=== PATIENT | male | born 1960 | race American Indian/Alaskan Native ===

== ENCOUNTER 2017-04-15 04:25 | Emergency (ER) | payer MEDICARE | END 2017-04-15 04:30 | disposition left against medical advice (07) | LOC: ED 04:25 | DX: R06.02 Shortness of breath (principal); Z53.21 Procedure and treatment not carried out due to patient leaving prior to being seen by health care provider ==

== ENCOUNTER 2018-09-03 22:38 | Inpatient (IN) | payer MEDICARE ==
[2018-09-03] MEDS ORDERED: PROVENTIL IH ONE (22:46)
[2018-09-03] MEDS ORDERED: ATROVENT IH ONE (22:46)
[2018-09-03] MEDS ORDERED: MORPHINE IM ONE (22:57)
[2018-09-03] MEDS ORDERED: MORPHINE IV ONE (22:57)
[2018-09-03] MEDS ORDERED: ZOFRAN IV ONE (22:57)
--- NOTE | 2018-09-03 22:57 | Emergency Department Report ---
ED Shortness of Breath HPI - General Chief Complaint: Dyspnea/Respdistress Stated Complaint: GAVI Time Seen by Provider: 09/03/18 22:45 Source: patient Mode of arrival: Stretcher Limitations: No Limitations - History of Present Illness Initial Comments: Mr. Miller is a 58 yo male with hx of COPD oxygen dependent on 2 L who presents with shortness of breath for one day. He turned up his oxygen to 3-4 LPM this evening. He feels as a squeezing sensation around his neck. Oxygen saturation was normal according to EMS. He received magnesium Solu-Medrol and 7.5 mg of albuterol prior to arrival. He was last admitted 1-2 months ago and in the hospital. 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 He has been intubated before on previous occasion. He denies discrete pain. He has productive cough which is mild according to his report. MD Complaint: shortness of breath -: Gradual, days(s) (1) Severity: moderate Consistency: constant Improves With: bronchodilators, upright position Known History Of: COPD Associated Symptoms: denies other symptoms - Related Data Home Medications Medication Instructions Recorded Confirmed Last Taken Albuterol Sulfate [Ventolin HFA] 2 puff IH Q4H PRN 03/03/17 03/28/17 Unknown Aspirin [Adult Low Dose Aspirin EC] 81 mg PO DAILY 03/03/17 03/28/17 03/03/17 Baclofen [Lioresal] 10 mg PO TID 03/03/17 03/28/17 03/03/17 Gabapentin [Neurontin] 300 mg PO Q8HR 03/03/17 03/28/17 03/03/17 Hydralazine HCl [Apresoline TAB] 50 mg PO Q8HR 03/03/17 03/28/17 03/03/17 Lisinopril/Hydrochlorothiazide 2 tab PO QDAY 03/03/17 03/28/17 03/03/17 [Zestoretic 20-12.5 mg] Montelukast [Singulair] 10 mg PO QPM 03/03/17 03/28/17 03/02/17 Terbinafine (Nf) [LamiSIL] 250 mg PO QDAY 03/03/17 03/28/17 03/03/17 amLODIPine [Norvasc] 5 mg PO DAILY 03/03/17 03/28/17 03/03/17 hydroCHLOROthiazide [HCTZ] 25 mg PO QDAY 03/03/17 03/28/17 03/03/17 Previous Rx's Medication Instructions Recorded Last Taken Type Tiotropium [Spiriva] 18 mcg IH QDAY #30 box 09/22/16 Unknown Rx Acetaminophen [Acetaminophen TAB] 325 mg PO Q4H PRN #30 tab 03/06/17 Unknown Rx Azithromycin [Zithromax TAB] 250 mg PO QDAY #2 day 03/06/17 Unknown Rx Ipratropium/Albuterol Sulfate 1 ampul IH TIDRT PRN #30 day 03/06/17 Unknown Rx [DUONEB *Not for PRN Use*] Pantoprazole [Protonix TAB] 40 mg PO QDAY #30 tablet 03/06/17 Unknown Rx methylPREDNISolone [Medrol Dose 1 dose PO DAILY #1 pack 03/06/17 Unknown Rx Jaylan] Prednisone [predniSONE 10 mg 10 mg PO .TAPER #1 tab.ds.pk 03/31/17 Unknown Rx (6-Day Pack, 21 Tabs)] levoFLOXacin [Levaquin TAB] 750 mg PO DAILY #5 tablet 03/31/17 Unknown Rx Albuterol Sulfate [Proair 90 mcg IH Q4HR PRN #2 aer.pow.ba 04/02/18 Unknown Rx Respiclick] EPINEPHrine [Epipen 2-Jaylan] 0.3 mg IM DAILY PRN #2 ml 04/02/18 Unknown Rx Ipratropium [place] [Atrovent Hfa] 12.9 gm IH Q4HR #2 hfa.aer.ad 04/02/18 Unknown Rx diphenhydrAMINE [Benadryl] 50 mg PO Q8HR PRN #20 capsule 04/02/18 Unknown Rx predniSONE [Deltasone] 40 mg PO QDAY #8 tab 04/02/18 Unknown Rx Allergies Allergy/AdvReac Type Severity Reaction Status Date / Time No Known Allergies Allergy Unverified 03/11/13 21:45 ED Review of Systems ROS: Stated complaint: GAVI Other details as noted in HPI Comment: Unobtainable due to pts medical conditions Constitutional: malaise. denies: fever Respiratory: cough, shortness of breath, wheezing ED Past Medical Hx - Past Medical History Previous Medical History?: Yes Hx Hypertension: Yes Hx Heart Attack/AMI: No Hx Congestive Heart Failure: No Hx Diabetes: No Hx Deep Vein Thrombosis: No Hx Pulmonary Embolism: No Hx Sickle Cell Disease: No Hx Arthritis: No Hx Seizures: Yes Hx Kidney Stones: Yes Hx Asthma: Yes Hx COPD: Yes Hx Tuberculosis: No Hx HIV: No - Surgical History Past Surgical History?: Yes Hx Coronary Stent: No Hx Open Heart Surgery: No Hx Pacemaker: No Hx Internal Defibrillator: No Hx Cholecystectomy: No Hx Appendectomy: No Hx Breast Surgery: No Additional Surgical History: rt eye surgery,head surgery - Social History Smoking Status: Former Smoker - Medications Home Medications: Home Medications Medication Instructions Recorded Confirmed Last Taken Type Tiotropium [Spiriva] 18 mcg IH QDAY #30 box 09/22/16 03/28/17 Unknown Rx Albuterol Sulfate [Ventolin HFA] 2 puff IH Q4H PRN 03/03/17 03/28/17 Unknown History Aspirin [Adult Low Dose Aspirin EC] 81 mg PO DAILY 03/03/17 03/28/17 03/03/17 History Baclofen [Lioresal] 10 mg PO TID 03/03/17 03/28/17 03/03/17 History Gabapentin [Neurontin] 300 mg PO Q8HR 03/03/17 03/28/17 03/03/17 History Hydralazine HCl [Apresoline TAB] 50 mg PO Q8HR 03/03/17 03/28/17 03/03/17 History Lisinopril/Hydrochlorothiazide 2 tab PO QDAY 03/03/17 03/28/17 03/03/17 History [Zestoretic 20-12.5 mg] Montelukast [Singulair] 10 mg PO QPM 03/03/17 03/28/17 03/02/17 History Terbinafine (Nf) [LamiSIL] 250 mg PO QDAY 03/03/17 03/28/17 03/03/17 History amLODIPine [Norvasc] 5 mg PO DAILY 03/03/17 03/28/17 03/03/17 History hydroCHLOROthiazide [HCTZ] 25 mg PO QDAY 03/03/17 03/28/17 03/03/17 History Acetaminophen [Acetaminophen TAB] 325 mg PO Q4H PRN #30 tab 03/06/17 03/28/17 Unknown Rx Azithromycin [Zithromax TAB] 250 mg PO QDAY #2 day 03/06/17 03/28/17 Unknown Rx Ipratropium/Albuterol Sulfate 1 ampul IH TIDRT PRN #30 day 03/06/17 03/28/17 Unknown Rx [DUONEB *Not for PRN Use*] Pantoprazole [Protonix TAB] 40 mg PO QDAY #30 tablet 03/06/17 03/28/17 Unknown Rx methylPREDNISolone [Medrol Dose 1 dose PO DAILY #1 pack 03/06/17 03/28/17 Unknown Rx Jaylan] Prednisone [predniSONE 10 mg 10 mg PO .TAPER #1 tab.ds.pk 03/31/17 Unknown Rx (6-Day Pack, 21 Tabs)] levoFLOXacin [Levaquin TAB] 750 mg PO DAILY #5 tablet 03/31/17 Unknown Rx Albuterol Sulfate [Proair 90 mcg IH Q4HR PRN #2 aer.pow.ba 04/02/18 Unknown Rx Respiclick] EPINEPHrine [Epipen 2-Jaylan] 0.3 mg IM DAILY PRN #2 ml 04/02/18 Unknown Rx Ipratropium [place] [Atrovent Hfa] 12.9 gm IH Q4HR #2 hfa.aer.ad 04/02/18 Unknown Rx diphenhydrAMINE [Benadryl] 50 mg PO Q8HR PRN #20 capsule 04/02/18 Unknown Rx predniSONE [Deltasone] 40 mg PO QDAY #8 tab 04/02/18 Unknown Rx ED Physical Exam - General Limitations: No Limitations General appearance: alert, in no apparent distress, other (speaking full sentences with mild effort) - Head Head exam: Present: atraumatic, normocephalic - Eye Eye exam: Present: other (right eye enucleation, lids closed) - ENT ENT exam: Present: mucous membranes moist - Neck Neck exam: Present: normal inspection, full ROM - Respiratory Respiratory exam: Present: decreased breath sounds, prolonged expiratory. Absent: rales, rhonchi, accessory muscle use - Cardiovascular Cardiovascular Exam: Present: regular rate, normal rhythm, normal heart sounds. Absent: systolic murmur, diastolic murmur, rubs, gallop - GI/Abdominal GI/Abdominal exam: Present: soft, normal bowel sounds. Absent: distended, tenderness, guarding, rebound - Rectal Rectal exam: Present: deferred - Extremities Exam Extremities exam: Present: normal inspection - Back Exam Back exam: Present: normal inspection - Neurological Exam Neurological exam: Present: alert, oriented X3 - Psychiatric Psychiatric exam: Present: normal affect, normal mood - Skin Skin exam: Present: warm, dry, intact, normal color. Absent: rash ED Course Vital Signs 09/03/18 09/03/18 09/03/18 22:42 22:46 22:51 Temperature 97.6 F Pulse Rate 90 94 H 94 H Pulse Rate [ Anterior Bilateral] Respiratory 25 H 27 H 24 Rate Respiratory Rate [Anterior Bilateral] Blood Pressure Blood Pressure 131/62 [Left] O2 Sat by Pulse 93 92 94 Oximetry 09/03/18 09/03/18 09/03/18 23:00 23:12 23:16 Temperature Pulse Rate 83 81 Pulse Rate [ 83 Anterior Bilateral] Respiratory 18 17 Rate Respiratory 14 Rate [Anterior Bilateral] Blood Pressure 131/62 144/63 Blood Pressure [Left] O2 Sat by Pulse 92 93 Oximetry 09/03/18 23:30 Temperature Pulse Rate 74 Pulse Rate [ Anterior Bilateral] Respiratory 14 Rate Respiratory Rate [Anterior Bilateral] Blood Pressure 132/58 Blood Pressure [Left] O2 Sat by Pulse 93 Oximetry ED Medical Decision Making - Lab Data Result diagrams: 09/03/18 22:58 09/03/18 22:58 Laboratory Results - last 24 hr 09/03/18 09/03/18 09/03/18 22:58 22:58 23:14 WBC 7.4 RBC 4.36 Hgb 13.6 Hct 39.2 MCV 90 MCH 31 MCHC 35 H RDW 14.7 Plt Count 298 Lymph % (Auto) 33.3 [place] % (Auto) 12.3 H Eos % (Auto) 0.3 Baso % (Auto) 0.4 Lymph # 2.5 [place] # 0.9 H Eos # 0.0 Baso # 0.0 Seg Neutrophils % 53.7 Seg Neutrophils # 4.0 POC ABG pH 7.346 L POC ABG pCO2 52.5 H POC ABG HCO3 28.7 POC ABG Total CO2 30 POC ABG O2 Sat 81 POC ABG Base Excess 3 FiO2 28 Sodium 140 Potassium 4.0 Chloride 101.3 Carbon Dioxide 28 Anion Gap 15 BUN 12 Creatinine 0.8 Estimated GFR > 60 BUN/Creatinine Ratio 15 Glucose 129 H Calcium 9.1 - EKG Data 09/03/18 23:52 EKG obtained at 2045 Normal sinus rhythm rate 80 beats a minute left axis deviation normal intervals no signs of ischemia, no significant ST elevation +Q waves in anterior leads - Radiology Data Radiology results: report reviewed AP portable chest radiograph single view according to radiology report no acute process - Medical Decision Making Mr. Miller presents with acute COPD exacerbation. Arterial blood gas reveals acute on chronic respiratory failure Hypercapnea. Mr. Miller did improve her treatment in the emergency department which included nebulizer therapy and oral antibiotic. However he will require admission for further treatment. I spoke with [facility] physician Dr. Conte who approved admission here at our hospital. Admitted in stable condition. Critical Care Time: Yes Critical care time in (mins) excluding proc time.: 40 Critical care attestation.: If time is entered above; I have spent that time in minutes in the direct care of this critically ill patient, excluding procedure time. 40 minutes of critical care time excluding procedures were used in the care of the patient. Patient required multiple assessments and interventions. I came to the bedside immediately upon arrival. I was concerned for impending respira tory faillure. I spoke with EMS. I reviewed the electronic medical record. I spoke with consultants involved in the care of the patient. ED Disposition Clinical Impression: COPD exacerbation, Acute and chronic respiratory failure Disposition: OP ADMIT IP TO THIS HOSP Is pt being admited?: Yes Does the pt Need Aspirin: No Condition: Stable Instructions: Chronic Bronchitis (ED) Referrals: PRIMARY CARE, [Primary Care Provider] - 3-5 Days
[2018-09-03] MEDS ORDERED: NORMODYNE IV ONE (23:00)
--- NOTE | 2018-09-03 23:07 | XRay Report ---
PROCEDURE: XR CHEST 1V AP TECHNIQUE: Chest radiograph single view. HISTORY: Dyspnea COMPARISONS: None . FINDINGS: Heart: Normal. Mediastinum/Vessels: Normal. Lungs/Pleural space: Normal. Bony thorax: No acute osseous abnormality. Life support devices: None. IMPRESSION: No acute cardiopulmonary abnormality. This document is electronically signed by Lis Baron DO., September 03 2018 11:05:22 PM ET
[2018-09-03 23:17] LABS: Basophils % (Auto) 0.4 % (0.0-1.8); Eosinophils % (Auto) 0.3 % (0.0-4.3); Hematocrit 39.2 % (35.5-45.6); Hemoglobin 13.6 gm/dl (11.8-15.2); Lymphocytes # (Auto) 2.5 K/mm3 (1.2-5.4); Lymphocytes % (Auto) 33.3 % (13.4-35.0); Mean Corpuscular HGB Conc 35 % (32-34); Mean Corpuscular Volume 90 fl (84-94); Monocytes # (Auto) 0.9 K/mm3 (0.0-0.8); Monocytes % (Auto) 12.3 % (0.0-7.3); Platelet Count 298 K/mm3 (140-440); Red Blood Count 4.36 M/mm3 (3.65-5.03); Red Cell Distribution Width 14.7 % (13.2-15.2)
[2018-09-03 23:47] LABS: BUN/Creatinine Ratio 15; Blood Urea Nitrogen 12 mg/dL (9-20); Calcium 9.1 mg/dL (8.4-10.2); Hemolysis Index 8
[2018-09-03] MEDS ORDERED: LEVAQUIN PO ONE (23:55)
[2018-09-04] MEDS ORDERED: NORCO 5/325 PO PRN (00:53)
[2018-09-04] MEDS ORDERED: ZOFRAN IV PRN (00:53)
[2018-09-04] MEDS ORDERED: TYLENOL PO PRN (00:53)
[2018-09-04] MEDS ORDERED: MILK OF MAGNESIA PO PRN (00:53)
[2018-09-04] MEDS ORDERED: APRESOLINE IV PRN (01:04)
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
[2018-09-04] MEDS: MORPHINE IV PRN ×2 (03:42→19:03)
[2018-09-04] MEDS ORDERED: DUONEB *Not for PRN Use IH SCH (04:00)
[2018-09-04] MEDS: SOLU-Medrol IV SCH ×3 (06:15→23:42)
[2018-09-04] MEDS: SODIUM CHLORIDE FLUSH SYRINGE 10 ML IV PRN (06:17)
[2018-09-04] MEDS: DUONEB *Not for PRN Use IH SCH ×3 (07:38→20:40)
[2018-09-04] MEDS ORDERED: ZITHROMAX 500 MG in NACL 0.9% 250ML 250 ML IV SCH (10:00)
--- NOTE | 2018-09-04 12:21 | Progress Note ---
Assessment and Plan Assessment and plan: Patient is a 58-year-old -[place] man with a history of chronic hypoxic respiratory failure due to COPD/Asthma syndrom on 2 L home O2, ASHELY on cpap 14 at home and Severe persistent Asthma on Cinqair (Reslizumab) at [facility] who presented to [facility] ED with severe SOB x 1 day. This SOB was different from prior COPD/asthma attack in the fact that he felt his throat closing up/choking sensation with SOB. He just had his infusion of Cinquir on Wednesday09/02/2018 which he was told maybe a side effect. He had to increase his home oxygen to 3 or 4 L in order to breathe better. Acute COPD/Asthma exacerbation -On IV steroids, antibiotic and neb breathing treatments -on Azithromycin Acute on chronic respiratory failure with hypoxia -Continue oxygen supplementation as needed with duonebs -possible caused by CINQAIR side effect -currently on 3liters, try to wean to baseline of 2 liters Hyperglycemia -We'll check hemoglobin A1c level==>5.6 Hypertension -uncontrolled -Antihypertensives resumed Obesity with BMI of 39.7 -Lifestyle modification recommended DVT prophylaxis with Lovenox ASHELY -cpap/respiratory consult Disposition: For discharge when medically stable prolonged inpatient services 32 minutes I spoke with Dr. Levine from [facility] who gave me the name of Cinqair (pt did not know the name but he reported getting the injection on Wednesday), Dr. Levine will make a note that this attack maybe related to the Cinqair, especially if he turns around quickly History Interval history: Patient was seen and examined. Follow-up on current diagnosis of COPD. Overnight uneventful. Patient denies any chest pain, shortness breath, nausea/vomiting or severe headaches. Imaging, nursing note, chart, labs and old chart reviewed. Discussed with patient. Hospitalist Physical - Physical exam Narrative exam: Gen: WDWN, NAD, Awake, Alert, Orientated, bmi 39.8 HEENT: NCAT, EOMI, PERRL, OP Clear Neck: supple, no adenopathy, no thyromegaly, no JVD CVS/Heart: RRR, normal S1S2, pulses present bilaterally Chest/Lungs: mildly diminished bs bilaterally, Symmetrical chest expansion, good air entry bilaterally GI/Abdomen: soft, NTND, good bowel sounds, no guarding or rebound /Bladder: no suprapubic tenderness, no CVA or paraspinal tenderness Extermity/Skin: no c/c/e, no obvious rash MSK: FROM x 4 Neuro: CN 2-12 grossly intact, no new focal deficits Psych: calm - Constitutional Vitals: Temp Pulse Resp BP Pulse Ox 98.0 F 88 18 124/70 93 09/04/18 04:57 09/04/18 08:10 09/04/18 08:10 09/04/18 04:57 09/04/18 10:22 General appearance: Present: no acute distress, obese Results - Labs CBC & Chem 7: 09/03/18 22:58 09/03/18 22:58 Labs: Laboratory Last Values WBC 7.4 K/mm3 (4.5-11.0) 09/03/18 22:58 RBC 4.36 M/mm3 (3.65-5.03) 09/03/18 22:58 Hgb 13.6 gm/dl (11.8-15.2) 09/03/18 22:58 Hct 39.2 % (35.5-45.6) 09/03/18 22:58 MCV 90 fl (84-94) 09/03/18 22:58 MCH 31 pg (28-32) 09/03/18 22:58 MCHC 35 % (32-34) H 09/03/18 22:58 RDW 14.7 % (13.2-15.2) 09/03/18 22:58 Plt Count 298 K/mm3 (140-440) 09/03/18 22:58 Lymph % (Auto) 33.3 % (13.4-35.0) 09/03/18 22:58 [place] % (Auto) 12.3 % (0.0-7.3) H 09/03/18 22:58 Eos % (Auto) 0.3 % (0.0-4.3) 09/03/18 22:58 Baso % (Auto) 0.4 % (0.0-1.8) 09/03/18 22:58 Lymph # 2.5 K/mm3 (1.2-5.4) 09/03/18 22:58 [place] # 0.9 K/mm3 (0.0-0.8) H 09/03/18 22:58 Eos # 0.0 K/mm3 (0.0-0.4) 09/03/18 22:58 Baso # 0.0 K/mm3 (0.0-0.1) 09/03/18 22:58 Seg Neutrophils % 53.7 % (40.0-70.0) 09/03/18 22:58 Seg Neutrophils # 4.0 K/mm3 (1.8-7.7) 09/03/18 22:58 POC ABG pH 7.346 (7.35-7.45) L 09/03/18 23:14 POC ABG pCO2 52.5 (35-45) H 09/03/18 23:14 POC ABG HCO3 28.7 (22-26 mml/L) 09/03/18 23:14 POC ABG Total CO2 30 (23-27mmol/L) 09/03/18 23:14 POC ABG O2 Sat 81 09/03/18 23:14 POC ABG Base Excess 3 ((-2) - (+3)mmol/L) 09/03/18 23:14 FiO2 28 % 09/03/18 23:14 Sodium 140 mmol/L (137-145) 09/03/18 22:58 Potassium 4.0 mmol/L (3.6-5.0) 09/03/18 22:58 Chloride 101.3 mmol/L (98-107) 09/03/18 22:58 Carbon Dioxide 28 mmol/L (22-30) 09/03/18 22:58 Anion Gap 15 mmol/L 09/03/18 22:58 BUN 12 mg/dL (9-20) 09/03/18 22:58 Creatinine 0.8 mg/dL (0.8-1.5) 09/03/18 22:58 Estimated GFR > 60 ml/min 09/03/18 22:58 BUN/Creatinine Ratio 15 % 09/03/18 22:58 Glucose 129 mg/dL (75-100) H 09/03/18 22:58 Hemoglobin A1c 5.6 % (4-6) 09/04/18 06:52 Calcium 9.1 mg/dL (8.4-10.2) 09/03/18 22:58 Active Medications - Current Medications Current Medications: Generic Name Dose Route Start Last Admin Trade Name Martinq PRN Reason Stop Dose Admin Acetaminophen 650 mg 09/04/18 00:53 Tylenol PO Q4H PRN Pain MILD(1-3)/Fever >100.5/ACOSTA Acetaminophen/Hydrocodone Bitart 1 each 09/04/18 00:53 [place] 5/325 PO Q4H PRN Pain, Moderate (4-6) Albuterol/Ipratropium 1 ampul 09/04/18 08:00 09/04/18 07:38 Duoneb *Not For Prn Use* IH 1 ampul Q6HRT ROLAN Administration Amlodipine Besylate 10 mg 09/04/18 10:00 Norvasc PO QDAY ROLAN Azithromycin 500 mg 09/05/18 10:00 Zithromax PO 09/08/18 10:01 QDAY ROLAN Hydralazine HCl 10 mg 09/04/18 01:04 Apresoline IV Q4HR PRN Blood Pressure Hydrochlorothiazide 25 mg 09/04/18 10:00 Hctz PO QDAY [facility] Azithromycin 500 mg/ Sodium 250 mls @ 250 mls/hr 09/04/18 10:00 Chloride IV 09/04/18 16:00 Q24HR ROLAN Magnesium Hydroxide 30 ml 09/04/18 00:53 Milk Of Magnesia PO Q4H PRN Constipation Methylprednisolone Sodium Succinate 80 mg 09/04/18 06:00 09/04/18 06:15 Solu-Medrol IV 80 mg Q8HR ROLAN Administration Morphine Sulfate 2 mg 09/04/18 00:53 09/04/18 03:42 Morphine IV 2 mg Q4H PRN Administration Pain, Moderate (4-6) Ondansetron HCl 4 mg 09/04/18 00:53 Zofran IV Q8H PRN Nausea And Vomiting Sodium Chloride 10 ml 09/04/18 10:00 Sodium Chloride Flush Syringe 10 Ml IV BID ROLAN Sodium Chloride 10 ml 09/04/18 00:53 09/04/18 06:17 Sodium Chloride Flush Syringe 10 Ml IV 10 ml PRN PRN Administration LINE FLUSH
[2018-09-04] MEDS: NORVASC PO SCH (12:45)
[2018-09-04] MEDS: HCTZ PO SCH (12:45)
[2018-09-04] MEDS: SODIUM CHLORIDE FLUSH SYRINGE 10 ML IV SCH ×2 (12:48→23:43)
[2018-09-05] MEDS: DUONEB *Not for PRN Use IH SCH ×4 (00:38→14:20)
[2018-09-05] MEDS: MORPHINE IV PRN ×3 (00:46→14:46)
[2018-09-05] MEDS: SODIUM CHLORIDE FLUSH SYRINGE 10 ML IV PRN ×2 (00:48→06:49)
[2018-09-05] MEDS: SOLU-Medrol IV SCH ×2 (06:46→14:43)
[2018-09-05 08:27] LABS: Hematocrit 39.6 % (35.5-45.6); Hemoglobin 13.1 gm/dl (11.8-15.2); Mean Corpuscular HGB Conc 33 % (32-34); Mean Corpuscular Volume 89 fl (84-94); Platelet Count 258 K/mm3 (140-440); Red Blood Count 4.43 M/mm3 (3.65-5.03); Red Cell Distribution Width 14.3 % (13.2-15.2)
[2018-09-05 08:52] LABS: BUN/Creatinine Ratio 21; Blood Urea Nitrogen 17 mg/dL (9-20); Calcium 9.5 mg/dL (8.4-10.2); Hemolysis Index 3
[2018-09-05] MEDS ORDERED: ZITHROMAX PO SCH (10:00)
[2018-09-05] MEDS: NORVASC PO SCH (11:54)
[2018-09-05] MEDS: HCTZ PO SCH (11:54)
[2018-09-05] MEDS: SODIUM CHLORIDE FLUSH SYRINGE 10 ML IV SCH (11:54)
--- NOTE | 2018-09-05 14:21 | Discharge Summary ---
Providers - Providers Date of Admission: 09/04/18 00:53 Date of discharge: 09/05/18 Attending physician: CORETTA HUGGINS Primary care physician: CERAMIC DESIGNER Hospitalization Condition: Stable Hospital course: Patient is a 58-year-old -Stateless man with a history of chronic hypoxic respiratory failure due to COPD/Asthma syndrom on 2 L home O2, ASHELY on cpap 14 at home and Severe persistent Asthma on Cinqair (Reslizumab) at [facility] who presented to [facility] ED with severe SOB x 1 day. This SOB was different from prior COPD/asthma attack in the fact that he felt his throat closing up/choking sensation with SOB. He just had his infusion of Cinquir on Wednesday09/02/2018 which he was told maybe a side effect. He had to increase his home oxygen to 3 or 4 L in order to breathe better. Acute COPD/Asthma exacerbation most likely due to the Cinqair infusion side effect Acute on chronic respiratory failure with hypoxia Hyperglycemia A1c level==>5.6; therefore, steroid induced hyperglycemia Hypertension Obesity with BMI of 39.7 ASHELY -cpap/respiratory consult DVT prophylaxis with Lovenox Disposition: For discharge when medically stable 09/04/18: I spoke with Dr. Levine from [facility] who gave me the name of Cinqair (pt did not know the name but he reported getting the injection on Wednesday), Dr. Levine will make a note that this attack maybe related to the Cinqair, especially if he turns around quickly Disposition: DC-01 TO HOME OR SELFCARE Time spent for discharge: 36 minutes Core Measure Documentation - Palliative Care Palliative Care/ Comfort Measures: Not Applicable - Core Measures Any of the following diagnoses?: none - VTE Discharge Requirements Deep Vein Thrombosis/Pulmonary Embolism Present on Admission: No Has pt received <5 days of overlap therapy or INR<2.0: No Anticoagulant overlap therapy prescribed at discharge: No Contraindication No Overlap Therapy order at DC: Not Indicated Exam - Physical Exam Narrative exam: Gen: WDWN, NAD, Awake, Alert, Orientated, bmi 39.8 HEENT: NCAT, EOMI, PERRL, OP Clear Neck: supple, no adenopathy, no thyromegaly, no JVD CVS/Heart: RRR, normal S1S2, pulses present bilaterally Chest/Lungs: mildly diminished bs bilaterally resolvd, Symmetrical chest expansion, good air entry bilaterally GI/Abdomen: soft, NTND, good bowel sounds, no guarding or rebound /Bladder: no suprapubic tenderness, no CVA or paraspinal tenderness Extermity/Skin: no c/c/e, no obvious rash MSK: FROM x 4 Neuro: CN 2-12 grossly intact, no new focal deficits Psych: calm - Constitutional Vitals: Temp Pulse Resp BP Pulse Ox 98.1 F 94 H 22 161/70 95 09/05/18 10:59 09/05/18 11:54 09/05/18 10:59 09/05/18 11:54 09/05/18 10:59 Plan Activity: other (no strenous activity unless cleared by pcp) Diet: low salt Follow up with: PRIMARY CARE, [Primary Care Provider] - 3-5 Days Prescriptions: methylPREDNISolone [Medrol Dose Jaylan] 1 dose PO DAILY #1 pack Azithromycin [Zithromax TAB] 250 mg PO QDAY #2 day
[2018-09-05 17:27] VITALS: BP 143/78
== END 2018-09-05 16:40 | disposition home or self-care (01) | DRG 189 ==
LOC: ED 22:38 → 3A 09-04 00:53
PROVIDERS: ADMIT Internal Medicine; ATTEND Internal Medicine
PROC: 4A033R1 Measurement of Arterial Saturation, Peripheral, Percutaneous Approach (ICD-10-PCS; 2018-09-03)
PROC: 5A09357 Assistance with Respiratory Ventilation, Less than 24 Consecutive Hours, Continuous Positive Airway Pressure (ICD-10-PCS; principal; 2018-09-05)
DX: J96.21 Acute and chronic respiratory failure with hypoxia (principal); J44.1 Chronic obstructive pulmonary disease with (acute) exacerbation; J45.51 Severe persistent asthma with (acute) exacerbation; I10 Essential (primary) hypertension; H54.61 Unqualified visual loss, right eye, normal vision left eye; G47.33 Obstructive sleep apnea (adult) (pediatric); T50.995A Adverse effect of other drugs, medicaments and biological substances, initial encounter; E66.9 Obesity, unspecified; R73.9 Hyperglycemia, unspecified; Z68.39 Body mass index [BMI] 39.0-39.9, adult; Z99.81 Dependence on supplemental oxygen; Z79.51 Long term (current) use of inhaled steroids; Z79.899 Other long term (current) drug therapy; Z79.82 Long term (current) use of aspirin; Z87.442 Personal history of urinary calculi; Z87.891 Personal history of nicotine dependence; Y92.098 Other place in other non-institutional residence as the place of occurrence of the external cause
CPT/HCPCS: 36415; 71045; 80048; 82803; 83036; 85025; 85027; 93005; 93010; 94640; 94660; 94760; G0378; J0456; J2270; J2405; J2930; J7050

== ENCOUNTER 2019-04-27 04:34 | Emergency (ER) | payer MEDICARE ==
[2019-04-27] MEDS ORDERED: IPRATROPIUM 0.02% NEBU 2.5 ML IH ONE ×2 (04:43→04:48)
[2019-04-27] MEDS ORDERED: ALBUTEROL 2.5 MG/3 ML NEBU IH ONE ×2 (04:43→04:46)
--- NOTE | 2019-04-27 05:33 | XRay Report ---
CHEST 1 VIEW INDICATION: sob. COMPARISON: 09/03/2018. FINDINGS: Support devices: None. Heart: Within normal limits. Lungs/Pleura: No acute air space or interstitial disease. Additional findings: None. IMPRESSION: No acute abnormality. Signer Name: Pollo Villanueva MD Signed: 04/27/2019 5:28 AM Workstation Name: [id number]
[2019-04-27 05:37] LABS: Basophils # (Auto) 0.1 K/mm3 (0.0-0.1); Basophils % (Auto) 1.1 % (0.0-1.8); Eosinophils % (Auto) 0.7 % (0.0-4.3); Hematocrit 40.9 % (35.5-45.6); Hemoglobin 13.5 gm/dl (11.8-15.2); Lymphocytes # (Auto) 1.8 K/mm3 (1.2-5.4); Lymphocytes % (Auto) 33.6 % (13.4-35.0); Mean Corpuscular HGB Conc 33 % (32-34); Mean Corpuscular Volume 91 fl (84-94); Monocytes # (Auto) 0.8 K/mm3 (0.0-0.8); Platelet Count 220 K/mm3 (140-440); Red Blood Count 4.48 M/mm3 (3.65-5.03); Red Cell Distribution Width 13.4 % (13.2-15.2)
[2019-04-27 05:54] LABS: Creatine Kinase MB 2.1 ng/mL (0.0-4.0)
[2019-04-27 05:55] LABS: BUN/Creatinine Ratio 16; Blood Urea Nitrogen 14 mg/dL (9-20); Calcium 9.1 mg/dL (8.4-10.2); Hemolysis Index 6
[2019-04-27] MEDS ORDERED: cloNIDine 0.2 MG TAB PO ONE (05:59)
[2019-04-27] MEDS ORDERED: cloNIDine 0.2 MG TAB ONE (05:59)
--- NOTE | 2019-04-27 07:09 | Emergency Department Report ---
ED Shortness of Breath HPI - General Chief Complaint: Dyspnea/Respdistress Stated Complaint: GAVI Time Seen by Provider: 04/27/19 07:00 Source: EMS Mode of arrival: Stretcher Limitations: No Limitations - History of Present Illness Initial Comments: Mr. Miller is a 58-year-old gentleman with history of hypertension, asthma, COPD on 2 L home oxygen, obstructive sleep apnea on CPAP who presents via EMS with shortness of breath. Symptoms began earlier this morning around midnight. He received IV Solu-Medrol and IV magnesium per EMS and round. Denies fever. Denies new cough. Denies chest pain. MD Complaint: shortness of breath -: Gradual, hour(s) (7) Severity: moderate, severe Consistency: constant Improves With: oxygen, bronchodilators Worsens With: exertion Known History Of: COPD, asthma Context: other (severe persistent asthma and COPD requiring oxygen) Associated Symptoms: denies other symptoms - Related Data Home Medications Medication Instructions Recorded Confirmed Last Taken Albuterol Sulfate [Ventolin HFA] 2 puff IH Q4H PRN 03/03/17 03/28/17 Unknown Aspirin [Adult Low Dose Aspirin EC] 81 mg PO DAILY 03/03/17 03/28/17 03/03/17 Baclofen [Lioresal] 10 mg PO TID 03/03/17 03/28/17 03/03/17 Gabapentin 300 mg PO Q8HR 03/03/17 03/28/17 03/03/17 Hydralazine HCl [Apresoline TAB] 50 mg PO Q8HR 03/03/17 03/28/17 03/03/17 Lisinopril/Hydrochlorothiazide 2 tab PO QDAY 03/03/17 03/28/17 03/03/17 [Zestoretic 20-12.5 mg] Montelukast [Singulair] 10 mg PO QPM 03/03/17 03/28/17 03/02/17 amLODIPine 5 mg PO DAILY 03/03/17 03/28/17 03/03/17 Previous Rx's Medication Instructions Recorded Last Taken Type Tiotropium [Spiriva] 18 mcg IH QDAY #30 box 09/22/16 Unknown Rx Acetaminophen [Acetaminophen TAB] 325 mg PO Q4H PRN #30 tab 03/06/17 Unknown Rx Ipratropium/Albuterol Sulfate 1 ampul IH TIDRT PRN #30 day 03/06/17 Unknown Rx [DUONEB *Not for PRN Use*] Pantoprazole [Protonix TAB] 40 mg PO QDAY #30 tablet 03/06/17 Unknown Rx EPINEPHrine [Epipen 2-Jaylan] 0.3 mg IM DAILY PRN #2 ml 04/02/18 Unknown Rx diphenhydrAMINE [Benadryl CAP] 50 mg PO Q8HR PRN #20 capsule 04/02/18 Unknown Rx Azithromycin [Zithromax TAB] 250 mg PO QDAY #2 day 09/05/18 Unknown Rx methylPREDNISolone [Medrol Dose 1 dose PO DAILY #1 pack 09/05/18 Unknown Rx Jaylan] Allergies Allergy/AdvReac Type Severity Reaction Status Date / Time No Known Allergies Allergy Unverified 03/11/13 21:45 ED Review of Systems ROS: Stated complaint: GAVI Other details as noted in HPI Comment: All other systems reviewed and negative Constitutional: denies: fever, malaise Respiratory: shortness of breath, SOB with exertion, SOB at rest, wheezing Cardiovascular: denies: chest pain Gastrointestinal: denies: abdominal pain, nausea, vomiting ED Past Medical Hx - Past Medical History Previous Medical History?: Yes Hx Hypertension: Yes Hx Heart Attack/AMI: Yes (2 mo ago) Hx Congestive Heart Failure: No Hx Diabetes: No Hx Deep Vein Thrombosis: No Hx Pulmonary Embolism: No Hx Sickle Cell Disease: Yes (trait) Hx Arthritis: Yes Hx Seizures: Yes Hx Kidney Stones: Yes Hx Asthma: Yes Hx COPD: Yes Hx Tuberculosis: No Hx HIV: No - Surgical History Past Surgical History?: Yes Hx Coronary Stent: No Hx Open Heart Surgery: No Hx Pacemaker: No Hx Internal Defibrillator: No Hx Cholecystectomy: No Hx Appendectomy: No Hx Breast Surgery: No Additional Surgical History: rt eye surgery,head surgery - Family History Family history: hypertension - Social History Smoking Status: Never Smoker - Medications Home Medications: Home Medications Medication Instructions Recorded Confirmed Last Taken Type Tiotropium [Spiriva] 18 mcg IH QDAY #30 box 09/22/16 03/28/17 Unknown Rx Albuterol Sulfate [Ventolin HFA] 2 puff IH Q4H PRN 03/03/17 03/28/17 Unknown History Aspirin [Adult Low Dose Aspirin EC] 81 mg PO DAILY 03/03/17 03/28/1717 History Baclofen [Lioresal] 10 mg PO TID 03/03/17 03/28/17 03/03/17 History Gabapentin 300 mg PO Q8HR 03/03/17 03/28/17 03/03/17 History Hydralazine HCl [Apresoline TAB] 50 mg PO Q8HR 03/03/17 03/28/17 03/03/17 History Lisinopril/Hydrochlorothiazide 2 tab PO QDAY 03/03/17 03/28/17 03/03/17 History [Zestoretic 20-12.5 mg] Montelukast [Singulair] 10 mg PO QPM 03/03/17 03/28/17 03/02/17 History amLODIPine 5 mg PO DAILY 03/03/17 03/28/17 03/03/17 History Acetaminophen [Acetaminophen TAB] 325 mg PO Q4H PRN #30 tab 03/06/17 03/28/17 Unknown Rx Ipratropium/Albuterol Sulfate 1 ampul IH TIDRT PRN #30 day 03/06/17 03/28/17 Unknown Rx [DUONEB *Not for PRN Use*] Pantoprazole [Protonix TAB] 40 mg PO QDAY #30 tablet 03/06/17 03/28/17 Unknown Rx EPINEPHrine [Epipen 2-Jaylan] 0.3 mg IM DAILY PRN #2 ml 04/02/18 Unknown Rx diphenhydrAMINE [Benadryl CAP] 50 mg PO Q8HR PRN #20 capsule 04/02/18 Unknown Rx Azithromycin [Zithromax TAB] 250 mg PO QDAY #2 day 09/05/18 Unknown Rx methylPREDNISolone [Medrol Dose 1 dose PO DAILY #1 pack 09/05/18 Unknown Rx Jaylan] ED Physical Exam - General Limitations: No Limitations General appearance: alert, other (moderate work of breathing speaking in broken sentences ) - Head Head exam: Present: atraumatic, normocephalic - Eye Eye exam: Present: other (right globe deformed from previous trauma, eyelids closed) - ENT ENT exam: Present: mucous membranes moist - Neck Neck exam: Present: normal inspection - Respiratory Respiratory exam: Present: respiratory distress, wheezes, accessory muscle use, decreased breath sounds, prolonged expiratory, other (abdominal retractions). Absent: rales, rhonchi, stridor - Cardiovascular Cardiovascular Exam: Present: regular rate, normal rhythm, normal heart sounds. Absent: systolic murmur, diastolic murmur, rubs, gallop - GI/Abdominal GI/Abdominal exam: Present: soft, normal bowel sounds. Absent: distended, tenderness, guarding, rebound - Rectal Rectal exam: Present: deferred - Extremities Exam Extremities exam: Present: normal inspection - Neurological Exam Neurological exam: Present: alert, oriented X3 - Psychiatric Psychiatric exam: Present: normal affect, normal mood - Skin Skin exam: Present: warm, dry, intact, normal color. Absent: rash ED Course Vital Signs 04/27/19 04/27/19 04/27/19 04:39 04:47 04:48 Temperature 98.1 F Pulse Rate 85 71 Pulse Rate [ Bilateral] Respiratory 16 19 Rate Respiratory Rate [Bilateral ] Blood Pressure 170/147 Blood Pressure [Right] O2 Sat by Pulse 96 96 Oximetry 04/27/19 04/27/19 04/27/19 04:51 04:53 05:09 Temperature Pulse Rate 81 Pulse Rate [ 70 Bilateral] Respiratory 22 Rate Respiratory 17 Rate [Bilateral ] Blood Pressure Blood Pressure 164/85 [Right] O2 Sat by Pulse 99 98 Oximetry 04/27/19 04/27/19 04/27/19 05:54 05:58 06:00 Temperature Pulse Rate 76 89 89 Pulse Rate [ Bilateral] Respiratory 22 Rate Respiratory Rate [Bilateral ] Blood Pressure 182/89 Blood Pressure 175/79 183/89 [Right] O2 Sat by Pulse 99 Oximetry 04/27/19 06:40 Temperature Pulse Rate 73 Pulse Rate [ Bilateral] Respiratory 18 Rate Respiratory Rate [Bilateral ] Blood Pressure Blood Pressure 172/88 [Right] O2 Sat by Pulse 96 Oximetry ED Medical Decision Making - Lab Data Result diagrams: 04/27/19 05:23 04/27/19 05:23 Laboratory Results - last 24 hr 04/27/19 04/27/19 05:23 05:23 WBC 5.5 RBC 4.48 Hgb 13.5 Hct 40.9 MCV 91 MCH 30 MCHC 33 RDW 13.4 Plt Count 220 Lymph % (Auto) 33.6 [place] % (Auto) 14.0 H Eos % (Auto) 0.7 Baso % (Auto) 1.1 Lymph # 1.8 [place] # 0.8 Eos # 0.0 Baso # 0.1 Seg Neutrophils % 50.6 Seg Neutrophils # 2.8 Sodium 143 Potassium 4.1 Chloride 105.4 Carbon Dioxide 29 Anion Gap 13 BUN 14 Creatinine 0.9 Estimated GFR > 60 BUN/Creatinine Ratio 16 Glucose 112 H Calcium 9.1 Total Creatine Kinase 63 CK-MB (CK-2) 2.1 CK-MB (CK-2) Rel Index 3.3 Troponin T < 0.010 NT-Pro-B Natriuret Pep 52.80 - EKG Data 04/27/19 07:07 EKG obtained 0442 Normal sinus rhythm rate 70 beats a minute normal axis normal intervals no ST elevation poor R-wave progression in the anterior leads - Medical Decision Making Mr. Miller presents with acute on chronic respiratory failure with history of severe persistent asthma COPD. Due to severe symptoms he will require hospitalization. No need at this time for ventilatory support. I spoke with [place] physician Dr. Guardado She arranged transfer to [facility]. Critical care attestation.: If time is entered above; I have spent that time in minutes in the direct care of this critically ill patient, excluding procedure time. ED Disposition Clinical Impression: COPD exacerbation, Acute respiratory failure, ASHELY (obstructive sleep apnea), Acute and chronic respiratory failure Disposition: DC/TX-70 ANOTHER TYPE HLTHCARE Is pt being admited?: No Does the pt Need Aspirin: No Condition: Stable Referrals: PRIMARY CARE, [Primary Care Provider] - 3-5 Days
[2019-04-27 10:21] VITALS: BP 126/81
== END 2019-04-27 10:20 | disposition other institution (70) ==
LOC: ED 04:34
DX: J96.20 Acute and chronic respiratory failure, unspecified whether with hypoxia or hypercapnia (principal); J44.1 Chronic obstructive pulmonary disease with (acute) exacerbation; I10 Essential (primary) hypertension; M19.90 Unspecified osteoarthritis, unspecified site; D57.3 Sickle-cell trait; Z98.890 Other specified postprocedural states; Z79.899 Other long term (current) drug therapy
CPT/HCPCS: 36415; 71045; 80048; 82550; 82553; 83880; 84484; 85025; 93005; 93010; 94644; 94760

== ENCOUNTER 2019-08-04 21:16 | Inpatient (IN) | payer MEDICARE ==
[2019-08-04] MEDS ORDERED: IPRATROPIUM/ALBUTEROL SULFATE 3 ML AMPUL.NEB IH ONE (22:33)
--- NOTE | 2019-08-04 22:34 | Emergency Department Report ---
ED Shortness of Breath HPI - General Chief Complaint: Dyspnea/Respdistress Stated Complaint: DIFFICULTY BREATHING Time Seen by Provider: 08/04/19 22:21 Source: patient, EMS Mode of arrival: Ambulatory Limitations: No Limitations - History of Present Illness Initial Comments: Patient is a 58-year-old male who presents emergency room with complaints of di fficulty breathing and shortness of breath. Patient states his symptoms started today. Patient states symptoms are worsening. Patient states he was given magnesium, Solu-Medrol in route and albuterol. Patient states he took multiple nebulizer inhalers today. They state he also took prednisone 5 mg this morning. Patient states he is always on 2 L of oxygen at home. Patient states that he has been intubated twice and trach twice. Patient states his shortness of breath is better with rest and worse with exertion. Patient states shortness of breath also worse with cough. Patient has had a cough for 2 days. Patient has had white sputum production. Patient also complains of chest pain. Patient states chest pain is worse with coughing and movement. Patient states chest pain is also worse with palpation. Patient states his chest pain is better with rest. MD Complaint: shortness of breath, cough, chest pain, pain with inspiration, "asthma attack" -: Sudden Severity: severe Pain Scale: 10 Quality: throbbing Consistency: constant Improves With: rest, bronchodilators, upright position Worsens With: movement, coughing, inspiration Known History Of: COPD, asthma Context: recent URI Associated Symptoms: chest pain, pain with inspiration, cough, sputum production Treatments Prior to Arrival: oxygen, bronchodilator, other - Related Data Home Oxygen Therapy: Yes Home Oxygen Amount: 2 Liters Home Medications Medication Instructions Recorded Confirmed Last Taken Albuterol Sulfate [Ventolin HFA] 2 puff IH Q4H PRN 03/03/17 06/27/19 06/11/19 Aspirin [Adult Low Dose Aspirin EC] 81 mg PO DAILY 03/03/17 06/27/19 06/11/19 Gabapentin 300 mg PO Q8HR 03/03/17 06/27/19 06/11/19 Lisinopril/Hydrochlorothiazide 2 tab PO QDAY 03/03/17 06/27/19 06/11/19 [Zestoretic 20-12.5 mg] Montelukast [Singulair] 10 mg PO QPM 03/03/17 06/27/19 06/11/19 amLODIPine 5 mg PO DAILY 03/03/17 06/27/19 06/11/19 oxyCODONE [roxiCODONE] 10 mg PO Q8HR PRN 06/12/19 06/27/19 06/11/19 Previous Rx's Medication Instructions Recorded Last Taken Type Tiotropium [Spiriva] 18 mcg IH QDAY #30 box 09/22/16 06/11/19 Rx ALBUTEROL NEB's [Proventil 0.083% 2.5 mg IH Q4HRT PRN #30 nebu 06/13/19 Unknown Rx NEBS] predniSONE [Deltasone] 50 mg PO QDAY #5 tab 06/13/19 Unknown Rx Acetaminophen [Non-Aspirin Extra 500 mg PO Q6HR PRN #30 tablet 06/27/19 Unknown Rx Strength] Albuterol Sulfate [Proair 90 mcg IH Q4HR PRN #2 aer.pow.ba 06/27/19 Unknown Rx Respiclick] Ibuprofen [Motrin] 600 mg PO Q8H PRN #30 tablet 06/27/19 Unknown Rx levETIRAcetam [Keppra TAB] 500 mg PO BID #60 tablet 06/27/19 Unknown Rx Allergies Allergy/AdvReac Type Severity Reaction Status Date / Time morphine Allergy Unknown Verified 06/27/19 09:13 ED Review of Systems ROS: Stated complaint: DIFFICULTY BREATHING Other details as noted in HPI Constitutional: denies: chills, fever Eyes: denies: eye pain, eye discharge, vision change ENT: denies: ear pain, throat pain Respiratory: cough, shortness of breath, SOB with exertion, SOB at rest, wheezing Cardiovascular: chest pain. denies: palpitations Endocrine: no symptoms reported Gastrointestinal: denies: abdominal pain, nausea, diarrhea Genitourinary: denies: urgency, dysuria Musculoskeletal: denies: back pain, joint swelling, arthralgia Skin: denies: rash, lesions Neurological: denies: headache, weakness, paresthesias Psychiatric: denies: anxiety, depression Hematological/Lymphatic: denies: easy bleeding, easy bruising ED Past Medical Hx - Past Medical History Previous Medical History?: Yes Hx Hypertension: Yes Hx Heart Attack/AMI: Yes Hx Congestive Heart Failure: No Hx Diabetes: No Hx Deep Vein Thrombosis: No Hx Pulmonary Embolism: No Hx Sickle Cell Disease: Yes Hx Arthritis: Yes Hx Seizures: Yes Hx Kidney Stones: Yes Hx Asthma: Yes Hx COPD: Yes Hx Tuberculosis: No Hx HIV: No - Surgical History Past Surgical History?: Yes Hx Coronary Stent: No Hx Open Heart Surgery: No Hx Pacemaker: No Hx Internal Defibrillator: No Hx Cholecystectomy: No Hx Appendectomy: No Hx Breast Surgery: No Additional Surgical History: rt eye surgery,head surgery - Family History Family history: no significant - Social History Smoking Status: Former Smoker Substance Use Type: None - Medications Home Medications: Home Medications Medication Instructions Recorded Confirmed Last Taken Type Tiotropium [Spiriva] 18 mcg IH QDAY #30 box 09/22/16 06/27/19 06/11/19 Rx Albuterol Sulfate [Ventolin HFA] 2 puff IH Q4H PRN 03/03/17 06/27/19 06/11/19 History Aspirin [Adult Low Dose Aspirin EC] 81 mg PO DAILY 03/03/17 06/27/19 06/11/19 History Gabapentin 300 mg PO Q8HR 03/03/17 06/27/19 06/11/19 History Lisinopril/Hydrochlorothiazide 2 tab PO QDAY 03/03/17 06/27/19 06/11/19 History [Zestoretic 20-12.5 mg] Montelukast [Singulair] 10 mg PO QPM 03/03/17 06/27/19 06/11/19 History amLODIPine 5 mg PO DAILY 03/03/17 06/27/19 06/11/19 History oxyCODONE [roxiCODONE] 10 mg PO Q8HR PRN 06/12/19 06/27/19 06/11/19 History ALBUTEROL NEB's [Proventil 0.083% 2.5 mg IH Q4HRT PRN #30 nebu 06/13/19 06/27/19 Unknown Rx NEBS] predniSONE [Deltasone] 50 mg PO QDAY #5 tab 06/13/19 06/27/19 Unknown Rx Acetaminophen [Non-Aspirin Extra 500 mg PO Q6HR PRN #30 tablet 06/27/19 Unknown Rx Strength] Albuterol Sulfate [Proair 90 mcg IH Q4HR PRN #2 aer.pow.ba 01/21/20 Unknown Rx Respiclick] Ibuprofen [Motrin] 600 mg PO Q8H PRN #30 tablet 06/27/19 Unknown Rx levETIRAcetam [Keppra TAB] 500 mg PO BID #60 tablet 06/27/19 Unknown Rx ED Physical Exam - General Limitations: No Limitations General appearance: alert, in distress - Head Head exam: Present: atraumatic, normocephalic - Eye Eye exam: Present: normal appearance - ENT ENT exam: Present: mucous membranes moist - Neck Neck exam: Present: normal inspection - Respiratory Respiratory exam: Present: respiratory distress, wheezes, chest wall tenderness, accessory muscle use, decreased breath sounds - Cardiovascular Cardiovascular Exam: Present: regular rate, normal rhythm. Absent: systolic murmur, diastolic murmur, rubs, gallop - GI/Abdominal GI/Abdominal exam: Present: soft, normal bowel sounds - Rectal Rectal exam: Present: deferred - Extremities Exam Extremities exam: Present: normal inspection - Back Exam Back exam: Present: normal inspection - Neurological Exam Neurological exam: Present: alert, oriented X3 - Psychiatric Psychiatric exam: Present: normal affect, normal mood - Skin Skin exam: Present: warm, dry, intact, normal color. Absent: rash ED Course Vital Signs 08/04/19 08/04/19 22:40 22:48 Pulse Rate 78 Pulse Rate [ 65 Anterior Bilateral Throughout] Respiratory 20 Rate Respiratory 20 Rate [Anterior Bilateral Throughout] Blood Pressure 148/92 O2 Sat by Pulse 98 Oximetry - Reevaluation(s) Reevaluation #1: Initial evaluation done. Patient has already received multiple medications. Patient will be placed on BiPAP and given a DuoNeb. Patient is still having increased work of breathing and wheezing. 08/04/19 22:34 Reevaluation #2: Patient's work of breathing has improved with BiPAP. 08/04/19 23:05 Reevaluation #3: I discussed all results with patient. I discussed plan of care with patient. Patient agrees with plan of care and admission. Patient to be admitted to the hospitalist service. 08/05/19 00:01 - Consultations Consultation #1: Hospitalist consulted for admission. Hospitalist to admit patient. Bridge orders placed. 08/05/19 00:05 Consultation #2: I discussed case with Dr. Blanchard from [facility]. Dr. Blanchard recommends the patient be admitted here 08/05/19 00:34 ED Medical Decision Making - Lab Data Result diagrams: 08/04/19 22:52 08/04/19 22:52 - EKG Data -: EKG Interpreted by Me EKG shows normal: sinus rhythm, intervals, QRS complexes, ST-T waves Rate: normal - EKG Data Interpretation: other (axis deviation) - Radiology Data Radiology results: report reviewed, image reviewed interpreted by me: No acute findings on chest x-ray. - Medical Decision Making Patient is a 58-year-old male who presents emergency room with complaints of shortness of breath, difficulty breathing. Patient found to have respiratory distress. Patient has a known history of COPD. Patient clinical findings are consistent with a COPD exacerbation with acute on chronic respiratory failure and hypoxia. Patient placed on BiPAP and his symptoms improved. Patient had extreme work to breathe and wheezing on initial examination. Prior to initial examination patient was brought in by EMS and patient was given by EMS Solu- Medrol, magnesium run, albuterol. Patient's labs unremarkable. Patient chest x-ray negative. Patient EKG is negative. - Differential Diagnosis copd exac, sob, [place], hypoxia. resp failure Critical Care Time: Yes Critical care time in (mins) excluding proc time.: 45 Critical care attestation.: If time is entered above; I have spent that time in minutes in the direct care of this critically ill patient, excluding procedure time. Critical Care Time: 45 minutes ED Disposition Clinical Impression: COPD exacerbation, SOB (shortness of breath), Respiratory distress, Difficulty breathing, Chest wall pain, Hypoxia Acute respiratory failure Qualifiers: Respiratory failure complication: hypoxia Qualified Code(s): J96.01 - Acute respiratory failure with hypoxia Chest pain Qualifiers: Chest pain type: unspecified Qualified Code(s): R07.9 - Chest pain, unspecified Acute and chronic respiratory failure Qualifiers: Respiratory failure complication: hypoxia Qualified Code(s): J96.21 - Acute and chronic respiratory failure with hypoxia Disposition: DC-09 OP ADMIT IP TO THIS HOSP Is pt being admited?: Yes Does the pt Need Aspirin: No Condition: Critical Time of Disposition: 23:59
--- NOTE | 2019-08-04 23:09 | XRay Report ---
CHEST 1 VIEW INDICATION / CLINICAL INFORMATION: Dyspnea. COMPARISON: 06/27/2019 FINDINGS: SUPPORT DEVICES: None. HEART / MEDIASTINUM: No significant abnormality. LUNGS / PLEURA: No significant pulmonary or pleural abnormality. No pneumothorax. ADDITIONAL FINDINGS: No significant additional findings. IMPRESSION: 1. No significant change Signer Name: Raza Ramos MD Signed: 08/04/2019 11:04 PM Workstation Name: [id number]
[2019-08-04 23:30] LABS: Basophils # (Auto) 0.1 K/mm3 (0.0-0.1); Eosinophils % (Auto) 0.2 % (0.0-4.3); Hemoglobin 14.7 gm/dl (11.8-15.2); Lymphocytes # (Auto) 0.7 K/mm3 (1.2-5.4); Lymphocytes % (Auto) 10.9 % (13.4-35.0); Mean Corpuscular HGB Conc 33 % (32-34); Mean Corpuscular Volume 90 fl (84-94); Monocytes # (Auto) 0.1 K/mm3 (0.0-0.8); Monocytes % (Auto) 2.3 % (0.0-7.3); Platelet Count 233 K/mm3 (140-440); Red Blood Count 4.87 M/mm3 (3.65-5.03)
[2019-08-04 23:45] LABS: Creatine Kinase MB 2.5 ng/mL (0.0-4.0)
[2019-08-04 23:47] LABS: Alanine Aminotransferase 22 units/L (7-56); Albumin 4.2 g/dL (3.9-5); BUN/Creatinine Ratio 16; Blood Urea Nitrogen 13 mg/dL (9-20); Calcium 9.3 mg/dL (8.4-10.2); Hemolysis Index 7
--- NOTE | 2019-08-05 00:44 | History and Physical Report ---
History of Present Illness History of present illness: Is a 58-year-old man with a history of hypertension, COPD on 2 L oxygen at home came to the emergency room with shortness of breath, cough productive of white phlegm. Patient has been using his nebulizer treatments without any improvement in symptoms. He is maintained on prednisone 5 mg daily, today he took 15 mg of prednisone, stated symptoms did not improve. in the emergency room he was in respiratory distress, given steroids, breathing treatment and placed on BiPAP. Patient will be admitted for COPD exacerbation, respiratory failure Review Of Systems: Constitutional: no weight loss, fever, chills Ears, eyes, nose, mouth and throat: no nasal congestion, no nasal discharge, no sinus pressure, blurry vision, diplopia Neck: No neck pain or rigidity. Cardiovascular: No palpitations, chest pain Respiratory: + shortness of breath, cough Gastrointestinal: No hematochezia Genitourinary : no dysuria, frequency Musculoskeletal: no muscle ache , joint pain Integumentary: no rash, no pruritis Neurological: no parathesias, focal weakness Endocrine: no cold or heat intolerance, no polyuria or polydipsia Hematologic/Lymphatic: no easy bruising, no easy bleeding, no gland swelling Allergic/Immunologic: no urticaria, no angioedema. PAST MEDICAL HISTORY: Attention, COPD on home oxygen PAST SURGICAL HISTORY: None SOCIAL HISTORY: Tobacco abuse, denies alcohol or drug use FAMILY HISTORY: Hypertension Medications and Allergies Allergies Allergy/AdvReac Type Severity Reaction Status Date / Time morphine Allergy Unknown Verified 06/27/19 09:13 Home Medications Medication Instructions Recorded Confirmed Last Taken Type Tiotropium [Spiriva] 18 mcg IH QDAY #30 box 09/22/16 08/05/19 06/11/19 Rx Albuterol Sulfate [Ventolin HFA] 2 puff IH Q4H PRN 03/03/17 08/05/19 06/11/19 History Aspirin [Adult Low Dose Aspirin EC] 81 mg PO DAILY 03/03/17 08/05/19 06/11/19 History Gabapentin 300 mg PO Q8HR 03/03/17 08/05/19 06/11/19 History Lisinopril/Hydrochlorothiazide 2 tab PO QDAY 03/03/17 08/05/19 06/11/19 History [Zestoretic 20-12.5 mg] Montelukast [Singulair] 10 mg PO QPM 03/03/17 08/05/19 06/11/19 History amLODIPine 5 mg PO DAILY 03/03/17 08/05/19 06/11/19 History oxyCODONE [roxiCODONE] 10 mg PO Q8HR PRN 06/12/19 08/05/19 06/11/19 History ALBUTEROL NEB's [Proventil 0.083% 2.5 mg IH Q4HRT PRN #30 nebu 06/13/19 08/05/19 Unknown Rx NEBS] predniSONE [Deltasone] 50 mg PO QDAY #5 tab 06/13/19 08/05/19 Unknown Rx Acetaminophen [Non-Aspirin Extra 500 mg PO Q6HR PRN #30 tablet 06/27/19 08/05/19 Unknown Rx Strength] Albuterol Sulfate [Proair 90 mcg IH Q4HR PRN #2 aer.pow.ba 06/27/19 08/05/19 Unknown Rx Respiclick] Ibuprofen [Motrin] 600 mg PO Q8H PRN #30 tablet 06/27/19 08/05/19 Unknown Rx levETIRAcetam [Keppra TAB] 500 mg PO BID #60 tablet 06/27/19 08/05/19 Unknown Rx Exam - Physical Exam Narrative exam: Gen. appearance: Patient lying in bed, no apparent distress HEENT: Normocephalic, atraumatic, pupils equally round and reactive to light, extraocular movement intact, and no sclericterus,. No JVD or thyromegaly or nodule,neck supple, no carotid bruit ,mucous membranes moist, no exudate or erythema Heart: S1, S2, regular rate and rhythm Lungs: Wheezing bilaterally, breathing comfortable Abdomen: Positive bowel sounds, nontender, nondistended, no organomegaly Extremity: no edema, cyanosis, clubbing Skin: No rash, nodules, warm, dry Neuro: speech is fluent, cranial nerves II to XII intact, motor and sensory intact - Constitutional Vitals: Temp Pulse Resp BP Pulse Ox 65 20 148/92 98 08/04/19 22:48 08/04/19 22:48 08/04/19 22:40 08/04/19 22:40 Results - Labs CBC & Chem 7: 08/04/19 22:52 08/04/19 22:52 Labs: Abnormal lab results 08/04/19 08/04/19 Range/Units 22:52 22:52 Lymph % (Auto) 10.9 L (13.4-35.0) % Lymph # 0.7 L (1.2-5.4) K/mm3 Seg Neutrophils % 85.6 H (40.0-70.0) % Glucose 118 H (75-100) mg/dL - Imaging and Cardiology EKG: image reviewed Chest x-ray: report reviewed Assessment and Plan Assessment COPD exacerbation acute on chronic with respiratory failure Continue BiPAP, start high-dose steroids, nebulizer treatments Hypertension Continue outpatient medications DVT prophylaxis
[2019-08-05 04:28] LABS: ABG Base Excess 0.1 mmol/L (-2.0-3.0); ABG HCO3 27.7 mmol/L (20.0-26.0); ABG Methemoglobin 0.4 % (0.0-1.5); ABG Oxygen Saturation 96.9 % (95.0-99.0); ABG PCO2 55.7 mm Hg; ABG PH 7.314 pH Units (7.350-7.450); ABG PO2 91.9 mm Hg (80.0-90.0)
[2019-08-05] MEDS ORDERED: ACETAMINOPHEN 325 MG TAB PO PRN (06:46)
[2019-08-05] MEDS ORDERED: ONDANSETRON 4 MG/2 ML INJ IV PRN (06:46)
[2019-08-05] MEDS ORDERED: methylPREDNISolone Sod Succinate 125 MG/2 ML INJ IV SCH (06:47)
[2019-08-05 07:40] LABS: Basophils % (Auto) 0.2 % (0.0-1.8); Hematocrit 43.7 % (35.5-45.6); Hemoglobin 14.6 gm/dl (11.8-15.2); Lymphocytes # (Auto) 0.7 K/mm3 (1.2-5.4); Lymphocytes % (Auto) 10.2 % (13.4-35.0); Mean Corpuscular HGB Conc 33 % (32-34); Mean Corpuscular Volume 91 fl (84-94); Monocytes # (Auto) 0.1 K/mm3 (0.0-0.8); Monocytes % (Auto) 1.8 % (0.0-7.3); Platelet Count 237 K/mm3 (140-440); Red Blood Count 4.83 M/mm3 (3.65-5.03)
[2019-08-05 08:33] LABS: BUN/Creatinine Ratio 17; Blood Urea Nitrogen 15 mg/dL (9-20); Calcium 9.4 mg/dL (8.4-10.2); Hemolysis Index 4
[2019-08-05] MEDS: ENOXAPARIN 40 MG/0.4 ML INJ SUB-Q SCH (09:21)
[2019-08-05] MEDS: IPRATROPIUM/ALBUTEROL SULFATE 3 ML AMPUL.NEB IH SCH ×4 (09:57→20:54)
[2019-08-05] MEDS ORDERED: levETIRAcetam 500 MG TAB PO SCH (11:00)
[2019-08-05] MEDS: ASPIRIN EC 81 MG TAB PO SCH (15:30)
[2019-08-05] MEDS: amLODIPine 5 MG TAB PO SCH (15:30)
--- NOTE | 2019-08-05 16:24 | Event Note ---
Date: 08/05/19 Patient was admitted early this morning with acute on chronic respiratory failure requiring BiPAP Acute exacerbation of COPD , and hypertension, patient seen and examined this morning at bedside Medical records reviewed, agree with the current management, possible discharge in 1 to 2 days if stable Plan of care reviewed with the patient and his nurse Continue current management
[2019-08-05] MEDS: methylPREDNISolone Sod Succinate 125 MG/2 ML INJ IV SCH (18:19)
[2019-08-05] MEDS: MONTELUKAST 10 MG TAB PO SCH (21:25)
[2019-08-06] MEDS: methylPREDNISolone Sod Succinate 125 MG/2 ML INJ IV SCH ×3 (01:04→17:46)
[2019-08-06] MEDS: IPRATROPIUM/ALBUTEROL SULFATE 3 ML AMPUL.NEB IH SCH ×2 (04:43→13:38)
[2019-08-06] MEDS ORDERED: ALBUTEROL 2.5 MG/3 ML NEBU IH ONE ×2 (08:00→13:28)
[2019-08-06] MEDS ORDERED: TIOTROPIUM 18 MCG CAP INHALATION IH SCH (09:00)
[2019-08-06] MEDS: amLODIPine 5 MG TAB PO SCH (09:05)
[2019-08-06] MEDS: ASPIRIN EC 81 MG TAB PO SCH (09:05)
[2019-08-06] MEDS: ENOXAPARIN 40 MG/0.4 ML INJ SUB-Q SCH (09:05)
--- NOTE | 2019-08-06 11:37 | Progress Note ---
Assessment and Plan Assessment and plan: --Acute exacerbation of COPD; Oxygen titrate O2 sats to more than 90% Nebulizers, IV steroids, inhalation steroids Supportive care --Acute on chronic hypoxic respiratory failure; Requiring BiPAP, secondary to acute exacerbation of COPD Oxygen nebulizers steroids antibiotics supportive care Evaluation for home oxygen at discharge --Hypertension; moderate control Continue current antihypertensives and PRN medications --Obesity; BMI 38.6 Advised weight reduction when medically stable May need outpatient sleep study to rule out obstructive sleep apnea And the need for CPAP BiPAP at night --DVT prophylaxis; Lovenox We will closely monitor the patient and adjust management as needed Possible discharge in 1 to 2 days if stable History Interval history: I have seen and examined the patient this morning at bedside Patient's chart and other medical records reviewed Patient continues to have mild shortness of breath and wheeze Slightly improved since yesterday Also has some cough productive Alert awake oriented x3 Mild distress Vital signs reviewed Hospitalist Physical - Constitutional Vitals: Temp Pulse Resp BP Pulse Ox 98.3 F 77 18 160/83 96 08/06/19 04:40 08/06/19 08:00 08/06/19 08:00 08/06/19 04:40 08/06/19 08:14 General appearance: Present: mild distress, well-nourished, obese - EENT Eyes: Present: PERRL, EOM intact - Neck Neck: Present: supple, normal ROM - Respiratory Respiratory effort: normal Respiratory: bilateral: diminished, rhonchi, wheezing, negative: rales - Cardiovascular Rhythm: regular Heart Sounds: Present: S1 & S2 - Extremities Extremities: no ischemia, No edema - Abdominal General gastrointestinal: soft, non-tender, non-distended, normal bowel sounds - Integumentary Integumentary: Present: clear, warm - Psychiatric Psychiatric: appropriate mood/affect, cooperative - Neurologic Neurologic: moves all extremities CHAIM score - Chaim Score Age > 65: (0) No Aspirin use within the Past 7 Days: (0) No 3 or more CAD Risk Factors: (0) No 2 or more Angina events in past 24 hrs: (1) Yes Known CAD with more than 50% Stenosis: (0) No Elevated Cardiac Markers: (0) No ST Deviation Greater than 0.5mm: (0) No CHAIM Score: 1 Results - Labs CBC & Chem 7: 08/05/19 07:10 08/05/19 07:10 Labs: Laboratory Last Values WBC 7.1 K/mm3 (4.5-11.0) 08/05/19 07:10 RBC 4.83 M/mm3 (3.65-5.03) 08/05/19 07:10 Hgb 14.6 gm/dl (11.8-15.2) 08/05/19 07:10 Hct 43.7 % (35.5-45.6) 08/05/19 07:10 MCV 91 fl (84-94) 08/05/19 07:10 MCH 30 pg (28-32) 08/05/19 07:10 MCHC 33 % (32-34) 08/05/19 07:10 RDW 14.0 % (13.2-15.2) 08/05/19 07:10 Plt Count 237 K/mm3 (140-440) 08/05/19 07:10 Lymph % (Auto) 10.2 % (13.4-35.0) L 08/05/19 07:10 [place] % (Auto) 1.8 % (0.0-7.3) 08/05/19 07:10 Eos % (Auto) 0.0 % (0.0-4.3) 08/05/19 07:10 Baso % (Auto) 0.2 % (0.0-1.8) 08/05/19 07:10 Lymph # 0.7 K/mm3 (1.2-5.4) L 08/05/19 07:10 [place] # 0.1 K/mm3 (0.0-0.8) 08/05/19 07:10 Eos # 0.0 K/mm3 (0.0-0.4) 08/05/19 07:10 Baso # 0.0 K/mm3 (0.0-0.1) 08/05/19 07:10 Seg Neutrophils % 87.8 % (40.0-70.0) H 08/05/19 07:10 Seg Neutrophils # 6.2 K/mm3 (1.8-7.7) 08/05/19 07:10 ABG pH 7.314 pH Units (7.350-7.450) L 08/05/19 02:24 ABG pCO2 55.7 mm Hg 08/05/19 02:24 ABG pO2 91.9 mm Hg (80.0-90.0) H 08/05/19 02:24 ABG HCO3 27.7 mmol/L (20.0-26.0) H 08/05/19 02:24 ABG O2 Saturation 96.9 % (95.0-99.0) 08/05/19 02:24 ABG O2 Content 22.4 (0.0-44) 08/05/19 02:24 ABG Base Excess 0.1 mmol/L (-2.0-3.0) 08/05/19 02:24 ABG Hemoglobin 16.8 gm/dl (14.0-18.0) 08/05/19 02:24 ABG Carboxyhemoglobin 1.7 % (0.0-5.0) 08/05/19 02:24 ABG Methemoglobin 0.4 % (0.0-1.5) 08/05/19 02:24 Oxyhemoglobin 94.8 % (95.0-99.0) L 08/05/19 02:24 FiO2 30 % 08/05/19 02:24 Sodium 143 mmol/L (137-145) 08/05/19 07:10 Potassium 4.8 mmol/L (3.6-5.0) 08/05/19 07:10 Chloride 101.7 mmol/L (98-107) 08/05/19 07:10 Carbon Dioxide 26 mmol/L (22-30) 08/05/19 07:10 Anion Gap 20 mmol/L 08/05/19 07:10 BUN 15 mg/dL (9-20) 08/05/19 07:10 Creatinine 0.9 mg/dL (0.8-1.5) 08/05/19 07:10 Estimated GFR > 60 ml/min 08/05/19 07:10 BUN/Creatinine Ratio 17 % 08/05/19 07:10 Glucose 168 mg/dL (75-100) H 08/05/19 07:10 Calcium 9.4 mg/dL (8.4-10.2) 08/05/19 07:10 Total Bilirubin 0.50 mg/dL (0.1-1.2) 08/04/19 22:52 AST 23 units/L (5-40) 08/04/19 22:52 ALT 22 units/L (7-56) 08/04/19 22:52 Alkaline Phosphatase 84 units/L (35-129) 08/04/19 22:52 Total Creatine Kinase 66 units/L (55-170) 08/04/19 22:52 CK-MB (CK-2) 2.5 ng/mL (0.0-4.0) 08/04/19 22:52 CK-MB (CK-2) Rel Index 3.7 (0-4) 08/04/19 22:52 Troponin T < 0.010 ng/mL (0.00-0.029) 08/04/19 22:52 Total Protein 6.9 g/dL (6.3-8.2) 08/04/19 22:52 Albumin 4.2 g/dL (3.9-5) 08/04/19 22:52 Albumin/Globulin Ratio 1.6 % 08/04/19 22:52 Active Medications - Current Medications Current Medications: Generic Name Dose Route Start Last Admin Trade Name Freq PRN Reason Stop Dose Admin Acetaminophen 650 mg 08/05/19 06:46 Tylenol PO Q4H PRN Pain MILD(1-3)/Fever >100.5/ACOSTA Albuterol/Ipratropium 1 ampul 08/05/19 20:00 08/06/19 04:43 Duoneb *Not For Prn Use* IH 1 ampul Q6HRT ROLAN Administration Amlodipine Besylate 5 mg 08/05/19 11:00 08/06/19 09:05 Amlodipine PO 5 mg DAILY ROLAN Administration Aspirin 81 mg 08/05/19 11:00 08/06/19 09:05 Halfprin Ec PO 81 mg DAILY ROLAN Administration Enoxaparin Sodium 40 mg 08/05/19 10:00 08/06/19 09:05 Enoxaparin SUB-Q 40 mg QDAY ROLAN Administration Methylprednisolone Sodium Succinate 80 mg 08/05/19 18:00 08/06/19 09:09 Solu-Medrol IV 80 mg Q8H ROLAN Administration Montelukast Sodium 10 mg 08/05/19 22:00 08/05/19 21:25 Singulair PO 10 mg QHS ROLAN Administration Ondansetron HCl 4 mg 08/05/19 06:46 Zofran IV Q8H PRN Nausea And Vomiting Sodium Chloride 10 ml 08/05/19 10:00 08/06/19 09:06 Sodium Chloride Flush Syringe 10 Ml IV 10 ml BID ROLAN Administration Sodium Chloride 10 ml 08/05/19 06:46 Sodium Chloride Flush Syringe 10 Ml IV PRN PRN LINE FLUSH
[2019-08-06] MEDS: ALBUTEROL 2.5 MG/3 ML NEBU IH SCH ×2 (17:18→21:47)
[2019-08-06] MEDS: MONTELUKAST 10 MG TAB PO SCH (21:35)
[2019-08-07] MEDS: methylPREDNISolone Sod Succinate 125 MG/2 ML INJ IV SCH ×4 (01:23→17:40)
[2019-08-07] MEDS: ALBUTEROL 2.5 MG/3 ML NEBU IH SCH ×4 (07:04→21:16)
[2019-08-07] MEDS: amLODIPine 5 MG TAB PO SCH (09:17)
[2019-08-07] MEDS: ASPIRIN EC 81 MG TAB PO SCH (09:17)
[2019-08-07] MEDS: ENOXAPARIN 40 MG/0.4 ML INJ SUB-Q SCH (09:18)
[2019-08-07] MEDS ORDERED: ALUM-MAG HYDROXIDE-SIMETHICONE 200-200-20MG/5ML ORAL LIQD 30 ML PO NR (11:00)
[2019-08-07] MEDS: guaiFENesin ER 600 MG TAB PO SCH ×2 (12:08→21:04)
[2019-08-07] MEDS: PANTOPRAZOLE 40 MG TAB PO SCH (12:08)
--- NOTE | 2019-08-07 17:29 | Progress Note ---
Assessment and Plan Assessment and plan: Patient continues to require BiPAP, with diffuse wheezing --Acute on chronic hypoxic respiratory failure; Patient continues to require BiPAP, with extensive wheezing secondary to acute exacerbation of COPD Oxygen nebulizers steroids antibiotics supportive care Evaluation for home oxygen at discharge --Acute exacerbation of COPD; acute bronchitis Oxygen titrate O2 sats to more than 90% Nebulizers, IV steroids, inhalation steroids BiPAP as needed --Hypertension; moderate control Continue current antihypertensives and PRN medications --Obesity; BMI 38.6 Advised weight reduction when medically stable May need outpatient sleep study to rule out obstructive sleep apnea And the need for CPAP BiPAP at night --DVT prophylaxis; Lovenox We will closely monitor the patient and adjust management as needed Possible discharge in 1 to 2 days if stable History Interval history: Patient continues to have shortness of breath though slightly improved since yesterday intermittent worsening wheezing, Morbidly obese, this morning. Patient is on BiPAP mild distress Vital signs noted Hospitalist Physical - Constitutional Vitals: Temp Pulse Resp BP Pulse Ox 98.9 F 66 20 149/81 100 08/07/19 13:32 08/07/19 14:13 08/07/19 14:13 08/07/19 13:32 08/07/19 13:32 General appearance: Present: mild distress, well-nourished, obese, other (On BiPAP) - EENT Eyes: Present: PERRL, EOM intact - Neck Neck: Present: supple, normal ROM - Respiratory Respiratory effort: labored Respiratory: bilateral: diminished, rhonchi, wheezing, negative: rales - Cardiovascular Rhythm: regular Heart Sounds: Present: S1 & S2 - Extremities Extremities: no ischemia, No edema - Abdominal General gastrointestinal: soft, non-tender, non-distended, normal bowel sounds - Integumentary Integumentary: Present: clear, warm - Psychiatric Psychiatric: appropriate mood/affect, cooperative - Neurologic Neurologic: moves all extremities CHAIM score - Chaim Score Age > 65: (0) No Aspirin use within the Past 7 Days: (0) No 3 or more CAD Risk Factors: (0) No 2 or more Angina events in past 24 hrs: (1) Yes Known CAD with more than 50% Stenosis: (0) No Elevated Cardiac Markers: (0) No ST Deviation Greater than 0.5mm: (0) No CHAIM Score: 1 Results - Labs CBC & Chem 7: 08/05/19 07:10 08/05/19 07:10 Labs: Laboratory Last Values WBC 7.1 K/mm3 (4.5-11.0) 08/05/19 07:10 RBC 4.83 M/mm3 (3.65-5.03) 08/05/19 07:10 Hgb 14.6 gm/dl (11.8-15.2) 08/05/19 07:10 Hct 43.7 % (35.5-45.6) 08/05/19 07:10 MCV 91 fl (84-94) 08/05/19 07:10 MCH 30 pg (28-32) 08/05/19 07:10 MCHC 33 % (32-34) 08/05/19 07:10 RDW 14.0 % (13.2-15.2) 08/05/19 07:10 Plt Count 237 K/mm3 (140-440) 08/05/19 07:10 Lymph % (Auto) 10.2 % (13.4-35.0) L 08/05/19 07:10 [place] % (Auto) 1.8 % (0.0-7.3) 08/05/19 07:10 Eos % (Auto) 0.0 % (0.0-4.3) 08/05/19 07:10 Baso % (Auto) 0.2 % (0.0-1.8) 08/05/19 07:10 Lymph # 0.7 K/mm3 (1.2-5.4) L 08/05/19 07:10 [place] # 0.1 K/mm3 (0.0-0.8) 08/05/19 07:10 Eos # 0.0 K/mm3 (0.0-0.4) 08/05/19 07:10 Baso # 0.0 K/mm3 (0.0-0.1) 08/05/19 07:10 Seg Neutrophils % 87.8 % (40.0-70.0) H 08/05/19 07:10 Seg Neutrophils # 6.2 K/mm3 (1.8-7.7) 08/05/19 07:10 ABG pH 7.314 pH Units (7.350-7.450) L 08/05/19 02:24 ABG pCO2 55.7 mm Hg 08/05/19 02:24 ABG pO2 91.9 mm Hg (80.0-90.0) H 08/05/19 02:24 ABG HCO3 27.7 mmol/L (20.0-26.0) H 08/05/19 02:24 ABG O2 Saturation 96.9 % (95.0-99.0) 08/05/19 02:24 ABG O2 Content 22.4 (0.0-44) 08/05/19 02:24 ABG Base Excess 0.1 mmol/L (-2.0-3.0) 08/05/19 02:24 ABG Hemoglobin 16.8 gm/dl (14.0-18.0) 08/05/19 02:24 ABG Carboxyhemoglobin 1.7 % (0.0-5.0) 08/05/19 02:24 ABG Methemoglobin 0.4 % (0.0-1.5) 08/05/19 02:24 Oxyhemoglobin 94.8 % (95.0-99.0) L 08/05/19 02:24 FiO2 30 % 08/05/19 02:24 Sodium 143 mmol/L (137-145) 08/05/19 07:10 Potassium 4.8 mmol/L (3.6-5.0) 08/05/19 07:10 Chloride 101.7 mmol/L (98-107) 08/05/19 07:10 Carbon Dioxide 26 mmol/L (22-30) 08/05/19 07:10 Anion Gap 20 mmol/L 08/05/19 07:10 BUN 15 mg/dL (9-20) 08/05/19 07:10 Creatinine 0.9 mg/dL (0.8-1.5) 08/05/19 07:10 Estimated GFR > 60 ml/min 08/05/19 07:10 BUN/Creatinine Ratio 17 % 08/05/19 07:10 Glucose 168 mg/dL (75-100) H 08/05/19 07:10 Calcium 9.4 mg/dL (8.4-10.2) 08/05/19 07:10 Total Bilirubin 0.50 mg/dL (0.1-1.2) 08/04/19 22:52 AST 23 units/L (5-40) 08/04/19 22:52 ALT 22 units/L (7-56) 08/04/19 22:52 Alkaline Phosphatase 84 units/L (35-129) 08/04/19 22:52 Total Creatine Kinase 66 units/L (55-170) 08/04/19 22:52 CK-MB (CK-2) 2.5 ng/mL (0.0-4.0) 08/04/19 22:52 CK-MB (CK-2) Rel Index 3.7 (0-4) 08/04/19 22:52 Troponin T < 0.010 ng/mL (0.00-0.029) 08/04/19 22:52 Total Protein 6.9 g/dL (6.3-8.2) 08/04/19 22:52 Albumin 4.2 g/dL (3.9-5) 08/04/19 22:52 Albumin/Globulin Ratio 1.6 % 08/04/19 22:52 Active Medications - Current Medications Current Medications: Generic Name Dose Route Start Last Admin Trade Name Freq PRN Reason Stop Dose Admin Acetaminophen 650 mg 08/05/19 06:46 08/07/19 09:17 Tylenol PO 650 mg Q4H PRN Administration Pain MILD(1-3)/Fever >100.5/ACOSTA Albuterol 2.5 mg 08/06/19 14:00 08/07/19 14:11 Proventil IH 2.5 mg Q6HRT ROLAN Administration Amlodipine Besylate 5 mg 08/05/19 11:00 08/07/19 09:17 Amlodipine PO 5 mg DAILY ROLAN Administration Aspirin 81 mg 08/05/19 11:00 08/07/19 09:17 Halfprin Ec PO 81 mg DAILY ROLAN Administration Enoxaparin Sodium 40 mg 08/05/19 10:00 08/07/19 09:18 Enoxaparin SUB-Q 40 mg QDAY ROLAN Administration Guaifenesin 600 mg 08/07/19 11:00 08/07/19 12:08 Mucinex Er PO 600 mg BID ROLAN Administration Methylprednisolone Sodium Succinate 80 mg 08/05/19 18:00 08/07/19 10:00 Solu-Medrol IV 80 mg Q8H ROLAN Administration Montelukast Sodium 10 mg 08/05/19 22:00 08/06/19 21:35 Singulair PO 10 mg QHS ROLAN Administration Ondansetron HCl 4 mg 08/05/19 06:46 Zofran IV Q8H PRN Nausea And Vomiting Pantoprazole Sodium 40 mg 08/07/19 11:00 08/07/19 12:08 Protonix PO 40 mg QDAY ROLAN Administration Sodium Chloride 10 ml 08/05/19 10:00 08/07/19 09:18 Sodium Chloride Flush Syringe 10 Ml IV 10 ml BID ROLAN Administration Sodium Chloride 10 ml 08/05/19 06:46 Sodium Chloride Flush Syringe 10 Ml IV PRN PRN LINE FLUSH
[2019-08-07] MEDS: MONTELUKAST 10 MG TAB PO SCH (21:04)
[2019-08-08] MEDS: methylPREDNISolone Sod Succinate 125 MG/2 ML INJ IV SCH ×2 (01:04→10:10)
[2019-08-08] MEDS: ALBUTEROL 2.5 MG/3 ML NEBU IH SCH ×3 (01:12→16:21)
[2019-08-08] MEDS ORDERED: diphenhydrAMINE 25 MG CAP PO PRN (01:54)
[2019-08-08 06:29] VITALS: BP 144/79
[2019-08-08] MEDS: PANTOPRAZOLE 40 MG TAB PO SCH (10:02)
[2019-08-08] MEDS: guaiFENesin ER 600 MG TAB PO SCH (10:02)
[2019-08-08] MEDS: amLODIPine 5 MG TAB PO SCH (10:02)
[2019-08-08] MEDS: ASPIRIN EC 81 MG TAB PO SCH (10:02)
[2019-08-08] MEDS: ENOXAPARIN 40 MG/0.4 ML INJ SUB-Q SCH (10:02)
--- NOTE | 2019-08-08 13:45 | Discharge Summary ---
Providers - Providers Date of Admission: 08/05/19 00:43 Date of discharge: 08/08/19 Attending physician: BOB PEREZ Primary care physician: CLERK OF SUPERIOR COURT Hospitalization Condition: Fair Disposition: DC-01 TO HOME OR SELFCARE Time spent for discharge: 32 min Core Measure Documentation - Palliative Care Palliative Care/ Comfort Measures: Not Applicable - Core Measures Any of the following diagnoses?: none Exam - Constitutional Vitals: Temp Pulse Resp BP Pulse Ox 97.2 F L 69 18 144/79 96 08/08/19 05:22 08/08/19 10:02 08/08/19 09:00 08/08/19 10:02 08/08/19 09:11 General appearance: Present: no acute distress, well-nourished, obese (Morbidly obese) - EENT Eyes: Present: PERRL, EOM intact - Neck Neck: Present: supple, normal ROM - Respiratory Respiratory effort: normal Respiratory: bilateral: diminished, negative: rales, rhonchi, wheezing - Cardiovascular Rhythm: regular Heart Sounds: Present: S1 & S2 - Extremities Extremities: no ischemia, No edema - Abdominal General gastrointestinal: Present: soft, non-tender, non-distended, normal bowel sounds - Integumentary Integumentary: Present: clear, warm - Musculoskeletal Musculoskeletal: strength equal bilaterally - Psychiatric Psychiatric: appropriate mood/affect, cooperative - Neurologic Neurologic: CNII-XII intact, moves all extremities Plan Activity: advance as tolerated Diet: low salt Additional Instructions: Advised to see private architectural job captain in 1 to 2 weeks. If You have severe shortness of breath or chest pain contact MD or go to emergency room Follow up with: PRIMARY CARE,MD [Primary Care Provider] - 3-5 Days Prescriptions: guaiFENesin ER [Mucinex ER] 600 mg PO BID #30 tablet Prednisone [predniSONE 10 mg (6-Day Pack, 21 Tabs)] 10 mg PO .TAPER #1 tab.ds.pk Azithromycin [Zithromax Z-JEFFERSON] 0 mg PO DAILY #1 packet
== END 2019-08-08 18:19 | disposition home or self-care (01) | DRG 189 ==
LOC: ED 21:16 → 3A 08-05 00:43
PROVIDERS: ADMIT Internal Medicine; ATTEND Internal Medicine
PROC: 5A09357 Assistance with Respiratory Ventilation, Less than 24 Consecutive Hours, Continuous Positive Airway Pressure (ICD-10-PCS; 2019-08-04)
PROC: 4A033R1 Measurement of Arterial Saturation, Peripheral, Percutaneous Approach (ICD-10-PCS; principal; 2019-08-05)
PROC: 5A09357 Assistance with Respiratory Ventilation, Less than 24 Consecutive Hours, Continuous Positive Airway Pressure (ICD-10-PCS; 2019-08-07)
PROC: 5A09357 Assistance with Respiratory Ventilation, Less than 24 Consecutive Hours, Continuous Positive Airway Pressure (ICD-10-PCS; 2019-08-08)
DX: J96.21 Acute and chronic respiratory failure with hypoxia (principal); J44.1 Chronic obstructive pulmonary disease with (acute) exacerbation; J44.0 Chronic obstructive pulmonary disease with (acute) lower respiratory infection; Z68.41 Body mass index [BMI] 40.0-44.9, adult; J20.9 Acute bronchitis, unspecified; I10 Essential (primary) hypertension; E66.9 Obesity, unspecified; M19.90 Unspecified osteoarthritis, unspecified site; F17.200 Nicotine dependence, unspecified, uncomplicated; Z71.3 Dietary counseling and surveillance; Z88.5 Allergy status to narcotic agent; Z82.49 Family history of ischemic heart disease and other diseases of the circulatory system; Z79.82 Long term (current) use of aspirin; Z79.899 Other long term (current) drug therapy; I25.2 Old myocardial infarction; Z87.442 Personal history of urinary calculi
CPT/HCPCS: 36415; 36600; 71045; 80048; 80053; 82550; 82553; 82803; 84484; 85025; 93005; 93010; 94640; 94644; 94660; 94760; G0378; J1650; J2930

== ENCOUNTER 2019-09-29 11:20 | Observation (INO) | payer MEDICARE ==
[2019-09-29] MEDS ORDERED: methylPREDNISolone Sod Succinate 125 MG/2 ML INJ IV ONE (12:12)
[2019-09-29] MEDS ORDERED: ALBUTEROL 2.5 MG/3 ML NEBU IH ONE (12:12)
[2019-09-29] MEDS ORDERED: IPRATROPIUM 0.02% NEBU 2.5 ML IH ONE (12:12)
--- NOTE | 2019-09-29 12:40 | XRay Report ---
CHEST 1 VIEW INDICATION: dyspnea. COMPARISON: 08/04/2019 FINDINGS: Support devices: None. Heart: Within normal limits. Lungs/Pleura: No acute air space or interstitial disease. Mild underlying COPD remains. Additional findings: None. IMPRESSION: Stable chest. Signer Name: Pollo Villanueva MD Signed: 09/29/2019 12:36 PM Workstation Name: [id number]
[2019-09-29 13:11] LABS: Basophils # (Auto) 0.1 K/mm3 (0.0-0.1); Basophils % (Auto) 1.2 % (0.0-1.8); Hematocrit 45.9 % (35.5-45.6); Hemoglobin 15.1 gm/dl (11.8-15.2); Lymphocytes # (Auto) 0.9 K/mm3 (1.2-5.4); Lymphocytes % (Auto) 12.9 % (13.4-35.0); Mean Corpuscular HGB Conc 33 % (32-34); Mean Corpuscular Volume 93 fl (84-94); Monocytes # (Auto) 0.3 K/mm3 (0.0-0.8); Monocytes % (Auto) 3.8 % (0.0-7.3); Platelet Count 183 K/mm3 (140-440); Red Blood Count 4.95 M/mm3 (3.65-5.03); Red Cell Distribution Width 14.4 % (13.2-15.2)
[2019-09-29 13:20] LABS: INR 0.96 (0.87-1.13)
[2019-09-29 13:22] LABS: Partial Thromboplastin Time 25.8 Sec. (24.2-36.6)
[2019-09-29] MEDS ORDERED: KETOROLAC 30 MG/1 ML INJ IV ONE (13:25)
[2019-09-29] MEDS ORDERED: NITROGLYCERIN 2% OINT 1 GM TP ONE (13:25)
[2019-09-29 13:29] LABS: BUN/Creatinine Ratio 15; Blood Urea Nitrogen 12 mg/dL (9-20); Calcium 9.6 mg/dL (8.4-10.2); Creatine Kinase MB 2.8 ng/mL (0.0-4.0); Hemolysis Index 5
--- NOTE | 2019-09-29 14:53 | Emergency Department Report ---
ED Shortness of Breath HPI - General Chief Complaint: Dyspnea/Respdistress Stated Complaint: COPD Time Seen by Provider: 09/29/19 12:12 Source: patient, EMS Mode of arrival: Stretcher Limitations: No Limitations - History of Present Illness Initial Comments: Patient is a 59-year-old F [place] male with a past medical history of COPD and hypertension who is presenting with shortness of breath. Patient states that he has been intubated twice for respiratory distress. Patient states that this morning he was very short of breath. He took his nebulizer treatments twice with no improvement. Prior to arrival the patient's O2 sats was in the high 80s . Patient states he has some chest discomfort he describes as a tight sensation with radiation to the neck. He denies any diaphoresis. Patient denies fever cough nausea vomiting or diarrhea. - Related Data Home Medications Medication Instructions Recorded Confirmed Last Taken Albuterol Sulfate [Ventolin HFA] 2 puff IH Q4H PRN 03/03/17 08/05/19 06/11/19 Aspirin [Adult Low Dose Aspirin EC] 81 mg PO DAILY 03/03/17 08/05/19 06/11/19 Gabapentin 300 mg PO Q8HR 03/03/17 08/05/19 06/11/19 Lisinopril/Hydrochlorothiazide 2 tab PO QDAY 03/03/17 08/05/19 06/11/19 [Zestoretic 20-12.5 mg] Montelukast [Singulair] 10 mg PO QPM 03/03/17 08/05/19 06/11/19 amLODIPine 5 mg PO DAILY 03/03/17 08/05/19 06/11/19 oxyCODONE [roxiCODONE] 10 mg PO Q8HR PRN 06/12/19 08/05/19 06/11/19 Previous Rx's Medication Instructions Recorded Last Taken Type Tiotropium [Spiriva] 18 mcg IH QDAY #30 box 09/22/16 06/11/19 Rx ALBUTEROL NEB's [Proventil 0.083% 2.5 mg IH Q4HRT PRN #30 nebu 06/13/19 Unknown Rx NEBS] Acetaminophen [Non-Aspirin Extra 500 mg PO Q6HR PRN #30 tablet 06/27/19 Unknown Rx Strength] Albuterol Sulfate [Proair 90 mcg IH Q4HR PRN #2 aer.pow.ba 06/27/19 Unknown Rx Respiclick] Ibuprofen [Motrin 600 MG tab] 600 mg PO Q8H PRN #30 tablet 06/27/19 Unknown Rx Azithromycin [Zithromax Z-JEFFERSON] 0 mg PO DAILY #1 packet 08/08/19 Unknown Rx guaiFENesin ER [Mucinex ER] 600 mg PO BID #30 tablet 08/08/19 Unknown Rx predniSONE [Deltasone] 6 tab PO QDAY 3 Days #40 tab 08/08/19 Unknown Rx Allergies Allergy/AdvReac Type Severity Reaction Status Date / Time morphine Allergy Unknown Verified 06/27/19 09:13 ED Review of Systems ROS: Stated complaint: COPD Other details as noted in HPI Comment: All other systems reviewed and negative ED Past Medical Hx - Past Medical History Hx Hypertension: Yes Hx Heart Attack/AMI: Yes Hx Congestive Heart Failure: No Hx Diabetes: No Hx Deep Vein Thrombosis: No Hx Pulmonary Embolism: No Hx GERD: Yes Hx Sickle Cell Disease: Yes Hx Arthritis: Yes Hx Headaches / Migraines: Yes Hx Seizures: Yes Hx Kidney Stones: Yes Hx Asthma: Yes Hx COPD: Yes Hx Tuberculosis: No Hx Dementia: No Hx HIV: No - Surgical History Hx Coronary Stent: No Hx Open Heart Surgery: No Hx Pacemaker: No Hx Internal Defibrillator: No Hx Cholecystectomy: No Hx Appendectomy: No Hx Breast Surgery: No Additional Surgical History: rt eye surgery,head surgery - Social History Smoking Status: Former Smoker Substance Use Type: Alcohol - Medications Home Medications: Home Medications Medication Instructions Recorded Confirmed Last Taken Type Tiotropium [Spiriva] 18 mcg IH QDAY #30 box 09/22/16 08/05/19 06/11/19 Rx Albuterol Sulfate [Ventolin HFA] 2 puff IH Q4H PRN 03/03/17 08/05/19 06/11/19 History Aspirin [Adult Low Dose Aspirin EC] 81 mg PO DAILY 03/03/17 08/05/19 06/11/19 History Gabapentin 300 mg PO Q8HR 03/03/17 08/05/19 06/11/19 History Lisinopril/Hydrochlorothiazide 2 tab PO QDAY 03/03/17 08/05/19 06/11/19 History [Zestoretic 20-12.5 mg] Montelukast [Singulair] 10 mg PO QPM 03/03/17 08/05/19 06/11/19 History amLODIPine 5 mg PO DAILY 03/03/17 08/05/19 06/11/19 History oxyCODONE [roxiCODONE] 10 mg PO Q8HR PRN 06/12/19 08/05/19 06/11/19 History ALBUTEROL NEB's [Proventil 0.083% 2.5 mg IH Q4HRT PRN #30 nebu 06/13/19 08/05/19 Unknown Rx NEBS] Acetaminophen [Non-Aspirin Extra 500 mg PO Q6HR PRN #30 tablet 06/27/19 08/05/19 Unknown Rx Strength] Albuterol Sulfate [Proair 90 mcg IH Q4HR PRN #2 aer.pow.ba 06/27/19 08/05/19 Unknown Rx Respiclick] Ibuprofen [Motrin 600 MG tab] 600 mg PO Q8H PRN #30 tablet 06/27/19 08/05/19 Unknown Rx Azithromycin [Zithromax Z-JEFFERSON] 0 mg PO DAILY #1 packet 08/08/19 Unknown Rx guaiFENesin ER [Mucinex ER] 600 mg PO BID #30 tablet 08/08/19 Unknown Rx predniSONE [Deltasone] 6 tab PO QDAY 3 Days #40 tab 08/08/19 Unknown Rx ED Physical Exam - General Limitations: No Limitations General appearance: alert, in no apparent distress - Head Head exam: Present: atraumatic, normocephalic - Eye Eye exam: Present: normal appearance, PERRL, EOMI - ENT ENT exam: Present: normal orophraynx, mucous membranes moist - Neck Neck exam: Present: normal inspection - Respiratory Respiratory exam: Present: respiratory distress, wheezes. Absent: normal lung sounds bilaterally, rales, rhonchi - Cardiovascular Cardiovascular Exam: Present: regular rate, normal rhythm, normal heart sounds. Absent: systolic murmur, diastolic murmur, rubs, gallop - GI/Abdominal GI/Abdominal exam: Present: soft, normal bowel sounds. Absent: distended, guarding, rebound - Rectal Rectal exam: Present: deferred - Extremities Exam Extremities exam: Present: normal inspection - Back Exam Back exam: Present: normal inspection - Neurological Exam Neurological exam: Present: alert, oriented X3 - Psychiatric Psychiatric exam: Present: normal affect, normal mood - Skin Skin exam: Present: warm, dry, intact, normal color. Absent: rash ED Course Vital Signs 09/29/19 09/29/19 09/29/19 11:29 11:37 11:45 Temperature 98.7 F Pulse Rate 80 83 83 Pulse Rate [ Bilateral] Respiratory 15 22 21 Rate Respiratory Rate [Bilateral ] Blood Pressure 150/95 150/95 Blood Pressure [Left] O2 Sat by Pulse 97 96 94 Oximetry 09/29/19 09/29/19 09/29/19 12:01 12:15 12:30 Temperature 98.7 F Pulse Rate 95 H 80 70 Pulse Rate [ 88 Bilateral] Respiratory 14 13 Rate Respiratory 16 Rate [Bilateral ] Blood Pressure 184/108 184/108 Blood Pressure 137/74 [Left] O2 Sat by Pulse 90 93 Oximetry 09/29/19 09/29/19 09/29/19 13:18 14:21 14:44 Temperature Pulse Rate 85 87 Pulse Rate [ Bilateral] Respiratory 19 16 Rate Respiratory Rate [Bilateral ] Blood Pressure 158/84 Blood Pressure 149/92 [Left] O2 Sat by Pulse 99 95 Oximetry ED Medical Decision Making - Lab Data Result diagrams: 09/29/19 12:57 09/29/19 12:57 Lab Results 09/29/19 09/29/19 09/29/19 Range/Units 12:50 12:57 12:57 WBC 7.1 (4.5-11.0) K/mm3 RBC 4.95 (3.65-5.03) M/mm3 Hgb 15.1 (11.8-15.2) gm/dl Hct 45.9 H (35.5-45.6) % MCV 93 (84-94) fl MCH 31 (28-32) pg MCHC 33 (32-34) % RDW 14.4 (13.2-15.2) % Plt Count 183 (140-440) K/mm3 Lymph % (Auto) 12.9 L (13.4-35.0) % [place] % (Auto) 3.8 (0.0-7.3) % Eos % (Auto) 0.0 (0.0-4.3) % Baso % (Auto) 1.2 (0.0-1.8) % Lymph # 0.9 L (1.2-5.4) K/mm3 [place] # 0.3 (0.0-0.8) K/mm3 Eos # 0.0 (0.0-0.4) K/mm3 Baso # 0.1 (0.0-0.1) K/mm3 Seg Neutrophils % 82.1 H (40.0-70.0) % Seg Neutrophils # 5.8 (1.8-7.7) K/mm3 PT 12.9 (12.2-14.9) Sec. INR 0.96 (0.87-1.13) APTT 25.8 (24.2-36.6) Sec. Sodium 142 (137-145) mmol/L Potassium 5.0 (3.6-5.0) mmol/L Chloride 104.7 (98-107) mmol/L Carbon Dioxide 24 (22-30) mmol/L Anion Gap 18 mmol/L BUN 12 (9-20) mg/dL Creatinine 0.8 (0.8-1.5) mg/dL Estimated GFR > 60 ml/min BUN/Creatinine Ratio 15 % Glucose 147 H (75-100) mg/dL Calcium 9.6 (8.4-10.2) mg/dL Magnesium 1.90 (1.7-2.3) mg/dL Total Creatine Kinase (55-170) units/L CK-MB (CK-2) (0.0-4.0) ng/mL CK-MB (CK-2) Rel Index (0-4) Troponin T (0.00-0.029) ng/mL 09/29/19 Range/Units 12:57 WBC (4.5-11.0) K/mm3 RBC (3.65-5.03) M/mm3 Hgb (11.8-15.2) gm/dl Hct (35.5-45.6) % MCV (84-94) fl MCH (28-32) pg MCHC (32-34) % RDW (13.2-15.2) % Plt Count (140-440) K/mm3 Lymph % (Auto) (13.4-35.0) % [place] % (Auto) (0.0-7.3) % Eos % (Auto) (0.0-4.3) % Baso % (Auto) (0.0-1.8) % Lymph # (1.2-5.4) K/mm3 [place] # (0.0-0.8) K/mm3 Eos # (0.0-0.4) K/mm3 Baso # (0.0-0.1) K/mm3 Seg Neutrophils % (40.0-70.0) % Seg Neutrophils # (1.8-7.7) K/mm3 PT (12.2-14.9) Sec. INR (0.87-1.13) APTT (24.2-36.6) Sec. Sodium (137-145) mmol/L Potassium (3.6-5.0) mmol/L Chloride (98-107) mmol/L Carbon Dioxide (22-30) mmol/L Anion Gap mmol/L BUN (9-20) mg/dL Creatinine (0.8-1.5) mg/dL Estimated GFR ml/min BUN/Creatinine Ratio % Glucose (75-100) mg/dL Calcium (8.4-10.2) mg/dL Magnesium (1.7-2.3) mg/dL Total Creatine Kinase 40 L (55-170) units/L CK-MB (CK-2) 2.8 (0.0-4.0) ng/mL CK-MB (CK-2) Rel Index 7.0 H (0-4) Troponin T < 0.010 (0.00-0.029) ng/mL - EKG Data -: EKG Interpreted by Al EKG shows normal: sinus rhythm, axis, intervals, QRS complexes, ST-T waves Rate: normal - EKG Data Interpretation: normal EKG - Radiology Data [facility] [address] [place] [address] XRay Report Signed Patient: DANIS BERRY SR MR#: [id number] : 1960 Acct:[id number] Age/Sex: 59 / M ADM Date: 09/29/19 Loc: ED Attending Dr: Ordering Physician: CORA CORTES MD Date of Service: 09/29/19 Procedure(s): XR chest 1V ap Accession Number(s): [id number] cc: CORA CORTES MD Fluoro Time In Minutes: CHEST 1 VIEW INDICATION: dyspnea. COMPARISON: 08/04/2019 FINDINGS: Support devices: None. Heart: Within normal limits. Lungs/Pleura: No acute air space or interstitial disease. Mild underlying COPD remains. Additional findings: None. IMPRESSION: Stable chest. Signer Name: Pollo Villanueva MD Signed: 09/29/2019 12:36 PM Workstation Name: [id number] - Medical Decision Making Patient is 59-year-old F [place] male with a past medical history of COPD who is presenting with chest tightness and shortness of breath. Patient had decreased breath sounds with wheezing. Patient received Solu-Medrol magnesium and on hour-long neb treatment. Patient still having symptoms and will be admitted to the hospitalist service. Critical Care Time: Yes (30) Critical care attestation.: If time is entered above; I have spent that time in minutes in the direct care of this critically ill patient, excluding procedure time. ED Disposition Clinical Impression: Hypoxia, COPD exacerbation, Respiratory distress Disposition: OP ADMIT IP TO THIS HOSP Is pt being admited?: Yes Does the pt Need Aspirin: No Condition: Stable Instructions: Chronic Bronchitis (ED) Time of Disposition: 14:58
[2019-09-29] MEDS ORDERED: MORPHINE 4 MG/1 ML INJ IV ONE (15:33)
[2019-09-29] MEDS ORDERED: MORPHINE 4 MG/1 ML INJ ONE (15:45)
[2019-09-29 16:08] LABS: ABG Base Excess 0.8 mmol/L (-2.0-3.0); ABG HCO3 27.9 mmol/L (20.0-26.0); ABG Methemoglobin 0.6 % (0.0-1.5); ABG Oxygen Saturation 95.2 % (95.0-99.0); ABG PCO2 54.6 mm Hg; ABG PH 7.326 pH Units (7.350-7.450); ABG PO2 78.8 mm Hg (80.0-90.0)
[2019-09-29] MEDS ORDERED: NON-FORMULARY EACH (Albuterol Sulfate [Proair Respiclick] 90 MCG) IH PRN (22:53)
--- NOTE | 2019-09-29 22:53 | History and Physical Report ---
History of Present Illness Date of examination: 09/29/19 Date of admission: 09/29/19 14:59 Chief complaint: Cough and wheezing for 1 day. History of present illness: 59-year-old -[place] male with history of hypertension, peripheral neuropathy and COPD/asthma comes in for increasing shortness of breath and respiratory distress since morning. Not responding to nebulizer treatments. No fever or chills. No exposure to coronavirus patients. No exacerbating or relieving factors. Past Medical History Hypertension: Yes GERD: Yes Asthma: Yes COPD: Yes Surgical History Additional Surgical History: rt eye surgery,head surgery - Social History Smoking Status: Former Smoker Substance Use Type: Alcohol - Medications Home Medications: Home Medications Medication Instructions Recorded Confirmed Last Taken Type Tiotropium [Spiriva] 18 mcg IH QDAY #30 box 09/22/16 08/05/19 06/11/19 Rx Albuterol Sulfate [Ventolin HFA] 2 puff IH Q4H PRN 03/03/17 08/05/19 06/11/19 History Aspirin [Adult Low Dose Aspirin EC] 81 mg PO DAILY 03/03/17 08/05/19 06/11/19 History Gabapentin 300 mg PO Q8HR 03/03/17 08/05/19 06/11/19 History Lisinopril/Hydrochlorothiazide 2 tab PO QDAY 03/03/17 08/05/19 06/11/19 History [Zestoretic 20-12.5 mg] Montelukast [Singulair] 10 mg PO QPM 03/03/17 08/05/19 06/11/19 History amLODIPine 5 mg PO DAILY 03/03/17 08/05/19 06/11/19 History oxyCODONE [roxiCODONE] 10 mg PO Q8HR PRN 06/12/19 08/05/19 06/11/19 History ALBUTEROL NEB's [Proventil 0.083% 2.5 mg IH Q4HRT PRN #30 nebu 06/13/19 08/05/19 Unknown Rx NEBS] Acetaminophen [Non-Aspirin Extra 500 mg PO Q6HR PRN #30 tablet 06/27/19 08/05/19 Unknown Rx Strength] Albuterol Sulfate [Proair 90 mcg IH Q4HR PRN #2 aer.pow.ba 06/27/19 08/05/19 Unknown Rx Respiclick] Ibuprofen [Motrin 600 MG tab] 600 mg PO Q8H PRN #30 tablet 06/27/19 08/05/19 Unknown Rx Azithromycin [Zithromax Z-JEFFERSON] 0 mg PO DAILY #1 packet 08/08/19 Unknown Rx guaiFENesin ER [Mucinex ER] 600 mg PO BID #30 tablet 08/08/19 Unknown Rx predniSONE [Deltasone] 6 tab PO QDAY 3 Days #40 tab 08/08/19 Unknown Rx Review of Systems ROS: Constitutional no weight loss or weight gain no fever or chills HEENT no sore throat no post nasal drip no diplopia Neck no neck stiffness no lymph gland enlargement Chest and lungs severe wheezing and cough productive of mucoid sputum CVS no chest pain no diaphoresis no palpitations GI no nausea no vomiting no diarrhea Genitourinary system no dysuria no flank pain Musculoskeletal system no muscle pains 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 no 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 no seizures Skin no rash no itching Psychiatric no depression no homicidal or suicidal tendencies Hematologic no lymphedema or bruising Endocrine no polydipsia no polyuria no cold intolerance no heat intolerance Medications and Allergies Allergies Allergy/AdvReac Type Severity Reaction Status Date / Time No Known Allergies Allergy Unverified 09/29/19 15:42 Home Medications Medication Instructions Recorded Confirmed Last Taken Type Tiotropium [Spiriva] 18 mcg IH QDAY #30 box 09/22/16 09/29/19 09/28/19 Rx Albuterol Sulfate [Ventolin HFA] 2 puff IH Q4H PRN 03/03/17 09/29/19 09/29/19 History Aspirin [Adult Low Dose Aspirin EC] 81 mg PO DAILY 03/03/17 09/29/19 09/28/19 History Gabapentin 300 mg PO Q8HR 03/03/17 09/29/19 09/22/19 History Montelukast [Singulair] 10 mg PO QPM 03/03/17 09/29/19 09/28/19 History amLODIPine 5 mg PO DAILY 03/03/17 09/29/19 09/28/19 History ALBUTEROL NEB's [Proventil 0.083% 2.5 mg IH Q4HRT PRN #30 nebu 01/07/20 04/24/20 04/24/20 Rx NEBS] Albuterol Sulfate [Proair 90 mcg IH Q4HR PRN #2 aer.pow.ba 06/27/19 09/29/19 09/29/19 Rx Respiclick] Azithromycin [Zithromax Z-JEFFERSON] 0 mg PO DAILY #1 packet 08/08/19 09/29/19 09/27/19 Rx guaiFENesin ER [Mucinex ER] 600 mg PO BID #30 tablet 08/08/19 09/29/19 09/27/19 Rx predniSONE [Deltasone] 6 tab PO QDAY 3 Days #40 tab 08/08/19 09/29/19 09/29/19 Rx Oxycodone HCl 10 mg PO Q6HR 09/30/19 09/30/19 Unknown History Exam - Constitutional Vitals: Temp Pulse Resp BP Pulse Ox 97.5 F L 88 22 142/83 97 09/29/19 21:30 09/29/19 21:30 09/29/19 21:30 09/29/19 21:30 09/29/19 21:30 General appearance: Present: mild distress, well-nourished - EENT Eyes: Present: PERRL ENT: hearing intact, clear oral mucosa - Neck Neck: Present: supple, normal ROM - Respiratory Respiratory effort: normal Respiratory: bilateral: CTA, rhonchi, wheezing - Cardiovascular Heart rate: 78 Rhythm: regular (78) Heart Sounds: Present: S1 & S2. Absent: rub, click - Extremities Extremities: no ischemia, pulses intact, pulses symmetrical, No edema Peripheral Pulses: within normal limits - Abdominal General gastrointestinal: Present: soft, non-tender, non-distended, normal bowel sounds Male genitourinary: Present: normal - Rectal Rectal Exam: deferred - Integumentary Integumentary: Present: clear, warm, dry - Musculoskeletal Musculoskeletal: gait normal, strength equal bilaterally - Psychiatric Psychiatric: appropriate mood/affect, intact judgment & insight - Neurologic Neurologic: CNII-XII intact, moves all extremities - Allied Health Allied health notes reviewed: nursing, case management CHAIM score - Chaim Score Age > 65: (0) No Aspirin use within the Past 7 Days: (0) No 3 or more CAD Risk Factors: (0) No 2 or more Angina events in past 24 hrs: (1) Yes Known CAD with more than 50% Stenosis: (0) No Elevated Cardiac Markers: (0) No ST Deviation Greater than 0.5mm: (0) No CHAIM Score: 1 Results - Labs CBC & Chem 7: 09/29/19 12:57 09/29/19 12:57 Labs: Laboratory Last Values WBC 7.1 K/mm3 (4.5-11.0) 09/29/19 12:57 RBC 4.95 M/mm3 (3.65-5.03) 09/29/19 12:57 Hgb 15.1 gm/dl (11.8-15.2) 09/29/19 12:57 Hct 45.9 % (35.5-45.6) H 09/29/19 12:57 MCV 93 fl (84-94) 09/29/19 12:57 MCH 31 pg (28-32) 09/29/19 12:57 MCHC 33 % (32-34) 09/29/19 12:57 RDW 14.4 % (13.2-15.2) 09/29/19 12:57 Plt Count 183 K/mm3 (140-440) 09/29/19 12:57 Lymph % (Auto) 12.9 % (13.4-35.0) L 09/29/19 12:57 Edmonson % (Auto) 3.8 % (0.0-7.3) 09/29/19 12:57 Eos % (Auto) 0.0 % (0.0-4.3) 09/29/19 12:57 Baso % (Auto) 1.2 % (0.0-1.8) 09/29/19 12:57 Lymph # 0.9 K/mm3 (1.2-5.4) L 09/29/19 12:57 Edmonson # 0.3 K/mm3 (0.0-0.8) 09/29/19 12:57 Eos # 0.0 K/mm3 (0.0-0.4) 09/29/19 12:57 Baso # 0.1 K/mm3 (0.0-0.1) 09/29/19 12:57 Seg Neutrophils % 82.1 % (40.0-70.0) H 09/29/19 12:57 Seg Neutrophils # 5.8 K/mm3 (1.8-7.7) 09/29/19 12:57 PT 12.9 Sec. (12.2-14.9) 09/29/19 12:50 INR 0.96 (0.87-1.13) 09/29/19 12:50 APTT 25.8 Sec. (24.2-36.6) 09/29/19 12:50 ABG pH 7.326 pH Units (7.350-7.450) L 09/29/19 15:55 ABG pCO2 54.6 mm Hg 09/29/19 15:55 ABG pO2 78.8 mm Hg (80.0-90.0) L 09/29/19 15:55 ABG HCO3 27.9 mmol/L (20.0-26.0) H 09/29/19 15:55 ABG O2 Saturation 95.2 % (95.0-99.0) 09/29/19 15:55 ABG O2 Content 19.4 (0.0-44) 09/29/19 15:55 ABG Base Excess 0.8 mmol/L (-2.0-3.0) 09/29/19 15:55 ABG Hemoglobin 14.8 gm/dl (14.0-18.0) 09/29/19 15:55 ABG Carboxyhemoglobin 1.5 % (0.0-5.0) 09/29/19 15:55 ABG Methemoglobin 0.6 % (0.0-1.5) 09/29/19 15:55 Oxyhemoglobin 93.2 % (95.0-99.0) L 09/29/19 15:55 FiO2 32 % 09/29/19 15:55 Sodium 142 mmol/L (137-145) 09/29/19 12:57 Potassium 5.0 mmol/L (3.6-5.0) 09/29/19 12:57 Chloride 104.7 mmol/L (98-107) 09/29/19 12:57 Carbon Dioxide 24 mmol/L (22-30) 09/29/19 12:57 Anion Gap 18 mmol/L 09/29/19 12:57 BUN 12 mg/dL (9-20) 09/29/19 12:57 Creatinine 0.8 mg/dL (0.8-1.5) 09/29/19 12:57 Estimated GFR > 60 ml/min 09/29/19 12:57 BUN/Creatinine Ratio 15 % 09/29/19 12:57 Glucose 147 mg/dL (75-100) H 09/29/19 12:57 Calcium 9.6 mg/dL (8.4-10.2) 09/29/19 12:57 Magnesium 1.90 mg/dL (1.7-2.3) 09/29/19 12:57 Total Creatine Kinase 40 units/L (55-170) L 09/29/19 12:57 CK-MB (CK-2) 2.8 ng/mL (0.0-4.0) 09/29/19 12:57 CK-MB (CK-2) Rel Index 7.0 (0-4) H 09/29/19 12:57 Troponin T < 0.010 ng/mL (0.00-0.029) 09/29/19 12:57 - Imaging and Cardiology EKG: report reviewed (Normal sinus rhythm heart rate of 78/min) Imaging and Cardiology: Chest x-ray Lungs/Pleura: No acute air space or interstitial disease. Mild underlying COPD remains. Additional findings: None. IMPRESSION: Stable chest. Rhodes/IV: IV Catheter Type [Left Hand] Peripheral IV IV Catheter Type [Left Peripheral IV Antecubital] Assessment and Plan Advance Directives: Yes (Full code) VTE prophylaxis?: Chemical Plan of care discussed with patient/family: Yes - Patient Problems (1) Acute respiratory failure Current Visit: Yes Status: Acute Plan to address problem: Patient was hypoxic and prominent accessory muscle usage. Continue bronchodilators IV nebulizers and IV antibiotics BiPAP if necessary intubation if necessary (2) COPD exacerbation Current Visit: Yes Status: Acute Plan to address problem: Patient initiated on IV Solu-Medrol IV antibiotics and duo nebs (3) Hypertension Current Visit: Yes Status: Chronic Qualifiers: Hypertension type: essential hypertension Qualified Code(s): I10 - Essential (primary) hypertension Plan to address problem: Continue antihypertensives (4) Peripheral neuropathy Current Visit: Yes Status: Chronic Qualifiers: Peripheral neuropathy type: polyneuropathy, unspecified Qualified Code(s): G62.9 - Polyneuropathy, unspecified Plan to address problem: Continue gabapentin (5) DVT prophylaxis Current Visit: No Status: Acute Plan to address problem: On heparin and GI prophylaxis
[2019-09-29] MEDS ORDERED: IPRATROPIUM/ALBUTEROL SULFATE 3 ML AMPUL.NEB IH PRN (23:05)
[2019-09-29] MEDS: ALBUTEROL 2.5 MG/3 ML NEBU IH PRN (23:42)
[2019-09-29] MEDS: HEPARIN 5,000 UNIT/1 ML VIAL SUB-Q SCH (23:57)
[2019-09-29] MEDS: methylPREDNISolone Sod Succinate 125 MG/2 ML INJ IV SCH (23:57)
[2019-09-29] MEDS: GABAPENTIN 300 MG CAP PO SCH (23:57)
[2019-09-30] MEDS: methylPREDNISolone Sod Succinate 125 MG/2 ML INJ IV SCH ×3 (06:20→21:20)
[2019-09-30] MEDS: GABAPENTIN 300 MG CAP PO SCH ×3 (06:21→21:20)
[2019-09-30] MEDS ORDERED: IPRATROPIUM/ALBUTEROL SULFATE 3 ML AMPUL.NEB IH SCH (08:00)
[2019-09-30] MEDS ORDERED: AZITHROMYCIN 500 MG in SODIUM CHLORIDE 0.9% 250ML 250 ML IV SCH (10:00)
[2019-09-30] MEDS ORDERED: TIOTROPIUM 18 MCG CAP INHALATION IH SCH (10:00)
[2019-09-30] MEDS: amLODIPine 5 MG TAB PO SCH (10:27)
[2019-09-30] MEDS: HEPARIN 5,000 UNIT/1 ML VIAL SUB-Q SCH ×2 (10:27→21:21)
[2019-09-30] MEDS: ASPIRIN EC 81 MG TAB PO SCH (10:28)
[2019-09-30] MEDS: cefTRIAXone/NS 2 GM/100 ML 2 GM/100 ML BAG IV SCH (10:33)
[2019-09-30] MEDS: MONTELUKAST 10 MG TAB PO SCH (17:03)
[2019-09-30] MEDS: IPRATROPIUM/ALBUTEROL SULFATE 3 ML AMPUL.NEB IH SCH ×2 (17:19→22:00)
--- NOTE | 2019-09-30 20:28 | Progress Note ---
Assessment and Plan - Patient Problems (1) Acute respiratory failure Current Visit: Yes Status: Acute Plan to address problem: Patient was hypoxic and prominent accessory muscle usage. Continue bronchodilators IV nebulizers and IV antibiotics BiPAP if necessary intubation if necessary (2) COPD exacerbation Current Visit: Yes Status: Acute Plan to address problem: Patient initiated on IV Solu-Medrol IV antibiotics and duo nebs (3) Hypertension Current Visit: Yes Status: Chronic Qualifiers: Hypertension type: essential hypertension Qualified Code(s): I10 - Essential (primary) hypertension Plan to address problem: Continue antihypertensives (4) Peripheral neuropathy Current Visit: Yes Status: Chronic Qualifiers: Peripheral neuropathy type: polyneuropathy, unspecified Qualified Code(s): G62.9 - Polyneuropathy, unspecified Plan to address problem: Continue gabapentin (5) DVT prophylaxis Current Visit: No Status: Acute Plan to address problem: On heparin and GI prophylaxis Subjective Date of service: 09/30/19 Principal diagnosis: COPD exacerbation and acute respiratory failure Interval history: Symptomatically better Symptomatically better Objective - Constitutional Vitals: Vital Signs - 12hr 09/30/19 09/30/19 09/30/19 09:49 09:51 10:00 Temperature Pulse Rate 86 Pulse Rate [ 86 Bilateral] Respiratory Rate Respiratory 22 Rate [Bilateral ] Blood Pressure O2 Sat by Pulse 95 Oximetry 09/30/19 09/30/19 12:41 15:00 Temperature 97.4 F L Pulse Rate 88 Pulse Rate [ 87 Bilateral] Respiratory 20 Rate Respiratory 18 Rate [Bilateral ] Blood Pressure 152/78 O2 Sat by Pulse 92 Oximetry General appearance: Present: no acute distress, well-nourished - EENT Eyes: PERRL, EOM intact ENT: hearing intact, clear oral mucosa Ears: bilateral: normal - Neck Neck: supple, normal ROM - Respiratory Respiratory effort: normal Respiratory: bilateral: CTA, rhonchi, wheezing - Breasts Breasts: normal - Cardiovascular Heart rate: 78 Rhythm: regular Heart Sounds: Present: S1 & S2. Absent: gallop, rub Extremities: no ischemia, pulses intact, No edema, normal color, Full ROM - Gastrointestinal General gastrointestinal: Present: soft, non-tender, non-distended, normal bowel sounds - Genitourinary Male genitourinary: normal - Integumentary Integumentary: clear, warm, dry - Musculoskeletal Musculoskeletal: 1, strength equal bilaterally - Neurologic Neurologic: moves all extremities - Psychiatric Psychiatric: memory intact, appropriate mood/affect, intact judgment & insight - Labs CBC & Chem 7: 09/29/19 12:57 09/29/19 12:57
[2019-10-01] MEDS: methylPREDNISolone Sod Succinate 125 MG/2 ML INJ IV SCH ×2 (06:18→13:09)
[2019-10-01] MEDS: GABAPENTIN 300 MG CAP PO SCH ×2 (06:19→14:45)
[2019-10-01] MEDS: ALBUTEROL 2.5 MG/3 ML NEBU IH PRN (06:35)
[2019-10-01] MEDS: IPRATROPIUM/ALBUTEROL SULFATE 3 ML AMPUL.NEB IH SCH (07:37)
[2019-10-01] MEDS: ASPIRIN EC 81 MG TAB PO SCH (09:39)
[2019-10-01] MEDS: amLODIPine 5 MG TAB PO SCH (09:39)
[2019-10-01] MEDS: cefTRIAXone/NS 2 GM/100 ML 2 GM/100 ML BAG IV SCH (09:39)
[2019-10-01] MEDS: HEPARIN 5,000 UNIT/1 ML VIAL SUB-Q SCH (09:40)
[2019-10-01] MEDS ORDERED: AZITHROMYCIN 250 MG TAB PO SCH (10:00)
[2019-10-01 13:32] VITALS: BP 168/88
[2019-10-01] MEDS ORDERED: ALBUTEROL 2.5 MG/3 ML NEBU IH SCH (14:00)
--- NOTE | 2019-10-01 16:59 | Discharge Summary ---
Providers - Providers Date of Admission: 09/29/19 14:59 Date of discharge: 10/01/19 Attending physician: DEYVI MIRANDA Hospitalization Condition: Stable Hospital course: 59-year-old -Beninese male with history of hypertension, peripheral neuropathy and COPD/asthma comes in for increasing shortness of breath and respiratory distress since morning. Not responding to nebulizer treatments. No fever or chills. No exposure to coronavirus patients. No exacerbating or relieving factors. Hospital course--- patient improved with IV antibiotics IV Solu-Medrol and duo nebs [id number] and q. 6 as needed. No fever. Patient was comfortable at the time of discharge. Patient has nebulizer machine and nebulizer medicine at home. Patient being prescribed antibiotics and tapering dose of prednisone. Follow-up with pulmonary and by [facility]. Past Medical History Hypertension: Yes GERD: Yes Asthma: Yes COPD: Yes Surgical History Additional Surgical History: rt eye surgery,head surgery - Social History Smoking Status: Former Smoker Substance Use Type: Alcohol (1) Acute respiratory failure Current Visit: Yes Status: Acute Plan to address problem: Patient was hypoxic and prominent accessory muscle usage. Continue bronchodilators IV nebulizers and IV antibiotics BiPAP if necessary intubation if necessary (2) COPD exacerbation Current Visit: Yes Status: Acute Plan to address problem: Patient initiated on IV Solu-Medrol IV antibiotics and duo nebs (3) Hypertension Current Visit: Yes Status: Chronic Qualifiers: Hypertension type: essential hypertension Qualified Code(s): I10 - Essential (primary) hypertension Plan to address problem: Continue antihypertensives (4) Peripheral neuropathy Current Visit: Yes Status: Chronic Qualifiers: Peripheral neuropathy type: polyneuropathy, unspecified Qualified Code(s): G62.9 - Polyneuropathy, unspecified Plan to address problem: Continue gabapentin Disposition: DC-01 TO HOME OR SELFCARE - Discharge Diagnoses (1) Acute respiratory failure Status: Acute (2) COPD exacerbation Status: Acute (3) Hypertension Status: Chronic Qualifiers: Hypertension type: essential hypertension Qualified Code(s): I10 - Essential (primary) hypertension (4) Peripheral neuropathy Status: Chronic Qualifiers: Peripheral neuropathy type: polyneuropathy, unspecified Qualified Code(s): G62.9 - Polyneuropathy, unspecified (5) DVT prophylaxis Status: Acute Core Measure Documentation - Palliative Care Palliative Care/ Comfort Measures: Not Applicable - Core Measures Any of the following diagnoses?: none Exam - Constitutional Vitals: Temp Pulse Resp BP Pulse Ox 98.0 F 98 H 20 168/88 91 10/01/19 12:33 10/01/19 16:05 10/01/19 16:05 10/01/19 12:33 10/01/19 12:33 General appearance: Present: no acute distress, well-nourished - EENT Eyes: Present: PERRL ENT: hearing intact, clear oral mucosa - Neck Neck: Present: supple, normal ROM - Respiratory Respiratory effort: normal Respiratory: right: rales, bilateral: CTA, rhonchi - Cardiovascular Heart rate: 78 Rhythm: regular Heart Sounds: Present: S1 & S2. Absent: rub, click - Extremities Extremities: pulses symmetrical, No edema Peripheral Pulses: within normal limits - Abdominal General gastrointestinal: Present: soft, non-tender, non-distended, normal bowel sounds Male genitourinary: Present: normal - Integumentary Integumentary: Present: clear, warm, dry - Musculoskeletal Musculoskeletal: gait normal, strength equal bilaterally - Psychiatric Psychiatric: appropriate mood/affect, intact judgment & insight - Neurologic Neurologic: CNII-XII intact, moves all extremities - Allied Health Allied health notes reviewed: nursing, case management Plan Activity: no restrictions Diet: low fat, low cholesterol, low salt Follow up with: DEVIKA WELSH MD [Referring] - 3-5 Days BHASKAR PETTIT MD [Staff Physician] - 7 Days
[2019-10-01] MEDS: MONTELUKAST 10 MG TAB PO SCH (17:37)
== END 2019-10-01 19:19 | disposition home or self-care (01) ==
LOC: ED 11:20 → 2B-ACE 14:59
PROVIDERS: ADMIT Internal Medicine; ATTEND Internal Medicine
DX: J96.01 Acute respiratory failure with hypoxia (principal); J44.1 Chronic obstructive pulmonary disease with (acute) exacerbation; I10 Essential (primary) hypertension; G62.9 Polyneuropathy, unspecified; K21.9 Gastro-esophageal reflux disease without esophagitis; I25.2 Old myocardial infarction; G43.909 Migraine, unspecified, not intractable, without status migrainosus; Z87.891 Personal history of nicotine dependence; Z79.82 Long term (current) use of aspirin; Z79.899 Other long term (current) drug therapy; Z88.5 Allergy status to narcotic agent
CPT/HCPCS: 36415; 36600; 71045; 80048; 82550; 82553; 82803; 83735; 84484; 85025; 85610; 85730; 87116; 93005; 94640; 94644; 94760; 96365; 96366; 96368; 96372; 96375; 96376; 99291; G0378; J0456; J0696; J1644; J1885; J2270; J2930; J7050

== ENCOUNTER 2019-10-24 13:34 | Emergency (ER) | payer MEDICARE ==
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
[2019-10-24] MEDS ORDERED: FAMOTIDINE 20 MG TAB PO ONE (15:22)
[2019-10-24] MEDS ORDERED: ACETAMINOPHEN 325 MG/10.15 ML ORAL LIQD UNIT DOSE PO ONE (15:22)
[2019-10-24] MEDS ORDERED: SUCRALFATE 1 GM/10 ML ORAL LIQD PO ONE (15:22)
[2019-10-24] MEDS ORDERED: LIDOCAINE VISCOUS 2% 15 ML ORAL LIQD PO ONE (15:22)
[2019-10-24 15:24] LABS: Hematocrit 43.5 % (35.5-45.6); Hemoglobin 14.1 gm/dl (11.8-15.2); Mean Corpuscular HGB Conc 32 % (32-34); Mean Corpuscular Volume 93 fl (84-94); Platelet Count 178 K/mm3 (140-440); Red Blood Count 4.67 M/mm3 (3.65-5.03); Red Cell Distribution Width 14.2 % (13.2-15.2)
[2019-10-24 15:33] LABS: INR 0.96 (0.87-1.13)
[2019-10-24 15:41] LABS: BUN/Creatinine Ratio 21; Blood Urea Nitrogen 17 mg/dL (9-20); Calcium 9.4 mg/dL (8.4-10.2); Hemolysis Index 16
[2019-10-24 18:47] VITALS: BP 152/123
--- NOTE | 2019-10-24 18:52 | XRay Report ---
CHEST 1 VIEW INDICATION: dyspbnea. COMPARISON: 10/13/2019 FINDINGS: Support devices: None. Heart: Within normal limits. Lungs/Pleura: No acute air space or interstitial disease. Additional findings: None. IMPRESSION: No acute findings. Signer Name: Brent Teixeira Jr, MD Signed: 10/24/2019 3:44 PM Workstation Name: [id number]
== END 2019-10-24 18:35 | disposition home or self-care (01) ==
LOC: ED 13:34
DX: T28.0XXA Burn of mouth and pharynx, initial encounter (principal); J44.9 Chronic obstructive pulmonary disease, unspecified; R07.89 Other chest pain; I10 Essential (primary) hypertension; I25.2 Old myocardial infarction; K21.9 Gastro-esophageal reflux disease without esophagitis; M19.91 Primary osteoarthritis, unspecified site; G43.909 Migraine, unspecified, not intractable, without status migrainosus; Z87.442 Personal history of urinary calculi; Z98.890 Other specified postprocedural states; Z79.899 Other long term (current) drug therapy; X08.8XXA Exposure to other specified smoke, fire and flames, initial encounter; Y93.89 Activity, other specified; Y92.89 Other specified places as the place of occurrence of the external cause; Y99.8 Other external cause status
CPT/HCPCS: 36415; 71045; 80048; 82550; 83735; 84484; 85027; 85379; 85610; 93005

== ENCOUNTER 2019-12-10 07:14 | Inpatient (IN) | payer MEDICARE ==
[2019-12-10] MEDS ORDERED: ALBUTEROL 2.5 MG/3 ML NEBU IH ONE ×2 (08:00→12:40)
[2019-12-10] MEDS ORDERED: IPRATROPIUM 0.02% NEBU 2.5 ML IH ONE (08:01)
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
--- NOTE | 2019-12-10 08:27 | XRay Report ---
CHEST 1 VIEW, 12/10/2019 7:18 AM CLINICAL INFORMATION/INDICATION: Shortness of breath COMPARISON: Chest radiograph, 10/24/2019 FINDINGS: SUPPORT DEVICES: None. HEART: The cardiac silhouette is normal in size. LUNGS/PLEURA: The lungs are clear of focal airspace disease or significant pleural effusion. ADDITIONAL FINDINGS: No additional acute findings. IMPRESSION: 1. No evidence of acute cardiopulmonary process. Signer Name: Samara Meredith MD Signed: 12/10/2019 8:23 AM Workstation Name: [email or web address]
[2019-12-10 08:34] LABS: Basophils # (Auto) 0.1 K/mm3 (0.0-0.1); Basophils % (Auto) 0.9 % (0.0-1.8); Eosinophils # (Auto) 0.2 K/mm3 (0.0-0.4); Eosinophils % (Auto) 2.4 % (0.0-4.3); Hematocrit 44.2 % (35.5-45.6); Hemoglobin 14.7 gm/dl (11.8-15.2); Lymphocytes # (Auto) 0.9 K/mm3 (1.2-5.4); Lymphocytes % (Auto) 11.6 % (13.4-35.0); Mean Corpuscular HGB Conc 33 % (32-34); Mean Corpuscular Volume 93 fl (84-94); Monocytes # (Auto) 0.8 K/mm3 (0.0-0.8); Monocytes % (Auto) 10.5 % (0.0-7.3); Platelet Count 187 K/mm3 (140-440); Red Blood Count 4.73 M/mm3 (3.65-5.03)
[2019-12-10 08:59] LABS: Albumin 3.8 g/dL (3.9-5); BUN/Creatinine Ratio 21; Blood Urea Nitrogen 19 mg/dL (9-20); Calcium 9.3 mg/dL (8.4-10.2); Hemolysis Index 146
[2019-12-10 09:00] LABS: Alanine Aminotransferase 25 units/L (7-56)
[2019-12-10 09:15] LABS: INR 1.08 (0.87-1.13); Partial Thromboplastin Time 21.4 Sec. (24.2-36.6)
[2019-12-10 09:29] LABS: ABG HCO3 31.9 mmol/L (20.0-26.0); ABG Methemoglobin 0.5 % (0.0-1.5); ABG Oxygen Saturation 92.1 % (95.0-99.0); ABG PCO2 66.2 mm Hg; ABG PH 7.301 pH Units (7.350-7.450); ABG PO2 66.9 mm Hg (80.0-90.0)
[2019-12-10] MEDS ORDERED: hydrALAZINE 20 MG/1 ML INJ IV ONE (10:45)
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
[2019-12-10] MEDS ORDERED: hydrALAZINE 20 MG/1 ML INJ ONE (11:35)
[2019-12-10] MEDS ORDERED: PANTOPRAZOLE 40 MG INJ IV SCH (12:00)
[2019-12-10] MEDS: oxyCODONE /ACETAMINOPHEN 5-325MG TAB PO PRN ×2 (12:25→21:58)
[2019-12-10] MEDS ORDERED: oxyCODONE /ACETAMINOPHEN 5-325MG TAB ONE (12:25)
[2019-12-10] MEDS: BUDESONIDE 0.5 MG/2 ML NEBU IH SCH ×2 (13:27→19:23)
[2019-12-10] MEDS: TIOTROPIUM 18 MCG CAP INHALATION IH SCH (13:28)
[2019-12-10] MEDS: methylPREDNISolone Sod Succinate 125 MG/2 ML INJ IV SCH ×2 (15:36→21:53)
[2019-12-10] MEDS: ASPIRIN EC 81 MG TAB PO SCH (15:40)
[2019-12-10] MEDS: GABAPENTIN 300 MG CAP PO SCH ×2 (15:40→21:52)
[2019-12-10] MEDS: ALBUTEROL 2.5 MG/3 ML NEBU IH PRN (18:34)
[2019-12-10] MEDS: ALBUTEROL 2.5 MG/3 ML NEBU IH SCH (19:23)
[2019-12-10] MEDS: guaiFENesin ER 600 MG TAB PO SCH (21:52)
[2019-12-10] MEDS: ENOXAPARIN 40 MG/0.4 ML INJ SUB-Q SCH (21:53)
[2019-12-11] MEDS: ALBUTEROL 2.5 MG/3 ML NEBU IH SCH ×4 (02:33→21:23)
[2019-12-11] MEDS ORDERED: ALPRAZolam 0.25 MG TAB PO ONE (03:02)
[2019-12-11] MEDS ORDERED: hydrALAZINE 20 MG/1 ML INJ IV ONE ×2 (03:03→07:00)
[2019-12-11] MEDS: GABAPENTIN 300 MG CAP PO SCH ×2 (06:17→07:49)
[2019-12-11] MEDS: methylPREDNISolone Sod Succinate 125 MG/2 ML INJ IV SCH ×3 (06:17→21:58)
[2019-12-11] MEDS: BUDESONIDE 0.5 MG/2 ML NEBU IH SCH ×2 (07:10→21:23)
[2019-12-11] MEDS: MONTELUKAST 10 MG TAB PO SCH ×2 (08:33→18:49)
[2019-12-11] MEDS: guaiFENesin ER 600 MG TAB PO SCH ×3 (08:47→21:57)
[2019-12-11] MEDS: ASPIRIN EC 81 MG TAB PO SCH ×2 (08:47→10:44)
[2019-12-11] MEDS: PANTOPRAZOLE 40 MG TAB PO SCH ×2 (08:47→10:45)
[2019-12-11] MEDS: amLODIPine 5 MG TAB PO SCH ×2 (08:47→10:44)
[2019-12-11] MEDS: oxyCODONE /ACETAMINOPHEN 5-325MG TAB PO PRN ×2 (08:47→15:05)
[2019-12-11] MEDS: levoFLOXacin 750 MG TAB PO SCH (13:19)
[2019-12-11] MEDS: TIOTROPIUM 18 MCG CAP INHALATION IH SCH (16:40)
[2019-12-11] MEDS: ALBUTEROL 2.5 MG/3 ML NEBU IH PRN ×2 (17:28→23:48)
--- NOTE | 2019-12-11 20:11 | Progress Note ---
Assessment and Plan Assessment and plan: --Brief episode of hallucinations; after taking gabapentin However resolved, will stop gabapentin and closely monitor Consider psych evaluation if no improvement --Acute exacerbation of COPD; Oxygen titrate O2 sats to more than 90% Nebulizers, IV steroids, IV antibiotics Inhalation steroids, supportive care Pulmonary consult if no improvement --Acute hypoxic respiratory failure present on admission ABG PO2 66.9, mild improvement after oxygen Continue current management Home oxygen evaluation at discharge --Morbid obesity; advised diet modification Exercise as tolerated and weight reduction,Lifestyle changes --Hypertension; moderate control Continue current antihypertensives and PRN medications --Neuropathy peripheral; gabapentin patient reports hallucinations after taking this medicine Gabapentin , DC'd --DVT prophylaxis; Lovenox --Full CODE STATUS We will closely monitor the patient and adjust management as needed I called [place] physician Dr. Be at [phone] and discussed patient's condition Treatment and discharge planning, answered all her questions Will discharge in 1 to 2 days if stable History Interval history: I have seen the patient and examined at the bedside this morning Patient's chart medications, tests reports reviewed Patient was admitted with acute exacerbation of COPD On nasal cannula oxygen, saturating well Patient is morbidly obese, reports that he had some hallucinations after taking gabapentin And patient was very upset and did not want to take gabapentin any longer Patient denies any chest pain shortness of breath significantly improved Vital signs noted Hospitalist Physical - Constitutional Vitals: Temp Pulse Resp BP Pulse Ox 98.9 F 79 20 112/86 96 12/11/19 12:13 12/11/19 17:28 12/11/19 17:28 12/11/19 12:13 12/11/19 12:13 General appearance: Present: mild distress, well-nourished, obese (Morbidly obese) - EENT Eyes: Present: PERRL, EOM intact - Neck Neck: Present: supple, normal ROM - Respiratory Respiratory effort: normal Respiratory: bilateral: diminished, negative: rales, rhonchi, wheezing - Cardiovascular Rhythm: regular Heart Sounds: Present: S1 & S2 - Extremities Extremities: no ischemia, No edema - Abdominal General gastrointestinal: soft, non-tender, non-distended, normal bowel sounds - Integumentary Integumentary: Present: clear, warm - Psychiatric Psychiatric: appropriate mood/affect, cooperative - Neurologic Neurologic: CNII-XII intact, moves all extremities HEART Score - HEART Score Troponin: Troponin T < 0.010 ng/mL (0.00-0.029) 12/10/19 08:18 Results - Labs CBC & Chem 7: 12/10/19 08:18 12/10/19 08:18 Labs: Laboratory Last Values WBC 7.6 K/mm3 (4.5-11.0) 12/10/19 08:18 RBC 4.73 M/mm3 (3.65-5.03) 12/10/19 08:18 Hgb 14.7 gm/dl (11.8-15.2) 12/10/19 08:18 Hct 44.2 % (35.5-45.6) 12/10/19 08:18 MCV 93 fl (84-94) 12/10/19 08:18 MCH 31 pg (28-32) 12/10/19 08:18 MCHC 33 % (32-34) 12/10/19 08:18 RDW 14.0 % (13.2-15.2) 12/10/19 08:18 Plt Count 187 K/mm3 (140-440) 12/10/19 08:18 Lymph % (Auto) 11.6 % (13.4-35.0) L 12/10/19 08:18 [place] % (Auto) 10.5 % (0.0-7.3) H 12/10/19 08:18 Eos % (Auto) 2.4 % (0.0-4.3) 12/10/19 08:18 Baso % (Auto) 0.9 % (0.0-1.8) 12/10/19 08:18 Lymph # 0.9 K/mm3 (1.2-5.4) L 12/10/19 08:18 [place] # 0.8 K/mm3 (0.0-0.8) 12/10/19 08:18 Eos # 0.2 K/mm3 (0.0-0.4) 12/10/19 08:18 Baso # 0.1 K/mm3 (0.0-0.1) 12/10/19 08:18 Seg Neutrophils % 74.6 % (40.0-70.0) H 12/10/19 08:18 Seg Neutrophils # 5.6 K/mm3 (1.8-7.7) 12/10/19 08:18 PT 13.8 Sec. (12.2-14.9) 12/10/19 08:18 INR 1.08 (0.87-1.13) 12/10/19 08:18 APTT 21.4 Sec. (24.2-36.6) L 12/10/19 08:18 D-Dimer 229.29 ng/mlDDU (0-234) 12/10/19 08:18 ABG pH 7.301 pH Units (7.350-7.450) L 12/10/19 08:41 ABG pCO2 66.2 mm Hg 12/10/19 08:41 ABG pO2 66.9 mm Hg (80.0-90.0) L 12/10/19 08:41 ABG HCO3 31.9 mmol/L (20.0-26.0) H 12/10/19 08:41 ABG O2 Saturation 92.1 % (95.0-99.0) L 12/10/19 08:41 ABG O2 Content 21.2 (0.0-44) 12/10/19 08:41 ABG Base Excess 3.0 mmol/L (-2.0-3.0) 12/10/19 08:41 ABG Hemoglobin 16.8 gm/dl (14.0-18.0) 12/10/19 08:41 ABG Carboxyhemoglobin 2.0 % (0.0-5.0) 12/10/19 08:41 ABG Methemoglobin 0.5 % (0.0-1.5) 12/10/19 08:41 Oxyhemoglobin 89.7 % (95.0-99.0) L 12/10/19 08:41 FiO2 28 % 12/10/19 08:41 Sodium 143 mmol/L (137-145) 12/10/19 08:18 Potassium 5.1 mmol/L (3.6-5.0) H 12/10/19 08:18 Chloride 101.1 mmol/L (98-107) 12/10/19 08:18 Carbon Dioxide 28 mmol/L (22-30) 12/10/19 08:18 Anion Gap 19 mmol/L 12/10/19 08:18 BUN 19 mg/dL (9-20) 12/10/19 08:18 Creatinine 0.9 mg/dL (0.8-1.5) 12/10/19 08:18 Estimated GFR > 60 ml/min 12/10/19 08:18 BUN/Creatinine Ratio 21 % 12/10/19 08:18 Glucose 149 mg/dL (75-100) H 12/10/19 08:18 Calcium 9.3 mg/dL (8.4-10.2) 12/10/19 08:18 Total Bilirubin 0.60 mg/dL (0.1-1.2) 12/10/19 08:18 AST 27 units/L (5-40) 12/10/19 08:18 ALT 25 units/L (7-56) 12/10/19 08:18 Alkaline Phosphatase 64 units/L (35-129) 12/10/19 08:18 Troponin T < 0.010 ng/mL (0.00-0.029) 12/10/19 08:18 NT-Pro-B Natriuret Pep 43.30 pg/mL (0-900) 12/10/19 08:18 Total Protein 6.0 g/dL (6.3-8.2) L 12/10/19 08:18 Albumin 3.8 g/dL (3.9-5) L 12/10/19 08:18 Albumin/Globulin Ratio 1.7 % 12/10/19 08:18 Nasal Screen MRSA (PCR) Negative (Negative) 12/10/19 14:13 Rhodes/IV: Voiding Method Urinal IV Catheter Type [Right INT / Saline Lock Antecubital] IV Catheter Type [Left Hand] INT / Saline Lock IV Catheter Type [Right INT / Saline Lock Forearm] Active Medications - Current Medications Current Medications: Generic Name Dose Route Start Last Admin Trade Name Freq PRN Reason Stop Dose Admin Albuterol 2.5 mg 12/10/19 11:14 12/11/19 17:28 Proventil IH 2.5 mg Q4H PRN Administration Shortness Of Breath Albuterol 2.5 mg 12/10/19 20:00 12/11/19 13:23 Proventil IH 2.5 mg TIDRT ROLAN Administration Amlodipine Besylate 5 mg 12/11/19 10:00 12/11/19 10:44 Amlodipine PO Not Given DAILY ROLAN Aspirin 81 mg 12/10/19 12:00 12/11/19 10:44 Halfprin Ec PO Not Given DAILY [facility] Budesonide 0.5 mg 12/10/19 12:00 12/11/19 07:10 Pulmicort IH 0.5 mg Q12HRT ROLAN Administration Enoxaparin Sodium 40 mg 12/10/19 22:00 12/10/19 21:53 Enoxaparin SUB-Q 40 mg QDAY@2200 [facility] Administration Guaifenesin 600 mg 12/10/19 22:00 12/11/19 10:45 Mucinex Er PO Not Given BID [facility] Levofloxacin 750 mg 12/11/19 12:00 12/11/19 13:19 Levaquin PO 12/14/19 12:01 750 mg Q24H ROLAN Administration Methylprednisolone Sodium Succinate 80 mg 12/10/19 12:00 12/11/19 13:19 Solu-Medrol IV 80 mg Q8H ROLAN Administration Montelukast Sodium 10 mg 12/10/19 18:00 12/11/19 18:49 Singulair PO 10 mg QPM [facility] Administration Oxycodone/Acetaminophen 1 tab 12/10/19 11:58 12/11/19 15:05 Percocet 5/325 PO 1 tab Q6H PRN Administration Pain, Moderate (4-6) Pantoprazole Sodium 40 mg 12/11/19 10:00 12/11/19 10:45 Protonix PO Not Given DAILY [facility] Tiotropium [place] 1 puff 12/10/19 12:00 12/11/19 16:40 Spiriva IH Not Given QDAY [facility]
[2019-12-11] MEDS: ENOXAPARIN 40 MG/0.4 ML INJ SUB-Q SCH (21:57)
[2019-12-12] MEDS: methylPREDNISolone Sod Succinate 125 MG/2 ML INJ IV SCH ×2 (03:13→09:11)
[2019-12-12] MEDS: ALBUTEROL 2.5 MG/3 ML NEBU IH SCH ×2 (04:14→12:12)
[2019-12-12] MEDS: PANTOPRAZOLE 40 MG TAB PO SCH (09:08)
[2019-12-12] MEDS: guaiFENesin ER 600 MG TAB PO SCH (09:08)
[2019-12-12] MEDS: ASPIRIN EC 81 MG TAB PO SCH (09:08)
[2019-12-12] MEDS: amLODIPine 5 MG TAB PO SCH (09:08)
[2019-12-12] MEDS: oxyCODONE /ACETAMINOPHEN 5-325MG TAB PO PRN (11:30)
[2019-12-12 11:34] VITALS: BP 137/92
--- NOTE | 2019-12-12 12:05 | Discharge Summary ---
Providers - Providers Date of Admission: 12/10/19 10:24 Date of discharge: 12/12/19 Attending physician: BOB PEREZ Primary care physician: SET PAINTER Hospitalization Condition: Fair Disposition: DC-01 TO HOME OR SELFCARE Time spent for discharge: 32 min Core Measure Documentation - Palliative Care Palliative Care/ Comfort Measures: Not Applicable - Core Measures Any of the following diagnoses?: none Exam - Constitutional Vitals: Temp Pulse Resp BP Pulse Ox 97 F L 100 H 24 137/92 95 12/12/19 11:33 12/12/19 11:33 12/12/19 11:33 12/12/19 11:33 12/12/19 11:33 General appearance: Present: no acute distress, well-nourished - EENT Eyes: Present: PERRL, EOM intact - Neck Neck: Present: supple, normal ROM - Respiratory Respiratory effort: normal Respiratory: bilateral: diminished, negative: rales, rhonchi, wheezing - Cardiovascular Rhythm: regular Heart Sounds: Present: S1 & S2 - Extremities Extremities: no ischemia, No edema - Abdominal General gastrointestinal: Present: soft, non-tender, non-distended, normal bowel sounds - Integumentary Integumentary: Present: clear, warm - Musculoskeletal Musculoskeletal: strength equal bilaterally, generalized weakness - Psychiatric Psychiatric: appropriate mood/affect, cooperative - Neurologic Neurologic: moves all extremities Plan Activity: no restrictions Diet: other (Cardiac diet) Additional Instructions: Advised to follow [place]aker, PMChano and contract administrator per schedule. Advised diet modification exercise as tolerated and weight reduction when medically stable. If you have worsening symptoms contact MD or go to emergency room as needed Prescriptions: levoFLOXacin [Levaquin] 750 mg PO QDAY #4 tablet Prednisone [predniSONE 10 mg (6-Day Pack, 21 Tabs)] 10 mg PO .TAPER #1 tab.ds.pk
[2019-12-12] MEDS: BUDESONIDE 0.5 MG/2 ML NEBU IH SCH (12:12)
[2019-12-12] MEDS: TIOTROPIUM 18 MCG CAP INHALATION IH SCH (12:18)
[2019-12-12] MEDS: levoFLOXacin 750 MG TAB PO SCH (13:21)
== END 2019-12-12 15:30 | disposition home or self-care (01) | DRG 189 ==
LOC: ED 07:14 → 3A 10:24 → 4A 11:41
PROVIDERS: ADMIT Internal Medicine; ATTEND Internal Medicine
PROC: 4A033R1 Measurement of Arterial Saturation, Peripheral, Percutaneous Approach (ICD-10-PCS; principal; 2019-12-10)
PROC: 5A09357 Assistance with Respiratory Ventilation, Less than 24 Consecutive Hours, Continuous Positive Airway Pressure (ICD-10-PCS; 2019-12-11)
PROC: 5A09357 Assistance with Respiratory Ventilation, Less than 24 Consecutive Hours, Continuous Positive Airway Pressure (ICD-10-PCS; 2019-12-12)
DX: J96.01 Acute respiratory failure with hypoxia (principal); E87.2 Acidosis; J44.1 Chronic obstructive pulmonary disease with (acute) exacerbation; R44.3 Hallucinations, unspecified; Z99.81 Dependence on supplemental oxygen; I10 Essential (primary) hypertension; K21.9 Gastro-esophageal reflux disease without esophagitis; M19.90 Unspecified osteoarthritis, unspecified site; G43.909 Migraine, unspecified, not intractable, without status migrainosus; G47.33 Obstructive sleep apnea (adult) (pediatric); E66.01 Morbid (severe) obesity due to excess calories; F40.240 Claustrophobia; G62.9 Polyneuropathy, unspecified; I25.10 Atherosclerotic heart disease of native coronary artery without angina pectoris; I25.2 Old myocardial infarction; Z87.442 Personal history of urinary calculi; Z68.37 Body mass index [BMI] 37.0-37.9, adult; Z82.49 Family history of ischemic heart disease and other diseases of the circulatory system; Z71.3 Dietary counseling and surveillance
CPT/HCPCS: 36415; 71045; 80053; 82803; 83880; 84484; 85025; 85379; 85610; 85730; 87641; 93005; 94640; 94644; 94660; 94760; G0378; C9113; J0360; J1650; J1956; J2930

== ENCOUNTER 2020-01-31 05:48 | Inpatient (IN) | payer MEDICARE ==
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
[2020-01-31] MEDS ORDERED: ALBUTEROL 2.5 MG/3 ML NEBU IH ONE (06:26)
[2020-01-31] MEDS ORDERED: FUROSEMIDE 20 MG/2 ML INJ IV ONE (06:26)
[2020-01-31] MEDS ORDERED: IPRATROPIUM 0.02% NEBU 2.5 ML IH ONE (06:26)
--- NOTE | 2020-01-31 07:09 | XRay Report ---
CHEST 1 VIEW, 01/31/2020 6:39 AM CLINICAL INFORMATION/INDICATION: Shortness of breath COMPARISON: Chest radiograph, 12/10/2019 FINDINGS: SUPPORT DEVICES: None. HEART: The cardiac silhouette is normal in size. LUNGS/PLEURA: There is blunting of both costophrenic angles. No focal airspace disease is visualized. ADDITIONAL FINDINGS: No additional acute findings. IMPRESSION: 1. Blunting of both costophrenic angles suggesting small bilateral pleural effusions. Signer Name: Samara Meredith MD Signed: 01/31/2020 7:05 AM Workstation Name: [id number]
[2020-01-31 07:20] LABS: Hematocrit 43.3 % (35.5-45.6); Hemoglobin 14.8 gm/dl (11.8-15.2)
[2020-01-31 07:31] LABS: INR 1.04 (0.87-1.13)
[2020-01-31 07:46] LABS: BUN/Creatinine Ratio 23; Blood Urea Nitrogen 21 mg/dL (9-20); Calcium 9.5 mg/dL (8.4-10.2); Hemolysis Index 7
[2020-01-31 08:16] LABS: Basophils % (Auto) 0.4 % (0.0-1.8); Eosinophils # (Auto) 0.2 K/mm3 (0.0-0.4); Eosinophils % (Auto) 2.6 % (0.0-4.3); Hematocrit 44.6 % (35.5-45.6); Hemoglobin 14.7 gm/dl (11.8-15.2); Lymphocytes # (Auto) 1.1 K/mm3 (1.2-5.4); Lymphocytes % (Auto) 15.6 % (13.4-35.0); Mean Corpuscular HGB Conc 33 % (32-34); Mean Corpuscular Volume 93 fl (84-94); Monocytes # (Auto) 0.5 K/mm3 (0.0-0.8); Monocytes % (Auto) 7.4 % (0.0-7.3); Platelet Count 169 K/mm3 (140-440); Red Blood Count 4.78 M/mm3 (3.65-5.03); Red Cell Distribution Width 14.8 % (13.2-15.2)
[2020-01-31 08:29] LABS: C-Reactive Protein 0.8 mg/dL (0.00-1.30)
[2020-01-31 08:47] LABS: ABG Base Excess 3.5 mmol/L (-2.0-3.0); ABG HCO3 31.8 mmol/L (20.0-26.0); ABG Methemoglobin 0.6 % (0.0-1.5); ABG Oxygen Saturation 97.3 % (95.0-99.0); ABG PCO2 64.3 mm Hg; ABG PH 7.312 pH Units (7.350-7.450); ABG PO2 105.7 mm Hg (80.0-90.0)
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
[2020-01-31] MEDS ORDERED: hydrALAZINE 20 MG/1 ML INJ IV PRN (10:00)
[2020-01-31] MEDS ORDERED: FUROSEMIDE 20 MG/2 ML INJ IV SCH (10:00)
[2020-01-31] MEDS ORDERED: FUROSEMIDE 40 MG/4 ML INJ ONE (10:32)
[2020-01-31] MEDS ORDERED: amLODIPine 5 MG TAB ONE (10:32)
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
[2020-01-31] MEDS: guaiFENesin ER 600 MG TAB PO SCH ×2 (17:22→21:24)
[2020-01-31] MEDS: GABAPENTIN 300 MG CAP PO SCH ×2 (17:22→21:25)
[2020-01-31] MEDS: methylPREDNISolone Sod Succinate 125 MG/2 ML INJ IV SCH ×2 (17:22→21:25)
[2020-01-31] MEDS: amLODIPine 5 MG TAB PO SCH (17:22)
[2020-01-31] MEDS: TIOTROPIUM 18 MCG CAP INHALATION IH SCH (17:22)
[2020-01-31] MEDS: PANTOPRAZOLE 40 MG TAB PO SCH (17:22)
[2020-01-31] MEDS: FUROSEMIDE 20 MG/2 ML INJ IV SCH (17:23)
[2020-01-31] MEDS: ASPIRIN EC 81 MG TAB PO SCH (17:23)
[2020-01-31] MEDS: MONTELUKAST 10 MG TAB PO SCH (18:14)
[2020-01-31] MEDS: ENOXAPARIN 40 MG/0.4 ML INJ SUB-Q SCH (21:25)
[2020-01-31] MEDS: BUDESONIDE 0.5 MG/2 ML NEBU IH SCH (21:43)
[2020-02-01] MEDS: methylPREDNISolone Sod Succinate 125 MG/2 ML INJ IV SCH ×3 (06:53→22:40)
[2020-02-01] MEDS: GABAPENTIN 300 MG CAP PO SCH ×3 (06:54→22:40)
--- NOTE | 2020-02-01 08:53 | Progress Note ---
Assessment and Plan Assessment and plan: --Positive COVID-19. Continue contact and droplet isolation Isolation precautions, PPE protocols Check inflammatory markers Patient is already on IV Solu-Medrol ID consult, supportive care --Acute hypoxic respiratory failure; Requiring BiPAP, secondary COPD exacerbation Oxygen titrate O2 sats to more than 90%, currently on BiPAP Intubate if no improvement Nebulizers, IV steroids, IV antibiotics, inhalation steroids Pulmonary consult --Acute exacerbation of COPD; with acute bronchitis Nebulizers, IV steroids, antibiotics, oxygen/BiPAP as needed Patient already has home oxygen --History of obstructive sleep apnea; CPAP BiPAP at night, counseled the patient to comply with CPAP --High suspicion for COVID/P UI Isolation, castillo PCR test requested ID consult if needed, inflammatory markers if COVID test is positive --Morbid obesity; BMI 42.1; Patient needs weight reduction May benefit from bariatric surgical outpatient consultation For weight reduction program when medically stable --History of peripheral neuropathy; patient takes gabapentin at home Resume gabapentin and supportive care --DVT prophylaxis; Lovenox --Full CODE STATUS; Closely monitor patient and adjust management as needed 01/31; patient's COVID test is positive, continue precautions, ID consulted, follow inflammatory markers History Interval history: I have seen and examined the patient Patient's chart and medications reviewed Patient feels slightly better Mild shortness of breath Generalized weakness Vital signs noted Hospitalist Physical - Constitutional Vitals: Temp Pulse Resp BP Pulse Ox 98.6 F 77 11 L 149/100 99 02/01/20 07:57 02/01/20 08:00 02/01/20 08:00 02/01/20 05:00 02/01/20 08:00 General appearance: Present: mild distress, well-nourished, obese (Morbidly obese) - EENT Eyes: Present: PERRL, EOM intact - Neck Neck: Present: supple, normal ROM - Respiratory Respiratory effort: normal Respiratory: bilateral: diminished, rhonchi, negative: rales, wheezing - Cardiovascular Rhythm: regular Heart Sounds: Present: S1 & S2 - Extremities Extremities: no ischemia, No edema - Abdominal General gastrointestinal: soft, non-tender, non-distended, normal bowel sounds - Integumentary Integumentary: Present: clear, warm - Psychiatric Psychiatric: appropriate mood/affect, cooperative - Neurologic Neurologic: moves all extremities Results - Labs CBC & Chem 7: 01/31/20 06:58 01/31/20 07:45 Labs: Laboratory Last Values WBC 7.0 K/mm3 (4.5-11.0) 01/31/20 06:58 RBC 4.78 M/mm3 (3.65-5.03) 01/31/20 06:58 Hgb 14.7 gm/dl (11.8-15.2) 01/31/20 06:58 Hgb 14.8 gm/dl (11.8-15.2) 01/31/20 06:58 Hct 43.3 % (35.5-45.6) 01/31/20 06:58 Hct 44.6 % (35.5-45.6) 01/31/20 06:58 MCV 93 fl (84-94) 01/31/20 06:58 MCH 31 pg (28-32) 01/31/20 06:58 MCHC 33 % (32-34) 01/31/20 06:58 RDW 14.8 % (13.2-15.2) 01/31/20 06:58 Plt Count 162 K/mm3 (140-440) 01/31/20 06:58 Plt Count 169 K/mm3 (140-440) 01/31/20 06:58 Lymph % (Auto) 15.6 % (13.4-35.0) 01/31/20 06:58 [place] % (Auto) 7.4 % (0.0-7.3) H 01/31/20 06:58 Eos % (Auto) 2.6 % (0.0-4.3) 01/31/20 06:58 Baso % (Auto) 0.4 % (0.0-1.8) 01/31/20 06:58 Lymph # 1.1 K/mm3 (1.2-5.4) L 01/31/20 06:58 [place] # 0.5 K/mm3 (0.0-0.8) 01/31/20 06:58 Eos # 0.2 K/mm3 (0.0-0.4) 01/31/20 06:58 Baso # 0.0 K/mm3 (0.0-0.1) 01/31/20 06:58 Seg Neutrophils % 74.0 % (40.0-70.0) H 01/31/20 06:58 Seg Neutrophils # 5.2 K/mm3 (1.8-7.7) 01/31/20 06:58 PT 13.8 Sec. (12.2-14.9) 01/31/20 06:58 INR 1.04 (0.87-1.13) 01/31/20 06:58 ABG pH 7.312 pH Units (7.350-7.450) L 01/31/20 08:40 ABG pCO2 64.3 mm Hg 01/31/20 08:40 ABG pO2 105.7 mm Hg (80.0-90.0) H 01/31/20 08:40 ABG HCO3 31.8 mmol/L (20.0-26.0) H 01/31/20 08:40 ABG O2 Saturation 97.3 % (95.0-99.0) 01/31/20 08:40 ABG O2 Content 19.8 (0.0-44) 01/31/20 08:40 ABG Base Excess 3.5 mmol/L (-2.0-3.0) H 01/31/20 08:40 ABG Hemoglobin 14.7 gm/dl (14.0-18.0) 01/31/20 08:40 ABG Carboxyhemoglobin 1.5 % (0.0-5.0) 01/31/20 08:40 ABG Methemoglobin 0.6 % (0.0-1.5) 01/31/20 08:40 Oxyhemoglobin 95.2 % (95.0-99.0) 01/31/20 08:40 FiO2 40 % 01/31/20 08:40 Sodium 144 mmol/L (137-145) 01/31/20 06:58 Potassium 4.5 mmol/L (3.6-5.0) 01/31/20 06:58 Chloride 101.3 mmol/L (98-107) 01/31/20 06:58 Carbon Dioxide 31 mmol/L (22-30) H 01/31/20 06:58 Anion Gap 16 mmol/L 01/31/20 06:58 BUN 21 mg/dL (9-20) H 01/31/20 06:58 Creatinine 0.9 mg/dL (0.8-1.3) 01/31/20 06:58 Estimated GFR > 60 ml/min 01/31/20 06:58 BUN/Creatinine Ratio 23 % 01/31/20 06:58 Glucose 141 mg/dL (75-100) H 01/31/20 07:45 Lactic Acid 1.20 mmol/L (0.7-2.0) 01/31/20 07:45 Calcium 9.5 mg/dL (8.4-10.2) 01/31/20 06:58 Magnesium 2.60 mg/dL (1.7-2.3) H 01/31/20 06:58 Ferritin 99.2 ng/mL (30.0-300.0) 01/31/20 07:45 Lactate Dehydrogenase 342 units/L (91-180) H 01/31/20 07:45 Total Creatine Kinase 50 units/L (55-170) L 01/31/20 06:58 C-Reactive Protein 0.80 mg/dL (0.00-1.30) 01/31/20 07:45 NT-Pro-B Natriuret Pep 22.30 pg/mL (0-900) 01/31/20 06:58 Procalcitonin < 0.05 ng/mL (<0.15) 01/31/20 07:45 Coronavirus (PCR) Positive (Negative) A 01/31/20 Unknown Microbiology: Microbiology 01/31/20 08:00 Peripheral/Venous Blood Culture - Preliminary NO GROWTH AFTER 24 HOURS 01/31/20 08:00 Peripheral/Venous Blood Culture - Preliminary NO GROWTH AFTER 24 HOURS Rhodes/IV: Voiding Method Urinal IV Catheter Type [Left INT / Saline Lock Antecubital] Active Medications - Current Medications Current Medications: Generic Name Dose Route Start Last Admin Trade Name Freq PRN Reason Stop Dose Admin Albuterol 2.5 mg 01/31/20 09:03 Proventil IH Q4HRT PRN Shortness Of Breath Amlodipine Besylate 5 mg 01/31/20 10:00 01/31/20 17:22 Amlodipine PO Not Given DAILY ROLAN Aspirin 81 mg 01/31/20 10:00 01/31/20 17:23 Halfprin Ec PO Not Given DAILY ROLAN Budesonide 0.5 mg 01/31/20 20:00 01/31/20 21:43 Pulmicort IH 0.5 mg Q12HRT ROLAN Administration Enoxaparin Sodium 40 mg 01/31/20 22:00 01/31/20 21:25 Enoxaparin SUB-Q 40 mg QDAY@2200 RLOAN Administration Furosemide 40 mg 01/31/20 10:00 01/31/20 17:23 Lasix IV Not Given QDAY ROLAN Gabapentin 300 mg 01/31/20 14:00 02/01/20 06:54 Gabapentin PO 300 mg Q8HR ROLAN Administration Guaifenesin 600 mg 01/31/20 10:00 01/31/20 21:24 Mucinex Er PO 600 mg BID [facility] Administration Hydralazine HCl 10 mg 01/31/20 10:00 Apresoline IV Q4HR PRN Hypertension Levofloxacin/Dextrose 750 mg in 150 mls @ 100 mls/hr 02/01/20 10:00 Levaquin 750mg/150ml IV Q24HR [facility] Protocol Methylprednisolone Sodium Succinate 80 mg 01/31/20 14:00 02/01/20 06:53 Solu-Medrol IV 80 mg Q8HR ROLAN Administration Montelukast Sodium 10 mg 01/31/20 18:00 01/31/20 18:14 Singulair PO 10 mg QPM ROLAN Administration Pantoprazole Sodium 40 mg 01/31/20 10:00 01/31/20 17:22 Protonix PO Not Given QDAY [facility] Tiotropium Tad 1 puff 01/31/20 10:00 01/31/20 17:22 Spiriva IH Not Given QDAY [facility]
[2020-02-01] MEDS: guaiFENesin ER 600 MG TAB PO SCH ×2 (09:50→22:40)
[2020-02-01] MEDS: ASPIRIN EC 81 MG TAB PO SCH (09:50)
[2020-02-01] MEDS: FUROSEMIDE 20 MG/2 ML INJ IV SCH (09:51)
[2020-02-01] MEDS: amLODIPine 5 MG TAB PO SCH (09:51)
[2020-02-01] MEDS: PANTOPRAZOLE 40 MG TAB PO SCH (09:52)
[2020-02-01 10:03] LABS: C-Reactive Protein 0.6 mg/dL (0.00-1.30)
[2020-02-01] MEDS: TIOTROPIUM 18 MCG CAP INHALATION IH SCH (10:19)
[2020-02-01] MEDS: BUDESONIDE 0.5 MG/2 ML NEBU IH SCH ×2 (10:19→21:32)
--- NOTE | 2020-02-01 11:42 | Progress Note ---
Assessment and Plan 59 y/o male with acute on chronic respiratory failure, ASHELY and COPD now covid positive 1. Will change steroids to 40q8 2. Consider ID consult to see if patient is a candidate for Remdesivir 3. Continue bipap QHS as patient does not have his machine here 4. monitor volume status 5. Continue pulmicort and will add brovana 6. Will continue to follow Stable for floor. Suggest contacting [facility] and transferring to one of their facilities if they want him. Subjective Date of service: 02/01/20 Interval history: No acute events. stable on 4 liters. Objective Vital Signs - 12hr 01/31/20 02/01/20 02/01/20 23:54 00:00 01:00 Temperature 97.6 F Pulse Rate 81 83 74 Pulse Rate [ Anterior Bilateral Throughout] Pulse Rate [ From Monitor] Respiratory 20 19 16 Rate Respiratory Rate [Anterior Bilateral Throughout] Blood Pressure 138/117 153/71 O2 Sat by Pulse 100 99 95 Oximetry 02/01/20 02/01/20 02/01/20 02:00 03:00 04:00 Temperature Pulse Rate 65 67 81 Pulse Rate [ Anterior Bilateral Throughout] Pulse Rate [ From Monitor] Respiratory 13 16 20 Rate Respiratory Rate [Anterior Bilateral Throughout] Blood Pressure 153/71 152/86 167/83 O2 Sat by Pulse 96 97 96 Oximetry 02/01/20 02/01/20 02/01/20 05:00 07:57 08:00 Temperature 98.6 F Pulse Rate 73 77 Pulse Rate [ 82 Anterior Bilateral Throughout] Pulse Rate [ 77 From Monitor] Respiratory 9 L 11 L Rate Respiratory 20 Rate [Anterior Bilateral Throughout] Blood Pressure 149/100 O2 Sat by Pulse 100 99 Oximetry 02/01/20 02/01/20 02/01/20 09:19 09:51 10:21 Temperature Pulse Rate 85 Pulse Rate [ Anterior Bilateral Throughout] Pulse Rate [ From Monitor] Respiratory 23 Rate Respiratory Rate [Anterior Bilateral Throughout] Blood Pressure 147/82 O2 Sat by Pulse 97 Oximetry CBC and BMP: 01/31/20 06:58 01/31/20 07:45 ABG, PT/INR, D-dimer: ABG WBC 7.0 K/mm3 (4.5-11.0) 01/31/20 06:58 RBC 4.78 M/mm3 (3.65-5.03) 01/31/20 06:58 Hgb 14.7 gm/dl (11.8-15.2) 01/31/20 06:58 Hgb 14.8 gm/dl (11.8-15.2) 01/31/20 06:58 Hct 43.3 % (35.5-45.6) 01/31/20 06:58 Hct 44.6 % (35.5-45.6) 01/31/20 06:58 MCV 93 fl (84-94) 01/31/20 06:58 MCH 31 pg (28-32) 01/31/20 06:58 MCHC 33 % (32-34) 01/31/20 06:58 RDW 14.8 % (13.2-15.2) 01/31/20 06:58 Plt Count 162 K/mm3 (140-440) 01/31/20 06:58 Plt Count 169 K/mm3 (140-440) 01/31/20 06:58 Lymph % (Auto) 15.6 % (13.4-35.0) 01/31/20 06:58 [place] % (Auto) 7.4 % (0.0-7.3) H 01/31/20 06:58 Eos % (Auto) 2.6 % (0.0-4.3) 01/31/20 06:58 Baso % (Auto) 0.4 % (0.0-1.8) 01/31/20 06:58 Lymph # 1.1 K/mm3 (1.2-5.4) L 01/31/20 06:58 [place] # 0.5 K/mm3 (0.0-0.8) 01/31/20 06:58 Eos # 0.2 K/mm3 (0.0-0.4) 01/31/20 06:58 Baso # 0.0 K/mm3 (0.0-0.1) 01/31/20 06:58 Seg Neutrophils % 74.0 % (40.0-70.0) H 01/31/20 06:58 Seg Neutrophils # 5.2 K/mm3 (1.8-7.7) 01/31/20 06:58 PT 13.8 Sec. (12.2-14.9) 01/31/20 06:58 INR 1.04 (0.87-1.13) 01/31/20 06:58 D-Dimer < 135.00 ng/mlDDU (0-234) 02/01/20 09:08 ABG pH 7.312 pH Units (7.350-7.450) L 01/31/20 08:40 ABG pCO2 64.3 mm Hg 01/31/20 08:40 ABG pO2 105.7 mm Hg (80.0-90.0) H 01/31/20 08:40 ABG HCO3 31.8 mmol/L (20.0-26.0) H 01/31/20 08:40 ABG O2 Saturation 97.3 % (95.0-99.0) 01/31/20 08:40 ABG O2 Content 19.8 (0.0-44) 01/31/20 08:40 ABG Base Excess 3.5 mmol/L (-2.0-3.0) H 01/31/20 08:40 ABG Hemoglobin 14.7 gm/dl (14.0-18.0) 01/31/20 08:40 ABG Carboxyhemoglobin 1.5 % (0.0-5.0) 01/31/20 08:40 ABG Methemoglobin 0.6 % (0.0-1.5) 01/31/20 08:40 Oxyhemoglobin 95.2 % (95.0-99.0) 01/31/20 08:40 FiO2 40 % 01/31/20 08:40 Sodium 144 mmol/L (137-145) 01/31/20 06:58 Potassium 4.5 mmol/L (3.6-5.0) 01/31/20 06:58 Chloride 101.3 mmol/L (98-107) 01/31/20 06:58 Carbon Dioxide 31 mmol/L (22-30) H 01/31/20 06:58 Anion Gap 16 mmol/L 01/31/20 06:58 BUN 21 mg/dL (9-20) H 01/31/20 06:58 Creatinine 0.9 mg/dL (0.8-1.3) 01/31/20 06:58 Estimated GFR > 60 ml/min 01/31/20 06:58 BUN/Creatinine Ratio 23 % 01/31/20 06:58 Glucose 141 mg/dL (75-100) H 01/31/20 07:45 Lactic Acid 1.20 mmol/L (0.7-2.0) 01/31/20 07:45 Calcium 9.5 mg/dL (8.4-10.2) 01/31/20 06:58 Magnesium 2.60 mg/dL (1.7-2.3) H 01/31/20 06:58 Ferritin 96.6 ng/mL (30.0-300.0) 02/01/20 09:08 Lactate Dehydrogenase 292 units/L (91-180) H 02/01/20 09:08 Total Creatine Kinase 37 units/L (55-170) L 02/01/20 09:08 Troponin T < 0.010 ng/mL (0.00-0.029) 02/01/20 09:08 C-Reactive Protein 0.60 mg/dL (0.00-1.30) 02/01/20 09:08 NT-Pro-B Natriuret Pep 22.30 pg/mL (0-900) 01/31/20 06:58 Procalcitonin < 0.05 ng/mL (<0.15) 01/31/20 07:45 Coronavirus (PCR) Positive (Negative) A 01/31/20 Unknown PT/INR, D-dimer PT 13.8 Sec. (12.2-14.9) 01/31/20 06:58 INR 1.04 (0.87-1.13) 01/31/20 06:58 D-Dimer < 135.00 ng/mlDDU (0-234) 02/01/20 09:08 Abnormal lab findings: Abnormal Labs 01/31/20 01/31/20 01/31/20 06:58 06:58 07:45 [place] % (Auto) 7.4 H Lymph # 1.1 L Seg Neutrophils % 74.0 H ABG pH ABG pO2 ABG HCO3 ABG Base Excess Carbon Dioxide 31 H BUN 21 H Glucose 148 H 141 H Magnesium 2.60 H Lactate Dehydrogenase 342 H Total Creatine Kinase 50 L Coronavirus (PCR) 01/31/20 01/31/20 02/01/20 08:40 Unknown 09:08 [place] % (Auto) Lymph # Seg Neutrophils % ABG pH 7.312 L ABG pO2 105.7 H ABG HCO3 31.8 H ABG Base Excess 3.5 H Carbon Dioxide BUN Glucose Magnesium Lactate Dehydrogenase 292 H Total Creatine Kinase Coronavirus (PCR) Positive A 02/01/20 09:08 [place] % (Auto) Lymph # Seg Neutrophils % ABG pH ABG pO2 ABG HCO3 ABG Base Excess Carbon Dioxide BUN Glucose Magnesium Lactate Dehydrogenase Total Creatine Kinase 37 L Coronavirus (PCR)
[2020-02-01] MEDS ORDERED: REMDESIVIR 100 MG VIAL IV ONE (11:55)
[2020-02-01] MEDS ORDERED: REMDESIVIR 200 MG in SODIUM CHLORIDE 0.9% 250ML 250 ML IV ONE (11:55)
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
[2020-02-01] MEDS ORDERED: oxyCODONE /ACETAMINOPHEN 5-325MG TAB PO PRN (12:00)
[2020-02-01] MEDS ORDERED: SODIUM CHLORIDE 0.9% 50 ML IVPB IV SCH (12:00)
[2020-02-01] MEDS: ALBUTEROL 2.5 MG/3 ML NEBU IH PRN (16:22)
[2020-02-01] MEDS: MONTELUKAST 10 MG TAB PO SCH (17:00)
[2020-02-01] MEDS: ARFORMOTEROL 15 MCG/2 ML NEBU IH SCH ×2 (21:32→21:36)
[2020-02-01] MEDS: ENOXAPARIN 40 MG/0.4 ML INJ SUB-Q SCH (22:40)
[2020-02-01] MEDS: SODIUM CHLORIDE 0.9% 50 ML IVPB IV SCH (22:41)
[2020-02-02] MEDS: GABAPENTIN 300 MG CAP PO SCH ×3 (05:58→21:08)
[2020-02-02] MEDS: methylPREDNISolone Sod Succinate 125 MG/2 ML INJ IV SCH ×3 (05:58→21:08)
[2020-02-02] MEDS: BUDESONIDE 0.5 MG/2 ML NEBU IH SCH ×2 (07:54→21:08)
[2020-02-02] MEDS: ARFORMOTEROL 15 MCG/2 ML NEBU IH SCH ×2 (07:54→21:08)
--- NOTE | 2020-02-02 08:51 | Progress Note ---
Assessment and Plan 59 y/o male with acute on chronic respiratory failure, ASHELY and COPD now covid positive 1. Will change steroids to 40q8, continue this for now. 2. Appreciate ID help, started Remdesivir 3. Continue bipap QHS as patient does not have his machine here 4. monitor volume status 5. Continue pulmicort and will add brovana 6. Will continue to follow 7. Order for prone during day placed. Hold on prone sleeping as patient is on bipap therapy at night Stable for floor. Suggest contacting [place] and transferring to one of their facilities if they want him. Subjective Date of service: 02/02/20 Interval history: No acute events. Wore bipap last night. Stable on 4 liters with good sats. Objective Vital Signs - 12hr 02/01/20 02/01/20 02/01/20 21:37 21:38 22:28 Temperature 98.5 F Pulse Rate 78 Pulse Rate [ 93 H Anterior Bilateral Throughout] Respiratory 20 Rate Respiratory 20 Rate [Anterior Bilateral Throughout] Blood Pressure 144/71 O2 Sat by Pulse 96 97 Oximetry 02/02/20 02/02/20 02/02/20 00:00 00:39 04:00 Temperature Pulse Rate 78 90 90 Pulse Rate [ Anterior Bilateral Throughout] Respiratory 24 Rate Respiratory Rate [Anterior Bilateral Throughout] Blood Pressure O2 Sat by Pulse 97 Oximetry 02/02/20 02/02/20 02/02/20 05:40 08:00 08:42 Temperature 97.6 F Pulse Rate 72 Pulse Rate [ 72 Anterior Bilateral Throughout] Respiratory 20 Rate Respiratory 20 Rate [Anterior Bilateral Throughout] Blood Pressure 140/73 O2 Sat by Pulse 94 95 Oximetry CBC and BMP: 01/31/20 06:58 01/31/20 07:45 ABG, PT/INR, D-dimer: ABG ABG pH 7.312 pH Units (7.350-7.450) L 01/31/20 08:40 ABG pCO2 64.3 mm Hg 01/31/20 08:40 ABG pO2 105.7 mm Hg (80.0-90.0) H 01/31/20 08:40 ABG O2 Saturation 97.3 % (95.0-99.0) 01/31/20 08:40 PT/INR, D-dimer PT 13.8 Sec. (12.2-14.9) 01/31/20 06:58 INR 1.04 (0.87-1.13) 01/31/20 06:58 D-Dimer < 135.00 ng/mlDDU (0-234) 02/01/20 09:08 Abnormal lab findings: Abnormal Labs 01/31/20 01/31/20 01/31/20 06:58 06:58 07:45 [place] % (Auto) 7.4 H Lymph # 1.1 L Seg Neutrophils % 74.0 H ABG pH ABG pO2 ABG HCO3 ABG Base Excess Carbon Dioxide 31 H BUN 21 H Glucose 148 H 141 H POC Glucose Magnesium 2.60 H Lactate Dehydrogenase 342 H Total Creatine Kinase 50 L Coronavirus (PCR) 01/31/20 01/31/20 02/01/20 08:40 Unknown 09:08 [place] % (Auto) Lymph # Seg Neutrophils % ABG pH 7.312 L ABG pO2 105.7 H ABG HCO3 31.8 H ABG Base Excess 3.5 H Carbon Dioxide BUN Glucose POC Glucose Magnesium Lactate Dehydrogenase 292 H Total Creatine Kinase Coronavirus (PCR) Positive A 02/01/20 02/01/20 09:08 11:58 [place] % (Auto) Lymph # Seg Neutrophils % ABG pH ABG pO2 ABG HCO3 ABG Base Excess Carbon Dioxide BUN Glucose POC Glucose 178 H Magnesium Lactate Dehydrogenase Total Creatine Kinase 37 L Coronavirus (PCR)
[2020-02-02] MEDS: guaiFENesin ER 600 MG TAB PO SCH ×2 (09:59→21:08)
[2020-02-02] MEDS: amLODIPine 5 MG TAB PO SCH (09:59)
[2020-02-02] MEDS: ASPIRIN EC 81 MG TAB PO SCH (10:00)
[2020-02-02] MEDS: PANTOPRAZOLE 40 MG TAB PO SCH (10:00)
[2020-02-02] MEDS: FUROSEMIDE 20 MG/2 ML INJ IV SCH (10:00)
--- NOTE | 2020-02-02 15:52 | Progress Note ---
Assessment and Plan Assessment and plan: --Positive COVID-19. Continue contact and droplet isolation Isolation precautions, PPE protocols Trend inflammatory markers Patient is already on IV Solu-Medrol Remdesivir day 2 of 5 Prophylactic anticoagulation per d-dimer ID following --Acute hypoxic respiratory failure; Requiring BiPAP, secondary COPD exacerbation Oxygen titrate O2 sats to more than 90%, currently on BiPAP Intubate if no improvement Nebulizers, IV steroids, IV antibiotics, inhalation steroids Pulmonary consult --Acute exacerbation of COPD; with acute bronchitis Nebulizers, IV steroids, antibiotics, oxygen/BiPAP as needed Patient already has home oxygen --History of obstructive sleep apnea; CPAP BiPAP at night, counseled the patient to comply with CPAP --High suspicion for COVID/P UI Isolation, castillo PCR test requested ID consult if needed, inflammatory markers if COVID test is positive --Morbid obesity; BMI 42.1; Patient needs weight reduction May benefit from bariatric surgical outpatient consultation For weight reduction program when medically stable --History of peripheral neuropathy; patient takes gabapentin at home Resume gabapentin and supportive care --DVT prophylaxis; Lovenox --Full CODE STATUS; Closely monitor patient and adjust management as needed Plan of care reviewed with the patient's nurse I called [place] physician and discussed patient's condition treatment plan History Interval history: Patient with acute hypoxic respiratory failure on BiPAP newly diagnosed COVID-19 On isolation precautions, PPE protocols Patient evaluated from a distance due to PPE deficiency Discussed with patient's nurse Agree with the nurses evaluation Vital signs reviewed Hospitalist Physical - Constitutional Vitals: Temp Pulse Resp BP Pulse Ox 68.2 F L 72 20 143/90 97 02/02/20 12:03 02/02/20 12:03 02/02/20 12:03 02/02/20 12:03 02/02/20 12:03 General appearance: Present: well-nourished, obese (Morbidly obese), other (Agree with the nurses evaluation[PPE conservation) - EENT ENT: other (PPE conservation) - Neck Neck: Present: other (PPE conservation) - Respiratory Respiratory effort: other (PPE conservation) - Cardiovascular Rhythm: other (PPE conservation) - Extremities Extremities: abnormal (PPE conservation) Extremity abnormal: other ( limited due to PPE conservation) - Abdominal General gastrointestinal: other (Limited due to PPE conservation) - Psychiatric Psychiatric: other (Limited due to PPE conservation) - Neurologic Neurologic: other (Limited due to PPE conservation) HEART Score - HEART Score Troponin: Troponin T < 0.010 ng/mL (0.00-0.029) 02/01/20 09:08 Results - Labs CBC & Chem 7: 01/31/20 06:58 01/31/20 07:45 Labs: Laboratory Last Values WBC 7.0 K/mm3 (4.5-11.0) 01/31/20 06:58 RBC 4.78 M/mm3 (3.65-5.03) 01/31/20 06:58 Hgb 14.7 gm/dl (11.8-15.2) 01/31/20 06:58 Hgb 14.8 gm/dl (11.8-15.2) 01/31/20 06:58 Hct 43.3 % (35.5-45.6) 01/31/20 06:58 Hct 44.6 % (35.5-45.6) 01/31/20 06:58 MCV 93 fl (84-94) 01/31/20 06:58 MCH 31 pg (28-32) 01/31/20 06:58 MCHC 33 % (32-34) 01/31/20 06:58 RDW 14.8 % (13.2-15.2) 01/31/20 06:58 Plt Count 162 K/mm3 (140-440) 01/31/20 06:58 Plt Count 169 K/mm3 (140-440) 01/31/20 06:58 Lymph % (Auto) 15.6 % (13.4-35.0) 01/31/20 06:58 [place] % (Auto) 7.4 % (0.0-7.3) H 01/31/20 06:58 Eos % (Auto) 2.6 % (0.0-4.3) 01/31/20 06:58 Baso % (Auto) 0.4 % (0.0-1.8) 01/31/20 06:58 Lymph # 1.1 K/mm3 (1.2-5.4) L 01/31/20 06:58 [place] # 0.5 K/mm3 (0.0-0.8) 01/31/20 06:58 Eos # 0.2 K/mm3 (0.0-0.4) 01/31/20 06:58 Baso # 0.0 K/mm3 (0.0-0.1) 01/31/20 06:58 Seg Neutrophils % 74.0 % (40.0-70.0) H 01/31/20 06:58 Seg Neutrophils # 5.2 K/mm3 (1.8-7.7) 01/31/20 06:58 PT 13.8 Sec. (12.2-14.9) 01/31/20 06:58 INR 1.04 (0.87-1.13) 01/31/20 06:58 D-Dimer < 135.00 ng/mlDDU (0-234) 02/01/20 09:08 ABG pH 7.312 pH Units (7.350-7.450) L 01/31/20 08:40 ABG pCO2 64.3 mm Hg 01/31/20 08:40 ABG pO2 105.7 mm Hg (80.0-90.0) H 01/31/20 08:40 ABG HCO3 31.8 mmol/L (20.0-26.0) H 01/31/20 08:40 ABG O2 Saturation 97.3 % (95.0-99.0) 01/31/20 08:40 ABG O2 Content 19.8 (0.0-44) 01/31/20 08:40 ABG Base Excess 3.5 mmol/L (-2.0-3.0) H 01/31/20 08:40 ABG Hemoglobin 14.7 gm/dl (14.0-18.0) 01/31/20 08:40 ABG Carboxyhemoglobin 1.5 % (0.0-5.0) 01/31/20 08:40 ABG Methemoglobin 0.6 % (0.0-1.5) 01/31/20 08:40 Oxyhemoglobin 95.2 % (95.0-99.0) 01/31/20 08:40 FiO2 40 % 01/31/20 08:40 Sodium 144 mmol/L (137-145) 01/31/20 06:58 Potassium 4.5 mmol/L (3.6-5.0) 01/31/20 06:58 Chloride 101.3 mmol/L (98-107) 01/31/20 06:58 Carbon Dioxide 31 mmol/L (22-30) H 01/31/20 06:58 Anion Gap 16 mmol/L 01/31/20 06:58 BUN 21 mg/dL (9-20) H 01/31/20 06:58 Creatinine 0.9 mg/dL (0.8-1.3) 01/31/20 06:58 Estimated GFR > 60 ml/min 01/31/20 06:58 BUN/Creatinine Ratio 23 % 01/31/20 06:58 Glucose 141 mg/dL (75-100) H 01/31/20 07:45 POC Glucose 171 (70-105) H 02/02/20 12:17 Lactic Acid 1.20 mmol/L (0.7-2.0) 01/31/20 07:45 Calcium 9.5 mg/dL (8.4-10.2) 01/31/20 06:58 Magnesium 2.60 mg/dL (1.7-2.3) H 01/31/20 06:58 Ferritin 96.6 ng/mL (30.0-300.0) 02/01/20 09:08 Lactate Dehydrogenase 292 units/L (91-180) H 02/01/20 09:08 Total Creatine Kinase 37 units/L (55-170) L 02/01/20 09:08 Troponin T < 0.010 ng/mL (0.00-0.029) 02/01/20 09:08 C-Reactive Protein 0.60 mg/dL (0.00-1.30) 02/01/20 09:08 NT-Pro-B Natriuret Pep 22.30 pg/mL (0-900) 01/31/20 06:58 Procalcitonin < 0.05 ng/mL (<0.15) 01/31/20 07:45 Coronavirus (PCR) Positive (Negative) A 01/31/20 Unknown Microbiology: Microbiology 01/31/20 08:00 Peripheral/Venous Blood Culture - Preliminary NO GROWTH AFTER 48 HOURS 01/31/20 08:00 Peripheral/Venous Blood Culture - Preliminary NO GROWTH AFTER 48 HOURS [place]/IV: Voiding Method Toilet IV Catheter Type [Left INT / Saline Lock Antecubital] Active Medications - Current Medications Current Medications: Generic Name Dose Route Start Last Admin Trade Name Freq PRN Reason Stop Dose Admin Albuterol 2.5 mg 08/26/20 09:03 02/01/20 16:22 Proventil IH 2.5 mg Q4HRT PRN Administration Shortness Of Breath Amlodipine Besylate 5 mg 01/31/20 10:00 02/02/20 09:59 Amlodipine PO 5 mg DAILY ROLAN Administration Arformoterol Tartrate 15 mcg 02/01/20 11:45 02/02/20 07:54 Brovana Nebu IH 15 mcg Q12HRT ROLAN Administration Aspirin 81 mg 01/31/20 10:00 02/02/20 10:00 Halfprin Ec PO 81 mg DAILY ROLAN Administration Budesonide 0.5 mg 01/31/20 20:00 02/02/20 07:54 Pulmicort IH 0.5 mg Q12HRT ROLAN Administration Enoxaparin Sodium 40 mg 01/31/20 22:00 02/01/20 22:40 Enoxaparin SUB-Q 40 mg QDAY@2200 ROLAN Administration Furosemide 40 mg 01/31/20 10:00 02/02/20 10:00 Lasix IV 40 mg QDAY ROLAN Administration Gabapentin 300 mg 01/31/20 14:00 02/02/20 14:23 Gabapentin PO 300 mg Q8HR ROLAN Administration Guaifenesin 600 mg 01/31/20 10:00 02/02/20 09:59 Mucinex Er PO 600 mg BID ROLAN Administration Hydralazine HCl 10 mg 01/31/20 10:00 Apresoline IV Q4HR PRN Hypertension REMDESIVIR 100 mg/ Sodium 250 mls @ 500 mls/hr 02/02/20 21:00 Chloride IV 02/05/20 21:29 Q24HR@2100 ROLAN Methylprednisolone Sodium Succinate 40 mg 02/01/20 11:43 02/02/20 14:22 Solu-Medrol IV 40 mg Q8HR ROLAN Administration Montelukast Sodium 10 mg 01/31/20 18:00 02/01/20 17:00 Singulair PO 10 mg QPM ROLAN Administration Pantoprazole Sodium 40 mg 01/31/20 10:00 02/02/20 10:00 Protonix PO 40 mg QDAY ROLAN Administration Sodium Chloride 50 ml 02/01/20 21:30 02/01/20 22:41 Nacl 0.9% IV 02/05/20 21:31 50 ml Q24H ROLAN Administration Tiotropium [place] 1 puff 01/31/20 10:00 02/01/20 10:19 Spiriva IH Not Given QDAY ROLAN
--- NOTE | 2020-02-02 15:54 | Event Note ---
Date: 02/02/20 I tried to return the call of [place] physician at [phone] to discuss about patient's condition and treatment plan Unable to reach any physician, phone was continuously ringing, we will try again in half an hour to 1 hour to contact them Informed the nurse
--- NOTE | 2020-02-02 16:54 | Progress Note ---
Assessment and Plan Cultures: Coronavirus PCR: Positive blood culture: no growth A/P: 59-year-old male with COPD, congestive heart failure, hypertension, obstructive sleep apnea, morbid obesity came into the emergency room with worsening shortness of breath. He was in respiratory distress requiring BiPAP in the em ergency room: #COVID-19: Chest x-ray without obvious pneumonia. Patient with normal inflammatory markers. However does have risk factors for severe/critical disease. #Acute on chronic hypoxic respiratory failure: Initially on BiPAP, now on nasal cannula. #Acute COPD exacerbation: On steroids #ASHELY, morbid obesity Recs: Already on steroids for COPD exacerbation, defer to pulmonary continue IV Remdesivir, day 2 of 5 prophylactic anticoagulation based on d-dimer trend ferritin, LDH, d-dimer, CRP every 2-3 days for risk stratification and to assess disease progression Soto Gray MD, FACP [facility] ([facility] C: [phone] O: [phone] F: [phone] Subjective Date of service: 02/02/20 Interval history: No fever. On oxygen, weaned to 3 lit/min by [place]. Objective - Exam Narrative Exam: Physical Exam (reviewed in chart due to PPE conservation and minimize risk of transmission) Constitutional: limited due to PPE conservation strategy Head, Ears, Nose: limited due to PPE conservation strategy Eyes: limited due to PPE conservation strategy Neck: limited due to PPE conservation strategy Oral: limited due to PPE conservation strategy Cardiovascular: limited due to PPE conservation strategy Respiratory: limited due to PPE conservation strategy GI: limited due to PPE conservation strategy Musculoskeletal: limited due to PPE conservation strategy Skin: limited due to PPE conservation strategy Hem/Lymphatic: limited due to PPE conservation strategy Psych: limited due to PPE conservation strategy Neurological: limited due to PPE conservation strategy - Constitutional Vitals: Vital Signs Temp Pulse Resp BP Pulse Ox 68.2 F L 72 20 143/90 97 02/02/20 12:03 02/02/20 12:03 02/02/20 12:03 02/02/20 12:03 02/02/20 12:03 Temperature -Last 24 Hours Temperature 68.2 F Temperature 97.6 F Temperature 98.5 F - Labs CBC & Chem 7: 01/31/20 06:58 01/31/20 07:45 Labs: Abnormal lab results 02/01/20 02/02/20 Range/Units 11:58 12:17 POC Glucose 178 H 171 H (70-105)
[2020-02-02] MEDS: MONTELUKAST 10 MG TAB PO SCH (17:12)
--- NOTE | 2020-02-02 18:26 | Event Note ---
Date: 02/02/20 I called [place] physician Dr.Muppidi Campos [phone] and discussed patient's condition, test reports Treatment plan, answered all her questions, as patient is still requiring BiPAP intermittently, felt unstable To transfer to their facility, will reevaluate tomorrow. The above information discussed with the patient's nurse
[2020-02-02] MEDS: REMDESIVIR 100 MG in SODIUM CHLORIDE 0.9% 250ML 250 ML IV SCH (21:07)
[2020-02-02] MEDS: SODIUM CHLORIDE 0.9% 50 ML IVPB IV SCH (21:08)
[2020-02-02] MEDS: ENOXAPARIN 40 MG/0.4 ML INJ SUB-Q SCH (21:09)
[2020-02-03] MEDS: methylPREDNISolone Sod Succinate 125 MG/2 ML INJ IV SCH (06:24)
[2020-02-03] MEDS: GABAPENTIN 300 MG CAP PO SCH ×3 (06:24→22:14)
[2020-02-03] MEDS: ARFORMOTEROL 15 MCG/2 ML NEBU IH SCH ×2 (09:35→21:20)
[2020-02-03] MEDS: BUDESONIDE 0.5 MG/2 ML NEBU IH SCH ×2 (09:35→21:20)
[2020-02-03] MEDS: guaiFENesin ER 600 MG TAB PO SCH ×2 (09:56→22:14)
[2020-02-03] MEDS: ASPIRIN EC 81 MG TAB PO SCH (09:56)
[2020-02-03] MEDS: amLODIPine 5 MG TAB PO SCH (09:56)
[2020-02-03] MEDS: PANTOPRAZOLE 40 MG TAB PO SCH (09:56)
[2020-02-03] MEDS: FUROSEMIDE 20 MG/2 ML INJ IV SCH (09:57)
--- NOTE | 2020-02-03 10:13 | Progress Note ---
Assessment and Plan 59 y/o male with acute on chronic respiratory failure, ASHELY and COPD now covid positive 1. Suggest changing to either solumedrol 20q8 or Prednisone 60 daily and start tapering as patient appears close to baseline now. 2. On Remdesivir 3. Continue bipap QHS as patient does not have his machine here. he is not on therapy intermittenly, only his night time regimen as he does not have his home machine here. 4. monitor volume status, patient positive the last 48 hours but does not appear to have compromised pulmonary state. 5. Continue pulmicort and will add brovana 6. Will continue to follow 7. Order for prone during day placed. Hold on prone sleeping as patient is on bipap therapy at night Subjective Date of service: 02/03/20 Interval history: No acute events. Per [facility], patient is "too unstable" for transfer based on [place] standards. Objective Vital Signs - 12hr 02/03/20 02/03/20 02/03/20 00:30 05:48 05:50 Temperature 98.2 F 98.2 F Pulse Rate 76 76 Respiratory 28 H 20 20 Rate Blood Pressure 176/101 136/89 O2 Sat by Pulse 92 93 Oximetry CBC and BMP: 01/31/20 06:58 01/31/20 07:45 ABG, PT/INR, D-dimer: ABG ABG pH 7.312 pH Units (7.350-7.450) L 01/31/20 08:40 ABG pCO2 64.3 mm Hg 01/31/20 08:40 ABG pO2 105.7 mm Hg (80.0-90.0) H 01/31/20 08:40 ABG O2 Saturation 97.3 % (95.0-99.0) 01/31/20 08:40 PT/INR, D-dimer PT 13.8 Sec. (12.2-14.9) 01/31/20 06:58 INR 1.04 (0.87-1.13) 01/31/20 06:58 D-Dimer < 135.00 ng/mlDDU (0-234) 02/01/20 09:08 Abnormal lab findings: Abnormal Labs 01/31/20 01/31/20 01/31/20 06:58 06:58 07:45 [place] % (Auto) 7.4 H Lymph # 1.1 L Seg Neutrophils % 74.0 H ABG pH ABG pO2 ABG HCO3 ABG Base Excess Carbon Dioxide 31 H BUN 21 H Glucose 148 H 141 H POC Glucose Magnesium 2.60 H Lactate Dehydrogenase 342 H Total Creatine Kinase 50 L Coronavirus (PCR) 01/31/20 01/31/20 02/01/20 08:40 Unknown 09:08 [place] % (Auto) Lymph # Seg Neutrophils % ABG pH 7.312 L ABG pO2 105.7 H ABG HCO3 31.8 H ABG Base Excess 3.5 H Carbon Dioxide BUN Glucose POC Glucose Magnesium Lactate Dehydrogenase 292 H Total Creatine Kinase Coronavirus (PCR) Positive A 02/01/20 02/01/20 02/02/20 09:08 11:58 12:17 [place] % (Auto) Lymph # Seg Neutrophils % ABG pH ABG pO2 ABG HCO3 ABG Base Excess Carbon Dioxide BUN Glucose POC Glucose 178 H 171 H Magnesium Lactate Dehydrogenase Total Creatine Kinase 37 L Coronavirus (PCR)
--- NOTE | 2020-02-03 13:39 | Progress Note ---
Assessment and Plan Assessment and plan: --Positive COVID-19. Continue contact and droplet isolation Isolation precautions, PPE protocols Trend inflammatory markers Patient is already on IV Solu-Medrol Remdesivir day 2 of 5 Prophylactic anticoagulation per d-dimer ID following --Acute hypoxic respiratory failure; Requiring BiPAP, secondary COPD exacerbation Oxygen titrate O2 sats to more than 90%, currently on BiPAP Intubate if no improvement Nebulizers, IV steroids, IV antibiotics, inhalation steroids Pulmonary consult --Acute exacerbation of COPD; with acute bronchitis Nebulizers, IV steroids, antibiotics, oxygen/BiPAP as needed Patient already has home oxygen --History of obstructive sleep apnea; CPAP BiPAP at night, counseled the patient to comply with CPAP --High suspicion for COVID/P UI Isolation, castillo PCR test requested ID consult if needed, inflammatory markers if COVID test is positive --Morbid obesity; BMI 42.1; Patient needs weight reduction May benefit from bariatric surgical outpatient consultation For weight reduction program when medically stable --History of peripheral neuropathy; patient takes gabapentin at home Resume gabapentin and supportive care --DVT prophylaxis; Lovenox --Full CODE STATUS; Closely monitor patient and adjust management as needed Plan of care reviewed with the patient's nurse I called [place] physician and discussed patient's condition treatment plan History Interval history: I have seen and examined the patient in isolation room COVID positive patient Isolation precautions and PPE protocols followed Patient feels slightly better complains of some generalized body pains Asked for some pain medication Vital signs reviewed Hospitalist Physical - Constitutional Vitals: Temp Pulse Resp BP Pulse Ox 97.7 F 75 20 160/86 93 02/03/20 11:05 02/03/20 11:05 02/03/20 11:05 02/03/20 11:05 02/03/20 11:05 General appearance: Present: no acute distress, well-nourished, obese (Morbidly obese), other (Agree with the nurses evaluation[PPE conservation) - EENT Eyes: Present: PERRL, EOM intact - Neck Neck: Present: supple, normal ROM - Respiratory Respiratory effort: normal Respiratory: bilateral: diminished, rhonchi, negative: rales, wheezing - Cardiovascular Rhythm: regular Heart Sounds: Present: S1 & S2 - Extremities Extremities: no ischemia, pulses intact - Abdominal General gastrointestinal: soft, non-tender, non-distended, normal bowel sounds - Integumentary Integumentary: Present: clear, warm - Psychiatric Psychiatric: appropriate mood/affect, cooperative - Neurologic Neurologic: CNII-XII intact, moves all extremities HEART Score - HEART Score Troponin: Troponin T < 0.010 ng/mL (0.00-0.029) 02/01/20 09:08 Results - Labs CBC & Chem 7: 01/31/20 06:58 01/31/20 07:45 Labs: Laboratory Last Values WBC 7.0 K/mm3 (4.5-11.0) 01/31/20 06:58 RBC 4.78 M/mm3 (3.65-5.03) 01/31/20 06:58 Hgb 14.7 gm/dl (11.8-15.2) 01/31/20 06:58 Hgb 14.8 gm/dl (11.8-15.2) 01/31/20 06:58 Hct 43.3 % (35.5-45.6) 01/31/20 06:58 Hct 44.6 % (35.5-45.6) 01/31/20 06:58 MCV 93 fl (84-94) 01/31/20 06:58 MCH 31 pg (28-32) 01/31/20 06:58 MCHC 33 % (32-34) 01/31/20 06:58 RDW 14.8 % (13.2-15.2) 01/31/20 06:58 Plt Count 162 K/mm3 (140-440) 01/31/20 06:58 Plt Count 169 K/mm3 (140-440) 01/31/20 06:58 Lymph % (Auto) 15.6 % (13.4-35.0) 01/31/20 06:58 [place] % (Auto) 7.4 % (0.0-7.3) H 01/31/20 06:58 Eos % (Auto) 2.6 % (0.0-4.3) 01/31/20 06:58 Baso % (Auto) 0.4 % (0.0-1.8) 01/31/20 06:58 Lymph # 1.1 K/mm3 (1.2-5.4) L 01/31/20 06:58 [place] # 0.5 K/mm3 (0.0-0.8) 01/31/20 06:58 Eos # 0.2 K/mm3 (0.0-0.4) 01/31/20 06:58 Baso # 0.0 K/mm3 (0.0-0.1) 01/31/20 06:58 Seg Neutrophils % 74.0 % (40.0-70.0) H 01/31/20 06:58 Seg Neutrophils # 5.2 K/mm3 (1.8-7.7) 01/31/20 06:58 PT 13.8 Sec. (12.2-14.9) 01/31/20 06:58 INR 1.04 (0.87-1.13) 01/31/20 06:58 D-Dimer < 135.00 ng/mlDDU (0-234) 02/01/20 09:08 ABG pH 7.312 pH Units (7.350-7.450) L 01/31/20 08:40 ABG pCO2 64.3 mm Hg 01/31/20 08:40 ABG pO2 105.7 mm Hg (80.0-90.0) H 01/31/20 08:40 ABG HCO3 31.8 mmol/L (20.0-26.0) H 01/31/20 08:40 ABG O2 Saturation 97.3 % (95.0-99.0) 01/31/20 08:40 ABG O2 Content 19.8 (0.0-44) 01/31/20 08:40 ABG Base Excess 3.5 mmol/L (-2.0-3.0) H 01/31/20 08:40 ABG Hemoglobin 14.7 gm/dl (14.0-18.0) 01/31/20 08:40 ABG Carboxyhemoglobin 1.5 % (0.0-5.0) 01/31/20 08:40 ABG Methemoglobin 0.6 % (0.0-1.5) 01/31/20 08:40 Oxyhemoglobin 95.2 % (95.0-99.0) 01/31/20 08:40 FiO2 40 % 01/31/20 08:40 Sodium 144 mmol/L (137-145) 01/31/20 06:58 Potassium 4.5 mmol/L (3.6-5.0) 01/31/20 06:58 Chloride 101.3 mmol/L (98-107) 01/31/20 06:58 Carbon Dioxide 31 mmol/L (22-30) H 01/31/20 06:58 Anion Gap 16 mmol/L 01/31/20 06:58 BUN 21 mg/dL (9-20) H 01/31/20 06:58 Creatinine 0.9 mg/dL (0.8-1.3) 01/31/20 06:58 Estimated GFR > 60 ml/min 01/31/20 06:58 BUN/Creatinine Ratio 23 % 01/31/20 06:58 Glucose 141 mg/dL (75-100) H 01/31/20 07:45 POC Glucose 171 (70-105) H 02/02/20 12:17 Lactic Acid 1.20 mmol/L (0.7-2.0) 01/31/20 07:45 Calcium 9.5 mg/dL (8.4-10.2) 01/31/20 06:58 Magnesium 2.60 mg/dL (1.7-2.3) H 01/31/20 06:58 Ferritin 96.6 ng/mL (30.0-300.0) 02/01/20 09:08 Lactate Dehydrogenase 292 units/L (91-180) H 02/01/20 09:08 Total Creatine Kinase 37 units/L (55-170) L 02/01/20 09:08 Troponin T < 0.010 ng/mL (0.00-0.029) 02/01/20 09:08 C-Reactive Protein 0.60 mg/dL (0.00-1.30) 02/01/20 09:08 NT-Pro-B Natriuret Pep 22.30 pg/mL (0-900) 01/31/20 06:58 Procalcitonin < 0.05 ng/mL (<0.15) 01/31/20 07:45 Coronavirus (PCR) Positive (Negative) A 01/31/20 Unknown Microbiology: Microbiology 01/31/20 08:00 Peripheral/Venous Blood Culture - Preliminary NO GROWTH AFTER 72 HOURS 01/31/20 08:00 Peripheral/Venous Blood Culture - Preliminary NO GROWTH AFTER 72 HOURS [place]/IV: Voiding Method Toilet IV Catheter Type [Left INT / Saline Lock Antecubital] Active Medications - Current Medications Current Medications: Generic Name Dose Route Start Last Admin Trade Name Freq PRN Reason Stop Dose Admin Albuterol 2.5 mg 01/31/20 09:03 02/01/20 16:22 Proventil IH 2.5 mg Q4HRT PRN Administration Shortness Of Breath Amlodipine Besylate 5 mg 01/31/20 10:00 02/03/20 09:56 Amlodipine PO 5 mg DAILY ROLAN Administration Arformoterol Tartrate 15 mcg 02/01/20 11:45 02/03/20 09:35 Brovana Nebu IH 15 mcg Q12HRT ROLAN Administration Aspirin 81 mg 01/31/20 10:00 02/03/20 09:56 Halfprin Ec PO 81 mg DAILY ROLAN Administration Budesonide 0.5 mg 01/31/20 20:00 02/03/20 09:35 Pulmicort IH 0.5 mg Q12HRT ROLAN Administration Enoxaparin Sodium 40 mg 01/31/20 22:00 02/02/20 21:09 Enoxaparin SUB-Q 40 mg QDAY@2200 ROLAN Administration Furosemide 40 mg 01/31/20 10:00 02/03/20 09:57 Lasix IV 40 mg QDAY ROLAN Administration Gabapentin 300 mg 01/31/20 14:00 02/03/20 06:24 Gabapentin PO 300 mg Q8HR ROLAN Administration Guaifenesin 600 mg 01/31/20 10:00 02/03/20 09:56 Mucinex Er PO 600 mg BID ROLAN Administration Hydralazine HCl 10 mg 01/31/20 10:00 Apresoline IV Q4HR PRN Hypertension REMDESIVIR 100 mg/ Sodium 250 mls @ 500 mls/hr 02/02/20 21:00 02/02/20 21:07 Chloride IV 02/05/20 21:29 500 mls/hr Q24HR@2100 ROLAN Administration Methylprednisolone Sodium Succinate 20 mg 02/03/20 13:38 Solu-Medrol IV Q8HR ROLAN Montelukast Sodium 10 mg 01/31/20 18:00 02/02/20 17:12 Singulair PO 10 mg QPM ROLAN Administration Pantoprazole Sodium 40 mg 01/31/20 10:00 02/03/20 09:56 Protonix PO 40 mg QDAY ROLAN Administration Sodium Chloride 50 ml 02/01/20 21:30 08/28/20 21:08 Nacl 0.9% IV 02/05/20 21:31 50 ml Q24H ROLAN Administration Tiotropium [place] 1 puff 01/31/20 10:00 02/01/20 10:19 Spiriva IH Not Given QDAY ROLAN
[2020-02-03] MEDS: methylPREDNISolone Sod Succinate 40 MG/1 ML INJ IV SCH ×3 (13:56→22:14)
[2020-02-03] MEDS: TIOTROPIUM 18 MCG CAP INHALATION IH SCH (14:43)
[2020-02-03] MEDS: MONTELUKAST 10 MG TAB PO SCH (20:55)
[2020-02-03] MEDS: ENOXAPARIN 40 MG/0.4 ML INJ SUB-Q SCH (22:14)
[2020-02-03] MEDS: REMDESIVIR 100 MG in SODIUM CHLORIDE 0.9% 250ML 250 ML IV SCH (22:15)
[2020-02-03] MEDS: SODIUM CHLORIDE 0.9% 50 ML IVPB IV SCH (22:16)
[2020-02-04] MEDS: GABAPENTIN 300 MG CAP PO SCH ×3 (05:55→22:35)
[2020-02-04] MEDS: BUDESONIDE 0.5 MG/2 ML NEBU IH SCH ×2 (08:13→20:08)
[2020-02-04] MEDS: ARFORMOTEROL 15 MCG/2 ML NEBU IH SCH ×2 (08:13→20:08)
--- NOTE | 2020-02-04 09:07 | Progress Note ---
Assessment and Plan Assessment and plan: --Positive COVID-19. Continue contact and droplet isolation Isolation precautions, PPE protocols Trend inflammatory markers Patient is already on IV Solu-Medrol Remdesivir day 3 of 5 Prophylactic anticoagulation per d-dimer ID following --Acute hypoxic respiratory failure; Requiring BiPAP, secondary COPD exacerbation Oxygen titrate O2 sats to more than 90%, Continue on 3 L of nasal cannula oxygen during day BiPAP at night, pulmonary following Nebulizers, tapering tapering IV steroids inhalation steroids --Acute exacerbation of COPD; with acute bronchitis Nebulizers, IV steroids, antibiotics, oxygen/BiPAP as needed Patient already has home oxygen --History of obstructive sleep apnea; BiPAP at night, advised to comply with BiPAP --High suspicion for COVID/P UI/COVID test is positive ID following, follow inflammatory markers --Morbid obesity; BMI 42.1; Patient needs weight reduction May benefit from bariatric surgical outpatient consultation For weight reduction program when medically stable --History of peripheral neuropathy; patient takes gabapentin at home Resume gabapentin and supportive care --DVT prophylaxis; Lovenox --Full CODE STATUS; Closely monitor patient and adjust management as needed Plan of care reviewed with the patient's nurse I called [place] physician and discussed patient's condition treatment plan Will try to call [place] physician to update patient's condition tomorrow History Interval history: Morbidly obese COVID positive patient in isolation Evaluated from a distance due to PPE scarcity Reviewed and agree with the nurse evaluation Vital signs reviewed Hospitalist Physical - Constitutional Vitals: Temp Pulse Resp BP Pulse Ox 97.7 F 59 L 17 193/102 99 02/04/20 04:30 02/04/20 04:30 02/04/20 04:30 02/04/20 04:30 02/04/20 04:30 General appearance: Present: obese (Morbidly obese), other (PPE conservation) - EENT ENT: other (PPE conservation) - Neck Neck: Present: other (PPE conservation) - Respiratory Respiratory effort: other (PPE conservation) - Extremities Extremity abnormal: other (PPE conservation) - Abdominal General gastrointestinal: other (PPE conservation) - Psychiatric Psychiatric: other (PPE conservation) - Neurologic Neurologic: other (PPE conservation) HEART Score - HEART Score Troponin: Troponin T < 0.010 ng/mL (0.00-0.029) 02/01/20 09:08 Results - Labs CBC & Chem 7: 01/31/20 06:58 01/31/20 07:45 Labs: Laboratory Last Values WBC 7.0 K/mm3 (4.5-11.0) 01/31/20 06:58 RBC 4.78 M/mm3 (3.65-5.03) 01/31/20 06:58 Hgb 14.7 gm/dl (11.8-15.2) 01/31/20 06:58 Hgb 14.8 gm/dl (11.8-15.2) 01/31/20 06:58 Hct 43.3 % (35.5-45.6) 01/31/20 06:58 Hct 44.6 % (35.5-45.6) 01/31/20 06:58 MCV 93 fl (84-94) 01/31/20 06:58 MCH 31 pg (28-32) 01/31/20 06:58 MCHC 33 % (32-34) 01/31/20 06:58 RDW 14.8 % (13.2-15.2) 01/31/20 06:58 Plt Count 162 K/mm3 (140-440) 01/31/20 06:58 Plt Count 169 K/mm3 (140-440) 01/31/20 06:58 Lymph % (Auto) 15.6 % (13.4-35.0) 01/31/20 06:58 [place] % (Auto) 7.4 % (0.0-7.3) H 01/31/20 06:58 Eos % (Auto) 2.6 % (0.0-4.3) 01/31/20 06:58 Baso % (Auto) 0.4 % (0.0-1.8) 01/31/20 06:58 Lymph # 1.1 K/mm3 (1.2-5.4) L 01/31/20 06:58 [place] # 0.5 K/mm3 (0.0-0.8) 01/31/20 06:58 Eos # 0.2 K/mm3 (0.0-0.4) 01/31/20 06:58 Baso # 0.0 K/mm3 (0.0-0.1) 01/31/20 06:58 Seg Neutrophils % 74.0 % (40.0-70.0) H 01/31/20 06:58 Seg Neutrophils # 5.2 K/mm3 (1.8-7.7) 01/31/20 06:58 PT 13.8 Sec. (12.2-14.9) 01/31/20 06:58 INR 1.04 (0.87-1.13) 01/31/20 06:58 D-Dimer < 135.00 ng/mlDDU (0-234) 02/01/20 09:08 ABG pH 7.312 pH Units (7.350-7.450) L 01/31/20 08:40 ABG pCO2 64.3 mm Hg 01/31/20 08:40 ABG pO2 105.7 mm Hg (80.0-90.0) H 01/31/20 08:40 ABG HCO3 31.8 mmol/L (20.0-26.0) H 01/31/20 08:40 ABG O2 Saturation 97.3 % (95.0-99.0) 01/31/20 08:40 ABG O2 Content 19.8 (0.0-44) 01/31/20 08:40 ABG Base Excess 3.5 mmol/L (-2.0-3.0) H 01/31/20 08:40 ABG Hemoglobin 14.7 gm/dl (14.0-18.0) 01/31/20 08:40 ABG Carboxyhemoglobin 1.5 % (0.0-5.0) 01/31/20 08:40 ABG Methemoglobin 0.6 % (0.0-1.5) 01/31/20 08:40 Oxyhemoglobin 95.2 % (95.0-99.0) 01/31/20 08:40 FiO2 40 % 01/31/20 08:40 Sodium 144 mmol/L (137-145) 01/31/20 06:58 Potassium 4.5 mmol/L (3.6-5.0) 01/31/20 06:58 Chloride 101.3 mmol/L (98-107) 01/31/20 06:58 Carbon Dioxide 31 mmol/L (22-30) H 01/31/20 06:58 Anion Gap 16 mmol/L 01/31/20 06:58 BUN 21 mg/dL (9-20) H 01/31/20 06:58 Creatinine 0.9 mg/dL (0.8-1.3) 01/31/20 06:58 Estimated GFR > 60 ml/min 01/31/20 06:58 BUN/Creatinine Ratio 23 % 01/31/20 06:58 Glucose 141 mg/dL (75-100) H 01/31/20 07:45 POC Glucose 171 (70-105) H 02/02/20 12:17 Lactic Acid 1.20 mmol/L (0.7-2.0) 01/31/20 07:45 Calcium 9.5 mg/dL (8.4-10.2) 01/31/20 06:58 Magnesium 2.60 mg/dL (1.7-2.3) H 01/31/20 06:58 Ferritin 96.6 ng/mL (30.0-300.0) 02/01/20 09:08 Lactate Dehydrogenase 292 units/L (91-180) H 02/01/20 09:08 Total Creatine Kinase 37 units/L (55-170) L 02/01/20 09:08 Troponin T < 0.010 ng/mL (0.00-0.029) 02/01/20 09:08 C-Reactive Protein 0.60 mg/dL (0.00-1.30) 02/01/20 09:08 NT-Pro-B Natriuret Pep 22.30 pg/mL (0-900) 01/31/20 06:58 Procalcitonin < 0.05 ng/mL (<0.15) 01/31/20 07:45 Coronavirus (PCR) Positive (Negative) A 01/31/20 Unknown Microbiology: Microbiology 01/31/20 08:00 Peripheral/Venous Blood Culture - Preliminary NO GROWTH AFTER 4 DAYS 01/31/20 08:00 Peripheral/Venous Blood Culture - Preliminary NO GROWTH AFTER 4 DAYS [place]/IV: Voiding Method Toilet IV Catheter Type [Left INT / Saline Lock Antecubital] Active Medications - Current Medications Current Medications: Generic Name Dose Route Start Last Admin Trade Name Freq PRN Reason Stop Dose Admin Albuterol 2.5 mg 01/31/20 09:03 02/01/20 16:22 Proventil IH 2.5 mg Q4HRT PRN Administration Shortness Of Breath Amlodipine Besylate 5 mg 01/31/20 10:00 02/03/20 09:56 Amlodipine PO 5 mg DAILY ROLAN Administration Arformoterol Tartrate 15 mcg 02/01/20 11:45 02/04/20 08:13 Brovana Nebu IH 15 mcg Q12HRT ROLAN Administration Aspirin 81 mg 01/31/20 10:00 02/03/20 09:56 Halfprin Ec PO 81 mg DAILY ROLAN Administration Budesonide 0.5 mg 01/31/20 20:00 02/04/20 08:13 Pulmicort IH 0.5 mg Q12HRT ROLAN Administration Enoxaparin Sodium 40 mg 01/31/20 22:00 02/03/20 22:14 Enoxaparin SUB-Q 40 mg QDAY@2200 ROLAN Administration Furosemide 40 mg 01/31/20 10:00 02/03/20 09:57 Lasix IV 40 mg QDAY ROLAN Administration Gabapentin 300 mg 01/31/20 14:00 02/04/20 05:55 Gabapentin PO 300 mg Q8HR ROLAN Administration Guaifenesin 600 mg 01/31/20 10:00 02/03/20 22:14 Mucinex Er PO 600 mg BID ROLAN Administration Hydralazine HCl 10 mg 01/31/20 10:00 Apresoline IV Q4HR PRN Hypertension REMDESIVIR 100 mg/ Sodium 250 mls @ 500 mls/hr 02/02/20 21:00 02/03/20 22:15 Chloride IV 02/05/20 21:29 500 mls/hr Q24HR@2100 ROLAN Administration Methylprednisolone Sodium Succinate 20 mg 02/03/20 15:00 02/03/20 22:14 Solu-Medrol IV 20 mg Q8H ROLAN Administration Montelukast Sodium 10 mg 01/31/20 18:00 02/03/20 20:55 Singulair PO 10 mg QPM ROLAN Administration Pantoprazole Sodium 40 mg 01/31/20 10:00 02/03/20 09:56 Protonix PO 40 mg QDAY ROLAN Administration Sodium Chloride 50 ml 02/01/20 21:30 02/03/20 22:16 Nacl 0.9% IV 02/05/20 21:31 50 ml Q24H ROLAN Administration Tiotropium [place] 1 puff 01/31/20 10:00 02/03/20 14:43 Spiriva IH Not Given QDAY ROLAN
[2020-02-04] MEDS: ASPIRIN EC 81 MG TAB PO SCH (09:30)
[2020-02-04] MEDS: FUROSEMIDE 20 MG/2 ML INJ IV SCH (09:30)
[2020-02-04] MEDS: amLODIPine 5 MG TAB PO SCH (09:30)
[2020-02-04] MEDS: methylPREDNISolone Sod Succinate 40 MG/1 ML INJ IV SCH ×3 (09:30→22:39)
[2020-02-04] MEDS: guaiFENesin ER 600 MG TAB PO SCH ×2 (09:30→22:35)
[2020-02-04] MEDS: PANTOPRAZOLE 40 MG TAB PO SCH (09:30)
[2020-02-04] MEDS ORDERED: hydrALAZINE 25 MG TAB PO ONE (10:00)
[2020-02-04 10:34] LABS: C-Reactive Protein 0.1 mg/dL (0.00-1.30)
[2020-02-04] MEDS: TIOTROPIUM 18 MCG CAP INHALATION IH SCH (11:04)
[2020-02-04] MEDS: hydrALAZINE 25 MG TAB PO SCH ×2 (13:38→22:35)
--- NOTE | 2020-02-04 14:34 | Progress Note ---
Assessment and Plan 59 y/o male with acute on chronic respiratory failure, ASHELY and COPD now covid positive 1. Can start weaning after 3 days to 40 daily. 2. On Remdesivir 3. Continue bipap QHS as patient does not have his machine here. he is not on therapy intermittenly, only his night time regimen as he does not have his home machine here. 4. monitor volume status 5. Continue pulmicort and will add brovana 6. Will continue to follow 7. Order for prone during day placed. Hold on prone sleeping as patient is on bipap therapy at night Subjective Date of service: 02/04/20 Interval history: No acute events overnight. pulm status is stable. Objective Vital Signs - 12hr 02/04/20 02/04/20 02/04/20 02:51 04:30 08:13 Temperature 97.7 F Pulse Rate 70 59 L Pulse Rate [ 58 L Anterior Bilateral Throughout] Respiratory 13 17 Rate Respiratory 20 Rate [Anterior Bilateral Throughout] Blood Pressure 193/102 O2 Sat by Pulse 97 99 Oximetry 02/04/20 02/04/20 02/04/20 09:12 09:27 09:29 Temperature Pulse Rate 84 Pulse Rate [ Anterior Bilateral Throughout] Respiratory Rate Respiratory Rate [Anterior Bilateral Throughout] Blood Pressure 156/84 156/84 O2 Sat by Pulse 96 Oximetry 02/04/20 02/04/20 11:16 13:16 Temperature 97.3 F L Pulse Rate 88 88 Pulse Rate [ Anterior Bilateral Throughout] Respiratory 20 Rate Respiratory Rate [Anterior Bilateral Throughout] Blood Pressure 176/83 176/83 O2 Sat by Pulse 91 Oximetry CBC and BMP: 01/31/20 06:58 01/31/20 07:45 ABG, PT/INR, D-dimer: ABG ABG pH 7.312 pH Units (7.350-7.450) L 01/31/20 08:40 ABG pCO2 64.3 mm Hg 01/31/20 08:40 ABG pO2 105.7 mm Hg (80.0-90.0) H 01/31/20 08:40 ABG O2 Saturation 97.3 % (95.0-99.0) 01/31/20 08:40 PT/INR, D-dimer PT 13.8 Sec. (12.2-14.9) 01/31/20 06:58 INR 1.04 (0.87-1.13) 01/31/20 06:58 D-Dimer 142.04 ng/mlDDU (0-234) 02/04/20 09:26 Abnormal lab findings: Abnormal Labs 01/31/20 01/31/20 01/31/20 06:58 06:58 07:45 [place] % (Auto) 7.4 H Lymph # 1.1 L Seg Neutrophils % 74.0 H ABG pH ABG pO2 ABG HCO3 ABG Base Excess Carbon Dioxide 31 H BUN 21 H Glucose 148 H 141 H POC Glucose Magnesium 2.60 H Lactate Dehydrogenase 342 H Total Creatine Kinase 50 L Coronavirus (PCR) 01/31/20 01/31/20 02/01/20 08:40 Unknown 09:08 [place] % (Auto) Lymph # Seg Neutrophils % ABG pH 7.312 L ABG pO2 105.7 H ABG HCO3 31.8 H ABG Base Excess 3.5 H Carbon Dioxide BUN Glucose POC Glucose Magnesium Lactate Dehydrogenase 292 H Total Creatine Kinase Coronavirus (PCR) Positive A 02/01/20 02/01/20 02/02/20 09:08 11:58 12:17 [place] % (Auto) Lymph # Seg Neutrophils % ABG pH ABG pO2 ABG HCO3 ABG Base Excess Carbon Dioxide BUN Glucose POC Glucose 178 H 171 H Magnesium Lactate Dehydrogenase Total Creatine Kinase 37 L Coronavirus (PCR) 02/04/20 09:26 [place] % (Auto) Lymph # Seg Neutrophils % ABG pH ABG pO2 ABG HCO3 ABG Base Excess Carbon Dioxide BUN Glucose POC Glucose Magnesium Lactate Dehydrogenase 323 H Total Creatine Kinase Coronavirus (PCR)
[2020-02-04] MEDS: MONTELUKAST 10 MG TAB PO SCH (17:03)
[2020-02-04] MEDS: SODIUM CHLORIDE 0.9% 50 ML IVPB IV SCH (22:34)
[2020-02-04] MEDS: REMDESIVIR 100 MG in SODIUM CHLORIDE 0.9% 250ML 250 ML IV SCH (22:34)
[2020-02-04] MEDS: ENOXAPARIN 40 MG/0.4 ML INJ SUB-Q SCH (22:35)
[2020-02-05] MEDS: hydrALAZINE 25 MG TAB PO SCH ×3 (06:30→23:08)
[2020-02-05] MEDS: GABAPENTIN 300 MG CAP PO SCH ×3 (06:30→23:07)
--- NOTE | 2020-02-05 07:51 | Event Note ---
Date: 02/05/20 I called [place] physician at [phone] [place] Chavis and updated Paul Parrish clinical status Treatment and discharge plan in 1 to 2 days, consultants recommendations.She agreed with the current management, and advised to continue treatment in [facility] and she would set up follow-up appointment with [place] physician. The above discussion was conveyed to the patient's nurse.
--- NOTE | 2020-02-05 08:29 | Progress Note ---
Assessment and Plan Assessment and plan: --Positive COVID-19. Continue contact and droplet isolation Isolation precautions, PPE protocols Trend inflammatory markers Patient is already on IV Solu-Medrol Remdesivir 10/09 today Prophylactic anticoagulation per d-dimer ID following --Acute hypoxic respiratory failure; Requiring BiPAP, secondary COPD exacerbation Titrate O2 sats to more than 90%, Continue on 3 L of nasal cannula oxygen during day BiPAP at night, pulmonary following Nebulizers, tapering tapering IV steroids inhalation steroids --Acute exacerbation of COPD; with acute bronchitis Nebulizers, IV steroids, antibiotics, oxygen/BiPAP as needed Patient already has home oxygen --History of obstructive sleep apnea; BiPAP at night, advised to comply with BiPAP --Morbid obesity; BMI 42.1; Patient needs weight reduction May benefit from bariatric surgical outpatient consultation For weight reduction program when medically stable --History of peripheral neuropathy; patient takes gabapentin at home Resume gabapentin and supportive care --DVT prophylaxis; Lovenox --Full CODE STATUS; Closely monitor patient and adjust management as needed Plan of care reviewed with the patient's nurse I called [facility] physician on 02/02/2020 and discussed patient's condition treatment plan I called [facility] physician Dr.Jayanthi Chavis today[02/05/2020] and updated patient's condition,treatment and discharge plans History Interval history: I spoke with the [facility] physician this morning Advised to continue current management in the hospital here They will set up follow-up appointment upon discharge I have seen and examined the patient at the bedside this morning COVID positive patient Isolation precautions and PPE protocols followed Patient feels slightly better on 3 L of nasal cannula oxygen Using BiPAP at night for ASHELY No new complaints vital signs reviewed Hospitalist Physical - Constitutional Vitals: Temp Pulse Resp BP Pulse Ox 98.7 F 71 15 134/88 94 02/05/20 04:43 02/05/20 06:30 02/05/20 04:43 02/05/20 06:30 02/05/20 04:43 General appearance: Present: mild distress, obese (Morbidly obese), other (PPE conservation) - EENT Eyes: Present: PERRL, EOM intact - Neck Neck: Present: supple, normal ROM - Respiratory Respiratory effort: normal Respiratory: bilateral: diminished, rhonchi, negative: rales, wheezing - Cardiovascular Rhythm: regular Heart Sounds: Present: S1 & S2 - Extremities Extremities: no ischemia, No edema - Abdominal General gastrointestinal: soft, non-tender, non-distended, normal bowel sounds - Integumentary Integumentary: Present: clear, warm - Psychiatric Psychiatric: appropriate mood/affect, cooperative - Neurologic Neurologic: moves all extremities HEART Score - HEART Score Troponin: Troponin T < 0.010 ng/mL (0.00-0.029) 02/01/20 09:08 Results - Labs CBC & Chem 7: 01/31/20 06:58 01/31/20 07:45 Labs: Laboratory Last Values WBC 7.0 K/mm3 (4.5-11.0) 01/31/20 06:58 RBC 4.78 M/mm3 (3.65-5.03) 01/31/20 06:58 Hgb 14.7 gm/dl (11.8-15.2) 01/31/20 06:58 Hgb 14.8 gm/dl (11.8-15.2) 01/31/20 06:58 Hct 43.3 % (35.5-45.6) 01/31/20 06:58 Hct 44.6 % (35.5-45.6) 01/31/20 06:58 MCV 93 fl (84-94) 01/31/20 06:58 MCH 31 pg (28-32) 01/31/20 06:58 MCHC 33 % (32-34) 01/31/20 06:58 RDW 14.8 % (13.2-15.2) 01/31/20 06:58 Plt Count 162 K/mm3 (140-440) 01/31/20 06:58 Plt Count 169 K/mm3 (140-440) 01/31/20 06:58 Lymph % (Auto) 15.6 % (13.4-35.0) 01/31/20 06:58 [place] % (Auto) 7.4 % (0.0-7.3) H 01/31/20 06:58 Eos % (Auto) 2.6 % (0.0-4.3) 01/31/20 06:58 Baso % (Auto) 0.4 % (0.0-1.8) 01/31/20 06:58 Lymph # 1.1 K/mm3 (1.2-5.4) L 01/31/20 06:58 [place] # 0.5 K/mm3 (0.0-0.8) 01/31/20 06:58 Eos # 0.2 K/mm3 (0.0-0.4) 01/31/20 06:58 Baso # 0.0 K/mm3 (0.0-0.1) 01/31/20 06:58 Seg Neutrophils % 74.0 % (40.0-70.0) H 01/31/20 06:58 Seg Neutrophils # 5.2 K/mm3 (1.8-7.7) 01/31/20 06:58 PT 13.8 Sec. (12.2-14.9) 01/31/20 06:58 INR 1.04 (0.87-1.13) 01/31/20 06:58 D-Dimer 142.04 ng/mlDDU (0-234) 02/04/20 09:26 ABG pH 7.312 pH Units (7.350-7.450) L 01/31/20 08:40 ABG pCO2 64.3 mm Hg 01/31/20 08:40 ABG pO2 105.7 mm Hg (80.0-90.0) H 01/31/20 08:40 ABG HCO3 31.8 mmol/L (20.0-26.0) H 01/31/20 08:40 ABG O2 Saturation 97.3 % (95.0-99.0) 01/31/20 08:40 ABG O2 Content 19.8 (0.0-44) 01/31/20 08:40 ABG Base Excess 3.5 mmol/L (-2.0-3.0) H 01/31/20 08:40 ABG Hemoglobin 14.7 gm/dl (14.0-18.0) 01/31/20 08:40 ABG Carboxyhemoglobin 1.5 % (0.0-5.0) 01/31/20 08:40 ABG Methemoglobin 0.6 % (0.0-1.5) 01/31/20 08:40 Oxyhemoglobin 95.2 % (95.0-99.0) 01/31/20 08:40 FiO2 40 % 01/31/20 08:40 Sodium 144 mmol/L (137-145) 01/31/20 06:58 Potassium 4.5 mmol/L (3.6-5.0) 01/31/20 06:58 Chloride 101.3 mmol/L (98-107) 01/31/20 06:58 Carbon Dioxide 31 mmol/L (22-30) H 01/31/20 06:58 Anion Gap 16 mmol/L 01/31/20 06:58 BUN 21 mg/dL (9-20) H 01/31/20 06:58 Creatinine 0.9 mg/dL (0.8-1.3) 01/31/20 06:58 Estimated GFR > 60 ml/min 01/31/20 06:58 BUN/Creatinine Ratio 23 % 01/31/20 06:58 Glucose 141 mg/dL (75-100) H 01/31/20 07:45 POC Glucose 171 (70-105) H 02/02/20 12:17 Lactic Acid 1.20 mmol/L (0.7-2.0) 01/31/20 07:45 Calcium 9.5 mg/dL (8.4-10.2) 01/31/20 06:58 Magnesium 2.60 mg/dL (1.7-2.3) H 01/31/20 06:58 Ferritin 141.6 ng/mL (30.0-300.0) 02/04/20 09:26 Lactate Dehydrogenase 323 units/L (91-180) H 02/04/20 09:26 Total Creatine Kinase 37 units/L (55-170) L 02/01/20 09:08 Troponin T < 0.010 ng/mL (0.00-0.029) 02/01/20 09:08 C-Reactive Protein 0.10 mg/dL (0.00-1.30) 02/04/20 09:26 NT-Pro-B Natriuret Pep 22.30 pg/mL (0-900) 01/31/20 06:58 Procalcitonin < 0.05 ng/mL (<0.15) 01/31/20 07:45 Coronavirus (PCR) Positive (Negative) A 01/31/20 Unknown Microbiology: Microbiology 01/31/20 08:00 Peripheral/Venous Blood Culture - Final NO GROWTH AFTER 5 DAYS 01/31/20 08:00 Peripheral/Venous Blood Culture - Final NO GROWTH AFTER 5 DAYS [place]/IV: Voiding Method Urinal IV Catheter Type [Left INT / Saline Lock Antecubital] Active Medications - Current Medications Current Medications: Generic Name Dose Route Start Last Admin Trade Name Freq PRN Reason Stop Dose Admin Albuterol 2.5 mg 01/31/20 09:03 02/01/20 16:22 Proventil IH 2.5 mg Q4HRT PRN Administration Shortness Of Breath Amlodipine Besylate 5 mg 01/31/20 10:00 02/04/20 09:30 Amlodipine PO 5 mg DAILY ROLAN Administration Arformoterol Tartrate 15 mcg 02/01/20 11:45 02/04/20 20:08 Brovana Nebu IH 15 mcg Q12HRT ROLAN Administration Aspirin 81 mg 01/31/20 10:00 02/04/20 09:30 Halfprin Ec PO 81 mg DAILY ROLAN Administration Budesonide 0.5 mg 01/31/20 20:00 02/04/20 20:08 Pulmicort IH 0.5 mg Q12HRT ROLAN Administration Enoxaparin Sodium 40 mg 01/31/20 22:00 02/04/20 22:35 Enoxaparin SUB-Q 40 mg QDAY@2200 ROLAN Administration Furosemide 40 mg 01/31/20 10:00 02/04/20 09:30 Lasix IV 40 mg QDAY ROLAN Administration Gabapentin 300 mg 01/31/20 14:00 02/05/20 06:30 Gabapentin PO 300 mg Q8HR ROLAN Administration Guaifenesin 600 mg 01/31/20 10:00 02/04/20 22:35 Mucinex Er PO 600 mg BID ROLAN Administration Hydralazine HCl 10 mg 01/31/20 10:00 02/04/20 13:16 Apresoline IV 10 mg Q4HR PRN Administration Hypertension Hydralazine HCl 25 mg 02/04/20 14:00 02/05/20 06:30 Apresoline PO 25 mg Q8HR ROLAN Administration REMDESIVIR 100 mg/ Sodium 250 mls @ 500 mls/hr 02/02/20 21:00 02/04/20 22:34 Chloride IV 02/05/20 21:29 500 mls/hr Q24HR@2100 ROLAN Administration Labetalol HCl 10 mg 02/04/20 09:09 Labetalol IV Q4H PRN Hypertension Methylprednisolone Sodium Succinate 20 mg 02/03/20 15:00 02/04/20 22:39 Solu-Medrol IV 20 mg Q8H ROLAN Administration Montelukast Sodium 10 mg 01/31/20 18:00 02/04/20 17:03 Singulair PO 10 mg QPM ROLAN Administration Pantoprazole Sodium 40 mg 01/31/20 10:00 02/04/20 09:30 Protonix PO 40 mg QDAY ROLAN Administration Sodium Chloride 50 ml 02/01/20 21:30 02/04/20 22:34 Nacl 0.9% IV 02/05/20 21:31 50 ml Q24H ROLAN Administration Tiotropium [place] 1 puff 01/31/20 10:00 02/04/20 11:04 Spiriva IH Not Given QDAY ROLAN
--- NOTE | 2020-02-05 08:40 | Progress Note ---
Assessment and Plan 59 y/o male with acute on chronic respiratory failure, ASHELY and COPD now covid positive 1. Can go ahead and set up oral steroid taper, would do 60 for 1 more day, then 40 daily for 3 days, 20 daily for 3 days, then stop. 2. On Remdesivir, appears to will have finished today. 3. Continue bipap QHS as patient does not have his machine here. he is not on therapy intermittenly, only his night time regimen as he does not have his home machine here. 4. monitor volume status 5. Continue pulmicort and will add brovana 6. Will continue to follow 7. Order for prone during day placed. Hold on prone sleeping as patient is on bipap therapy at night 8. No objection to discharge after finishing Remdesivir. Follow up with [place]. Will sign off. Subjective Date of service: 02/05/20 Interval history: No acute events. Pulm status remains stable, close to or at baseline. Objective Vital Signs - 12hr 02/04/20 02/04/20 02/04/20 21:00 21:19 22:00 Temperature 97.8 F Pulse Rate 86 Pulse Rate [ 62 Anterior Bilateral Throughout] Respiratory 20 Rate Respiratory 18 Rate [Anterior Bilateral Throughout] Blood Pressure 149/77 O2 Sat by Pulse 97 Oximetry 02/04/20 02/04/20 02/04/20 22:35 22:40 23:55 Temperature Pulse Rate 86 70 Pulse Rate [ Anterior Bilateral Throughout] Respiratory 18 Rate Respiratory Rate [Anterior Bilateral Throughout] Blood Pressure 149/77 O2 Sat by Pulse 96 96 Oximetry 02/05/20 02/05/20 04:43 06:30 Temperature 98.7 F Pulse Rate 71 71 Pulse Rate [ Anterior Bilateral Throughout] Respiratory 15 Rate Respiratory Rate [Anterior Bilateral Throughout] Blood Pressure 134/88 134/88 O2 Sat by Pulse 94 Oximetry CBC and BMP: 01/31/20 06:58 01/31/20 07:45 ABG, PT/INR, D-dimer: ABG ABG pH 7.312 pH Units (7.350-7.450) L 01/31/20 08:40 ABG pCO2 64.3 mm Hg 01/31/20 08:40 ABG pO2 105.7 mm Hg (80.0-90.0) H 01/31/20 08:40 ABG O2 Saturation 97.3 % (95.0-99.0) 01/31/20 08:40 PT/INR, D-dimer PT 13.8 Sec. (12.2-14.9) 01/31/20 06:58 INR 1.04 (0.87-1.13) 01/31/20 06:58 D-Dimer 142.04 ng/mlDDU (0-234) 02/04/20 09:26 Abnormal lab findings: Abnormal Labs 01/31/20 01/31/20 01/31/20 06:58 06:58 07:45 [place] % (Auto) 7.4 H Lymph # 1.1 L Seg Neutrophils % 74.0 H ABG pH ABG pO2 ABG HCO3 ABG Base Excess Carbon Dioxide 31 H BUN 21 H Glucose 148 H 141 H POC Glucose Magnesium 2.60 H Lactate Dehydrogenase 342 H Total Creatine Kinase 50 L Coronavirus (PCR) 01/31/20 01/31/20 02/01/20 08:40 Unknown 09:08 [place] % (Auto) Lymph # Seg Neutrophils % ABG pH 7.312 L ABG pO2 105.7 H ABG HCO3 31.8 H ABG Base Excess 3.5 H Carbon Dioxide BUN Glucose POC Glucose Magnesium Lactate Dehydrogenase 292 H Total Creatine Kinase Coronavirus (PCR) Positive A 02/01/20 02/01/20 02/02/20 09:08 11:58 12:17 [place] % (Auto) Lymph # Seg Neutrophils % ABG pH ABG pO2 ABG HCO3 ABG Base Excess Carbon Dioxide BUN Glucose POC Glucose 178 H 171 H Magnesium Lactate Dehydrogenase Total Creatine Kinase 37 L Coronavirus (PCR) 02/04/20 09:26 [place] % (Auto) Lymph # Seg Neutrophils % ABG pH ABG pO2 ABG HCO3 ABG Base Excess Carbon Dioxide BUN Glucose POC Glucose Magnesium Lactate Dehydrogenase 323 H Total Creatine Kinase Coronavirus (PCR)
[2020-02-05] MEDS: BUDESONIDE 0.5 MG/2 ML NEBU IH SCH ×2 (08:51→21:58)
[2020-02-05] MEDS: ARFORMOTEROL 15 MCG/2 ML NEBU IH SCH ×2 (08:51→21:58)
[2020-02-05] MEDS: TIOTROPIUM 18 MCG CAP INHALATION IH SCH (09:08)
[2020-02-05] MEDS: guaiFENesin ER 600 MG TAB PO SCH ×2 (09:52→23:07)
[2020-02-05] MEDS: FUROSEMIDE 20 MG/2 ML INJ IV SCH (09:52)
[2020-02-05] MEDS: amLODIPine 5 MG TAB PO SCH (09:52)
[2020-02-05] MEDS: ASPIRIN EC 81 MG TAB PO SCH (09:52)
[2020-02-05] MEDS: PANTOPRAZOLE 40 MG TAB PO SCH (09:52)
[2020-02-05] MEDS: ALBUTEROL 2.5 MG/3 ML NEBU IH PRN (15:13)
--- NOTE | 2020-02-05 15:27 | Progress Note ---
Assessment and Plan Cultures: Coronavirus PCR: Positive blood culture: no growth A/P: 59-year-old male with COPD, congestive heart failure, hypertension, obstructive sleep apnea, morbid obesity came into the emergency room with worsening shortness of breath. He was in respiratory distress requiring BiPAP in the em ergency room: #COVID-19: Chest x-ray without obvious pneumonia. Patient with normal inflammatory markers. However does have risk factors for severe/critical disease. #Acute on chronic hypoxic respiratory failure: Initially on BiPAP, now on nasal cannula. #Acute COPD exacerbation: On steroids #ASHELY, morbid obesity Recs: Already on steroids for COPD exacerbation, defer to pulmonary continue IV Remdesivir, day 5 of 5 prophylactic anticoagulation based on d-dimer trend ferritin, LDH, d-dimer, CRP every 2-3 days for risk stratification and to assess disease progression Clayton Barrera MD [facility] ([facility]) M: [phone] O: [phone] F: [phone] Subjective Date of service: 02/05/20 Interval history: Afebrile, normal white count. Currently on 3 L nasal cannula. Objective - Exam Narrative Exam: Physical exam deferred due to PPE conservation strategy. Please refer to primary team's note. - Constitutional Vitals: Vital Signs Temp Pulse Resp BP Pulse Ox 98.0 F 45 L 20 158/74 100 02/05/20 12:34 02/05/20 12:34 02/05/20 12:34 02/05/20 12:34 02/05/20 12:34 Temperature -Last 24 Hours Temperature 98.0 F Temperature 98.7 F Temperature 97.8 F Temperature 98.4 F - Labs CBC & Chem 7: 01/31/20 06:58 01/31/20 07:45
[2020-02-05] MEDS: methylPREDNISolone Sod Succinate 40 MG/1 ML INJ IV SCH ×3 (17:16→23:09)
[2020-02-05] MEDS: MONTELUKAST 10 MG TAB PO SCH (17:17)
[2020-02-05] MEDS: REMDESIVIR 100 MG in SODIUM CHLORIDE 0.9% 250ML 250 ML IV SCH (23:07)
[2020-02-05] MEDS: ENOXAPARIN 40 MG/0.4 ML INJ SUB-Q SCH (23:07)
[2020-02-05] MEDS: SODIUM CHLORIDE 0.9% 50 ML IVPB IV SCH (23:08)
[2020-02-06] MEDS: hydrALAZINE 25 MG TAB PO SCH ×2 (06:02→14:19)
[2020-02-06] MEDS: GABAPENTIN 300 MG CAP PO SCH ×2 (06:02→14:19)
[2020-02-06] MEDS: methylPREDNISolone Sod Succinate 40 MG/1 ML INJ IV SCH ×2 (07:11→14:20)
[2020-02-06] MEDS: BUDESONIDE 0.5 MG/2 ML NEBU IH SCH (08:06)
[2020-02-06] MEDS: ARFORMOTEROL 15 MCG/2 ML NEBU IH SCH (08:06)
--- NOTE | 2020-02-06 09:38 | Progress Note ---
Assessment and Plan 59 y/o male with acute on chronic respiratory failure, ASHELY and COPD now covid positive 1. Can go ahead and set up oral steroid taper,40 daily for 3 days (change to this tomorrow if patient is still here), 20 daily for 3 days, then stop. 2. On Remdesivir, appears to will have finished today. 3. Continue bipap QHS as patient does not have his machine here. he is not on therapy intermittenly, only his night time regimen as he does not have his home machine here. 4. monitor volume status 5. Continue pulmicort and will add brovana 6. Will continue to follow 7. Order for prone during day placed. Hold on prone sleeping as patient is on bipap therapy at night 8. No objection to discharge after finishing Remdesivir. Follow up with [place]. Will sign off. Subjective Date of service: 02/06/20 Interval history: No acute events. Pulm status is stable. Finished remdesivir yesterday. Objective Vital Signs - 12hr 02/05/20 02/05/20 02/05/20 21:58 21:59 22:00 Temperature 98.4 F Pulse Rate 82 Pulse Rate [ 87 Anterior Bilateral Throughout] Pulse Rate [ 87 From Monitor] Respiratory 22 Rate Respiratory 20 Rate [Anterior Bilateral Throughout] Blood Pressure Blood Pressure 164/76 [Right] O2 Sat by Pulse 95 98 Oximetry 02/06/20 02/06/20 02/06/20 00:00 06:00 06:02 Temperature 97.4 F L Pulse Rate 82 74 74 Pulse Rate [ Anterior Bilateral Throughout] Pulse Rate [ From Monitor] Respiratory 12 22 Rate Respiratory Rate [Anterior Bilateral Throughout] Blood Pressure 162/103 Blood Pressure 162/103 [Right] O2 Sat by Pulse 98 96 Oximetry 02/06/20 08:06 Temperature Pulse Rate Pulse Rate [ 85 Anterior Bilateral Throughout] Pulse Rate [ From Monitor] Respiratory Rate Respiratory 20 Rate [Anterior Bilateral Throughout] Blood Pressure Blood Pressure [Right] O2 Sat by Pulse Oximetry CBC and BMP: 01/31/20 06:58 01/31/20 07:45 ABG, PT/INR, D-dimer: ABG ABG pH 7.312 pH Units (7.350-7.450) L 01/31/20 08:40 ABG pCO2 64.3 mm Hg 01/31/20 08:40 ABG pO2 105.7 mm Hg (80.0-90.0) H 01/31/20 08:40 ABG O2 Saturation 97.3 % (95.0-99.0) 01/31/20 08:40 PT/INR, D-dimer PT 13.8 Sec. (12.2-14.9) 01/31/20 06:58 INR 1.04 (0.87-1.13) 01/31/20 06:58 D-Dimer 142.04 ng/mlDDU (0-234) 02/04/20 09:26 Abnormal lab findings: Abnormal Labs 01/31/20 01/31/20 01/31/20 06:58 06:58 07:45 [place] % (Auto) 7.4 H Lymph # 1.1 L Seg Neutrophils % 74.0 H ABG pH ABG pO2 ABG HCO3 ABG Base Excess Carbon Dioxide 31 H BUN 21 H Glucose 148 H 141 H POC Glucose Magnesium 2.60 H Lactate Dehydrogenase 342 H Total Creatine Kinase 50 L Coronavirus (PCR) 01/31/20 01/31/20 02/01/20 08:40 Unknown 09:08 [place] % (Auto) Lymph # Seg Neutrophils % ABG pH 7.312 L ABG pO2 105.7 H ABG HCO3 31.8 H ABG Base Excess 3.5 H Carbon Dioxide BUN Glucose POC Glucose Magnesium Lactate Dehydrogenase 292 H Total Creatine Kinase Coronavirus (PCR) Positive A 02/01/20 02/01/20 02/02/20 09:08 11:58 12:17 [place] % (Auto) Lymph # Seg Neutrophils % ABG pH ABG pO2 ABG HCO3 ABG Base Excess Carbon Dioxide BUN Glucose POC Glucose 178 H 171 H Magnesium Lactate Dehydrogenase Total Creatine Kinase 37 L Coronavirus (PCR) 02/04/20 09:26 [place] % (Auto) Lymph # Seg Neutrophils % ABG pH ABG pO2 ABG HCO3 ABG Base Excess Carbon Dioxide BUN Glucose POC Glucose Magnesium Lactate Dehydrogenase 323 H Total Creatine Kinase Coronavirus (PCR)
[2020-02-06 09:55] LABS: C-Reactive Protein 0.1 mg/dL (0.00-1.30)
[2020-02-06] MEDS: amLODIPine 5 MG TAB PO SCH (11:05)
[2020-02-06] MEDS: PANTOPRAZOLE 40 MG TAB PO SCH (11:05)
[2020-02-06] MEDS: guaiFENesin ER 600 MG TAB PO SCH (11:05)
[2020-02-06] MEDS: ASPIRIN EC 81 MG TAB PO SCH (11:05)
[2020-02-06] MEDS: FUROSEMIDE 20 MG/2 ML INJ IV SCH (11:06)
[2020-02-06] MEDS: TIOTROPIUM 18 MCG CAP INHALATION IH SCH (11:54)
--- NOTE | 2020-02-06 13:16 | Progress Note ---
Assessment and Plan Cultures: Coronavirus PCR: Positive blood culture: no growth A/P: 59-year-old male with COPD, congestive heart failure, hypertension, obstructive sleep apnea, morbid obesity came into the emergency room with worsening shortness of breath. He was in respiratory distress requiring BiPAP in the em ergency room: #COVID-19: Chest x-ray without obvious pneumonia. Patient with normal inflammatory markers. However does have risk factors for severe/critical disease. #Acute on chronic hypoxic respiratory failure: Initially on BiPAP, now on nasal cannula. #Acute COPD exacerbation: On steroids #ASHELY, morbid obesity Recs: Already on steroids for COPD exacerbation, defer to pulmonary continue IV Remdesivir, day 5 of 5 prophylactic anticoagulation based on d-dimer trend ferritin, LDH, d-dimer, CRP every 2-3 days for risk stratification and to assess disease progression Okay for discharge from infectious disease perspective. No additional recommendations. No need for ID clinic follow-up Clayton Barrera MD [facility] M: [phone] O: [phone] F: [phone] Subjective Date of service: 02/06/20 Interval history: Afebrile, normal white count. Stable Objective - Exam Narrative Exam: Physical exam deferred due to PPE conservation strategy. Please refer to primary team's note. - Constitutional Vitals: Vital Signs Temp Pulse Resp BP Pulse Ox 97.4 F L 82 20 162/103 96 02/06/20 06:00 02/06/20 11:55 02/06/20 11:55 02/06/20 06:02 02/06/20 12:01 Temperature -Last 24 Hours Temperature 97.4 F Temperature 98.4 F Temperature 97.3 F - Labs CBC & Chem 7: 01/31/20 06:58 01/31/20 07:45 Labs: Abnormal lab results 02/06/20 Range/Units 09:08 Lactate Dehydrogenase 293 H (91-180) units/L
[2020-02-06 14:06] VITALS: BP 131/86
--- NOTE | 2020-02-06 14:53 | Discharge Summary ---
Providers - Providers Date of Admission: 01/31/20 15:23 Date of discharge: 02/06/20 Attending physician: BOB PEREZ 01/31/20 09:38 Consult to Physician [CONS] Routine Comment: Consulting Provider: BHASKAR PETTIT Physician Instructions: Reason For Exam: Acute hypoxic respiratory failure/BiPAP/ASHELY 02/01/20 08:47 Consult to Physician [CONS] Routine Comment: Consulting Provider: BELLE ALVAREZ Physician Instructions: Reason For Exam: COVID positive Primary care physician: MAGAZINE HAND Hospitalization Condition: Serious Disposition: DC-01 TO HOME OR SELFCARE Time spent for discharge: 32 min Core Measure Documentation - Palliative Care Palliative Care/ Comfort Measures: Not Applicable - Core Measures Any of the following diagnoses?: none Exam - Constitutional Vitals: Temp Pulse Resp BP Pulse Ox 98.7 F 71 20 131/86 97 02/06/20 12:28 02/06/20 12:28 02/06/20 12:28 02/06/20 12:28 02/06/20 12:28 General appearance: Present: no acute distress, well-nourished - EENT Eyes: Present: PERRL, EOM intact - Neck Neck: Present: supple, normal ROM - Respiratory Respiratory effort: normal Respiratory: bilateral: diminished, negative: rales, rhonchi, wheezing - Cardiovascular Rhythm: regular Heart Sounds: Present: S1 & S2 - Extremities Extremities: no ischemia, No edema - Abdominal General gastrointestinal: Present: soft, non-tender, non-distended, normal bowel sounds - Integumentary Integumentary: Present: clear, warm - Musculoskeletal Musculoskeletal: strength equal bilaterally - Psychiatric Psychiatric: appropriate mood/affect - Neurologic Neurologic: moves all extremities Plan Activity: advance as tolerated Diet: other (cardiac diet) Additional Instructions: Advised to strictly follow COVID 19 protocols, self quarantine, contact isolation, wearing mask, washing hands, and special instructions material. Given to you by the discharge nurse. If you have any questions or concerns contact MD. If your symptoms worsen contact MD or go to emergency room. Advised to continue 2 L of nasal cannula oxygen at home, advised to continue BiPAP at night Follow up with: JAREK KIM MD [Primary Care Provider] - 7 Days BHASKAR PETTIT MD [Staff Physician] - 7 Days Prescriptions: hydrALAZINE [Apresoline TAB] 25 mg PO Q8HR #90 tablet Gabapentin 300 mg PO Q8HR #30 capsule Prednisone [predniSONE 10 mg (6-Day Pack, 21 Tabs)] 10 mg PO .TAPER #1 tab.ds.pk Pantoprazole [Protonix TAB] 40 mg PO QDAY #30 tablet
== END 2020-02-06 18:24 | disposition home or self-care (01) | DRG 177 ==
LOC: ED 05:48 → IMCU 09:15 → OBSVTOIN 15:23 → 3A 02-01 13:21
PROVIDERS: ADMIT Internal Medicine; ATTEND Internal Medicine
PROC: 4A033R1 Measurement of Arterial Saturation, Peripheral, Percutaneous Approach (ICD-10-PCS; principal; 2020-01-31)
PROC: 5A09357 Assistance with Respiratory Ventilation, Less than 24 Consecutive Hours, Continuous Positive Airway Pressure (ICD-10-PCS; 2020-01-31)
PROC: XW033E5 Introduction of Remdesivir Anti-infective into Peripheral Vein, Percutaneous Approach, New Technology Group 5 (ICD-10-PCS; 2020-02-01)
PROC: 5A09457 Assistance with Respiratory Ventilation, 24-96 Consecutive Hours, Continuous Positive Airway Pressure (ICD-10-PCS; 2020-02-02)
PROC: XW033E5 Introduction of Remdesivir Anti-infective into Peripheral Vein, Percutaneous Approach, New Technology Group 5 (ICD-10-PCS; 2020-02-02)
DX: U07.1 COVID-19 (principal); J96.21 Acute and chronic respiratory failure with hypoxia; J44.1 Chronic obstructive pulmonary disease with (acute) exacerbation; Z68.41 Body mass index [BMI] 40.0-44.9, adult; G47.33 Obstructive sleep apnea (adult) (pediatric); E66.01 Morbid (severe) obesity due to excess calories; I10 Essential (primary) hypertension; Z71.3 Dietary counseling and surveillance; Z82.49 Family history of ischemic heart disease and other diseases of the circulatory system
CPT/HCPCS: 36415; 71045; 80048; 82140; 82550; 82728; 82803; 82947; 82962; 83615; 83735; 83880; 84145; 84484; 85014; 85018; 85025; 85049; 85379; 85610; 86140; 87040; 93005; 94640; 94644; 94660; 94760; G0378; J0360; J1650; J1940; J1956; J2920; J2930; U0003-CS

== ENCOUNTER 2020-02-12 06:52 | Emergency (ER) | payer MEDICARE ==
[2020-02-12] MEDS ORDERED: IPRATROPIUM 0.02% NEBU 2.5 ML IH ONE (06:57)
[2020-02-12] MEDS ORDERED: ALBUTEROL 2.5 MG/3 ML NEBU IH ONE (06:57)
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
--- NOTE | 2020-02-12 08:37 | XRay Report ---
CHEST 1 VIEW 02/12/2020 7:24 AM INDICATION / CLINICAL INFORMATION: Dyspnea. COMPARISON: 01/31/20 FINDINGS: SUPPORT DEVICES: None. HEART / MEDIASTINUM: No significant abnormality. LUNGS / PLEURA: No acute airspace disease. Blunting of the left costophrenic angle may represent smal l effusion, unchanged.. No pneumothorax. ADDITIONAL FINDINGS: No significant additional findings. IMPRESSION: 1. Small left pleural effusion, unchanged. Signer Name: Chano Del Toro MD Signed: 02/12/2020 8:32 AM Workstation Name: [id number]
[2020-02-12 08:44] LABS: ABG Base Excess 8.1 mmol/L (-2.0-3.0); ABG HCO3 34.5 mmol/L (20.0-26.0); ABG Methemoglobin 0.6 % (0.0-1.5); ABG Oxygen Saturation 87.8 % (95.0-99.0); ABG PH 7.415 pH Units (7.350-7.450); ABG PO2 51.5 mm Hg (80.0-90.0)
[2020-02-12 09:07] LABS: Hematocrit 41.9 % (35.5-45.6); Mean Corpuscular HGB Conc 33 % (32-34); Mean Corpuscular Volume 93 fl (84-94); Platelet Count 127 K/mm3 (140-440); Red Blood Count 4.49 M/mm3 (3.65-5.03); Red Cell Distribution Width 14.8 % (13.2-15.2)
[2020-02-12 09:21] LABS: BUN/Creatinine Ratio 23; Blood Urea Nitrogen 27 mg/dL (9-20); Calcium 9.2 mg/dL (8.4-10.2); Hemolysis Index 13
[2020-02-12 09:25] LABS: INR 0.98 (0.87-1.13)
[2020-02-12 09:26] LABS: Partial Thromboplastin Time 23.1 Sec. (24.2-36.6)
[2020-02-12 10:27] LABS: Basophils % (Manual) 0 % (0.0-1.8); Eosinophils % (Manual) 0 % (0.0-4.3); Total Cells Counted 100
[2020-02-12 10:28] LABS: Anisocytosis Few; Macrocytosis Few; Platelet Estimate Consistent w Auto
[2020-02-12] MEDS ORDERED: LEVOTHYROXINE 75 MCG TAB PO ONE (10:45)
[2020-02-12 13:48] VITALS: BP 150/94
--- NOTE | 2020-02-12 15:07 | Cat Scan Report ---
CTA CHEST WITH CONTRAST INDICATION / CLINICAL INFORMATION: SOB. TECHNIQUE: Axial CT images were obtained through the chest after injection of 100 cc Omnipaque 350 IV contrast. 3 plane MIP and/or 3D reconstructions were produced. All CT scans at this location are performed usin g CT dose reduction for ALARA by means of automated exposure control. COMPARISON: CTA chest dated 06/27/2019. FINDINGS: PULMONARY ARTERIES: No pulmonary emboli. THORACIC AORTA: No significant abnormality. HEART: No significant abnormality. CORONARY ARTERIES: No significant calcification. MEDIASTINUM / CHELSI: No significant abnormality. PLEURA: No pleural effusion. No pneumothorax. LUNGS: No acute air space or interstitial disease. Mild linear atelectasis versus scarring in the td g bases. ADDITIONAL FINDINGS: None. UPPER ABDOMEN: No acute findings. Cholecystectomy changes. SKELETAL STRUCTURES: No significant osseous abnormality. IMPRESSION: 1. No CT evidence for pulmonary embolism. 2. No acute findings. Signer Name: Jose Correia MD Signed: 02/12/2020 3:03 PM Workstation Name: [id number]
[2020-02-12] MEDS ORDERED: IPRATROPIUM/ALBUTEROL SULFATE 3 ML AMPUL.NEB IH ONE ×2 (16:48→16:59)
== END 2020-02-12 17:20 | disposition admitted as inpatient to this hospital (09) ==
LOC: ED 06:52
DX: U07.1 COVID-19 (principal); J44.1 Chronic obstructive pulmonary disease with (acute) exacerbation; J96.00 Acute respiratory failure, unspecified whether with hypoxia or hypercapnia; I10 Essential (primary) hypertension; I25.2 Old myocardial infarction; K21.9 Gastro-esophageal reflux disease without esophagitis; M19.90 Unspecified osteoarthritis, unspecified site; G43.909 Migraine, unspecified, not intractable, without status migrainosus; Z86.69 Personal history of other diseases of the nervous system and sense organs; Z87.891 Personal history of nicotine dependence; Z79.899 Other long term (current) drug therapy; Z98.890 Other specified postprocedural states; Z87.442 Personal history of urinary calculi
CPT/HCPCS: 36415; 71045; 71275; 80048; 82803; 83880; 84484; 85007; 85025; 85610; 85730; 93005; 94640; 99285; Q9967; 94644

== ENCOUNTER 2020-02-29 20:32 | Emergency (ER) | payer MEDICARE ==
[2020-02-29 22:05] VITALS: BP 141/75
[2020-03-01] MEDS ORDERED: oxyCODONE /ACETAMINOPHEN 5-325MG TAB PO ONE (01:04)
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
== END 2020-03-01 01:57 | disposition home or self-care (01) ==
LOC: ED 20:32
DX: M54.6 Pain in thoracic spine (principal); G89.29 Other chronic pain; R06.02 Shortness of breath; I10 Essential (primary) hypertension; I25.2 Old myocardial infarction; K21.9 Gastro-esophageal reflux disease without esophagitis; M19.91 Primary osteoarthritis, unspecified site; G43.909 Migraine, unspecified, not intractable, without status migrainosus; R56.9 Unspecified convulsions; J44.9 Chronic obstructive pulmonary disease, unspecified; Z98.890 Other specified postprocedural states; Z86.73 Personal history of transient ischemic attack (TIA), and cerebral infarction without residual deficits; Z87.891 Personal history of nicotine dependence; Z79.899 Other long term (current) drug therapy

== ENCOUNTER 2020-03-27 16:31 | Inpatient (IN) | payer MEDICARE ==
[2020-03-27] MEDS ORDERED: IPRATROPIUM 0.02% NEBU 2.5 ML IH ONE ×2 (17:23→19:26)
[2020-03-27] MEDS ORDERED: ALBUTEROL 2.5 MG/3 ML NEBU IH ONE ×2 (17:23→19:26)
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
[2020-03-27] MEDS ORDERED: TERBUTALINE 1 MG/1 ML INJ SUB-Q ONE (17:29)
--- NOTE | 2020-03-27 17:50 | XRay Report ---
CHEST 1 VIEW 5:24 PM INDICATION / CLINICAL INFORMATION: Shortness of breath. COMPARISON: 02/12/2020. FINDINGS: SUPPORT DEVICES: None. HEART / MEDIASTINUM: The heart size and pulmonary vasculature are normal. LUNGS / PLEURA: No significant pulmonary or pleural abnormality. There is no evidence of left pleural effusion on the current study. No pneumothorax. ADDITIONAL FINDINGS: No significant additional findings. IMPRESSION: No acute abnormality. Signer Name: Oleg Infante MD Signed: 03/27/2020 5:46 PM Workstation Name: [id number]
[2020-03-27 17:54] LABS: Basophils # (Auto) 0.1 K/mm3 (0.0-0.1); Basophils % (Auto) 1.2 % (0.0-1.8); Eosinophils # (Auto) 0.3 K/mm3 (0.0-0.4); Hematocrit 41.6 % (35.5-45.6); Hemoglobin 13.7 gm/dl (11.8-15.2); Lymphocytes # (Auto) 1.7 K/mm3 (1.2-5.4); Lymphocytes % (Auto) 25.2 % (13.4-35.0); Mean Corpuscular HGB Conc 33 % (32-34); Mean Corpuscular Volume 92 fl (84-94); Monocytes # (Auto) 0.6 K/mm3 (0.0-0.8); Platelet Count 187 K/mm3 (140-440); Red Blood Count 4.51 M/mm3 (3.65-5.03); Red Cell Distribution Width 14.5 % (13.2-15.2)
[2020-03-27 18:08] LABS: BUN/Creatinine Ratio 19; Blood Urea Nitrogen 15 mg/dL (9-20); Calcium 9.3 mg/dL (8.4-10.2); Hemolysis Index 6
--- NOTE | 2020-03-27 20:54 | XRay Report ---
AP AND LATERAL VIEWS OF THE NECK INDICATION: Shortness of breath, feels like throat swelling. COMPARISON: No relevant prior imaging study available. FINDINGS: On the lateral view, the patient's shoulders limit evaluation of the lower cervical airway. Upper cer vical airway appears unremarkable on lateral view. No airway narrowing is seen on the AP view. No acute skeletal abnormality is seen within the cervical spine. IMPRESSION: 1. No acute findings. Signer Name: North Stewart MD Signed: 03/27/2020 8:50 PM Workstation Name: [id number]
[2020-03-27] MEDS ORDERED: ACETAMINOPHEN 325 MG TAB PO PRN (22:43)
[2020-03-27] MEDS ORDERED: MAGNESIUM HYDROXIDE (MOM) ORAL LIQD UDC PO PRN (22:43)
[2020-03-27] MEDS ORDERED: ONDANSETRON 4 MG/2 ML INJ IV PRN (22:43)
--- NOTE | 2020-03-27 22:54 | History and Physical Report ---
History of Present Illness Date of examination: 03/27/20 Date of admission: 03/27/20 21:51 Chief complaint: Shortness of Breath History of present illness: 59-year-old male with known history of hypertension, COPD, history of coronary artery disease with MN in the past presenting to the emergency room today complaining of shortness of breath. Patient states he was awakened with shortness of breath earlier than the morning and he has used his albuterol nebulizing treatment without any significant improvement. He denies any fever or chills, denies any chest pain, no headache or dizziness, denies any sick contacts and no recent travel, denies any contact with anyone with COVID-19. En route to the hospital patient was given Solu-Medrol, magnesium sulfate by EMS with some improvement. Upon arrival in the emergency room work-up today including chest x-ray and labs were unremarkable. Was placed on oxygen by nasal cannula and is being admitted for COPD exac erbation. Past History Past Medical History: CAD, COPD, GERD, hypertension, seizures, stroke, other (Chronic Pain,) Past Surgical History: Other (Right Eye surgery, Head surgery in the past.) Social history: smoking (Former Smoker) Medications and Allergies Allergies Allergy/AdvReac Type Severity Reaction Status Date / Time No Known Allergies Allergy Unverified 03/27/20 16:47 Home Medications Medication Instructions Recorded Confirmed Last Taken Type Tiotropium [Spiriva] 18 mcg IH QDAY #30 box 09/22/16 02/03/20 10/12/19 Rx Albuterol Sulfate [Ventolin HFA] 2 puff IH Q4H PRN 03/03/17 02/03/20 10/12/19 History Aspirin [Adult Low Dose Aspirin EC] 81 mg PO DAILY 03/03/17 02/03/20 10/12/19 History guaiFENesin ER [Mucinex ER] 600 mg PO BID #30 tablet 08/08/19 02/03/20 10/10/19 Rx ALBUTEROL NEB's [Proventil 0.083% 2.5 mg IH Q4HRT PRN #100 nebu 10/01/19 02/03/20 10/12/19 Rx NEBS] Albuterol Sulfate [Proair 90 mcg IH Q4HR PRN #2 aer.pow.ba 10/01/19 02/03/20 Unknown Rx Respiclick] Montelukast [Singulair] 10 mg PO QPM #30 tablet 10/01/19 02/03/20 10/12/19 Rx amLODIPine 5 mg PO DAILY #30 10/01/19 02/03/20 10/12/19 Rx Gabapentin 300 mg PO Q8HR #30 capsule 02/06/20 Unknown Rx Pantoprazole [Protonix TAB] 40 mg PO QDAY #30 tablet 02/06/20 Unknown Rx Prednisone [predniSONE 10 mg 10 mg PO .TAPER #1 tab.ds.pk 02/06/20 Unknown Rx (6-Day Pack, 21 Tabs)] hydrALAZINE [Apresoline TAB] 25 mg PO Q8HR #90 tablet 02/06/20 Unknown Rx Review of Systems Constitutional: no fever, no chills Ears, nose, mouth and throat: no nasal congestion, no sore throat Cardiovascular: no chest pain, no palpitations Respiratory: shortness of breath, wheezing, no cough Gastrointestinal: no abdominal pain, no nausea, no vomiting, no diarrhea Genitourinary Male: no dysuria, no hematuria, no nocturia Musculoskeletal: no neck pain, no low back pain Integumentary: no rash, no pruritis Neurological: no headaches, no confusion Psychiatric: no anxiety, no depression Exam - Constitutional Vitals: Temp Pulse Resp BP Pulse Ox 96 H 18 136/73 95 03/27/20 22:00 03/27/20 22:00 03/27/20 22:00 03/27/20 22:00 General appearance: Present: no acute distress, well-nourished, obese - EENT Eyes: Present: PERRL, EOM intact. Absent: scleral icterus ENT: hearing intact, clear oral mucosa, dentition normal - Neck Neck: Present: supple, normal ROM - Respiratory Respiratory effort: normal Respiratory: bilateral: diminished, wheezing (Few scattered Wheezes) - Cardiovascular Rhythm: regular Heart Sounds: Present: S1 & S2. Absent: gallop, systolic murmur, diastolic murmur, rub - Extremities Extremities: no ischemia, pulses intact, pulses symmetrical, No edema, Full ROM Peripheral Pulses: within normal limits - Abdominal General gastrointestinal: Present: soft, non-tender, non-distended, normal bowel sounds. Absent: mass - Integumentary Integumentary: Present: clear, warm, dry - Psychiatric Psychiatric: appropriate mood/affect, intact judgment & insight, memory intact, cooperative - Neurologic Neurologic: CNII-XII intact, no focal deficits, moves all extremities Results - Labs CBC & Chem 7: 03/27/20 17:29 03/27/20 17:29 Labs: Abnormal lab results 03/27/20 03/27/20 Range/Units 17:29 17:29 Pettis % (Auto) 9.0 H (0.0-7.3) % Glucose 183 H (75-100) mg/dL Assessment and Plan - Patient Problems (1) COPD exacerbation Current Visit: Yes Status: Acute Plan to address problem: Patient placed on nebulizing treatments and IV steroids. We will keep O2 saturation greater or equal to 94%. (2) Seizure disorder Current Visit: No Status: Acute Plan to address problem: We will resume routine home medications once reconciled. (3) Hypertension Current Visit: No Status: Chronic Qualifiers: Hypertension type: essential hypertension Qualified Code(s): I10 - Essential (primary) hypertension Plan to address problem: We will resume routine antihypertensive medications and monitor vital signs closely. (4) DVT prophylaxis Current Visit: No Status: Acute Plan to address problem: Patient placed on subcutaneous Lovenox. (5) Full code status Current Visit: Yes Status: Acute
[2020-03-28] MEDS: IPRATROPIUM/ALBUTEROL SULFATE 3 ML AMPUL.NEB IH SCH ×6 (00:34→19:33)
[2020-03-28] MEDS ORDERED: hydrALAZINE 20 MG/1 ML INJ IV ONE (06:27)
[2020-03-28] MEDS: methylPREDNISolone Sod Succinate 40 MG/1 ML INJ IV SCH ×3 (06:40→21:38)
[2020-03-28 08:01] LABS: Basophils % (Auto) 0.4 % (0.0-1.8); Hematocrit 41.1 % (35.5-45.6); Hemoglobin 13.6 gm/dl (11.8-15.2); Lymphocytes # (Auto) 1.1 K/mm3 (1.2-5.4); Lymphocytes % (Auto) 9.4 % (13.4-35.0); Mean Corpuscular HGB Conc 33 % (32-34); Mean Corpuscular Volume 93 fl (84-94); Monocytes % (Auto) 9.2 % (0.0-7.3); Platelet Count 188 K/mm3 (140-440); Red Blood Count 4.45 M/mm3 (3.65-5.03); Red Cell Distribution Width 15.4 % (13.2-15.2)
[2020-03-28 08:14] LABS: INR 0.97 (0.87-1.13)
[2020-03-28 08:22] LABS: Blood Urea Nitrogen 16 mg/dL (9-20); Calcium 9.5 mg/dL (8.4-10.2); Hemolysis Index 9
[2020-03-28 08:26] LABS: BUN/Creatinine Ratio 23
[2020-03-28] MEDS ORDERED: NON-FORMULARY EACH (Albuterol Sulfate [Proair Respiclick] 90 MCG) IH PRN (09:49)
[2020-03-28] MEDS ORDERED: ALBUTEROL 2.5 MG/3 ML NEBU IH PRN (09:49)
[2020-03-28] MEDS ORDERED: ALBUTEROL 8.5 GM MDI INHALATION IH PRN (09:49)
[2020-03-28] MEDS ORDERED: amLODIPine 5 MG TAB PO SCH (10:00)
[2020-03-28] MEDS: guaiFENesin ER 600 MG TAB PO SCH ×2 (11:31→21:39)
[2020-03-28] MEDS: PANTOPRAZOLE 40 MG TAB PO SCH (11:31)
[2020-03-28] MEDS: amLODIPine 5 MG TAB PO SCH (11:31)
[2020-03-28] MEDS: ASPIRIN EC 81 MG TAB PO SCH (11:31)
[2020-03-28] MEDS: TIOTROPIUM 18 MCG CAP INHALATION IH SCH (11:52)
[2020-03-28] MEDS: hydrALAZINE 25 MG TAB PO SCH ×2 (13:43→21:39)
[2020-03-28] MEDS: GABAPENTIN 300 MG CAP PO SCH ×2 (13:43→21:39)
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
[2020-03-28] MEDS ORDERED: MONTELUKAST 10 MG TAB PO SCH (18:00)
[2020-03-28] MEDS: ENOXAPARIN 40 MG/0.4 ML INJ SUB-Q SCH (21:39)
[2020-03-29] MEDS: IPRATROPIUM/ALBUTEROL SULFATE 3 ML AMPUL.NEB IH SCH ×4 (02:43→20:14)
[2020-03-29] MEDS: methylPREDNISolone Sod Succinate 40 MG/1 ML INJ IV SCH ×3 (05:21→21:46)
[2020-03-29] MEDS: hydrALAZINE 25 MG TAB PO SCH ×3 (05:21→22:01)
[2020-03-29] MEDS: GABAPENTIN 300 MG CAP PO SCH ×3 (05:21→21:45)
[2020-03-29 08:06] LABS: Hematocrit 44.4 % (35.5-45.6); Hemoglobin 14.3 gm/dl (11.8-15.2); Mean Corpuscular HGB Conc 32 % (32-34); Mean Corpuscular Volume 93 fl (84-94); Platelet Count 240 K/mm3 (140-440); Red Blood Count 4.78 M/mm3 (3.65-5.03); Red Cell Distribution Width 15.2 % (13.2-15.2)
[2020-03-29 08:23] LABS: BUN/Creatinine Ratio 25; Blood Urea Nitrogen 20 mg/dL (9-20); Calcium 9.8 mg/dL (8.4-10.2); Hemolysis Index 18
[2020-03-29] MEDS: TIOTROPIUM 18 MCG CAP INHALATION IH SCH (11:45)
[2020-03-29] MEDS: MORPHINE 2 MG/1 ML INJ IV PRN ×3 (12:11→22:02)
[2020-03-29] MEDS: amLODIPine 5 MG TAB PO SCH (12:12)
[2020-03-29] MEDS: guaiFENesin ER 600 MG TAB PO SCH ×2 (12:12→21:45)
[2020-03-29] MEDS: PANTOPRAZOLE 40 MG TAB PO SCH (12:13)
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
[2020-03-29] MEDS: ASPIRIN EC 81 MG TAB PO SCH (16:41)
[2020-03-29] MEDS: ENOXAPARIN 40 MG/0.4 ML INJ SUB-Q SCH (22:03)
[2020-03-30] MEDS: IPRATROPIUM/ALBUTEROL SULFATE 3 ML AMPUL.NEB IH SCH ×3 (02:32→14:59)
[2020-03-30] MEDS: MORPHINE 2 MG/1 ML INJ IV PRN ×2 (05:54→10:52)
[2020-03-30] MEDS: hydrALAZINE 25 MG TAB PO SCH ×2 (06:00→15:30)
[2020-03-30] MEDS: GABAPENTIN 300 MG CAP PO SCH ×2 (06:02→15:30)
[2020-03-30] MEDS: methylPREDNISolone Sod Succinate 40 MG/1 ML INJ IV SCH ×2 (06:02→15:30)
[2020-03-30] MEDS: TIOTROPIUM 18 MCG CAP INHALATION IH SCH (10:16)
[2020-03-30] MEDS: guaiFENesin ER 600 MG TAB PO SCH (10:52)
[2020-03-30] MEDS: PANTOPRAZOLE 40 MG TAB PO SCH (10:53)
[2020-03-30] MEDS: ASPIRIN EC 81 MG TAB PO SCH (10:53)
[2020-03-30] MEDS: amLODIPine 5 MG TAB PO SCH (10:53)
[2020-03-30 11:08] VITALS: BP 143/84
--- NOTE | 2020-03-30 14:09 | Discharge Summary ---
Providers - Providers Date of Admission: 03/28/20 14:00 Date of discharge: 03/30/20 Attending physician: OBED LOPEZ none Primary care physician: INTERNIST MEDICAL DOCTOR MD Hospitalization Condition: Fair Hospital course: 1-year-old male with known history of hypertension, COPD, history of coronary artery disease with CA in the past presenting to the emergency room today complaining of shortness of breath. Patient states he was awakened with shortness of breath earlier than the morning and he has used his albuterol nebulizing treatment without any significant improvement. He denies any fever or chills, denies any chest pain, no headache or dizziness, denies any sick contacts and no recent travel, denies any contact with anyone with COVID-19. En route to the hospital patient was given Solu-Medrol, magnesium sulfate by EMS with some improvement. Upon arrival in the emergency room work-up today including chest x-ray and labs were unremarkable. Was placed on oxygen by nasal cannula and is being admitted for COPD exacerbation. Patient defervesced well with steroids IV steroids and nebulizer treatments empiric antibiotics. Patient was on 2 to 3 L home O2. He is now stable with 2 to 3 L home O2. Stable for discharge no wheezing. Patient has good exercise tolerance at his baseline. Able to speak for long period of times without any shortness of breath at all. Patient is at baseline. Patient has been explained that he has advanced COPD he understands. 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 3 have been given to him. Disposition: DC-01 TO HOME OR SELFCARE - Discharge Diagnoses (1) COPD exacerbation Status: Acute Comment: Patient to be placed back on O2 at 2 L that he has upon discharge nebulizers albuterol. Patient also have a long-acting steroid and long-acting beta agonist for metered-dose inhalers. Patient also be given a steroid taper at this time. (2) Accelerated hypertension Status: Acute Comment: Back to baseline continue current home antihypertensive medications. (3) Acute respiratory failure Status: Acute Qualifiers: Respiratory failure complication: hypoxia Qualified Code(s): J96.01 - Acute respiratory failure with hypoxia (4) Suspected 2019 novel coronavirus infection Status: Acute Comment: Negative exam. Core Measure Documentation - Palliative Care Palliative Care/ Comfort Measures: Not Applicable - Core Measures Any of the following diagnoses?: none Exam - Constitutional Vitals: Temp Pulse Resp BP Pulse Ox 98.5 F 78 20 143/84 97 03/30/20 11:07 03/30/20 06:20 03/30/20 11:07 03/30/20 11:07 03/30/20 06:20 General appearance: Present: no acute distress, obese - EENT ENT: hearing intact, clear oral mucosa, other (Right eye blindness.) - Neck Neck: Present: supple, normal ROM, other (Obese.) - Respiratory Respiratory: bilateral: diminished (Poor inspiratory effort. Secondary to weight.) - Cardiovascular Rhythm: regular Heart Sounds: Present: S1 & S2. Absent: rub, click - Extremities Extremities: pulses symmetrical, No edema - Abdominal General gastrointestinal: Present: soft, non-tender, non-distended, normal bowel sounds, other (Obese). Absent: hepatomegaly, splenomegaly - Integumentary Integumentary: Present: clear, warm, dry - Musculoskeletal Musculoskeletal: gait normal, strength equal bilaterally - Neurologic Neurologic: CNII-XII intact, moves all extremities Plan Activity: no restrictions Weight Bearing Status: Full Weight Bearing Diet: low fat, diabetic Special Instructions: record daily BP diary, record blood sugar diary Follow up with: PRIMARY CARE, [Primary Care Provider] - 3-5 Days Prescriptions: hydrALAZINE [Apresoline TAB] 25 mg PO Q8HR #90 tablet Ipratropium/Albuterol Sulfate [DUONEB *Not for PRN Use*] 1 ampul IH Q6HRT #7 ampul.neb Gabapentin 300 mg PO Q8HR #30 capsule Prednisone [predniSONE 10 mg (6-Day Pack, 21 Tabs)] 10 mg PO .TAPER #1 tab.ds.pk Albuterol Sulfate [Proair Respiclick] 90 mcg IH Q4HR PRN #2 [email or web address] PRN Reason: Wheezing ALBUTEROL NEB's [Proventil 0.083% NEBS] 2.5 mg IH Q4HRT PRN #100 nebu PRN Reason: Shortness Of Breath Montelukast [Singulair] 10 mg PO QPM #30 tablet Tiotropium [Spiriva] 18 mcg IH QDAY #30 box
== END 2020-03-30 15:50 | disposition home or self-care (01) | DRG 189 ==
LOC: ED 16:31 → 3A 21:51 → OBSVTOIN 03-28 14:00 → 3A 03-28 21:13
PROVIDERS: ADMIT Internal Medicine Geriatric Medicine; ATTEND Internal Medicine
PROC: 5A09357 Assistance with Respiratory Ventilation, Less than 24 Consecutive Hours, Continuous Positive Airway Pressure (ICD-10-PCS; principal; 2020-03-28)
PROC: 5A09357 Assistance with Respiratory Ventilation, Less than 24 Consecutive Hours, Continuous Positive Airway Pressure (ICD-10-PCS; 2020-03-29)
DX: J96.21 Acute and chronic respiratory failure with hypoxia (principal); J44.1 Chronic obstructive pulmonary disease with (acute) exacerbation; I10 Essential (primary) hypertension; K21.9 Gastro-esophageal reflux disease without esophagitis; G43.909 Migraine, unspecified, not intractable, without status migrainosus; G89.29 Other chronic pain; M54.9 Dorsalgia, unspecified; I25.10 Atherosclerotic heart disease of native coronary artery without angina pectoris; Z20.828 Contact with and (suspected) exposure to other viral communicable diseases; G40.909 Epilepsy, unspecified, not intractable, without status epilepticus; G47.33 Obstructive sleep apnea (adult) (pediatric); Z87.442 Personal history of urinary calculi; Z87.891 Personal history of nicotine dependence; I25.2 Old myocardial infarction; Z86.73 Personal history of transient ischemic attack (TIA), and cerebral infarction without residual deficits
CPT/HCPCS: 36415; 70360; 71045; 80048; 83880; 85025; 85027; 85610; 94640; 94644; 94660; 94760; 96365; 96375; G0378; J0360; J1650; J2270; J2920; J3105

== ENCOUNTER 2020-04-05 07:57 | Emergency (ER) | payer MEDICARE ==
[2020-04-05] MEDS ORDERED: MORPHINE 4 MG/1 ML INJ IV ONE (08:29)
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
[2020-04-05 09:04] LABS: Basophils # (Auto) 0.1 K/mm3 (0.0-0.1); Basophils % (Auto) 0.9 % (0.0-1.8); Eosinophils # (Auto) 0.2 K/mm3 (0.0-0.4); Eosinophils % (Auto) 2.4 % (0.0-4.3); Hematocrit 42.2 % (35.5-45.6); Hemoglobin 14.1 gm/dl (11.8-15.2); Lymphocytes # (Auto) 2.3 K/mm3 (1.2-5.4); Lymphocytes % (Auto) 23.1 % (13.4-35.0); Mean Corpuscular HGB Conc 33 % (32-34); Mean Corpuscular Volume 92 fl (84-94); Monocytes # (Auto) 1.6 K/mm3 (0.0-0.8); Platelet Count 168 K/mm3 (140-440); Red Blood Count 4.61 M/mm3 (3.65-5.03); Red Cell Distribution Width 14.9 % (13.2-15.2)
[2020-04-05 09:30] LABS: Alanine Aminotransferase 28 units/L (7-56); Albumin 3.4 g/dL (3.9-5); BUN/Creatinine Ratio 18; Blood Urea Nitrogen 20 mg/dL (9-20); Hemolysis Index 38
--- NOTE | 2020-04-05 09:59 | XRay Report ---
CHEST 1 VIEW 04/05/2020 8:50 AM INDICATION / CLINICAL INFORMATION: MAIN. COMPARISON: 03/27/2020 FINDINGS: SUPPORT DEVICES: None. HEART / MEDIASTINUM: Stable mild cardiomegaly accounting for diminished lung volumes. LUNGS / PLEURA: No significant pulmonary or pleural abnormality. Underlying COPD remains. ADDITIONAL FINDINGS: No significant additional findings. IMPRESSION: Diminished lung volumes. Signer Name: Pollo Villanueva MD Signed: 04/05/2020 9:55 AM Workstation Name: [email or web address]
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
--- NOTE | 2020-04-05 11:29 | Cat Scan Report ---
CT head/brain wo con INDICATION / CLINICAL INFORMATION: 59 years Male; Trauma. TECHNIQUE: Routine CT head without contrast. All CT scans at this location are performed using CT dos e reduction for ALARA by means of automated exposure control. COMPARISON: The study is compared to the previous CT of 06/27/2019. FINDINGS: BRAIN / INTRACRANIAL CONTENTS: The motion degrades the image quality. However, there appears be mild cerebral white matter disease most consistent with mild microvascular angiopathy. The findings includ e the external capsules and appear to correlate with the previous CT. The jugular system is unchanged in size and configuration. There is no clear CT evidence of acute intracranial hemorrhage or signifi cant mass effect. 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 SINUSES / MASTOIDS: There is minimal mucosal thickening within the visualized paranasal sinuses. CRANIOCERVICAL JUNCTION: No significant abnormality. ADDITIONAL FINDINGS: None. IMPRESSION: 1. There is continued mild microvascular angiopathy as described without CT evidence of acute intracr anial hemorrhage. Signer Name: Roni Horner MD Signed: 04/05/2020 11:25 AM Workstation Name: [id number]
--- NOTE | 2020-04-05 11:38 | Cat Scan Report ---
CT cervical spine wo con INDICATION / CLINICAL INFORMATION: 59 years Male; Trauma. TECHNIQUE: Axial CT images of the cervical spine were obtained. Sagittal and coronal reformatted images were pr oduced. All CT scans at this location are performed using CT dose reduction for ALARA by means of aut omated exposure control. COMPARISON: None available. FINDINGS: POST-SURGICAL CHANGES: None. ALIGNMENT: There is mild curvature the cervical spine, convex toward the left. There is no significan t spondylolisthesis. VERTEBRAE: The motion as well as the beam hardening from the patient's body habitus degrade the image quality. However, there is no clear CT evidence of acute fracture involving the cervical spine. INTRAVERTEBRAL DISCS: The central disc bulge at C4-5 effaces the ventral subarachnoid space. There is moderate to right neural foraminal narrowing. The central spondylosis at C4-5 also effaces the ventr al subarachnoid space at. However, the neural foramen appear patent. There is a central disc bulge at C5-6 with effacement of the ventral subarachnoid space. There is mil d left foraminal narrowing at this level and at C6-7. PARASPINAL SOFT TISSUES: No prevertebral soft tissue fluid collections are identified. ADDITIONAL FINDINGS: None. IMPRESSION: 1. The study is limited by motion. However, there is no clear CT evidence of acute fracture involving the cervical spine. 2. There are multilevel degenerative changes as detailed above. Signer Name: Roni Horner MD Signed: 04/05/2020 11:33 AM Workstation Name: [email or web address]
[2020-04-05] MEDS ORDERED: HYDROmorphone 1 MG/1 ML INJ IV ONE (12:38)
[2020-04-05 13:00] VITALS: BP 150/91
== END 2020-04-05 13:20 | disposition home or self-care (01) ==
LOC: ED 07:57
DX: J44.9 Chronic obstructive pulmonary disease, unspecified (principal); I10 Essential (primary) hypertension; M19.91 Primary osteoarthritis, unspecified site; R52 Pain, unspecified; K21.9 Gastro-esophageal reflux disease without esophagitis; G43.909 Migraine, unspecified, not intractable, without status migrainosus; R56.9 Unspecified convulsions; Z86.73 Personal history of transient ischemic attack (TIA), and cerebral infarction without residual deficits; Z98.890 Other specified postprocedural states; Z79.899 Other long term (current) drug therapy; W19.XXXA Unspecified fall, initial encounter; Y93.89 Activity, other specified; Y92.89 Other specified places as the place of occurrence of the external cause; Y99.8 Other external cause status
CPT/HCPCS: 36415; 70450; 71045; 72070; 72100; 72125; 72170; 80053; 82550; 84484; 85025; 96374; 96375; 99285; J1170; J2270

== ENCOUNTER 2020-07-29 01:00 | Emergency (ER) | payer MEDICARE ==
[2020-07-29] MEDS ORDERED: ALBUTEROL 2.5 MG/3 ML NEBU IH ONE ×2 (01:11→04:29)
[2020-07-29] MEDS ORDERED: IPRATROPIUM 0.02% NEBU 2.5 ML IH ONE (01:11)
--- NOTE | 2020-07-29 01:42 | XRay Report ---
XR chest 1V ap INDICATION / CLINICAL INFORMATION: SOB. COMPARISON: 06/21/2020 FINDINGS: SUPPORT DEVICES: None. HEART /PULMONARY VASCULATURE: No significant abnormality. LUNGS / PLEURA: Stable left basilar parenchymal scarring. No new or increasing consolidation. No pneu mothorax. ADDITIONAL FINDINGS: No significant additional findings. IMPRESSION: 1. No acute findings. Signer Name: Raza Pride MD Signed: 07/29/2020 1:37 AM Workstation Name: [id number]
[2020-07-29 01:44] LABS: Basophils % (Auto) 0.1 % (0.0-1.8); Hematocrit 42.6 % (35.5-45.6); Hemoglobin 13.9 gm/dl (11.8-15.2); Lymphocytes # (Auto) 3.2 K/mm3 (1.2-5.4); Lymphocytes % (Auto) 27.3 % (13.4-35.0); Mean Corpuscular HGB Conc 33 % (32-34); Mean Corpuscular Volume 91 fl (84-94); Monocytes % (Auto) 8.5 % (0.0-7.3); Platelet Count 253 K/mm3 (140-440); Red Blood Count 4.69 M/mm3 (3.65-5.03); Red Cell Distribution Width 14.6 % (13.2-15.2)
[2020-07-29 02:02] LABS: Alanine Aminotransferase 17 units/L (7-56); Albumin 3.8 g/dL (3.9-5); BUN/Creatinine Ratio 18; Blood Urea Nitrogen 18 mg/dL (9-20); Calcium 9.4 mg/dL (8.4-10.2); Hemolysis Index 0; INR 0.94 (0.87-1.13)
[2020-07-29 02:03] LABS: Partial Thromboplastin Time 27.5 Sec. (24.2-36.6)
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
[2020-07-29] MEDS ORDERED: MORPHINE 4 MG/1 ML INJ IV ONE (03:02)
--- NOTE | 2020-07-29 04:06 | Cat Scan Report ---
CTA CHEST WITH CONTRAST INDICATION / CLINICAL INFORMATION: CP, SOB, elevated dimer. TECHNIQUE: Axial CT images were obtained through the chest after injection of IV contrast. 3 plane MA P and/or 3D reconstructions were produced. All CT scans at this location are performed using CT dose reduction for ALARA by means of automated exposure control. COMPARISON: 06/27/2019. FINDINGS: PULMONARY ARTERIES: No central or segmental pulmonary embolus. THORACIC AORTA: No significant abnormality. HEART: No significant abnormality. ADENOPATHY: No significant adenopathy. LUNGS/PLEURA: There is moderate emphysema. Reticular opacities within bilateral lung bases may reflec t atelectasis or fibrosis. No airspace consolidation. No pleural effusion. No pneumothorax. ADDITIONAL FINDINGS: None. UPPER ABDOMEN: Cholecystomy and right hepatic hemangioma again noted. SKELETAL STRUCTURES: No significant osseous abnormality. IMPRESSION: No acute findings in the chest. No evidence of pulmonary embolus. Signer Name: Raza Pride MD Signed: 07/29/2020 4:02 AM Workstation Name: [id number]
[2020-07-29] MEDS ORDERED: ASPIRIN 81 MG TAB CHEW PO ONE (04:12)
[2020-07-29] MEDS ORDERED: NITROGLYCERIN 0.4 MG TAB SUBL SL ONE (04:36)
[2020-07-29 05:17] VITALS: BP 153/78
== END 2020-07-29 06:10 | disposition other institution (70) ==
LOC: ED 01:00
DX: J44.1 Chronic obstructive pulmonary disease with (acute) exacerbation (principal); E66.2 Morbid (severe) obesity with alveolar hypoventilation; I10 Essential (primary) hypertension; K21.9 Gastro-esophageal reflux disease without esophagitis; G40.909 Epilepsy, unspecified, not intractable, without status epilepticus; G43.909 Migraine, unspecified, not intractable, without status migrainosus; Z90.49 Acquired absence of other specified parts of digestive tract; Z87.891 Personal history of nicotine dependence; Z79.82 Long term (current) use of aspirin; Z79.899 Other long term (current) drug therapy
CPT/HCPCS: 36415; 71045; 71275; 80053; 83880; 84484; 85025; 85379; 85610; 85730; 93005; 94640; 96372; 99285; J2270; Q9967; 92950; 94644

== ENCOUNTER 2020-09-15 07:13 | Observation (INO) | payer MEDICARE ==
[2020-09-15] MEDS ORDERED: IPRATROPIUM/ALBUTEROL SULFATE 3 ML AMPUL.NEB IH ONE (07:31)
[2020-09-15] MEDS ORDERED: MAGNESIUM SULFATE 2 GM/50 ML BAG IV ONE (07:31)
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
[2020-09-15 08:26] LABS: Basophils % (Auto) 0.5 % (0.0-1.8); Hematocrit 40.7 % (35.5-45.6); Hemoglobin 13.6 gm/dl (11.8-15.2); Lymphocytes # (Auto) 1.4 K/mm3 (1.2-5.4); Lymphocytes % (Auto) 14.9 % (13.4-35.0); Mean Corpuscular HGB Conc 33 % (32-34); Mean Corpuscular Volume 92 fl (84-94); Monocytes # (Auto) 0.7 K/mm3 (0.0-0.8); Platelet Count 238 K/mm3 (140-440); Red Blood Count 4.42 M/mm3 (3.65-5.03)
[2020-09-15 08:32] LABS: INR 0.97 (0.87-1.13)
[2020-09-15 08:33] LABS: Partial Thromboplastin Time 26.5 Sec. (24.2-36.6)
[2020-09-15 08:37] LABS: Creatine Kinase MB 2.9 ng/mL (0.0-4.0)
[2020-09-15 08:38] LABS: Blood Urea Nitrogen 23 mg/dL (9-20); Calcium 8.9 mg/dL (8.4-10.2); Hemolysis Index 1
--- NOTE | 2020-09-15 08:40 | XRay Report ---
CHEST 1 VIEW [id number] INDICATION / CLINICAL INFORMATION: Dyspnea COMPARISON: 07/29/2020 FINDINGS: SUPPORT DEVICES: None HEART / MEDIASTINUM: No significant abnormality. LUNGS / PLEURA: Mild bibasilar atelectatic changes are seen, mildly worse on the right. No definite p neumonic infiltrates are seen. No pneumothorax. ADDITIONAL FINDINGS: No significant additional findings. IMPRESSION: No significant acute abnormality Signer Name: Neymar Valdez MD Signed: 09/15/2020 8:36 AM Workstation Name: [id number]
[2020-09-15 08:42] LABS: BUN/Creatinine Ratio 33
[2020-09-15] MEDS ORDERED: ASPIRIN 325 MG TAB PO ONE (09:06)
[2020-09-15 09:24] LABS: Alanine Aminotransferase 13 units/L (7-56); Albumin 3.6 g/dL (3.9-5)
[2020-09-15 09:28] LABS: Bilirubin,Direct < 0.2 mg/dL (0-0.2)
[2020-09-15 10:26] LABS: Amphetamine Screen,Urine Negative; Benzodiazepines Screen,Urine Negative; Cannabinoid Screen,Urine Negative; Cocaine Screen,Urine Negative; Methadone Screen,Urine Negative; Opiate Screen,Urine Negative
[2020-09-15] MEDS ORDERED: NALOXONE 0.4 MG/1 ML INJ IV PRN (10:59)
[2020-09-15] MEDS ORDERED: ONDANSETRON 4 MG/2 ML INJ IV PRN (10:59)
[2020-09-15] MEDS ORDERED: ACETAMINOPHEN 325 MG TAB PO PRN (10:59)
[2020-09-15] MEDS ORDERED: MORPHINE 2 MG/1 ML INJ IV PRN (10:59)
[2020-09-15 11:01] LABS: Bilirubin,Urine NEG (Negative); Blood,Urine NEG (Negative); Color,Urine Yellow (Yellow); Protein,Urine <15 mg/dL mg/dL (Negative); Urobilinogen,Urine < 2.0 mg/dL (<2.0)
--- NOTE | 2020-09-15 11:21 | History and Physical Report ---
History of Present Illness Date of examination: 09/15/20 Date of admission: 09/15/20 09:00 Chief complaint: Acute dyspnea History of present illness: 60-year-old -[place] male with a past medical history of COPD, chronic 2 L home oxygen use, hypertension, GERD, chronic pain who presents with acute dyspnea. Patient states at about 1 AM this morning, patient woke up with acute dyspnea. Stated that he had a productive cough, whitish phlegm, chest tightnes s. No nausea vomiting or headaches noted. Patient attempted to use his home breathing treatments, no relief. Came to [facility] for evaluation, patient was found to be hypoxic. Patient was placed on 3 L of oxygen and satting in the 90s. Patient was given magnesium sulfate and duo nebs. Patient lying comfortable in bed. Patient recently discharged from the hospital June 2020 for COPD exacerbation. Past History Past Medical History: other (COPD, chronic 2 L home oxygen use, hypertension, GERD) Past Surgical History: Other (Right eye surgery, history of craniotomy) Social history: other (Patient denies any drug use, denies any alcohol use, quit smoking 8 years ago, smoked for 3 years, 3 9 packs/day) Family history: other (Cancer unspecified, hypertension, CAD/heart disease) Medications and Allergies Allergies Allergy/AdvReac Type Severity Reaction Status Date / Time No Known Allergies Allergy Verified 04/26/20 02:40 Home Medications Medication Instructions Recorded Confirmed Last Taken Type Aspirin [Adult Low Dose Aspirin EC] 81 mg PO DAILY 03/03/17 09/15/20 09/14/20 History Pantoprazole [Protonix TAB] 40 mg PO QDAY #30 tablet 02/06/20 09/15/20 Unknown R x Acetaminophen [Acetaminophen TAB] 650 mg PO Q4H PRN tablet 03/30/20 09/15/20 Unknown Rx Montelukast [Singulair] 10 mg PO QPM #30 tablet 03/30/20 09/15/20 Unknown Rx hydrALAZINE [Apresoline TAB] 25 mg PO Q8HR #90 tablet 03/30/20 09/15/20 09/14/20 Rx ALBUTEROL NEB's [Proventil 0.083% 2.5 mg IH Q4HRT PRN #100 nebu 05/03/20 09/15/20 09/15/20 Rx NEBS] Albuterol Sulfate [Proair 90 mcg IH Q4HR PRN #2 [email or web address] 05/03/20 09/15/20 09/15/20 Rx Respiclick] Benzonatate [Tessalon Perles] 100 mg PO Q8HR #15 capsule 06/23/20 09/15/20 Unknown Rx Prednisone [predniSONE 10 mg 10 mg PO .TAPER #1 tab.ds.pk 06/23/20 09/15/20 09/15/20 Rx (6-Day Pack, 21 Tabs)] Fluticasone/Salmeterol [Advair 1 inh IH BID 09/15/20 09/15/20 Unknown History Diskus 500-50 mcg] Tiotropium [Spiriva] 2 puff IH QDAY 09/15/20 09/15/20 09/14/20 History amLODIPine 5 mg PO BID 09/15/20 09/15/20 09/14/20 History Active Meds: Active Medications Acetaminophen (Acetaminophen 325 Mg Tab) 650 mg PO Q4H PRN PRN Reason: Pain MILD(1-3)/Fever >100.5/ACOSTA Albuterol/Ipratropium (Ipratropium/Albuterol Sulfate 3 Ml Ampul.Neb) 1 ampul IH Q4HRT ROLAN Heparin Sodium (Porcine) (Heparin 5,000 Unit/1 Ml Vial) 5,000 unit SUB-Q Q12HR ROLAN Methylprednisolone Sodium Succinate (Methylprednisolone Sod Succinate 40 Mg/1 Ml Inj) 40 mg IV Q8HR ROLAN Morphine Sulfate (Morphine 2 Mg/1 Ml Inj) 2 mg IV Q4H PRN PRN Reason: Pain, Moderate (4-6) Naloxone HCl (Naloxone 0.4 Mg/1 Ml Inj) 0.1 mg IV Q2MIN PRN PRN Reason: Res Rate </= 8 or 02 SAT < 92% Ondansetron HCl (Ondansetron 4 Mg/2 Ml Inj) 4 mg IV Q8H PRN PRN Reason: Nausea And Vomiting Oxycodone/Acetaminophen (Oxycodone /Acetaminophen 5-325mg Tab) 1 tab PO Q6H PRN PRN Reason: Pain, Moderate (4-6) Sodium Chloride (Sodium Chloride 0.9% 10 Ml Flush Syringe) 10 ml IV BID ROLAN Sodium Chloride (Sodium Chloride 0.9% 10 Ml Flush Syringe) 10 ml IV PRN PRN PRN Reason: LINE FLUSH Review of Systems Constitutional: chronic pain, no fever, no chills, no sweats, no night sweats, no weakness Ears, nose, mouth and throat: no sinus pressure, no sinus pain, no mouth pain, no dysphagia, no hoarseness, no sore throat, no swelling in mouth, no post-nasal drip Cardiovascular: chest pain, shortness of breath, dyspnea on exertion, high blood pressure, no orthopnea, no palpitations, no edema, no syncope, no lightheadedness, no leg edema Respiratory: cough, cough with sputum, shortness of breath, dyspnea on exertion, congestion, wheezing, home oxygen, no hemoptysis, no respiratory infections Gastrointestinal: no abdominal pain, no nausea, no vomiting, no diarrhea, no constipation, no hematemesis, no coffee ground emesis, no loss of appetite, no indigestion Musculoskeletal: low back pain, no neck stiffness, no neck pain, no shooting arm pain, no arm numbness/tingling, no myalgias, no gait dysfunction, no frequent falls Integumentary: no rash, no pruritis, no redness, no sores, no wounds, no jaundice, no lesions, no darkening of skin, no depigmentation, no dryness Neurological: no paralysis, no weakness, no parathesias, no numbness, no tingling, no syncope, no tremors, no ataxia, no lack of coordination, no headaches, no migraines, no convulsions Psychiatric: no anxiety, no memory loss, no sleep disturbances, no insomnia, no hypersomnia, no change in appetite, no disorientation, no confusion, no mood swings Hematologic/Lymphatic: no easy bruising, no easy bleeding, no lymphadenopathy, no lymphedema Allergic/Immunologic: wheezing, no urticaria, no allergic rhinitis, no persistent infections, no anaphylaxis, no angioedema Exam - Constitutional Vitals: Temp Pulse Resp BP Pulse Ox 98.5 F 89 17 172/107 92 09/15/20 07:30 09/15/20 10:16 09/15/20 10:16 09/15/20 10:16 09/15/20 10:16 General appearance: Present: no acute distress, well-nourished, obese - EENT Eyes: Present: PERRL, EOM intact. Absent: scleral icterus ENT: hearing intact, clear oral mucosa - Neck Neck: Present: supple, normal ROM. Absent: rigidity - Respiratory Respiratory effort: normal Respiratory: bilateral: wheezing, negative: diminished, rales, rhonchi - Cardiovascular Heart Sounds: Present: S1 & S2. Absent: rub, click - Extremities Extremities: pulses symmetrical, No edema, normal temperature, normal color, Full ROM Peripheral Pulses: within normal limits - Abdominal General gastrointestinal: Present: soft, non-tender, non-distended, normal bowel sounds - Integumentary Integumentary: Present: clear, warm, dry - Musculoskeletal Musculoskeletal: gait normal, strength equal bilaterally - Psychiatric Psychiatric: appropriate mood/affect, intact judgment & insight - Neurologic Neurologic: CNII-XII intact, moves all extremities HEART Score - HEART Score EKG: Non-specific Age: 45-65 Risk factors: > 3 risk factors or hx of atherosclerotic disease Troponin: Troponin T < 0.010 ng/mL (0.00-0.029) 09/15/20 07:46 Troponin: < normal limit - Critical Actions Critical Actions: 4-6 pts:12-16.6% risk of adverse cardiac event. Should be admitted Results - Labs CBC & Chem 7: 09/15/20 07:46 09/15/20 07:46 Labs: Laboratory Last Values WBC 9.4 K/mm3 (4.5-11.0) 09/15/20 07:46 RBC 4.42 M/mm3 (3.65-5.03) 09/15/20 07:46 Hgb 13.6 gm/dl (11.8-15.2) 09/15/20 07:46 Hct 40.7 % (35.5-45.6) 09/15/20 07:46 MCV 92 fl (84-94) 09/15/20 07:46 MCH 31 pg (28-32) 09/15/20 07:46 MCHC 33 % (32-34) 09/15/20 07:46 RDW 14.0 % (13.2-15.2) 09/15/20 07:46 Plt Count 238 K/mm3 (140-440) 09/15/20 07:46 Lymph % (Auto) 14.9 % (13.4-35.0) 09/15/20 07:46 [place] % (Auto) 8.0 % (0.0-7.3) H 09/15/20 07:46 Eos % (Auto) 0.0 % (0.0-4.3) 09/15/20 07:46 Baso % (Auto) 0.5 % (0.0-1.8) 09/15/20 07:46 Lymph # (Auto) 1.4 K/mm3 (1.2-5.4) 09/15/20 07:46 [place] # (Auto) 0.7 K/mm3 (0.0-0.8) 09/15/20 07:46 Eos # (Auto) 0.0 K/mm3 (0.0-0.4) 09/15/20 07:46 Baso # (Auto) 0.0 K/mm3 (0.0-0.1) 09/15/20 07:46 Seg Neutrophils % 76.6 % (40.0-70.0) H 09/15/20 07:46 Seg Neutrophils # 7.2 K/mm3 (1.8-7.7) 09/15/20 07:46 PT 12.8 Sec. (12.2-14.9) 09/15/20 07:46 INR 0.97 (0.87-1.13) 09/15/20 07:46 APTT 26.5 Sec. (24.2-36.6) 09/15/20 07:46 D-Dimer 233.27 ng/mlDDU (0-234) 09/15/20 07:46 Sodium 140 mmol/L (137-145) 09/15/20 07:46 Potassium 4.4 mmol/L (3.6-5.0) 09/15/20 07:46 Chloride 105.9 mmol/L (98-107) 09/15/20 07:46 Carbon Dioxide 26 mmol/L (22-30) 09/15/20 07:46 Anion Gap 13 mmol/L 09/15/20 07:46 BUN 23 mg/dL (9-20) H 09/15/20 07:46 Creatinine 0.7 mg/dL (0.8-1.3) L 09/15/20 07:46 Estimated GFR > 60 ml/min 09/15/20 07:46 BUN/Creatinine Ratio 33 % 09/15/20 07:46 Glucose 112 mg/dL (75-100) H 09/15/20 07:46 Lactic Acid 1.40 mmol/L (0.7-2.0) 09/15/20 07:46 Calcium 8.9 mg/dL (8.4-10.2) 09/15/20 07:46 Magnesium 1.80 mg/dL (1.7-2.3) 09/15/20 07:46 Total Bilirubin 0.20 mg/dL (0.1-1.2) 09/15/20 07:46 Direct Bilirubin < 0.2 mg/dL (0-0.2) 09/15/20 07:46 Indirect Bilirubin 0.0 mg/dL 09/15/20 07:46 AST 12 units/L (5-40) 09/15/20 07:46 ALT 13 units/L (7-56) 09/15/20 07:46 Alkaline Phosphatase 63 units/L (35-129) 09/15/20 07:46 Total Creatine Kinase 53 units/L (55-170) L 09/15/20 07:46 CK-MB (CK-2) 2.9 ng/mL (0.0-4.0) 09/15/20 07:46 CK-MB (CK-2) Rel Index 5.4 (0-4) H 09/15/20 07:46 Troponin T < 0.010 ng/mL (0.00-0.029) 09/15/20 07:46 Total Protein 6.0 g/dL (6.3-8.2) L 09/15/20 07:46 Albumin 3.6 g/dL (3.9-5) L 09/15/20 07:46 Albumin/Globulin Ratio 1.5 % 09/15/20 07:46 Urine Color Yellow (Yellow) 09/15/20 09:05 Urine Turbidity Clear (Clear) 09/15/20 09:05 Urine pH 5.0 (5.0-7.0) 09/15/20 09:05 Ur Specific [place] 1.017 (1.003-1.030) 09/15/20 09:05 Urine Protein <15 mg/dl mg/dL (Negative) 09/15/20 09:05 Urine Glucose (UA) Neg mg/dL (Negative) 09/15/20 09:05 Urine Ketones Neg mg/dL (Negative) 09/15/20 09:05 Urine Blood Neg (Negative) 09/15/20 09:05 Urine Nitrite Neg (Negative) 09/15/20 09:05 Ur Reducing Substances Not Reportable 09/15/20 09:05 Urine Bilirubin Neg (Negative) 09/15/20 09:05 Urine Ictotest Not Reportable 09/15/20 09:05 Urine Urobilinogen < 2.0 mg/dL (<2.0) 09/15/20 09:05 Ur Leukocyte Esterase Neg (Negative) 09/15/20 09:05 Urine WBC (Auto) 1.0 /HPF (0.0-6.0) 09/15/20 09:05 Urine RBC (Auto) 1.0 /HPF (0.0-6.0) 09/15/20 09:05 U Epithel Cells (Auto) < 1.0 /HPF (0-13.0) 09/15/20 09:05 Urine Opiates Screen Negative 09/15/20 09:05 Urine Methadone Screen Negative 09/15/20 09:05 Ur Barbiturates Screen Negative 09/15/20 09:05 Ur Phencyclidine Scrn Negative 09/15/20 09:05 Ur Amphetamines Screen Negative 09/15/20 09:05 U Benzodiazepines Scrn Negative 09/15/20 09:05 Urine Cocaine Screen Negative 09/15/20 09:05 U Marijuana (THC) Screen Negative 09/15/20 09:05 Drugs of Abuse Note Disclamer 09/15/20 09:05 - Imaging and Cardiology EKG: report reviewed, image reviewed Chest x-ray: report reviewed, image reviewed Assessment and Plan Assessment and plan: 60-year-old -Australian male with a past medical history of COPD, chronic hypoxia on 2 L of oxygen at home, hypertension, GERD who presents with COPD e xacerbation COPD exacerbation Acute on chronic hypoxia Oxygen supplementation, patient uses 2 L of oxygen at home DuoNebs scheduled every 4 hours Solu-Medrol 40 mg every 8 hours Azithromycin antibiotics Guaifenesin Respiratory support, transition to intermittent BiPAP when needed Continue home breathing treatments and medications Hypertension Continue lisinopril, hydralazine, amlodipine GERD Protonix Morbid obesity Lifestyle change CODE STATUS: Full DVT prophylaxis: Heparin Disposition: Continue treatment for COPD exacerbation. VTE prophylaxis?: Chemical Plan of care discussed with patient/family: Yes
[2020-09-15] MEDS: BENZONATATE 100 MG CAP PO SCH ×2 (13:15→22:07)
[2020-09-15] MEDS: hydrALAZINE 25 MG TAB PO SCH ×2 (13:15→22:07)
[2020-09-15] MEDS: methylPREDNISolone Sod Succinate 40 MG/1 ML INJ IV SCH ×2 (13:15→22:06)
[2020-09-15] MEDS: IPRATROPIUM/ALBUTEROL SULFATE 3 ML AMPUL.NEB IH SCH ×3 (14:21→20:50)
[2020-09-15] MEDS ORDERED: guaiFENesin DM 200/20 MG ORAL LIQD 10 ML PO PRN (14:43)
[2020-09-15] MEDS: AZITHROMYCIN/NS 500 MG/250 ML 500 MG/250 ML BAG IV SCH (16:25)
[2020-09-15] MEDS: MONTELUKAST 10 MG TAB PO SCH (18:29)
[2020-09-15] MEDS: HEPARIN 5,000 UNIT/1 ML VIAL SUB-Q SCH (22:06)
[2020-09-15] MEDS: amLODIPine 5 MG TAB PO SCH (22:07)
[2020-09-15] MEDS: oxyCODONE /ACETAMINOPHEN 5-325MG TAB PO PRN (22:13)
[2020-09-15] MEDS ORDERED: ALBUTEROL 2.5 MG/3 ML NEBU IH PRN (22:22)
[2020-09-16] MEDS: IPRATROPIUM/ALBUTEROL SULFATE 3 ML AMPUL.NEB IH SCH ×4 (02:00→19:28)
[2020-09-16 05:40] LABS: Basophils # (Auto) 0.1 K/mm3 (0.0-0.1); Basophils % (Auto) 0.4 % (0.0-1.8); Hematocrit 39.5 % (35.5-45.6); Hemoglobin 13.2 gm/dl (11.8-15.2); Lymphocytes # (Auto) 0.9 K/mm3 (1.2-5.4); Lymphocytes % (Auto) 6.3 % (13.4-35.0); Mean Corpuscular HGB Conc 34 % (32-34); Mean Corpuscular Volume 93 fl (84-94); Monocytes # (Auto) 0.6 K/mm3 (0.0-0.8); Platelet Count 230 K/mm3 (140-440); Red Blood Count 4.26 M/mm3 (3.65-5.03); Red Cell Distribution Width 14.2 % (13.2-15.2)
[2020-09-16] MEDS: hydrALAZINE 25 MG TAB PO SCH ×3 (05:57→21:36)
[2020-09-16] MEDS: BENZONATATE 100 MG CAP PO SCH ×3 (05:57→21:35)
[2020-09-16] MEDS: methylPREDNISolone Sod Succinate 40 MG/1 ML INJ IV SCH ×3 (05:57→21:36)
[2020-09-16 05:58] LABS: BUN/Creatinine Ratio 25; Blood Urea Nitrogen 20 mg/dL (9-20); Hemolysis Index 9
[2020-09-16] MEDS: oxyCODONE /ACETAMINOPHEN 5-325MG TAB PO PRN ×2 (06:01→21:36)
--- NOTE | 2020-09-16 09:10 | Progress Note ---
Assessment and Plan Assessment and plan: 60-year-old -[place] male with a past medical history of COPD, chronic hypoxia on 2 L of oxygen at home, hypertension, GERD who presents with COPD exacerbation COPD exacerbation Acute on chronic hypoxia Oxygen supplementation, patient uses 2-3 L of oxygen at home Wean patient off of oxygen as tolerated DuoNebs scheduled every 4 hours Solu-Medrol 40 mg every 8 hours Azithromycin antibiotics Guaifenesin Respiratory support, transition to intermittent BiPAP when needed Continue home breathing treatments and medications Hypertension Continue lisinopril, hydralazine, amlodipine GERD Protonix Morbid obesity Lifestyle change CODE STATUS: Full DVT prophylaxis: Heparin Disposition: Continue treatment for COPD exacerbation. Anticipate discharge within the next 24 hours. History Interval history: 09/16 patient improved breathing, however continues to be on higher levels of oxygen compared to home. Patient's baseline is 2 to 3 L, patient is on 4.5 to 5 L now. No nausea vomiting or chest pain. Hospitalist Physical - Physical exam Narrative exam: General appearance: Obese, no acute distress, well-nourished EENT: Partial right eye without any signs of infection, left eye PERRL, EOM intact, hearing intact, clear oral mucosa Neck: Present: supple, normal ROM Respiratory: 4.5 L of nasal cannula oxygen, mild bilateral wheezes, no rales rhonchi heard Cardiovascular: Regular rate/rhythm, Normal S1 & S2. No gallop, rub Extremities: no ischemia, No edema, normal temperature, normal color, Full ROM Abdominal: soft, non-tender, non-distended, normal bowel sounds Integumentary: Present: clear, warm, dry Psychiatric: appropriate mood/affect, intact judgment & insight Neurologic: CNII-XII intact, moves all extremities - Constitutional Vitals: Temp Pulse Resp BP Pulse Ox 98.4 F 80 18 189/97 95 09/16/20 07:43 09/16/20 08:00 09/16/20 08:00 09/16/20 07:43 09/16/20 08:54 General appearance: Present: no acute distress, well-nourished, obese HEART Score - HEART Score EKG: Non-specific Age: 45-65 Risk factors: > 3 risk factors or hx of atherosclerotic disease Troponin: Troponin T < 0.010 ng/mL (0.00-0.029) 09/15/20 07:46 Troponin: < normal limit - Critical Actions Critical Actions: 4-6 pts:12-16.6% risk of adverse cardiac event. Should be admitted Results - Labs CBC & Chem 7: 09/16/20 05:16 09/16/20 05:16 Labs: Laboratory Last Values WBC 15.0 K/mm3 (4.5-11.0) H 09/16/20 05:16 RBC 4.26 M/mm3 (3.65-5.03) 09/16/20 05:16 Hgb 13.2 gm/dl (11.8-15.2) 09/16/20 05:16 Hct 39.5 % (35.5-45.6) 09/16/20 05:16 MCV 93 fl (84-94) 09/16/20 05:16 MCH 31 pg (28-32) 09/16/20 05:16 MCHC 34 % (32-34) 09/16/20 05:16 RDW 14.2 % (13.2-15.2) 09/16/20 05:16 Plt Count 230 K/mm3 (140-440) 09/16/20 05:16 Lymph % (Auto) 6.3 % (13.4-35.0) L 09/16/20 05:16 [place] % (Auto) 4.0 % (0.0-7.3) 09/16/20 05:16 Eos % (Auto) 0.0 % (0.0-4.3) 09/16/20 05:16 Baso % (Auto) 0.4 % (0.0-1.8) 09/16/20 05:16 Lymph # (Auto) 0.9 K/mm3 (1.2-5.4) L 09/16/20 05:16 [place] # (Auto) 0.6 K/mm3 (0.0-0.8) 09/16/20 05:16 Eos # (Auto) 0.0 K/mm3 (0.0-0.4) 09/16/20 05:16 Baso # (Auto) 0.1 K/mm3 (0.0-0.1) 09/16/20 05:16 Seg Neutrophils % 89.3 % (40.0-70.0) H 09/16/20 05:16 Seg Neutrophils # 13.4 K/mm3 (1.8-7.7) H 09/16/20 05:16 PT 12.8 Sec. (12.2-14.9) 09/15/20 07:46 INR 0.97 (0.87-1.13) 09/15/20 07:46 APTT 26.5 Sec. (24.2-36.6) 09/15/20 07:46 D-Dimer 233.27 ng/mlDDU (0-234) 09/15/20 07:46 ABG pH 7.366 (7.320-7.450) 09/15/20 07:47 POC ABG pCO2 47.4 mmHg (32.0-48.0) 09/15/20 07:47 POC ABG pO2 106.9 mmHg (83-108) 09/15/20 07:47 POC ABG HCO3 26.5 09/15/20 07:47 ABG O2 Saturation 98.0 (0-100) 09/15/20 07:47 POC ABG Base Excess 0.6 09/15/20 07:47 ABG Hemoglobin 14.2 (12.0-17.5) 09/15/20 07:47 ABG Sodium 141.0 mmol/L (136.0-145.0) 09/15/20 07:47 ABG Potassium 4.2 mmol/L (3.40-4.50) 09/15/20 07:47 ABG Chloride 107.0 mmol/L (98-107) 09/15/20 07:47 ABG Glucose 116 mg/dL (65-95) H 09/15/20 07:47 FiO2 % 35.0 09/15/20 07:47 Sodium 140 mmol/L (137-145) 09/16/20 05:16 Potassium 4.7 mmol/L (3.6-5.0) 09/16/20 05:16 Chloride 103.3 mmol/L (98-107) 09/16/20 05:16 Carbon Dioxide 27 mmol/L (22-30) 09/16/20 05:16 Anion Gap 14 mmol/L 09/16/20 05:16 BUN 20 mg/dL (9-20) 09/16/20 05:16 Creatinine 0.8 mg/dL (0.8-1.3) 09/16/20 05:16 Estimated GFR > 60 ml/min 09/16/20 05:16 BUN/Creatinine Ratio 25 % 09/16/20 05:16 Glucose 176 mg/dL (75-100) H 09/16/20 05:16 Hemoglobin A1c 5.7 % (4-6) 09/16/20 05:16 Lactic Acid 1.40 mmol/L (0.7-2.0) 09/15/20 07:46 Calcium 9.0 mg/dL (8.4-10.2) 09/16/20 05:16 Magnesium 1.80 mg/dL (1.7-2.3) 09/15/20 07:46 Total Bilirubin 0.20 mg/dL (0.1-1.2) 09/15/20 07:46 Direct Bilirubin < 0.2 mg/dL (0-0.2) 09/15/20 07:46 Indirect Bilirubin 0.0 mg/dL 09/15/20 07:46 AST 12 units/L (5-40) 09/15/20 07:46 ALT 13 units/L (7-56) 09/15/20 07:46 Alkaline Phosphatase 63 units/L (35-129) 09/15/20 07:46 Total Creatine Kinase 53 units/L (55-170) L 09/15/20 07:46 CK-MB (CK-2) 2.9 ng/mL (0.0-4.0) 09/15/20 07:46 CK-MB (CK-2) Rel Index 5.4 (0-4) H 09/15/20 07:46 Troponin T < 0.010 ng/mL (0.00-0.029) 09/15/20 07:46 Total Protein 6.0 g/dL (6.3-8.2) L 09/15/20 07:46 Albumin 3.6 g/dL (3.9-5) L 09/15/20 07:46 Albumin/Globulin Ratio 1.5 % 09/15/20 07:46 Arterial Blood Glucose 116 mg/dL (65-95) H 09/15/20 07:47 Arterial Blood Ionized Calcium 4.9 mg/dL (4.6-5.3) 09/15/20 07:47 Urine Color Yellow (Yellow) 09/15/20 09:05 Urine Turbidity Clear (Clear) 09/15/20 09:05 Urine pH 5.0 (5.0-7.0) 09/15/20 09:05 Ur Specific [place] 1.017 (1.003-1.030) 09/15/20 09:05 Urine Protein <15 mg/dl mg/dL (Negative) 09/15/20 09:05 Urine Glucose (UA) Neg mg/dL (Negative) 09/15/20 09:05 Urine Ketones Neg mg/dL (Negative) 09/15/20 09:05 Urine Blood Neg (Negative) 09/15/20 09:05 Urine Nitrite Neg (Negative) 09/15/20 09:05 Ur Reducing Substances Not Reportable 09/15/20 09:05 Urine Bilirubin Neg (Negative) 09/15/20 09:05 Urine Ictotest Not Reportable 09/15/20 09:05 Urine Urobilinogen < 2.0 mg/dL (<2.0) 09/15/20 09:05 Ur Leukocyte Esterase Neg (Negative) 09/15/20 09:05 Urine WBC (Auto) 1.0 /HPF (0.0-6.0) 09/15/20 09:05 Urine RBC (Auto) 1.0 /HPF (0.0-6.0) 09/15/20 09:05 U Epithel Cells (Auto) < 1.0 /HPF (0-13.0) 09/15/20 09:05 Urine Opiates Screen Negative 09/15/20 09:05 Urine Methadone Screen Negative 09/15/20 09:05 Ur Barbiturates Screen Negative 09/15/20 09:05 Ur Phencyclidine Scrn Negative 09/15/20 09:05 Ur Amphetamines Screen Negative 09/15/20 09:05 U Benzodiazepines Scrn Negative 09/15/20 09:05 Urine Cocaine Screen Negative 09/15/20 09:05 U Marijuana (THC) Screen Negative 09/15/20 09:05 Drugs of Abuse Note Disclamer 09/15/20 09:05 Microbiology: Microbiology 09/15/20 07:46 Peripheral/Venous Blood Culture - Preliminary Culture in Progress 09/15/20 07:46 Peripheral/Venous Blood Culture - Preliminary Culture in Progress [place]/IV: Voiding Method Urinal Active Medications - Current Medications Current Medications: Generic Name Dose Route Start Last Admin Trade Name Freq PRN Reason Stop Dose Admin Acetaminophen 650 mg 09/15/20 10:59 Acetaminophen 325 Mg Tab PO Q4H PRN Pain MILD(1-3)/Fever >100.5/ACOSTA Albuterol 2.5 mg 09/15/20 22:22 Albuterol 2.5 Mg/3 Ml Nebu IH Q4HRT PRN Shortness Of Breath Albuterol/Ipratropium 1 ampul 09/16/20 02:00 09/16/20 07:44 Ipratropium/Albuterol Sulfate 3 Ml Ampul.Neb IH 1 ampul Q6HRT ROLAN Administration Amlodipine Besylate 5 mg 09/15/20 22:00 09/15/20 22:07 Amlodipine 5 Mg Tab PO 5 mg BID ROLAN Administration Aspirin 81 mg 09/16/20 10:00 Aspirin Ec 81 Mg Tab PO DAILY ROLAN Benzonatate 100 mg 09/15/20 14:00 09/16/20 05:57 Benzonatate 100 Mg Cap PO 100 mg Q8HR ROLAN Administration Guaifenesin 20 ml 09/15/20 14:43 Guaifenesin Dm 200/20 Mg Oral Liqd 10 Ml PO Q4H PRN Cough Heparin Sodium (Porcine) 5,000 unit 09/15/20 22:00 09/15/20 22:06 Heparin 5,000 Unit/1 Ml Vial SUB-Q 5,000 unit Q12HR ROLAN Administration Hydralazine HCl 25 mg 09/15/20 14:00 09/16/20 05:57 Hydralazine 25 Mg Tab PO 25 mg Q8HR ORLAN Administration Azithromycin 500 mg in 250 mls @ 250 mls/hr 09/15/20 15:00 09/15/20 16:25 Zithromax/Ns IV 250 mls/hr Q24H ROLAN Administration Methylprednisolone Sodium Succinate 40 mg 09/15/20 14:00 09/16/20 05:57 Methylprednisolone Sod Succinate 40 Mg/1 Ml Inj IV 40 mg Q8HR ROLAN Administration Montelukast Sodium 10 mg 09/15/20 18:00 09/15/20 18:29 Montelukast 10 Mg Tab PO 10 mg QPM ROLAN Administration Morphine Sulfate 2 mg 09/15/20 10:59 Morphine 2 Mg/1 Ml Inj IV Q4H PRN Pain, Moderate (4-6) Naloxone HCl 0.1 mg 09/15/20 10:59 Naloxone 0.4 Mg/1 Ml Inj IV Q2MIN PRN Res Rate </= 8 or 02 SAT < 92% Ondansetron HCl 4 mg 09/15/20 10:59 Ondansetron 4 Mg/2 Ml Inj IV Q8H PRN Nausea And Vomiting Oxycodone/Acetaminophen 1 tab 09/15/20 10:59 09/16/20 06:01 Oxycodone /Acetaminophen 5-325mg Tab PO 1 tab Q6H PRN Administration Pain, Moderate (4-6) Pantoprazole Sodium 40 mg 09/16/20 07:30 Pantoprazole 40 Mg Tab PO QDAC ROLAN Sodium Chloride 10 ml 09/15/20 22:00 09/15/20 22:06 Sodium Chloride 0.9% 10 Ml Flush Syringe IV 10 ml BID ROLAN Administration Sodium Chloride 10 ml 09/15/20 10:59 Sodium Chloride 0.9% 10 Ml Flush Syringe IV PRN PRN LINE FLUSH
[2020-09-16] MEDS ORDERED: TIOTROPIUM 18 MCG CAP INHALATION IH SCH (10:00)
[2020-09-16] MEDS: amLODIPine 5 MG TAB PO SCH ×2 (10:04→21:35)
[2020-09-16] MEDS: HEPARIN 5,000 UNIT/1 ML VIAL SUB-Q SCH ×2 (10:04→21:36)
[2020-09-16] MEDS: ASPIRIN EC 81 MG TAB PO SCH (10:04)
[2020-09-16] MEDS: PANTOPRAZOLE 40 MG TAB PO SCH (10:04)
[2020-09-16] MEDS: AZITHROMYCIN/NS 500 MG/250 ML 500 MG/250 ML BAG IV SCH (15:48)
[2020-09-16] MEDS: MONTELUKAST 10 MG TAB PO SCH (18:19)
[2020-09-17] MEDS: IPRATROPIUM/ALBUTEROL SULFATE 3 ML AMPUL.NEB IH SCH ×3 (03:15→13:34)
[2020-09-17 05:35] LABS: Hemoglobin 13.2 gm/dl (11.8-15.2); Mean Corpuscular HGB Conc 33 % (32-34); Mean Corpuscular Volume 94 fl (84-94); Platelet Count 231 K/mm3 (140-440); Red Blood Count 4.28 M/mm3 (3.65-5.03)
[2020-09-17 05:53] LABS: BUN/Creatinine Ratio 26; Blood Urea Nitrogen 21 mg/dL (9-20); Calcium 8.9 mg/dL (8.4-10.2); Hemolysis Index 7
[2020-09-17] MEDS: methylPREDNISolone Sod Succinate 40 MG/1 ML INJ IV SCH (06:00)
[2020-09-17] MEDS: BENZONATATE 100 MG CAP PO SCH (06:00)
[2020-09-17] MEDS: hydrALAZINE 25 MG TAB PO SCH (06:00)
[2020-09-17] MEDS: oxyCODONE /ACETAMINOPHEN 5-325MG TAB PO PRN (06:04)
[2020-09-17] MEDS: PANTOPRAZOLE 40 MG TAB PO SCH (08:31)
--- NOTE | 2020-09-17 09:55 | Discharge Summary ---
Providers - Providers Date of Admission: 09/15/20 09:00 Attending physician: MIRNA GAINES MD Primary care physician: [employer] Hospitalization Reason for admission: SHORTNESS OF BREATH Condition: Stable Hospital course: 60-year-old -[place] male with a past medical history of COPD, chronic hypoxia on 2 L of oxygen at home, hypertension, GERD who presents with COPD exacerbation COPD exacerbation Acute on chronic hypoxia Oxygen supplementation, patient uses 2-3 L of oxygen at home Wean patient off of oxygen as tolerated DuoNebs scheduled every 4 hours Solu-Medrol 40 mg every 8 hours Azithromycin antibiotics Guaifenesin Respiratory support, transition to intermittent BiPAP when needed Continue home breathing treatments and medications Hypertension Continue lisinopril, hydralazine, amlodipine GERD Protonix Morbid obesity Lifestyle change CODE STATUS: Full DVT prophylaxis: Heparin 09/17: Patient successfully weaned down to 2 L saturating 98% ambulating the hallway no acute distress plan for discharge today recommend to follow-up with primary physician complete steroid taper and also follow-up with it network architect. Patient normally on 2 L of oxygen at home. Patient requested renewal of medications. I discussed extensively follow up needs and complaince with [facility]. Disposition: DC-01 TO HOME OR SELFCARE Final Discharge Diagnosis (Prints w/discharge instructions): Acute hypoxic respiratory failure with COPD exacerbation Time spent for discharge: 35-minute Core Measure Documentation - Palliative Care Palliative Care/ Comfort Measures: Not Applicable - Core Measures Any of the following diagnoses?: none Exam - Physical Exam Narrative exam: VITAL SIGNS: Reviewed. GENERAL: The patient appears normally developed, Vital signs as documented. HEAD: No signs of head trauma. EYES: Pupils are equal. Extraocular motions intact. except Right eye with vision impairment EARS: Hearing grossly intact. MOUTH: Oropharynx is normal. NECK: No adenopathy, no JVD. CHEST: Chest with clear breath sounds bilaterally. No wheezes, rales, or rhonchi. CARDIAC: Regular rate and rhythm. S1 and S2, without murmurs, gallops, or rubs. VASCULAR: No Edema. Peripheral pulses normal and equal in all extremities. ABDOMEN: Soft, non tender and non distended. No rebound or guarding, and no masses palpated. Bowel Sounds normal. MUSCULOSKELETAL: Good range of motion of all major joints. Extremities without clubbing, cyanosis or edema. NEUROLOGIC EXAM: Alert and oriented x 3 No focal sensory or strength deficits. Speech normal. Follows commands. PSYCHIATRIC: Mood normal. SKIN: detail exam as documented in skin assessment - Constitutional Vitals: Temp Pulse Resp BP Pulse Ox 97.8 F 66 19 153/76 92 09/17/20 08:22 09/17/20 08:22 09/17/20 08:22 09/17/20 08:22 09/17/20 08:22 Plan Activity: advance as tolerated, fall precautions Diet: low fat Special Instructions: record daily weights, record daily BP diary, physical therapy, home oxygen via (nasal cannula @ 2 liters per minute) Additional Instructions: Follow with primary it network architect at [facility] in 3 to 7 days. Follow up with: PRIMARY CARE, [Primary Care Provider] - 7 Days Prescriptions: Prednisone [predniSONE 10 mg (6-Day Pack, 21 Tabs)] 10 mg PO .TAPER #1 tab.ds.pk ALBUTEROL NEB's [Proventil 0.083% NEBS] 2.5 mg IH Q4HRT PRN #90 nebu PRN Reason: Shortness Of Breath Benzonatate [Tessalon Perles] 100 mg PO Q8HR #14 capsule Other Discharge Orders: Nebulizer (Amb) Location: None Selected
[2020-09-17] MEDS: ASPIRIN EC 81 MG TAB PO SCH (10:56)
[2020-09-17] MEDS: HEPARIN 5,000 UNIT/1 ML VIAL SUB-Q SCH (10:56)
[2020-09-17] MEDS: amLODIPine 5 MG TAB PO SCH (10:56)
[2020-09-17] MEDS ORDERED: AZITHROMYCIN 250 MG TAB PO SCH (11:00)
[2020-09-17 12:25] VITALS: BP 171/91
--- NOTE | 2020-09-19 11:30 | Electrocardiograph Report ---
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
== END 2020-09-17 14:02 | disposition home or self-care (01) ==
LOC: ED 07:13 → INTOOBSV 09:00 → 4A 09:00
PROVIDERS: ADMIT Family Medicine; ATTEND Internal Medicine
DX: J96.21 Acute and chronic respiratory failure with hypoxia (principal); J44.1 Chronic obstructive pulmonary disease with (acute) exacerbation; R07.89 Other chest pain; I10 Essential (primary) hypertension; K21.9 Gastro-esophageal reflux disease without esophagitis; E66.01 Morbid (severe) obesity due to excess calories; Z98.890 Other specified postprocedural states; Z87.891 Personal history of nicotine dependence; Z79.82 Long term (current) use of aspirin; Z86.73 Personal history of transient ischemic attack (TIA), and cerebral infarction without residual deficits; Z68.41 Body mass index [BMI] 40.0-44.9, adult; Z79.899 Other long term (current) drug therapy
CPT/HCPCS: 36415; 71045; 80048; 80076; 80307; 81001; 82140; 82550; 82553; 82805; 83036; 83735; 84484; 85025; 85027; 85379; 85610; 85730; 87040; 87641; 93005; 94640; 94660; 96365; 96366; 96367; 96372; 96375; 96376; 99285; G0378; J0456; J1644; J2920; J3475; 94644

== ENCOUNTER 2020-11-26 04:30 | Emergency (ER) | payer MEDICARE ==
[2020-11-26] MEDS ORDERED: ASPIRIN 325 MG TAB PO ONE (04:57)
--- NOTE | 2020-11-26 05:42 | XRay Report ---
CHEST 1 VIEW 11/26/2020 4:35 AM INDICATION / CLINICAL INFORMATION: SOB, CP. COMPARISON: None available. FINDINGS: SUPPORT DEVICES: None. HEART / MEDIASTINUM: Cardiomegaly with mild increased pulmonary vascularity LUNGS / PLEURA: No significant pulmonary or pleural abnormality. No pneumothorax. ADDITIONAL FINDINGS: No significant additional findings. IMPRESSION: 1. Cardiomegaly with mild increase pulmonary vascularity Signer Name: Everette Lynn MD Signed: 11/26/2020 5:37 AM Workstation Name: [id number]
[2020-11-26 05:52] LABS: Basophils # (Auto) 0.1 K/mm3 (0.0-0.1); Basophils % (Auto) 0.7 % (0.0-1.8); Hematocrit 43.4 % (35.5-45.6); Hemoglobin 13.9 gm/dl (11.8-15.2); Lymphocytes # (Auto) 1.7 K/mm3 (1.2-5.4); Lymphocytes % (Auto) 23.9 % (13.4-35.0); Mean Corpuscular HGB Conc 32 % (32-34); Mean Corpuscular Volume 91 fl (84-94); Monocytes # (Auto) 0.9 K/mm3 (0.0-0.8); Monocytes % (Auto) 12.9 % (0.0-7.3); Platelet Count 212 K/mm3 (140-440); Red Blood Count 4.75 M/mm3 (3.65-5.03); Red Cell Distribution Width 14.7 % (13.2-15.2)
[2020-11-26 06:16] LABS: Alanine Aminotransferase 23 units/L (7-56); Albumin 3.9 g/dL (3.9-5); BUN/Creatinine Ratio 18; Blood Urea Nitrogen 16 mg/dL (9-20); Calcium 9.5 mg/dL (8.4-10.2); Hemolysis Index 10
[2020-11-26] MEDS ORDERED: ALBUTEROL 2.5 MG/3 ML NEBU IH ONE (06:26)
[2020-11-26] MEDS ORDERED: IPRATROPIUM 0.02% NEBU 2.5 ML IH ONE (06:26)
[2020-11-26] MEDS ORDERED: predniSONE 20 MG TAB PO ONE (06:27)
[2020-11-26] MEDS ORDERED: levoFLOXacin 500 MG TAB PO ONE (06:27)
[2020-11-26] MEDS ORDERED: MAGNESIUM SULFATE 2 GM/50 ML BAG IV ONE (06:27)
[2020-11-26] MEDS ORDERED: HYDROcodone/ACETAMINOPHEN 5-325 MG TAB PO ONE (06:28)
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
[2020-11-26 09:47] LABS: ABG Base Excess 0.8 mmol/L (-2.0-3.0); ABG Methemoglobin 0.4 % (0.0-1.5); ABG Oxygen Saturation 96.8 % (95.0-99.0); ABG PCO2 55.5 mm Hg; ABG PH 7.321 pH Units (7.350-7.450); ABG PO2 93.3 mm Hg (80.0-90.0)
[2020-11-26 14:58] VITALS: BP 100/72
--- NOTE | 2020-11-27 19:20 | Electrocardiograph Report ---
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
== END 2020-11-26 14:58 | disposition other institution (70) ==
LOC: ED 04:30
DX: J44.1 Chronic obstructive pulmonary disease with (acute) exacerbation (principal); I10 Essential (primary) hypertension; K21.9 Gastro-esophageal reflux disease without esophagitis; G43.909 Migraine, unspecified, not intractable, without status migrainosus; Z86.73 Personal history of transient ischemic attack (TIA), and cerebral infarction without residual deficits; G89.29 Other chronic pain; Z98.890 Other specified postprocedural states; Z87.442 Personal history of urinary calculi; Z79.899 Other long term (current) drug therapy
CPT/HCPCS: 36415; 71045; 80053; 82803; 83880; 84484; 85025; 93005; 94640; 96365; 99285; J3475; J7512; 94644

== ENCOUNTER 2020-12-26 08:03 | Inpatient (IN) | payer MEDICARE ==
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
[2020-12-26] MEDS ORDERED: ALBUTEROL 2.5 MG/3 ML NEBU IH ONE ×2 (08:52→08:59)
[2020-12-26] MEDS ORDERED: IPRATROPIUM 0.02% NEBU 2.5 ML IH ONE ×2 (08:52→08:59)
[2020-12-26 09:36] LABS: Basophils % (Auto) 0.8 % (0.0-1.8); Eosinophils # (Auto) 0.1 K/mm3 (0.0-0.4); Eosinophils % (Auto) 1.9 % (0.0-4.3); Hematocrit 42.6 % (35.5-45.6); Hemoglobin 14.2 gm/dl (11.8-15.2); Lymphocytes # (Auto) 0.8 K/mm3 (1.2-5.4); Lymphocytes % (Auto) 13.3 % (13.4-35.0); Mean Corpuscular HGB Conc 33 % (32-34); Mean Corpuscular Volume 91 fl (84-94); Monocytes # (Auto) 0.3 K/mm3 (0.0-0.8); Monocytes % (Auto) 5.1 % (0.0-7.3); Platelet Count 214 K/mm3 (140-440); Red Blood Count 4.66 M/mm3 (3.65-5.03); Red Cell Distribution Width 14.3 % (13.2-15.2)
[2020-12-26 09:48] LABS: INR 0.93 (0.87-1.13)
[2020-12-26 09:49] LABS: Partial Thromboplastin Time 26.9 Sec. (24.2-36.6)
[2020-12-26 10:26] LABS: Blood Urea Nitrogen 14 mg/dL (9-20); Calcium 9.6 mg/dL (8.4-10.2); Hemolysis Index 2
[2020-12-26 10:27] LABS: BUN/Creatinine Ratio 20
--- NOTE | 2020-12-26 10:46 | XRay Report ---
CHEST 1 VIEW INDICATION: Shortness of breath. COMPARISON: 11/26/2020 FINDINGS: Support devices: None. Heart: Stable borderline heart size. Lungs/Pleura: No acute air space or interstitial disease. No pleural effusion or pneumothorax. Additional findings: None. IMPRESSION: No acute findings. Signer Name: Brent Teixeira Jr, MD Signed: 12/26/2020 10:41 AM Workstation Name: [id number]
--- NOTE | 2020-12-26 12:38 | Electrocardiograph Report ---
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
[2020-12-26] MEDS ORDERED: ONDANSETRON 4 MG/2 ML INJ IV PRN (17:55)
[2020-12-26] MEDS ORDERED: oxyCODONE /ACETAMINOPHEN 5-325MG TAB PO PRN (17:55)
[2020-12-26] MEDS ORDERED: ALBUTEROL 2.5 MG/3 ML NEBU IH PRN (17:55)
[2020-12-26] MEDS ORDERED: HYDROmorphone 1 MG/1 ML INJ IV PRN (17:55)
[2020-12-26] MEDS ORDERED: ACETAMINOPHEN 325 MG TAB PO PRN ×2 (17:55→17:59)
--- NOTE | 2020-12-26 18:00 | History and Physical Report ---
History of Present Illness Chief complaint: I'm short of breath History of present illness: 60 YO Male with COPD, Chronic Respiratory Failure on Home Oxygen 3L NC, HTN, GERD, Obesity Hypoventilation Syndrome, CPS, OA presents to ED for evaluation. Pt reports "Im short of breath". Pt states that he has experienced shortness of breath of the past 1 day with persistently worsening symptoms over the same timeframe. Patient knowledges increased productive cough with whitish sputum, chest discomfort associated with coughing episodes, increased use of nebulizer therapy without relief. EMS was notified and upon arrival the patient was found to be in distress and subsequently transported to [facility] for further care and e valuation of the aforementioned symptoms. The patient was seen and evaluated in the emergency department. All lab and imaging studies reviewed. Patient found to have a pulse oximetry of 86% on room air and was rapidly placed on 6 supplemental oxygen with mild improvement in symptoms. Patient using accessory muscles to breathe, patient tripoding, patient leaning forward in bed, patient unable to speak in complete sentences. Patient found to have exacerbation of COPD complicated by acute hypoxemic respiratory failure. Patient placed in observation status and admitted to medical floor due to increased risk of worsening symptoms. Patient treated with submental oxygen, IV steroid therapy w ith mild improvement in symptoms. Patient uses head gestures and denies fever, chills, chest pain, palpitation, skin rash, recent ill contacts, or known exposure to COVID-19. Prior admission for 1121 reviewed. All medication listed at time of admission has been reconciled. Advanced care planning conducted in ED. Past History Past Medical History: arthritis, COPD, other (See HPI) Past Surgical History: Other (Right eye surgery, craniotomy) Social history: . denies: smoking, alcohol abuse, prescription drug abuse Family history: cancer, hypertension Medications and Allergies Allergies Allergy/AdvReac Type Severity Reaction Status Date / Time No Known Allergies Allergy Verified 11/26/20 06:24 Home Medications Medication Instructions Recorded Confirmed Last Taken Type Aspirin [Adult Low Dose Aspirin EC] 81 mg PO DAILY 03/03/17 12/26/20 09/14/20 History Pantoprazole [Protonix TAB] 40 mg PO QDAY #30 tablet 02/06/20 12/26/20 Unknown Rx Acetaminophen [Acetaminophen TAB] 650 mg PO Q4H PRN tablet 03/30/20 12/26/20 Unknown Rx Montelukast [Singulair] 10 mg PO QPM #30 tablet 03/30/20 12/26/20 Unknown Rx hydrALAZINE [Apresoline TAB] 25 mg PO Q8HR #90 tablet 03/30/20 12/26/20 09/14/20 Rx ALBUTEROL NEB's [Proventil 0.083% 2.5 mg IH Q4HRT PRN #100 nebu 05/03/20 12/26/20 09/15/20 Rx NEBS] Albuterol Sulfate [Proair 90 mcg IH Q4HR PRN #2 aer.pow.ba 05/03/20 12/26/20 09/15/20 Rx Respiclick] Fluticasone/Salmeterol [Advair 1 inh IH BID 09/15/20 12/26/20 Unknown History Diskus 500-50 mcg] Tiotropium [Spiriva] 2 puff IH QDAY 09/15/20 12/26/20 09/14/20 History amLODIPine 5 mg PO BID 09/15/20 12/26/20 09/14/20 History ALBUTEROL NEB's [Proventil 0.083% 2.5 mg IH Q4HRT PRN #90 nebu 09/17/20 12/26/20 Unknown Rx NEBS] Benzonatate [Tessalon Perles] 100 mg PO Q8HR #14 capsule 09/17/20 12/26/20 Unknown Rx Prednisone [predniSONE 10 mg 10 mg PO .TAPER #1 tab.ds.pk 09/17/20 12/26/20 Unknown Rx (6-Day Pack, 21 Tabs)] Active Meds: Active Medications Acetaminophen (Acetaminophen 325 Mg Tab) 650 mg PO Q4H PRN PRN Reason: Pain MILD(1-3)/Fever >100.5/ACOSTA Albuterol (Albuterol 2.5 Mg/3 Ml Nebu) 2.5 mg IH Q4HRT PRN PRN Reason: Shortness Of Breath Hydromorphone HCl (Hydromorphone 1 Mg/1 Ml Inj) 0.5 mg IV Q12H PRN PRN Reason: Pain , Severe (7-10) Ondansetron HCl (Ondansetron 4 Mg/2 Ml Inj) 4 mg IV Q8H PRN PRN Reason: Nausea And Vomiting Oxycodone/Acetaminophen (Oxycodone /Acetaminophen 5-325mg Tab) 1 tab PO Q12H PRN PRN Reason: Pain, Moderate (4-6) Sodium Chloride (Sodium Chloride 0.9% 10 Ml Flush Syringe) 10 ml IV BID ROLAN Sodium Chloride (Sodium Chloride 0.9% 10 Ml Flush Syringe) 10 ml IV PRN PRN PRN Reason: LINE FLUSH Review of Systems Constitutional: no weight loss, no weight gain, no chills Ears, nose, mouth and throat: no ear pain, no tinnitis, no nose pain, no nasal congestion, no sinus pressure Cardiovascular: no chest pain, no orthopnea, no palpitations Respiratory: cough, cough with sputum, shortness of breath, congestion Gastrointestinal: no abdominal pain, no nausea, no constipation, no change in bowel habits, no hematemesis Genitourinary Male: no hematuria, no flank pain, no discharge, no urinary beverley quency, no urinary hesitancy, no nocturia Rectal: no pain, no incontinence Musculoskeletal: no shooting leg pain, no leg numbness/tingling Integumentary: no rash, no pruritis, no redness, no wounds, no boils Neurological: no head injury, no weakness, no parathesias, no tingling, no syncope, no tremors Psychiatric: no anxiety, no change in sleep habits, no insomnia, no change in appetite, no change in libido Endocrine: no cold intolerance, no polyphagia Hematologic/Lymphatic: no easy bruising, no easy bleeding, no lymphedema Allergic/Immunologic: no allergic rhinitis, no wheezing, no persistent infections, no anaphylaxis Exam - Constitutional Vitals: Temp Pulse Resp BP Pulse Ox 98.7 F 80 21 171/85 96 12/26/20 08:55 12/26/20 15:30 12/26/20 15:30 12/26/20 15:30 12/26/20 15:30 General appearance: Present: mild distress - EENT Eyes: Present: PERRL ENT: hearing intact, clear oral mucosa - Neck Neck: Present: supple, normal ROM - Respiratory Respiratory effort: normal Respiratory: bilateral: CTA - Cardiovascular Heart Sounds: Present: S1 & S2. Absent: rub, click - Extremities Extremities: pulses symmetrical, No edema Peripheral Pulses: within normal limits - Abdominal General gastrointestinal: Present: soft, non-tender, non-distended, normal bowel sounds Male genitourinary: Present: normal - Integumentary Integumentary: Present: clear, warm, dry - Musculoskeletal Musculoskeletal: gait normal, strength equal bilaterally - Psychiatric Psychiatric: appropriate mood/affect, intact judgment & insight - Neurologic Neurologic: CNII-XII intact, moves all extremities HEART Score - HEART Score Troponin: Troponin T < 0.010 ng/mL (0.00-0.029) 12/26/20 14:50 Results - Labs CBC & Chem 7: 12/26/20 09:11 12/26/20 09:11 Labs: Abnormal lab results 12/26/20 12/26/20 Range/Units 09:11 09:11 Lymph % (Auto) 13.3 L (13.4-35.0) % Lymph # (Auto) 0.8 L (1.2-5.4) K/mm3 Seg Neutrophils % 78.9 H (40.0-70.0) % Carbon Dioxide 33 H (22-30) mmol/L Creatinine 0.7 L (0.8-1.3) mg/dL Glucose 133 H (75-100) mg/dL Assessment and Plan - Patient Problems (1) Acute and chronic respiratory failure Current Visit: No Status: Acute Qualifiers: Respiratory failure complication: hypoxia Qualified Code(s): J96.21 - Acute and chronic respiratory failure with hypoxia Plan to address problem: Supplemental oxygen, pulse oximetry, chest x-ray, nebulizer therapy, supportive care. (2) COPD exacerbation Current Visit: Yes Status: Acute Plan to address problem: Supplemental oxygen, pulse oximetry, nebulizer therapy, chest x-ray, IV steroid therapy, noninvasive positive pressure ventilation as clinically indicated. (3) Hypertension Current Visit: Yes Status: Acute Qualifiers: Hypertension type: primary hypertension Qualified Code(s): I10 - Essential (primary) hypertension Plan to address problem: Monitor blood pressure every shift, continue medical management (4) GERD (gastroesophageal reflux disease) Current Visit: Yes Status: Acute Qualifiers: Esophagitis presence: without esophagitis Qualified Code(s): K21.9 - Gastro-esophageal reflux disease without esophagitis Plan to address problem: PPI therapy, supportive care (5) DVT prophylaxis Current Visit: Yes Status: Acute Plan to address problem: SCD to bilateral lower extremities while in bed, patient is ambulatory (6) Advance care planning Current Visit: Yes Status: Acute Plan to address problem: Disease education conducted, patient is full code, care plan discussed, diagnosis discussed, patient knowledges understanding and agreement with care plan, +30 minutes.
[2020-12-26] MEDS: ARFORMOTEROL 15 MCG/2 ML NEBU IH SCH (21:38)
[2020-12-26] MEDS: BUDESONIDE 0.5 MG/2 ML NEBU IH SCH (21:38)
[2020-12-26] MEDS ORDERED: NON-FORMULARY EACH (Fluticasone/Salmeterol [Advair Diskus 500-50 Mcg] 1 EACH Blst.W.Dev) IH SCH (22:00)
[2020-12-26] MEDS: amLODIPine 5 MG TAB PO SCH (22:45)
[2020-12-26] MEDS: methylPREDNISolone Sod Succinate 40 MG/1 ML INJ IV SCH (22:45)
[2020-12-26] MEDS: BENZONATATE 100 MG CAP PO SCH (22:45)
[2020-12-26] MEDS: MONTELUKAST 10 MG TAB PO SCH (23:12)
[2020-12-26] MEDS: hydrALAZINE 25 MG TAB PO SCH (23:12)
[2020-12-27] MEDS: methylPREDNISolone Sod Succinate 40 MG/1 ML INJ IV SCH ×3 (06:06→22:03)
[2020-12-27] MEDS: hydrALAZINE 25 MG TAB PO SCH ×3 (06:07→22:03)
[2020-12-27] MEDS: BENZONATATE 100 MG CAP PO SCH ×3 (06:07→22:03)
[2020-12-27 06:09] LABS: BUN/Creatinine Ratio 21; Blood Urea Nitrogen 17 mg/dL (9-20); Calcium 9.1 mg/dL (8.4-10.2); Hemolysis Index 5
[2020-12-27] MEDS: BUDESONIDE 0.5 MG/2 ML NEBU IH SCH ×2 (07:41→21:14)
[2020-12-27] MEDS: ARFORMOTEROL 15 MCG/2 ML NEBU IH SCH ×2 (07:41→21:14)
[2020-12-27] MEDS: TIOTROPIUM 18 MCG CAP INHALATION IH SCH ×2 (07:41→13:53)
--- NOTE | 2020-12-27 08:42 | Progress Note ---
Assessment and Plan Assessment and plan: 60 YO Male with COPD, Chronic Respiratory Failure on Home Oxygen 3L NC, HTN, GERD, Obesity Hypoventilation Syndrome, CPS, OA presents to ED for evaluation. Pt reports "Im short of breath". Pt states that he has experienced shortness of breath of the past 1 day with persistently worsening symptoms over the same timeframe. Patient knowledges increased productive cough with whitish sputum, chest discomfort associated with coughing episodes, increased use of nebulizer therapy without relief. EMS was notified and upon arrival the patient was found to be in distress and subsequently transported to [facility] for further care and evaluation of the aforementioned symptoms. The patient was seen and evaluated in the emergency department. All lab and imaging studies reviewed. Patient found to have a pulse oximetry of 86% on room air and was rapidly placed on 6 supplemental oxygen with mild improvement in symptoms. Patient using accessory muscles to breathe, patient tripoding, patient leaning forward in bed, patient unable to speak in complete sentences. Patient found to have exacerbation of COPD complicated by acute hypoxemic respiratory failure. Patient placed in observation status and admitted to medical floor due to increased risk of worsening symptoms. Patient treated with submental oxygen, IV steroid therapy with mild improvement in symptoms. Patient uses head gestures and denies fever, chills, chest pain, palpitation, skin rash, recent ill contacts, or known exposure to COVID-19. Prior admission for 1121 reviewed. All medication listed at time of admission has been reconciled. Advanced care planning conducted in ED. CXR - no acute pathology 12/27: Patient still with shortness and on oxygen at 4 liters, uses 3L at home. Continue COPD management, add CPAP at night and chest PT. I spoke with [place] and they will transfer patient to [facility] (Per their contract). Patient is stable for Transfer to continue treatment. (1) Acute and chronic respiratory failure Current Visit: No Status: Acute Qualifiers: Respiratory failure complication: hypoxia Qualified Code(s): J96.21 - Acute and chronic respiratory failure with hypoxia Plan to address problem: Supplemental oxygen, pulse oximetry, chest x-ray, nebulizer therapy, supportive care. (2) COPD exacerbation Current Visit: Yes Status: Acute Plan to address problem: Supplemental oxygen, pulse oximetry, nebulizer therapy, chest x-ray, IV steroid therapy, noninvasive positive pressure ventilation as clinically indicated. (3) Hypertension Current Visit: Yes Status: Acute Qualifiers: Hypertension type: primary hypertension Qualified Code(s): I10 - Essential (primary) hypertension Plan to address problem: Monitor blood pressure every shift, continue medical management (4) GERD (gastroesophageal reflux disease) Current Visit: Yes Status: Acute Qualifiers: Esophagitis presence: without esophagitis Qualified Code(s): K21.9 - Gastro-esophageal reflux disease without esophagitis Plan to address problem: PPI therapy, supportive care (5) DVT prophylaxis Current Visit: Yes Status: Acute Plan to address problem: SCD to bilateral lower extremities while in bed, patient is ambulatory (6) Advance care planning Current Visit: Yes Status: Acute Plan to address problem: Disease education conducted, patient is full code, care plan discussed, diagnosis discussed, patient knowledges understanding and agreement with care plan, +30 minutes. History Interval history: Patient seen and examined, still with shortness of breath and wheezing. Reports that he was complaint with all treatment done at [facility] Physical - Physical exam Narrative exam: VITAL SIGNS: Reviewed. GENERAL: The patient appears normally developed, Vital signs as documented. HEAD: No signs of head trauma. EYES: Pupils are equal. Extraocular motions intact. EARS: Hearing grossly intact. MOUTH: Oropharynx is normal. NECK: No adenopathy, no JVD. CHEST: Chest with wheezing breath sounds bilaterally. No rales, or rhonchi. CARDIAC: Regular rate and rhythm. S1 and S2, without murmurs, gallops, or rubs. VASCULAR: No Edema. Peripheral pulses normal and equal in all extremities. ABDOMEN: Soft, non tender and non distended. No rebound or guarding, and no masses palpated. Bowel Sounds normal. MUSCULOSKELETAL: Good range of motion of all major joints. Extremities without clubbing, cyanosis or edema. NEUROLOGIC EXAM: Alert and oriented x 3 No focal sensory or strength deficits. Speech normal. Follows commands. PSYCHIATRIC: Mood normal. SKIN: detail exam as documented in skin assessment - Constitutional Vitals: Temp Pulse Resp BP Pulse Ox 97.2 F L 81 20 158/86 94 12/27/20 05:02 12/27/20 07:59 12/27/20 07:59 12/27/20 05:02 12/27/20 07:44 General appearance: Present: mild distress HEART Score - HEART Score Troponin: Troponin T < 0.010 ng/mL (0.00-0.029) 12/26/20 14:50 Results - Labs CBC & Chem 7: 12/26/20 09:11 12/27/20 05:22 Labs: Laboratory Last Values WBC 6.4 K/mm3 (4.5-11.0) 12/26/20 09:11 RBC 4.66 M/mm3 (3.65-5.03) 12/26/20 09:11 Hgb 14.2 gm/dl (11.8-15.2) 12/26/20 09:11 Hct 42.6 % (35.5-45.6) 12/26/20 09:11 MCV 91 fl (84-94) 12/26/20 09:11 MCH 31 pg (28-32) 12/26/20 09:11 MCHC 33 % (32-34) 12/26/20 09:11 RDW 14.3 % (13.2-15.2) 12/26/20 09:11 Plt Count 214 K/mm3 (140-440) 12/26/20 09:11 Lymph % (Auto) 13.3 % (13.4-35.0) L 12/26/20 09:11 [place] % (Auto) 5.1 % (0.0-7.3) 12/26/20 09:11 Eos % (Auto) 1.9 % (0.0-4.3) 12/26/20 09:11 Baso % (Auto) 0.8 % (0.0-1.8) 12/26/20 09:11 Lymph # (Auto) 0.8 K/mm3 (1.2-5.4) L 12/26/20 09:11 [place] # (Auto) 0.3 K/mm3 (0.0-0.8) 12/26/20 09:11 Eos # (Auto) 0.1 K/mm3 (0.0-0.4) 12/26/20 09:11 Baso # (Auto) 0.0 K/mm3 (0.0-0.1) 12/26/20 09:11 Seg Neutrophils % 78.9 % (40.0-70.0) H 12/26/20 09:11 Seg Neutrophils # 5.0 K/mm3 (1.8-7.7) 12/26/20 09:11 PT 13.0 Sec. (12.2-14.9) 12/26/20 08:50 INR 0.93 (0.87-1.13) 12/26/20 08:50 APTT 26.9 Sec. (24.2-36.6) 12/26/20 08:50 Sodium 142 mmol/L (137-145) 12/27/20 05:22 Potassium 4.8 mmol/L (3.6-5.0) 12/27/20 05:22 Chloride 102.0 mmol/L (98-107) 12/27/20 05:22 Carbon Dioxide 30 mmol/L (22-30) 12/27/20 05:22 Anion Gap 15 mmol/L 12/27/20 05:22 BUN 17 mg/dL (9-20) 12/27/20 05:22 Creatinine 0.8 mg/dL (0.8-1.3) 12/27/20 05:22 Estimated GFR > 60 ml/min 12/27/20 05:22 BUN/Creatinine Ratio 21 % 12/27/20 05:22 Glucose 144 mg/dL (75-100) H 12/27/20 05:22 Calcium 9.1 mg/dL (8.4-10.2) 12/27/20 05:22 Troponin T < 0.010 ng/mL (0.00-0.029) 12/26/20 14:50 [place]/IV: Voiding Method Toilet Active Medications - Current Medications Current Medications: Generic Name Dose Route Start Last Admin Trade Name Freq PRN Reason Stop Dose Admin Acetaminophen 650 mg 12/26/20 17:55 Acetaminophen 325 Mg Tab PO Q4H PRN Pain MILD(1-3)/Fever >100.5/ACOSTA Albuterol 2.5 mg 12/26/20 17:55 Albuterol 2.5 Mg/3 Ml Nebu IH Q4HRT PRN Shortness Of Breath Amlodipine Besylate 5 mg 12/26/20 22:00 12/26/20 22:45 Amlodipine 5 Mg Tab PO 5 mg BID ROLAN Administration Arformoterol Tartrate 15 mcg 12/26/20 20:00 12/27/20 07:41 Arformoterol 15 Mcg/2 Ml Nebu IH 15 mcg Q12HRT ROLAN Administration Aspirin 81 mg 12/27/20 10:00 Aspirin Ec 81 Mg Tab PO DAILY ROLAN Benzonatate 100 mg 12/26/20 22:00 12/27/20 06:07 Benzonatate 100 Mg Cap PO 100 mg Q8HR ROLAN Administration Budesonide 1 mg 12/26/20 20:00 12/27/20 07:41 Budesonide 0.5 Mg/2 Ml Nebu IH 0.5 mg Q12HRT ROLAN Administration Hydralazine HCl 25 mg 12/26/20 22:00 12/27/20 06:07 Hydralazine 25 Mg Tab PO 25 mg Q8HR ROLAN Administration Hydromorphone HCl 0.5 mg 12/26/20 17:55 Hydromorphone 1 Mg/1 Ml Inj IV Q12H PRN Pain , Severe (7-10) Methylprednisolone Sodium Succinate 40 mg 12/26/20 22:00 12/27/20 06:06 Methylprednisolone Sod Succinate 40 Mg/1 Ml Inj IV 40 mg Q8HR ROLAN Administration Montelukast Sodium 10 mg 12/26/20 18:00 12/26/20 23:12 Montelukast 10 Mg Tab PO 10 mg QPM ROLAN Administration Ondansetron HCl 4 mg 12/26/20 17:55 Ondansetron 4 Mg/2 Ml Inj IV Q8H PRN Nausea And Vomiting Oxycodone/Acetaminophen 1 tab 12/26/20 17:55 Oxycodone /Acetaminophen 5-325mg Tab PO Q12H PRN Pain, Moderate (4-6) Pantoprazole Sodium 40 mg 12/27/20 10:00 Pantoprazole 40 Mg Tab PO QDAY ROLAN Sodium Chloride 10 ml 12/26/20 22:00 12/26/20 22:45 Sodium Chloride 0.9% 10 Ml Flush Syringe IV 10 ml BID ROLAN Administration Sodium Chloride 10 ml 12/26/20 17:55 Sodium Chloride 0.9% 10 Ml Flush Syringe IV PRN PRN LINE FLUSH Tiotropium [place] 2 puff 12/27/20 10:00 12/27/20 07:41 Tiotropium 18 Mcg Cap Inhalation IH 1 puff QDAY ROLAN Administration
[2020-12-27] MEDS ORDERED: ASPIRIN EC 81 MG TAB PO SCH (10:00)
[2020-12-27] MEDS ORDERED: PANTOPRAZOLE 40 MG TAB PO SCH (10:00)
[2020-12-27] MEDS: amLODIPine 5 MG TAB PO SCH ×2 (10:45→22:03)
--- NOTE | 2020-12-27 12:39 | Discharge Summary ---
Providers - Providers Date of Admission: 12/26/20 17:57 Attending physician: MIRNA GAINES MD 12/27/20 08:40 Consult to Physician [CONS] Routine Comment: Consulting Provider: VIVIEN GOLDSMITH Physician Instructions: Reason For Exam: COPD exacerbation Hospitalization Reason for admission: SHORTNESS OF BREATH Condition: Stable Hospital course: 60 YO Male with COPD, Chronic Respiratory Failure on Home Oxygen 3L NC, HTN, GERD, Obesity Hypoventilation Syndrome, CPS, OA presents to ED for evaluation. Pt reports "Im short of breath". Pt states that he has experienced shortness of breath of the past 1 day with persistently worsening symptoms over the same timeframe. Patient knowledges increased productive cough with whitish sputum, chest discomfort associated with coughing episodes, increased use of nebulizer therapy without relief. EMS was notified and upon arrival the patient was found to be in distress and subsequently transported to [facility] for further care and evaluation of the aforementioned symptoms. The patient was seen and evaluated in the emergency department. All lab and imaging studies reviewed. Patient found to have a pulse oximetry of 86% on room air and was rapidly placed on 6 supplemental oxygen with mild improvement in symptoms. Patient using accessory muscles to breathe, patient tripoding, patient leaning forward in bed, patient unable to speak in complete sentences. Patient found to have exacerbation of COPD complicated by acute hypoxemic respiratory failure. Patient placed in observation status and admitted to medical floor due to increased risk of worsening symptoms. Patient treated with submental oxygen, IV steroid therapy with mild improvement in symptoms. Patient uses head gestures and denies fever, chills, chest pain, palpitation, skin rash, recent ill contacts, or known exposure to COVID-19. Prior admission for 1121 reviewed. All medication listed at time of admission has been reconciled. Advanced care planning conducted in ED. CXR - no acute pathology 12/27: Patient still with shortness and on oxygen at 4 liters, uses 3L at home. Continue COPD management, add CPAP at night and chest PT. I spoke with [place] and they will transfer patient to [facility] (Per their contract). Patient is stable for Transfer to continue treatment. (1) Acute and chronic respiratory failure Current Visit: No Status: Acute Qualifiers: Respiratory failure complication: hypoxia Qualified Code(s): J96.21 - Acute and chronic respiratory failure with hypoxia Plan to address problem: Supplemental oxygen, pulse oximetry, chest x-ray, nebulizer therapy, supportive care. (2) COPD exacerbation Current Visit: Yes Status: Acute Plan to address problem: Supplemental oxygen, pulse oximetry, nebulizer therapy, chest x-ray, IV steroid therapy, noninvasive positive pressure ventilation as clinically indicated. (3) Hypertension Current Visit: Yes Status: Acute Qualifiers: Hypertension type: primary hypertension Qualified Code(s): I10 - Essential (primary) hypertension Plan to address problem: Monitor blood pressure every shift, continue medical management (4) GERD (gastroesophageal reflux disease) Current Visit: Yes Status: Acute Qualifiers: Esophagitis presence: without esophagitis Qualified Code(s): K21.9 - Gastro-esophageal reflux disease without esophagitis Plan to address problem: PPI therapy, supportive care (5) DVT prophylaxis Current Visit: Yes Status: Acute Plan to address problem: SCD to bilateral lower extremities while in bed, patient is ambulatory (6) Advance care planning Current Visit: Yes Status: Acute Plan to address problem: Disease education conducted, patient is full code, care plan discussed, diagnosis discussed, patient knowledges understanding and agreement with care plan, +30 minutes. Disposition: [id number] [facility] IP Final Discharge Diagnosis (Prints w/discharge instructions): COPD EXACERBATION WITH ACUTE HYPOXIC RESPIRATORY DISTRESS Time spent for discharge: 35 MINS Core Measure Documentation - Palliative Care Palliative Care/ Comfort Measures: Not Applicable - Core Measures Any of the following diagnoses?: none Exam - Physical Exam Narrative exam: VITAL SIGNS: Reviewed. GENERAL: The patient appears normally developed, Vital signs as documented. HEAD: No signs of head trauma. EYES: Pupils are equal. Extraocular motions intact. EARS: Hearing grossly intact. MOUTH: Oropharynx is normal. NECK: No adenopathy, no JVD. CHEST: Chest with wheezing breath sounds bilaterally. No rales, or rhonchi. CARDIAC: Regular rate and rhythm. S1 and S2, without murmurs, gallops, or rubs. VASCULAR: No Edema. Peripheral pulses normal and equal in all extremities. ABDOMEN: Soft, non tender and non distended. No rebound or guarding, and no masses palpated. Bowel Sounds normal. MUSCULOSKELETAL: Good range of motion of all major joints. Extremities without clubbing, cyanosis or edema. NEUROLOGIC EXAM: Alert and oriented x 3 No focal sensory or strength deficits. Speech normal. Follows commands. PSYCHIATRIC: Mood normal. SKIN: detail exam as documented in skin assessment - Constitutional Vitals: Temp Pulse Resp BP Pulse Ox 97.8 F 67 24 125/77 97 12/27/20 10:52 12/27/20 10:52 12/27/20 10:52 12/27/20 10:52 12/27/20 10:52 Plan Follow up with: MARLY BELLO [Other] - 3-5 Days
--- NOTE | 2020-12-27 16:44 | Consultation ---
History of Present Illness Consult date: 12/27/20 Requesting physician: MIRNA GAINES Reason for consult: COPD History of present illness: Patient transferred to [facility] Past History Past Medical History: arthritis, COPD, other (See HPI) Past Surgical History: Other (Right eye surgery, craniotomy) Social history: . denies: smoking, alcohol abuse, prescription drug abuse Family history: cancer, hypertension Medications and Allergies Allergies Allergy/AdvReac Type Severity Reaction Status Date / Time No Known Allergies Allergy Verified 11/26/20 06:24 Home Medications Medication Instructions Recorded Confirmed Last Taken Type Aspirin [Adult Low Dose Aspirin EC] 81 mg PO DAILY 03/03/17 12/26/20 09/14/20 History Pantoprazole [Protonix TAB] 40 mg PO QDAY #30 tablet 02/06/20 12/26/20 Unknown Rx Acetaminophen [Acetaminophen TAB] 650 mg PO Q4H PRN tablet 03/30/20 12/26/20 Unknown Rx Montelukast [Singulair] 10 mg PO QPM #30 tablet 03/30/20 12/26/20 Unknown Rx hydrALAZINE [Apresoline TAB] 25 mg PO Q8HR #90 tablet 03/30/20 12/26/20 09/14/20 Rx ALBUTEROL NEB's [Proventil 0.083% 2.5 mg IH Q4HRT PRN #100 nebu 05/03/20 12/26/20 09/15/20 Rx NEBS] Albuterol Sulfate [Proair 90 mcg IH Q4HR PRN #2 aer.pow.ba 05/03/20 12/26/20 09/15/20 Rx Respiclick] Fluticasone/Salmeterol [Advair 1 inh IH BID 09/15/20 12/26/20 Unknown History Diskus 500-50 mcg] Tiotropium [Spiriva] 2 puff IH QDAY 09/15/20 12/26/20 09/14/20 History amLODIPine 5 mg PO BID 09/15/20 12/26/20 09/14/20 History ALBUTEROL NEB's [Proventil 0.083% 2.5 mg IH Q4HRT PRN #90 nebu 09/17/20 12/26/20 Unknown Rx NEBS] Benzonatate [Tessalon Perles] 100 mg PO Q8HR #14 capsule 09/17/20 12/26/20 Unknown Rx Prednisone [predniSONE 10 mg 10 mg PO .TAPER #1 tab.ds.pk 09/17/20 12/26/20 Unknown Rx (6-Day Pack, 21 Tabs)] Active Meds: Active Medications Acetaminophen (Acetaminophen 325 Mg Tab) 650 mg PO Q4H PRN PRN Reason: Pain MILD(1-3)/Fever >100.5/ACOSTA Albuterol (Albuterol 2.5 Mg/3 Ml Nebu) 2.5 mg IH Q4HRT PRN PRN Reason: Shortness Of Breath Last Admin: 12/27/20 16:09 Dose: 2.5 mg Documented by: Amlodipine Besylate (Amlodipine 5 Mg Tab) 5 mg PO BID [facility] Last Admin: 12/27/20 10:45 Dose: 5 mg Documented by: Arformoterol Tartrate (Arformoterol 15 Mcg/2 Ml Nebu) 15 mcg IH Q12HRT [facility] Last Admin: 12/27/20 07:41 Dose: 15 mcg Documented by: Aspirin (Aspirin Ec 81 Mg Tab) 81 mg PO DAILY [facility] Last Admin: 12/27/20 10:43 Dose: 81 mg Documented by: Benzonatate (Benzonatate 100 Mg Cap) 100 mg PO Q8HR [facility] Last Admin: 12/27/20 15:09 Dose: 100 mg Documented by: Budesonide (Budesonide 0.5 Mg/2 Ml Nebu) 1 mg IH Q12HRT [facility] Last Admin: 12/27/20 07:41 Dose: 0.5 mg Documented by: Hydralazine HCl (Hydralazine 25 Mg Tab) 25 mg PO Q8HR [facility] Last Admin: 12/27/20 15:10 Dose: 25 mg Documented by: Hydromorphone HCl (Hydromorphone 1 Mg/1 Ml Inj) 0.5 mg IV Q12H PRN PRN Reason: Pain , Severe (7-10) Methylprednisolone Sodium Succinate (Methylprednisolone Sod Succinate 40 Mg/1 Ml Inj) 40 mg IV Q8HR [facility] Last Admin: 12/27/20 15:09 Dose: 40 mg Documented by: Montelukast Sodium (Montelukast 10 Mg Tab) 10 mg PO QPM [facility] Last Admin: 12/26/20 23:12 Dose: 10 mg Documented by: Ondansetron HCl (Ondansetron 4 Mg/2 Ml Inj) 4 mg IV Q8H PRN PRN Reason: Nausea And Vomiting Oxycodone/Acetaminophen (Oxycodone /Acetaminophen 5-325mg Tab) 1 tab PO Q12H PRN PRN Reason: Pain, Moderate (4-6) Pantoprazole Sodium (Pantoprazole 40 Mg Tab) 40 mg PO QDAY [facility] Last Admin: 12/27/20 10:44 Dose: 40 mg Documented by: Sodium Chloride (Sodium Chloride 0.9% 10 Ml Flush Syringe) 10 ml IV BID [facility] Last Admin: 12/27/20 10:45 Dose: 10 ml Documented by: Sodium Chloride (Sodium Chloride 0.9% 10 Ml Flush Syringe) 10 ml IV PRN PRN PRN Reason: LINE FLUSH Tiotropium [place] (Tiotropium 18 Mcg Cap Inhalation) 2 puff IH QDAY [facility] Last Admin: 12/27/20 13:53 Dose: Not Given Documented by: Physical Examination Vital signs: Vital Signs Pulse Resp BP Pulse Ox 101 H 24 126/76 84 12/26/20 07:53 12/26/20 07:53 12/26/20 07:53 12/26/20 07:53 Results - Laboratory Findings CBC and BMP: 12/26/20 09:11 12/27/20 05:22 PT/INR, D-dimer PT 13.0 Sec. (12.2-14.9) 12/26/20 08:50 INR 0.93 (0.87-1.13) 12/26/20 08:50 Abnormal lab findings: Abnormal Labs 12/26/20 12/26/20 12/27/20 09:11 09:11 05:22 Lymph % (Auto) 13.3 L Lymph # (Auto) 0.8 L Seg Neutrophils % 78.9 H Carbon Dioxide 33 H Creatinine 0.7 L Glucose 133 H 144 H
[2020-12-27] MEDS: MONTELUKAST 10 MG TAB PO SCH (17:23)
[2020-12-27 22:03] VITALS: BP 162/85
== END 2020-12-27 22:19 | disposition short-term general hospital (02) | DRG 189 ==
LOC: ED 08:03 → 3A 17:57 → OBSVTOIN 17:57 → 3A 19:17
PROVIDERS: ADMIT Internal Medicine; ATTEND Internal Medicine
DX: J96.21 Acute and chronic respiratory failure with hypoxia (principal); J44.1 Chronic obstructive pulmonary disease with (acute) exacerbation; E66.2 Morbid (severe) obesity with alveolar hypoventilation; Z68.41 Body mass index [BMI] 40.0-44.9, adult; I11.0 Hypertensive heart disease with heart failure; I50.9 Heart failure, unspecified; Z79.82 Long term (current) use of aspirin; Z86.73 Personal history of transient ischemic attack (TIA), and cerebral infarction without residual deficits; Z90.49 Acquired absence of other specified parts of digestive tract; M54.9 Dorsalgia, unspecified; G89.29 Other chronic pain; G43.909 Migraine, unspecified, not intractable, without status migrainosus; Z71.3 Dietary counseling and surveillance; K21.9 Gastro-esophageal reflux disease without esophagitis; M19.90 Unspecified osteoarthritis, unspecified site; Z82.49 Family history of ischemic heart disease and other diseases of the circulatory system
CPT/HCPCS: 36415; 71045; 80048; 84484; 85025; 85610; 85730; 93005; 94640; 94644; G0378; J2920

== ENCOUNTER 2021-01-02 02:48 | Inpatient (IN) | payer MEDICARE ==
[2021-01-02] MEDS ORDERED: MAGNESIUM SULFATE 2 GM/50 ML BAG IV ONE (03:22)
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
--- NOTE | 2021-01-02 03:55 | XRay Report ---
CHEST 1 VIEW 01/02/2021 2:41 AM INDICATION / CLINICAL INFORMATION: Dyspnea. COMPARISON: View of the chest from 12/26/2020 FINDINGS: SUPPORT DEVICES: None. HEART / MEDIASTINUM: Stable. LUNGS / PLEURA: Right basilar opacities are noted with a questionable small right pleural effusion. T he lungs are otherwise clear. No pneumothorax. ADDITIONAL FINDINGS: No significant additional findings. IMPRESSION: Probable right basilar atelectasis with a questionable small right pleural effusion. Signer Name: Oliver Johnson MD Signed: 01/02/2021 3:50 AM Workstation Name: [id number]
[2021-01-02 04:10] LABS: Hematocrit 43.4 % (35.5-45.6); Hemoglobin 14.5 gm/dl (11.8-15.2); Mean Corpuscular HGB Conc 33 % (32-34); Mean Corpuscular Volume 91 fl (84-94); Platelet Count 243 K/mm3 (140-440); Red Blood Count 4.77 M/mm3 (3.65-5.03); Red Cell Distribution Width 14.6 % (13.2-15.2)
[2021-01-02 04:27] LABS: Alanine Aminotransferase 36 units/L (7-56); Albumin 3.7 g/dL (3.9-5); BUN/Creatinine Ratio 30; Blood Urea Nitrogen 27 mg/dL (9-20); Calcium 9.2 mg/dL (8.4-10.2); Hemolysis Index 5
[2021-01-02 05:42] LABS: Band Neutrophils # (Manual) 0.1 K/mm3; Platelet Estimate Consistent w Auto; RBC Morphology Normal; Total Cells Counted 100
[2021-01-02] MEDS ORDERED: ALBUTEROL 2.5 MG/3 ML NEBU IH PRN (08:00)
--- NOTE | 2021-01-02 08:26 | History and Physical Report ---
History of Present Illness Date of examination: 01/02/21 Date of admission: 01/02/21 06:26 Chief complaint: Shortness of breath Wheezing History of present illness: Patient is 60 yo with acute on chronic respiratory failure due to COPD. He is on home Oxygen at 2 l/min. He also has hypertension, morbid obesity. He presents with shortness of breath, wheezing and cough. Shortness of breath is worse on exertion. he used his inhalers but was not relieved therefore called paramedics. Of note, he was just discharged here from hospital last week. No fever. He denies any contact with anyone with Covid infection. He was seen and evaluated in ED. Chest X ray did not show pneumonia. He is diagnosed with acute on chronic respiratory failure due to COPD exacerbation. Will admit. Past History Past Medical History: COPD, GERD, hypertension, other (Chronic resp failure, on home Oxygen) Past Surgical History: cholecystectomy, Other (craniotomy) Social history: , other (Former smoker) Family history: no significant family history Medications and Allergies Allergies Allergy/AdvReac Type Severity Reaction Status Date / Time No Known Allergies Allergy Verified 11/26/20 06:24 Home Medications Medication Instructions Recorded Confirmed Last Taken Type Aspirin [Adult Low Dose Aspirin EC] 81 mg PO DAILY 03/03/17 01/03/21 01/01/21 History Pantoprazole [Protonix TAB] 40 mg PO QDAY #30 tablet 02/06/20 01/03/21 01/01/21 Rx Acetaminophen [Acetaminophen TAB] 650 mg PO Q4H PRN tablet 03/30/20 01/03/21 Unknown Rx Montelukast [Singulair] 10 mg PO QPM #30 tablet 03/30/20 01/03/21 01/01/21 Rx hydrALAZINE [Apresoline TAB] 25 mg PO Q8HR #90 tablet 03/30/20 01/03/21 01/01/21 Rx ALBUTEROL NEB's [Proventil 0.083% 2.5 mg IH Q4HRT PRN #100 nebu 05/03/2009/15/20 Rx NEBS] Albuterol Sulfate [Proair 90 mcg IH Q4HR PRN #2 aer.pow.ba 05/03/20 01/03/21 01/01/21 Rx Respiclick] Fluticasone/Salmeterol [Advair 1 inh IH BID 09/15/20 01/03/21 Unknown History Diskus 500-50 mcg] Tiotropium [Spiriva] 2 puff IH QDAY 09/15/20 01/03/21 01/01/21 History amLODIPine 5 mg PO BID 09/15/20 01/03/21 01/01/21 History ALBUTEROL NEB's [Proventil 0.083% 2.5 mg IH Q4HRT PRN #90 nebu 09/17/20 01/03/21 Unknown Rx NEBS] Benzonatate [Tessalon Perles] 100 mg PO Q8HR #14 capsule 09/17/20 01/03/21 01/01/21 Rx Prednisone [predniSONE 10 mg 10 mg PO .TAPER #1 tab.ds.pk 09/17/20 01/03/21 01/01/21 Rx (6-Day Pack, 21 Tabs)] Active Meds: Active Medications Acetaminophen (Acetaminophen 325 Mg Tab) 650 mg PO Q4H PRN PRN Reason: Pain MILD(1-3)/Fever >100.5/ACOSTA Albuterol (Albuterol 2.5 Mg/3 Ml Nebu) 2.5 mg IH Q4HRT PRN PRN Reason: Shortness Of Breath Albuterol/Ipratropium (Ipratropium/Albuterol Sulfate 3 Ml Ampul.Neb) 1 ampul IH Q6HRT [facility] Heparin Sodium (Porcine) (Heparin 5,000 Unit/1 Ml Vial) 5,000 unit SUB-Q Q8HR [facility] Magnesium Hydroxide (Magnesium Hydroxide (Mom) Oral Liqd Udc) 30 ml PO Q4H PRN PRN Reason: Constipation Methylprednisolone Sodium Succinate (Methylprednisolone Sod Succinate 125 Mg/2 Ml Inj) 60 mg IV Q8HR [facility] Morphine Sulfate (Morphine 4 Mg/1 Ml Inj) 4 mg IV Q4H PRN PRN Reason: Pain , Severe (7-10) Ondansetron HCl (Ondansetron 4 Mg/2 Ml Inj) 4 mg IV Q8H PRN PRN Reason: Nausea And Vomiting Oxycodone/Acetaminophen (Oxycodone /Acetaminophen 5-325mg Tab) 1 tab PO Q6H PRN PRN Reason: Pain, Moderate (4-6) Sodium Chloride (Sodium Chloride 0.9% 10 Ml Flush Syringe) 10 ml IV BID [facility] Sodium Chloride (Sodium Chloride 0.9% 10 Ml Flush Syringe) 10 ml IV PRN PRN PRN Reason: LINE FLUSH Review of Systems All systems: negative (No fever, no abd pain, no urinary symptoms. All other systems reviewed and are negative) Exam - Physical Exam Narrative exam: Gen: Not in acute distress, lying in bed, morbidly obese HEENT: Normocephalic, atraumatic Neck : supple, no JVD Heart:S1 and S2 reg, no murmurs, rubs or gallop Lungs: Bilateral wheezing, rhonchi, no crackles Abd: Soft , non tender, non distended, normal bowel sounds Ext: No edema, no clubbing, no cyanosis Neuro: Awake, alert, oriented, moves all ext - Constitutional Vitals: Temp Pulse Resp BP Pulse Ox 98.6 F 75 15 166/78 97 01/02/21 03:34 01/02/21 08:05 01/02/21 08:05 01/02/21 08:05 01/02/21 08:05 Results - Labs CBC & Chem 7: 01/03/21 04:54 01/03/21 04:54 Labs: Abnormal lab results 01/02/21 01/02/21 Range/Units 03:42 03:42 Seg Neuts % (Manual) 84.0 H (40.0-70.0) % Lymphocytes % (Manual) 8.0 L (13.4-35.0) % Seg Neutrophils # Man 9.2 H (1.8-7.7) K/mm3 Lymphocytes # (Manual) 0.9 L (1.2-5.4) K/mm3 Carbon Dioxide 35 H (22-30) mmol/L BUN 27 H (9-20) mg/dL Glucose 116 H (75-100) mg/dL Total Protein 5.7 L (6.3-8.2) g/dL Albumin 3.7 L (3.9-5) g/dL Assessment and Plan Acute on chronic respiratory failure Patient presents with shortness of breath, wheezing Admit to Telemetry. Solumedrol iv Q 8hrs, Duoneb Q 6hrs scheduled Albuterol q 4hr prn Consult Aranza Roth COPD exacerbation Patient was just discharged from hospital last week Solumedrol iv Hypertension Resume home meds Morbid obesity I counseled him on diet and exercise to lose weight DVT prophylaxis with heparin subcut.
[2021-01-02] MEDS ORDERED: ACETAMINOPHEN 325 MG TAB PO PRN (08:30)
[2021-01-02] MEDS ORDERED: MAGNESIUM HYDROXIDE (MOM) ORAL LIQD UDC PO PRN (08:30)
[2021-01-02] MEDS ORDERED: ONDANSETRON 4 MG/2 ML INJ IV PRN (08:30)
[2021-01-02] MEDS: methylPREDNISolone Sod Succinate 125 MG/2 ML INJ IV SCH ×3 (08:58→21:20)
[2021-01-02] MEDS: HEPARIN 5,000 UNIT/1 ML VIAL SUB-Q SCH ×3 (08:58→21:20)
[2021-01-02] MEDS: IPRATROPIUM/ALBUTEROL SULFATE 3 ML AMPUL.NEB IH SCH ×3 (08:59→19:48)
[2021-01-02] MEDS: MORPHINE 4 MG/1 ML INJ IV PRN ×3 (11:58→22:34)
--- NOTE | 2021-01-02 14:44 | Consultation ---
History of Present Illness Consult date: 01/02/21 Requesting physician: MORAIMA MCNAIR Reason for consult: COPD (AE-COPD) History of present illness: PULMONARY/CCM CONSULT NOTE (Full dictation # [id number]) Please see dictated notes for full details Past History Past Medical History: COPD, GERD, hypertension, other (Chronic resp failure, on home Oxygen) Past Surgical History: cholecystectomy, Other (craniotomy) Social history: , other (Former smoker) Medications and Allergies Allergies Allergy/AdvReac Type Severity Reaction Status Date / Time No Known Allergies Allergy Verified 11/26/20 06:24 Home Medications Medication Instructions Recorded Confirmed Last Taken Type Aspirin [Adult Low Dose Aspirin EC] 81 mg PO DAILY 03/03/17 12/26/20 09/14/20 History Pantoprazole [Protonix TAB] 40 mg PO QDAY #30 tablet 02/06/20 12/26/20 Unknown Rx Acetaminophen [Acetaminophen TAB] 650 mg PO Q4H PRN tablet 03/30/20 12/26/20 Unknown Rx Montelukast [Singulair] 10 mg PO QPM #30 tablet 03/30/20 12/26/20 Unknown Rx hydrALAZINE [Apresoline TAB] 25 mg PO Q8HR #90 tablet 03/30/20 12/26/20 09/14/20 Rx ALBUTEROL NEB's [Proventil 0.083% 2.5 mg IH Q4HRT PRN #100 nebu 05/03/20 12/26/20 09/15/20 Rx NEBS] Albuterol Sulfate [Proair 90 mcg IH Q4HR PRN #2 aer.pow.ba 05/03/20 12/26/20 09/15/20 Rx Respiclick] Fluticasone/Salmeterol [Advair 1 inh IH BID 09/15/20 12/26/20 Unknown History Diskus 500-50 mcg] Tiotropium [Spiriva] 2 puff IH QDAY 09/15/20 12/26/20 09/14/20 History amLODIPine 5 mg PO BID 09/15/20 12/26/20 09/14/20 History ALBUTEROL NEB's [Proventil 0.083% 2.5 mg IH Q4HRT PRN #90 nebu 09/17/20 12/26/20 Unknown Rx NEBS] Benzonatate [Tessalon Perles] 100 mg PO Q8HR #14 capsule 09/17/20 12/26/20 Unknown Rx Prednisone [predniSONE 10 mg 10 mg PO .TAPER #1 tab.ds.pk 09/17/20 12/26/20 Unknown Rx (6-Day Pack, 21 Tabs)] Active Meds: Active Medications Acetaminophen (Acetaminophen 325 Mg Tab) 650 mg PO Q4H PRN PRN Reason: Pain MILD(1-3)/Fever >100.5/ACOSTA Albuterol (Albuterol 2.5 Mg/3 Ml Nebu) 2.5 mg IH Q4HRT PRN PRN Reason: Shortness Of Breath Albuterol/Ipratropium (Ipratropium/Albuterol Sulfate 3 Ml Ampul.Neb) 1 ampul IH Q6HRT [facility] Last Admin: 01/02/21 14:05 Dose: 1 ampul Documented by: Heparin Sodium (Porcine) (Heparin 5,000 Unit/1 Ml Vial) 5,000 unit SUB-Q Q8HR [facility] Last Admin: 01/02/21 14:05 Dose: 5,000 unit Documented by: Magnesium Hydroxide (Magnesium Hydroxide (Mom) Oral Liqd Udc) 30 ml PO Q4H PRN PRN Reason: Constipation Methylprednisolone Sodium Succinate (Methylprednisolone Sod Succinate 125 Mg/2 Ml Inj) 60 mg IV Q8HR [facility] Last Admin: 01/02/21 14:05 Dose: 60 mg Documented by: Morphine Sulfate (Morphine 4 Mg/1 Ml Inj) 4 mg IV Q4H PRN PRN Reason: Pain , Severe (7-10) Last Admin: 01/02/21 11:58 Dose: 4 mg Documented by: Ondansetron HCl (Ondansetron 4 Mg/2 Ml Inj) 4 mg IV Q8H PRN PRN Reason: Nausea And Vomiting Oxycodone/Acetaminophen (Oxycodone /Acetaminophen 5-325mg Tab) 1 tab PO Q6H PRN PRN Reason: Pain, Moderate (4-6) Sodium Chloride (Sodium Chloride 0.9% 10 Ml Flush Syringe) 10 ml IV BID [facility] Last Admin: 01/02/21 12:49 Dose: 10 ml Documented by: Sodium Chloride (Sodium Chloride 0.9% 10 Ml Flush Syringe) 10 ml IV PRN PRN PRN Reason: LINE FLUSH Physical Examination Vital signs: Vital Signs Pulse Resp Pulse Ox 90 13 95 01/02/21 03:28 01/02/21 03:28 01/02/21 03:28 Results - Laboratory Findings CBC and BMP: 01/02/21 03:42 01/02/21 03:42 Abnormal lab findings: Abnormal Labs 01/02/21 01/02/21 03:42 03:42 Seg Neuts % (Manual) 84.0 H Lymphocytes % (Manual) 8.0 L Seg Neutrophils # Man 9.2 H Lymphocytes # (Manual) 0.9 L Carbon Dioxide 35 H BUN 27 H Glucose 116 H Total Protein 5.7 L Albumin 3.7 L
[2021-01-02] MEDS: levoFLOXacin 500 MG TAB PO SCH (17:58)
[2021-01-02] MEDS: BUDESONIDE 0.5 MG/2 ML NEBU IH SCH (19:47)
[2021-01-02] MEDS: ARFORMOTEROL 15 MCG/2 ML NEBU IH SCH (19:48)
[2021-01-02] MEDS ORDERED: hydrALAZINE 20 MG/1 ML INJ IV PRN (21:26)
[2021-01-02] MEDS: ASPIRIN EC 81 MG TAB PO SCH (22:37)
[2021-01-02] MEDS: amLODIPine 5 MG TAB PO SCH (22:37)
[2021-01-03 05:55] LABS: Basophils % (Auto) 0.1 % (0.0-1.8); Hemoglobin 13.2 gm/dl (11.8-15.2); Lymphocytes # (Auto) 0.6 K/mm3 (1.2-5.4); Mean Corpuscular HGB Conc 33 % (32-34); Mean Corpuscular Volume 91 fl (84-94); Monocytes % (Auto) 6.6 % (0.0-7.3); Platelet Count 213 K/mm3 (140-440); Red Cell Distribution Width 14.3 % (13.2-15.2)
[2021-01-03] MEDS: methylPREDNISolone Sod Succinate 125 MG/2 ML INJ IV SCH ×2 (06:06→16:42)
[2021-01-03] MEDS: HEPARIN 5,000 UNIT/1 ML VIAL SUB-Q SCH ×2 (06:06→16:43)
[2021-01-03 06:12] LABS: BUN/Creatinine Ratio 30; Blood Urea Nitrogen 27 mg/dL (9-20); Calcium 8.9 mg/dL (8.4-10.2); Hemolysis Index 15
[2021-01-03] MEDS: ARFORMOTEROL 15 MCG/2 ML NEBU IH SCH (08:00)
[2021-01-03] MEDS: BUDESONIDE 0.5 MG/2 ML NEBU IH SCH (08:00)
[2021-01-03] MEDS: IPRATROPIUM/ALBUTEROL SULFATE 3 ML AMPUL.NEB IH SCH ×3 (08:00→13:27)
[2021-01-03] MEDS: oxyCODONE /ACETAMINOPHEN 5-325MG TAB PO PRN ×2 (09:30→15:40)
[2021-01-03] MEDS: amLODIPine 5 MG TAB PO SCH (10:00)
[2021-01-03] MEDS: ASPIRIN EC 81 MG TAB PO SCH (10:00)
[2021-01-03] MEDS: hydrALAZINE 25 MG TAB PO SCH ×2 (10:00→16:43)
--- NOTE | 2021-01-03 13:17 | Vascular Lab Report ---
DUPLEX DOPPLER LOWER EXTREMITY VEINS, BILATERAL INDICATION: swelling. TECHNIQUE: Duplex doppler imaging was performed through the veins of both lower extremities using ve nous compression and other maneuvers. COMPARISON: 04/28/2020. FINDINGS: Right Common femoral vein: Negative. Right Superficial femoral vein: Negative. Right Popliteal vein: Negative. Right Calf veins: Negative. Left Common femoral vein: Negative. Left Superficial femoral vein: Negative. Left Popliteal vein: Negative. Left Calf veins: Negative. Additional findings: None. IMPRESSION: No sonographic evidence for DVT in either lower extremity. Signer Name: Brent Teixeiar Jr, MD Signed: 01/03/2021 1:12 PM Workstation Name: [id number]
--- NOTE | 2021-01-03 13:45 | Consultation ---
DATE OF CONSULTATION: 01/02/2021 CONSULTING PHYSICIAN: Dr. Boyd. REASON FOR CONSULTATION: Acute exacerbation of chronic obstructive pulmonary disease. CHIEF COMPLAINT AND HISTORY OF PRESENT ILLNESS: As follows: The patient is a 60-year-old morbidly obese male with past medical history significant amongst other things for a diagnosis of home oxygen dependent COPD, who came into the Emergency Room complaining of shortness of breath and sore throat, trouble getting up his secretions. Says he feels likely he has had some subjective fevers. He has been diaphoretic at home. He denies running out of his bronchodilators. He denies running out of his supplemental oxygen. He has received his full COVID-19 vaccination and received a couple of shots. He denies any sick contacts recently. He denies a history of current tobacco use. He has about a 10-plus pack year tobacco smoking history, but quit smoking about 9 years ago according to him. He also admits to increasing bilateral lower extremity swelling. He denies any gross or streaky hemoptysis. He denies any chest pains, pleuritic or otherwise. When I stopped by to see him, he was resting in bed, on supplemental oxygen at 4 liters nasal cannula. His baseline is 2 liters nasal cannula. Of note, he also admits to history of obstructive sleep apnea ,for which he is on CPAP therapy at home. He believes his CPAP number is 14 cm of water. He states he is compliant with his CPAP machine most nights. This really is as much of the history of presentation as I have. PAST MEDICAL HISTORY: COPD, obstructive sleep apnea, morbid obesity, gastroesophageal reflux disease and hypertension. PAST SURGICAL HISTORY: He has had a cholecystectomy. He has had a craniotomy in the past. MEDICATIONS: He was on at the time I stopped by to see him according to the medication administration record included the following: Tylenol 650 mg p.o. q. 4 hours p.r.n. mild pain or fevers, albuterol 2.5 mg nebulized q. 4 hours p.r.n. shortness of breath, DuoNeb nebulizer treatments scheduled q. 6 hours, heparin 5000 units subQ q. 8, Solu-Medrol 60 mg IV q. 8 hours scheduled, morphine sulfate 4 mg IV q. 4 hours p.r.n. severe pain, Zofran 4 mg IV q. 8 hours p.r.n. nausea and vomiting, Percocet 5/325 one tablet p.o. q. 6 hours p.r.n. moderate pain. ALLERGIES: No known drug allergies. DIET: Morbidly obese. Denies acute weight loss or gain in the preceding few weeks to months. FAMILY AND SOCIAL HISTORY: Lives in the community, has a 10 plus pack year remote tobacco smoking history. Denies current alcohol, tobacco or illicit drug use or abuse. FAMILY HISTORY: Otherwise, noncontributory. He is . REVIEW OF SYSTEMS: No loss of consciousness. No new onset seizures. No new onset focal weakness. Denies gross hematochezia or melena. He denies gross hematuria or dysuria. He has complained of a sore throat. He has complained of sinus congestion. He denies any rhinorrhea. He denies heat or cold intolerance. Denies polydipsia or polyuria. Denies orthopnea, paroxysmal nocturnal dyspnea. Complete 13 system review of systems obtained. Pertinent positives and/or negatives as in body of history above, otherwise noncontributory. PHYSICAL EXAMINATION: VITAL SIGNS: ____ afebrile, temperature 98.6 degrees Fahrenheit, pulse of 90, respiratory rate of 24, blood pressure 142/79, O2 sats were 94% that was on 4 liters nasal cannula. GENERAL: He is morbidly obese elderly male, normocephalic. He has a remote trauma to the eye, I believe surgical trauma. Talking to me with mildly increased respiratory effort at rest. HEAD, EYES, EARS, NOSE AND THROAT: Anicteric. No conjunctival erythema in the left eye. Right eye is postop. NECK: He has a large neck circumference. No gross jugular venous distention, no thyromegaly. Grossly, there were no palpable lymph nodes in the supraclavicular or submandibular lymph node chains. LUNGS: Auscultation of both lung butterfield significant for diminished bilateral breath sounds, prolonged expiratory phase, bilateral expiratory wheezing. HEART: Sounds 1 and 2 are heard at the time of my evaluation, regular rate and rhythm without overt rubs or murmurs. ABDOMEN: Soft, full, protuberant. Bowel sounds are positive, nontender. No palpable hepatosplenomegaly. EXTREMITIES: Without overt digital clubbing or cyanosis. He has 1+ bipedal pitting edema. Pedal pulses are 2+ bilaterally. NEUROLOGIC: Left pupil is about 4 mm, reactive to light. The right pupil is postop. Extraocular muscle movements are intact. He moves all 4 extremities spontaneously. SKIN: Normal turgor in the areas examined without overt cellulitis or rash. Please see the wound care nurses' notes for full description of his skin. PSYCHIATRIC: Mood was normal. Affect was appropriate. He had intact judgment and insight. LABORATORY DATA: From my review are as follows: White cell count 11,000, hemoglobin 14.5, hematocrit 43.4, platelet count 243, 1% band forms on the manual differential. Serum sodium 143, potassium 5.0, chloride 103, bicarbonate 35, BUN 27, creatinine 0.9, glucose was 116. Lactic acid level within normal limits. Albumin low at 3.7, otherwise liver function test within normal limits. No microbiology studies. Chest x-ray, suggestion of a right lower lobe medial infiltrate/right middle lobe infiltrate, otherwise evidence of COPD with hyperinflation and he also has borderline cardiomegaly, area of plate-like atelectasis in the left mid lung zone and perhaps in the right lower lobe region too. No gross pneumothorax, no gross bony fracture. Compared to a chest x-ray from about a week ago, I think the findings probably okay. The findings are about the same. ASSESSMENT: 1. Acute on chronic hypoxemic respiratory failure. 2. Acute exacerbation of chronic obstructive pulmonary disease. 3. Possible right lower lobe pneumonia. 4. Obstructive sleep apnea. 5. History of hypertension. 6. History of gastroesophageal reflux disease. 7. Morbid obesity. PLAN: I agree with current therapies. I will be adding long-acting bronchodilators as well as inhaled corticosteroids. I will treat this gentleman with chronic home oxygen dependent COPD with empiric antibiotic therapies for possible community-acquired pneumonia, five days of therapy. I will go with Levaquin monotherapy. Oral Levaquin will be fine. I will deploy bilevel positive airway pressure ventilation therapy 20/01 with a backup rate of 10. I have advised him to use it and he is willing to use it at night. He is appropriately on DVT prophylaxis. I will be adding GI prophylaxis, but I will also be getting bilateral lower extremity Dopplers and the D-dimer level as part of venous thromboembolic disorder workup. Flu and pneumonia vaccination will be addressed per protocol. Tobacco abstinence continued, has been counseled strongly at bedside. Thank you very much for the consult. Dr. Boyd will follow along and make further recommendations as picture progresses/becomes clearer. TID: [id number] RECEIPT: [id number] PROSPER/MONI/KAYLIN
--- NOTE | 2021-01-03 14:07 | Progress Note ---
Assessment and Plan Acute on chronic hypoxemic respiratory failure Acute exacerbation of chronic obstructive pulmonary disease Possible right lower lobe pneumonia Obstructive sleep apnea History of hypertension History of gastroesophageal reflux disease Morbid obesity - complete 5 days of oral levaquin - continue NIV scheduled qhs with prn daytime use - continue to wean supplemental oxygen to keep O2 sats > 90% - continue bronchodilators (TEODORO & LABA) with pulm hygiene per RT - continue systemic steroids with slow taper - continue inhaled corticosteroids - continue to avoid nephrotoxins, renally dose all medications - continue mobility protocols to prevent pressure ulcers - PT/OT as tolerated - Wound care per RN/WCT - continue accuchecks with glycemic control per SSI for target blood glucose < 180 mg/dL - Smoking cessation strongly counseled at the bedside - home oxygen evaluation at discharge - GI & VTE prophylaxis - Flu & pneumovax per protocol - Pulmonary out patient follow up for PFTs and optimization of respiratory status - continue other care per attending / other consultants - prn analgesia per pain score ... re-evaluate in am & prn Subjective Date of service: 01/03/21 Principal diagnosis: Ac on ch hypoxemic resp failure; AE-COPD; PNA; ASHELY; HTN; Morbid obesity Interval history: Patient is seen today for: Acute on chronic hypoxemic respiratory failure; AE- COPD; PNA; ASHELY; H/O HTN; Morbid obesity Seen and examined at bedside; 24hour events reviewed; nursing and respiratory care staff consulted; no adverse overnight events reported to me; resting in bed; feels better; tolerated BIPAP overnight; denies acute chest pains or SOB Objective Vital Signs - 12hr 01/03/21 01/03/21 01/03/21 06:08 08:31 09:00 Temperature 97.3 F L Pulse Rate 50 L Pulse Rate [ 61 Bilateral] Respiratory 16 Rate Respiratory 20 Rate [Bilateral ] Blood Pressure 186/66 O2 Sat by Pulse 95 97 Oximetry 01/03/21 13:48 Temperature Pulse Rate Pulse Rate [ 66 Bilateral] Respiratory Rate Respiratory 20 Rate [Bilateral ] Blood Pressure O2 Sat by Pulse 97 Oximetry Constitutional: no acute distress Eyes: non-icteric, other (right eye post-op) ENT: oropharynx moist Neck: supple, lymphadenopathy, other (large circumference) Effort: mildly labored Ascultation: Bilateral: diminished breath sounds, other (prolonged expiratory phase) Percussion: Bilateral: not dull Cardiovascular: regular rate and rhythm Gastrointestinal: normoactive bowel sounds, soft, non-tender, non-distended Integumentary: normal Extremities: no cyanosis, pulses normal, no ischemia or petechiae, edema (trace to 1+) Neurologic: non-focal exam (grossly), CN II-XII normal, motor strength normal and Psychiatric: mood appropriate, affect normal CBC and BMP: 01/03/21 04:54 01/03/21 04:54 Abnormal lab findings: Abnormal Labs 01/02/21 01/02/21 01/03/21 03:42 03:42 04:54 WBC 15.5 H Lymph % (Auto) 4.0 L Lymph # (Auto) 0.6 L [place] # (Auto) 1.0 H Seg Neutrophils % 89.3 H Seg Neuts % (Manual) 84.0 H Lymphocytes % (Manual) 8.0 L Seg Neutrophils # 13.8 H Seg Neutrophils # Man 9.2 H Lymphocytes # (Manual) 0.9 L Carbon Dioxide 35 H BUN 27 H Glucose 116 H Total Protein 5.7 L Albumin 3.7 L 01/03/21 04:54 WBC Lymph % (Auto) Lymph # (Auto) [place] # (Auto) Seg Neutrophils % Seg Neuts % (Manual) Lymphocytes % (Manual) Seg Neutrophils # Seg Neutrophils # Man Lymphocytes # (Manual) Carbon Dioxide 31 H BUN 27 H Glucose 184 H Total Protein Albumin Allied health notes reviewed: nursing
--- NOTE | 2021-01-03 14:36 | Progress Note ---
Hospitalist Physical - Constitutional Vitals: Temp Pulse Resp BP Pulse Ox 97.3 F L 66 20 186/66 97 01/03/21 06:08 01/03/21 13:48 01/03/21 13:48 01/03/21 06:08 01/03/21 13:48 Results - Labs CBC & Chem 7: 01/03/21 04:54 01/03/21 04:54 Labs: Laboratory Last Values WBC 15.5 K/mm3 (4.5-11.0) H 01/03/21 04:54 RBC 4.40 M/mm3 (3.65-5.03) 01/03/21 04:54 Hgb 13.2 gm/dl (11.8-15.2) 01/03/21 04:54 Hct 40.0 % (35.5-45.6) 01/03/21 04:54 MCV 91 fl (84-94) 01/03/21 04:54 MCH 30 pg (28-32) 01/03/21 04:54 MCHC 33 % (32-34) 01/03/21 04:54 RDW 14.3 % (13.2-15.2) 01/03/21 04:54 Plt Count 213 K/mm3 (140-440) 01/03/21 04:54 Lymph % (Auto) 4.0 % (13.4-35.0) L 01/03/21 04:54 [place] % (Auto) 6.6 % (0.0-7.3) 01/03/21 04:54 Eos % (Auto) 0.0 % (0.0-4.3) 01/03/21 04:54 Baso % (Auto) 0.1 % (0.0-1.8) 01/03/21 04:54 Lymph # (Auto) 0.6 K/mm3 (1.2-5.4) L 01/03/21 04:54 [place] # (Auto) 1.0 K/mm3 (0.0-0.8) H 01/03/21 04:54 Eos # (Auto) 0.0 K/mm3 (0.0-0.4) 01/03/21 04:54 Baso # (Auto) 0.0 K/mm3 (0.0-0.1) 01/03/21 04:54 Add Manual Diff Complete 01/02/21 03:42 Total Counted 100 01/02/21 03:42 Seg Neutrophils % 89.3 % (40.0-70.0) H 01/03/21 04:54 Seg Neuts % (Manual) 84.0 % (40.0-70.0) H 01/02/21 03:42 Band Neutrophils % 1.0 % 01/02/21 03:42 Lymphocytes % (Manual) 8.0 % (13.4-35.0) L 01/02/21 03:42 Monocytes % (Manual) 6.0 % (0.0-7.3) 01/02/21 03:42 Metamyelocytes % 1.0 % 01/02/21 03:42 Nucleated RBC % Not Reportable 01/02/21 03:42 Seg Neutrophils # 13.8 K/mm3 (1.8-7.7) H 01/03/21 04:54 Seg Neutrophils # Man 9.2 K/mm3 (1.8-7.7) H 01/02/21 03:42 Band Neutrophils # 0.1 K/mm3 01/02/21 03:42 Lymphocytes # (Manual) 0.9 K/mm3 (1.2-5.4) L 01/02/21 03:42 Abs React Lymphs (Man) 0.0 K/mm3 01/02/21 03:42 Monocytes # (Manual) 0.7 K/mm3 (0.0-0.8) 01/02/21 03:42 Eosinophils # (Manual) 0.0 K/mm3 (0.0-0.4) 01/02/21 03:42 Basophils # (Manual) 0.0 K/mm3 (0.0-0.1) 01/02/21 03:42 Metamyelocytes # 0.1 K/mm3 01/02/21 03:42 Myelocytes # 0.0 K/mm3 01/02/21 03:42 Promyelocytes # 0.0 K/mm3 01/02/21 03:42 Blast Cells # 0.0 K/mm3 01/02/21 03:42 WBC Morphology Not Reportable 01/02/21 03:42 Hypersegmented Neuts Not Reportable 01/02/21 03:42 Hyposegmented Neuts Not Reportable 01/02/21 03:42 Hypogranular Neuts Not Reportable 01/02/21 03:42 Smudge Cells Not Reportable 01/02/21 03:42 Toxic Granulation Not Reportable 01/02/21 03:42 Toxic Vacuolation Not Reportable 01/02/21 03:42 Dohle Bodies Not Reportable 01/02/21 03:42 Pelger-Huet Anomaly Not Reportable 01/02/21 03:42 Jamal Rods Not Reportable 01/02/21 03:42 Platelet Estimate Consistent w auto 01/02/21 03:42 Clumped Platelets Not Reportable 01/02/21 03:42 Plt Clumps, EDTA Not Reportable 01/02/21 03:42 Large Platelets Not Reportable 01/02/21 03:42 Giant Platelets Not Reportable 01/02/21 03:42 Platelet Satelliting Not Reportable 01/02/21 03:42 Plt Morphology Comment Not Reportable 01/02/21 03:42 RBC Morphology Normal 01/02/21 03:42 Dimorphic RBCs Not Reportable 01/02/21 03:42 Polychromasia Not Reportable 01/02/21 03:42 Hypochromasia Not Reportable 01/02/21 03:42 Poikilocytosis Not Reportable 01/02/21 03:42 Anisocytosis Not Reportable 01/02/21 03:42 Microcytosis Not Reportable 01/02/21 03:42 Macrocytosis Not Reportable 01/02/21 03:42 Spherocytes Not Reportable 01/02/21 03:42 Pappenheimer Bodies Not Reportable 01/02/21 03:42 Sickle Cells Not Reportable 01/02/21 03:42 Target Cells Not Reportable 01/02/21 03:42 Tear Drop Cells Not Reportable 01/02/21 03:42 Ovalocytes Not Reportable 01/02/21 03:42 Helmet Cells Not Reportable 01/02/21 03:42 S[place] Bodies Not Reportable 01/02/21 03:42 [place] Rings Not Reportable 01/02/21 03:42 Hali Cells Not Reportable 01/02/21 03:42 Bite Cells Not Reportable 01/02/21 03:42 Crenated Cell Not Reportable 01/02/21 03:42 Elliptocytes Not Reportable 01/02/21 03:42 Acanthocytes (Spur) Not Reportable 01/02/21 03:42 Rouleaux Not Reportable 01/02/21 03:42 Hemoglobin C Crystals Not Reportable 01/02/21 03:42 Schistocytes Not Reportable 01/02/21 03:42 Malaria parasites Not Reportable 01/02/21 03:42 Can Bodies Not Reportable 01/02/21 03:42 Hem Pathologist Commnt No 01/02/21 03:42 Sodium 139 mmol/L (137-145) 01/03/21 04:54 Potassium 4.5 mmol/L (3.6-5.0) 01/03/21 04:54 Chloride 99.2 mmol/L (98-107) 01/03/21 04:54 Carbon Dioxide 31 mmol/L (22-30) H 01/03/21 04:54 Anion Gap 13 mmol/L 01/03/21 04:54 BUN 27 mg/dL (9-20) H 01/03/21 04:54 Creatinine 0.9 mg/dL (0.8-1.3) 01/03/21 04:54 Estimated GFR > 60 ml/min 01/03/21 04:54 BUN/Creatinine Ratio 30 % 01/03/21 04:54 Glucose 184 mg/dL (75-100) H 01/03/21 04:54 Lactic Acid 1.60 mmol/L (0.7-2.0) 01/02/21 03:42 Calcium 8.9 mg/dL (8.4-10.2) 01/03/21 04:54 Total Bilirubin 0.30 mg/dL (0.1-1.2) 01/02/21 03:42 AST 18 units/L (5-40) 01/02/21 03:42 ALT 36 units/L (7-56) 01/02/21 03:42 Alkaline Phosphatase 58 units/L (35-129) 01/02/21 03:42 Total Protein 5.7 g/dL (6.3-8.2) L 01/02/21 03:42 Albumin 3.7 g/dL (3.9-5) L 01/02/21 03:42 Albumin/Globulin Ratio 1.9 % 01/02/21 03:42 Active Medications - Current Medications Current Medications: Generic Name Dose Route Start Last Admin Trade Name Freq PRN Reason Stop Dose Admin Acetaminophen 650 mg 01/02/21 08:30 Acetaminophen 325 Mg Tab PO Q4H PRN Pain MILD(1-3)/Fever >100.5/ACOSTA Albuterol 2.5 mg 01/02/21 08:00 Albuterol 2.5 Mg/3 Ml Nebu IH Q4HRT PRN Shortness Of Breath Albuterol/Ipratropium 1 ampul 01/02/21 08:00 01/03/21 13:27 Ipratropium/Albuterol Sulfate 3 Ml Ampul.Neb IH 1 ampul Q6HRT ROLAN Administration Amlodipine Besylate 5 mg 01/02/21 23:00 01/03/21 10:00 Amlodipine 5 Mg Tab PO 5 mg QDAY ROLAN Administration Arformoterol Tartrate 15 mcg 01/02/21 20:00 01/03/21 08:00 Arformoterol 15 Mcg/2 Ml Nebu IH 15 mcg Q12HRT ROLAN Administration Aspirin 81 mg 01/02/21 23:00 01/03/21 10:00 Aspirin Ec 81 Mg Tab PO 81 mg QDAY ROLAN Administration Budesonide 0.5 mg 01/02/21 20:00 01/03/21 08:00 Budesonide 0.5 Mg/2 Ml Nebu IH 0.5 mg Q12HRT ROLAN Administration Heparin Sodium (Porcine) 5,000 unit 01/02/21 09:00 01/03/21 06:06 Heparin 5,000 Unit/1 Ml Vial SUB-Q 5,000 unit Q8HR ROLAN Administration Hydralazine HCl 10 mg 01/02/21 21:26 Hydralazine 20 Mg/1 Ml Inj IV Q6HR PRN Blood Pressure Hydralazine HCl 25 mg 01/03/21 08:00 01/03/21 10:00 Hydralazine 25 Mg Tab PO 25 mg Q8HR ROLAN Administration Levofloxacin 500 mg 01/02/21 18:00 01/02/21 17:58 Levofloxacin 500 Mg Tab PO 01/06/21 18:01 500 mg Q24H ROLAN Administration Protocol Magnesium Hydroxide 30 ml 01/02/21 08:30 Magnesium Hydroxide (Mom) Oral Liqd Udc PO Q4H PRN Constipation Methylprednisolone Sodium Succinate 60 mg 01/02/21 09:00 01/03/21 06:06 Methylprednisolone Sod Succinate 125 Mg/2 Ml Inj IV 60 mg Q8HR ROLAN Administration Morphine Sulfate 4 mg 01/02/21 08:00 01/02/21 22:34 Morphine 4 Mg/1 Ml Inj IV 4 mg Q4H PRN Administration Pain , Severe (7-10) Ondansetron HCl 4 mg 01/02/21 08:30 Ondansetron 4 Mg/2 Ml Inj IV Q8H PRN Nausea And Vomiting Oxycodone/Acetaminophen 1 tab 01/02/21 08:30 Oxycodone /Acetaminophen 5-325mg Tab PO Q6H PRN Pain, Moderate (4-6) Sodium Chloride 10 ml 01/02/21 10:00 01/03/21 10:00 Sodium Chloride 0.9% 10 Ml Flush Syringe IV 10 ml BID ROLAN Administration Sodium Chloride 10 ml 01/02/21 08:30 Sodium Chloride 0.9% 10 Ml Flush Syringe IV PRN PRN LINE FLUSH
[2021-01-03] MEDS ORDERED: PANTOPRAZOLE 40 MG TAB PO SCH (15:00)
--- NOTE | 2021-01-03 16:40 | Event Note ---
Date: 01/03/21 Discussed with Physician at [facility], Dr. Evelyn Barba. She says patient may need to be transferred to [facility] as per their policy.
--- NOTE | 2021-01-03 16:45 | Discharge Summary ---
Providers - Providers Date of Admission: 01/02/21 07:57 Date of discharge: 01/03/21 Attending physician: MORAIMA MCNAIR 01/02/21 07:57 Consult to Physician [CONS] Routine Comment: Consulting Provider: TITI STEPHENS Physician Instructions: Reason For Exam: COPD exacerbation Primary care physician: ENERGY AUDIT ADVISOR Hospitalization Condition: Fair Hospital course: Patient is 60 yo with acute on chronic respiratory failure due to COPD. He is on home Oxygen at 2 l/min. He also has hypertension, morbid obesity. He presented with shortness of breath, wheezing and cough. Shortness of breath is worse on exertion. he used his inhalers but was not relieved therefore called paramedics. Of note, he was just discharged here from hospital last week. No fever. He denies any contact with anyone with Covid infection. He was seen and evaluated in ED. Chest X ray did not show pneumonia. He was diagnosed with acute on chronic respiratory failure due to COPD exacerbation. Patient was started on supplemental Oxygen, solu-medrol, Nebs and admitted. Following day, Dr. Evelyn Cooper, Physician called stating she would like to transfer patient as per their protocol. He was therefore transfered to [facility]. Disposition: 02 [facility]ORT TERM [facility] Final Discharge Diagnosis (Prints w/discharge instructions): 1.Acute on chronic resp failure due to COPD exacerbation - Discharge Diagnoses (1) COPD exacerbation Status: Acute (2) Acute and chronic respiratory failure Status: Acute Qualifiers: Respiratory failure complication: hypoxia Qualified Code(s): J96.21 - Acute and chronic respiratory failure with hypoxia Core Measure Documentation - Palliative Care Palliative Care/ Comfort Measures: Not Applicable - Core Measures Any of the following diagnoses?: none Exam - Constitutional Vitals: Temp Pulse Resp BP Pulse Ox 97.3 F L 66 20 186/66 97 01/03/21 06:08 01/03/21 13:48 01/03/21 13:48 01/03/21 06:08 01/03/21 13:48 Plan Activity: advance as tolerated Diet: low fat, low cholesterol, low salt Follow up with: PRIMARY CARE, [Primary Care Provider] - 3-5 Days
[2021-01-03 17:23] VITALS: BP 179/81
[2021-01-03] MEDS: levoFLOXacin 500 MG TAB PO SCH (17:25)
[2021-01-03] MEDS ORDERED: MONTELUKAST 10 MG TAB PO SCH (18:00)
[2021-01-03] MEDS ORDERED: BENZONATATE 100 MG CAP PO SCH (22:00)
== END 2021-01-03 20:30 | disposition short-term general hospital (02) | DRG 189 ==
LOC: ED 02:48 → 4A 06:26 → OBSVTOIN 07:57 → 3A 08:49 → 4A 19:29
PROVIDERS: ADMIT Hospitalist; ATTEND Internal Medicine
DX: J96.21 Acute and chronic respiratory failure with hypoxia (principal); J44.1 Chronic obstructive pulmonary disease with (acute) exacerbation; Z68.41 Body mass index [BMI] 40.0-44.9, adult; I10 Essential (primary) hypertension; K21.9 Gastro-esophageal reflux disease without esophagitis; G43.909 Migraine, unspecified, not intractable, without status migrainosus; E66.01 Morbid (severe) obesity due to excess calories; G47.33 Obstructive sleep apnea (adult) (pediatric); R56.9 Unspecified convulsions; G89.29 Other chronic pain; M54.9 Dorsalgia, unspecified; Z90.49 Acquired absence of other specified parts of digestive tract; Z86.73 Personal history of transient ischemic attack (TIA), and cerebral infarction without residual deficits; Z87.891 Personal history of nicotine dependence; Z71.3 Dietary counseling and surveillance
CPT/HCPCS: 36415; 71045; 80048; 80053; 82140; 85007; 85025; 87641; 93970; 94640; 96365; 99291; G0378; J1644; J2270; J2930; J3475

== ENCOUNTER 2021-11-20 17:12 | Emergency (ER) | payer MEDICARE ==
[2021-11-20 17:23] VITALS: BP 164/91
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
[2021-11-20] MEDS ORDERED: KETOROLAC 60 MG/2 ML INJ IM ONE ×3 (19:51→23:56)
--- NOTE | 2021-11-20 20:23 | Cat Scan Report ---
NONENHANCED CT SCAN OF THE HEAD: INDICATION / CLINICAL INFORMATION: 61 years Male; stroke. TECHNIQUE: Routine CT head without contrast. All CT scans at this location are performed using CT dos e reduction for ALARA by means of automated exposure control. COMPARISON: CT scan of the head from 04/05/2020 FINDINGS: BRAIN / INTRACRANIAL CONTENTS: No intracerebral hemorrhage or stroke mimics No acute hemorrhage, mass effect, midline shift, hydrocephalus, or acute, large territorial infarct. No chronic infarct or focal atrophy. Normal brain volume and ventricular/sulcal size for age. Focal white matter low-attenuation areas in both cerebral hemispheres; subtle periventricular confluent low -attenuation areas due to chronic small vessel disease CRANIOCERVICAL JUNCTION: No significant abnormality. ORBITS: Right ocular globe is smaller than the left with calcification; pthisis bulbi SINUSES / MASTOIDS: No significant abnormality of the visualized paranasal sinuses or mastoid air florence ls. ADDITIONAL FINDINGS: None. IMPRESSION: No intracerebral hemorrhage or stroke mimics; no acute focal parenchymal lesion in the brain Signer Name: Sridhar Góemz MD Signed: 11/20/2021 8:19 PM Workstation Name: [employer]
--- NOTE | 2021-11-20 20:35 | Cat Scan Report ---
Exam: CT cervical spine History: trauma; Technique: Contiguous thin cut axial images obtained through the cervical spine. Sagittal and castillo l reconstructions performed by the technologist. All CT scans at this location are performed using CT dose reduction for ALARA by means of automated exposure control. Findings: No priors. There is no evidence of fracture or traumatic subluxation. Vertebral bodies are normal in height and alignment. Intervertebral disc spaces are well-maintained. No significant degenerative change seen in the uncinate or facet joints. No significant canal stenosi s or osseous foraminal narrowing. Surrounding soft tissues are grossly normal. Impression: No signs of acute bony trauma to the cervical spine. CT LUMBAR SPINE WITHOUT CONTRAST TECHNIQUE: CT images of the lumbar spine were obtained without contrast. Sagittal and coronal reform ats were post-processed.All CT scans at this location are performed using CT dose reduction for ALARA by means of automated exposure control. CONTRAST: None. FINDINGS: Abnormal L1 vertebral body: Vertebral fracture in the medial left vertebral body involving both superior and i nferior endplates; 25% height loss; fracture not extending into the pedicles or posterior elements; p osterior elements normal; facet joints are normal; findings consistent with type A2 split fracture in volving both endplates; posterior cortex normal; bony canal normal Other vertebral bodies: Normal Alignment: Normal. No traumatic subluxation. Vertebrae:No significant abnormality. No fracture. Disc Spaces: No significant abnormality allowing for lack of intrathecal contrast. Facet Joints:No significant abnormality. Additional Findings: None IMPRESSION: 1. L1 vertebral body: Type A2 split fracture involving both endplates; posterior cortex intact; face ts and ligaments intact Signer Name: Sridhar Gómez MD Signed: 11/20/2021 8:30 PM Workstation Name: [email or web address]
[2021-11-20] MEDS ORDERED: ONDANSETRON 4 MG/2 ML INJ IM ONE (21:25)
[2021-11-20] MEDS ORDERED: MORPHINE 4 MG/1 ML INJ IM ONE (21:25)
== END 2021-11-21 01:24 | disposition home or self-care (01) ==
LOC: ED 17:12
DX: S32.019A Unspecified fracture of first lumbar vertebra, initial encounter for closed fracture (principal); I10 Essential (primary) hypertension; K21.9 Gastro-esophageal reflux disease without esophagitis; M19.90 Unspecified osteoarthritis, unspecified site; G43.909 Migraine, unspecified, not intractable, without status migrainosus; R56.9 Unspecified convulsions; J45.909 Unspecified asthma, uncomplicated; Z90.49 Acquired absence of other specified parts of digestive tract; Z79.899 Other long term (current) drug therapy; W19.XXXA Unspecified fall, initial encounter; Y93.89 Activity, other specified; Y92.89 Other specified places as the place of occurrence of the external cause; Y99.8 Other external cause status
CPT/HCPCS: 70450; 72125; 72131; 96372; 99284; J1885; J2270; J2405

== ENCOUNTER 2021-11-22 05:13 | Inpatient (IN) | payer MEDICARE ==
[2021-11-22] MEDS ORDERED: HYDROmorphone 1 MG/1 ML INJ IV ONE (06:34)
[2021-11-22] MEDS ORDERED: ONDANSETRON 4 MG/2 ML INJ IV ONE (06:34)
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
--- NOTE | 2021-11-22 07:39 | Progress Note ---
Subjective Date of service: 11/22/21 Interval history: Consult received, imaging studies reviewed. There is a unstable coronal split fx, AO subtype A2 with comminution of the vertebral body. The patient was returns today after being discharged a few days ago with worsening pain and reported leg numbness. Recommend full spine precautions and LSO brace to be worn at all times (ordered). Recommend STAT MRI L spine without contrast for further evaluation of the fracture. Further treatment options will be determined after the studies are reviewed. Objective - Vital Sign Vital Signs - 12hr 11/22/21 11/22/21 11/22/21 05:46 06:34 06:35 Temperature 98 F 99 F Pulse Rate 84 80 78 Respiratory 20 19 12 Rate Blood Pressure 151/89 Blood Pressure 160/89 [Right] O2 Sat by Pulse 96 88 93 Oximetry 11/22/21 11/22/21 06:45 07:01 Temperature Pulse Rate 78 83 Respiratory 11 L 12 Rate Blood Pressure 132/49 Blood Pressure [Right] O2 Sat by Pulse 91 84 Oximetry
[2021-11-22] MEDS ORDERED: MORPHINE 4 MG/1 ML INJ IV PRN (10:39)
[2021-11-22] MEDS ORDERED: IBUPROFEN 600 MG TAB PO PRN (11:00)
[2021-11-22] MEDS ORDERED: ACETAMINOPHEN 325 MG TAB PO PRN (11:00)
[2021-11-22] MEDS ORDERED: ONDANSETRON 4 MG/2 ML INJ IV PRN (11:00)
[2021-11-22] MEDS ORDERED: NALOXONE 0.4 MG/1 ML INJ IV PRN (11:00)
[2021-11-22] MEDS ORDERED: MORPHINE 2 MG/1 ML INJ IV PRN (11:00)
[2021-11-22 11:08] LABS: Basophils # (Auto) 0.1 K/mm3 (0.0-0.1); Basophils % (Auto) 0.5 % (0.0-1.8); Eosinophils % (Auto) 0.1 % (0.0-4.3); Hematocrit 42.7 % (35.5-45.6); Hemoglobin 13.7 gm/dl (11.8-15.2); Lymphocytes % (Auto) 8.1 % (13.4-35.0); Mean Corpuscular HGB Conc 32 % (32-34); Mean Corpuscular Volume 91 fl (84-94); Monocytes # (Auto) 0.7 K/mm3 (0.0-0.8); Monocytes % (Auto) 5.7 % (0.0-7.3); Platelet Count 178 K/mm3 (140-440); Red Blood Count 4.68 M/mm3 (3.65-5.03); Red Cell Distribution Width 15.6 % (13.2-15.2)
[2021-11-22 11:32] LABS: BUN/Creatinine Ratio 24; Blood Urea Nitrogen 22 mg/dL (9-20); Calcium 8.9 mg/dL (8.4-10.2); Hemolysis Index 9
[2021-11-22] MEDS: HYDROcodone/ACETAMINOPHEN 5-325 MG TAB PO PRN (11:38)
[2021-11-22] MEDS ORDERED: CALCIUM GLUCONATE 1,000 MG in SODIUM CHLORIDE 0.9% 100 ML IV ONE (12:41)
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
[2021-11-22] MEDS ORDERED: ALBUTEROL 2.5 MG/3 ML NEBU IH PRN (13:01)
[2021-11-22] MEDS ORDERED: LORazepam 2 MG/ML VIAL IV ONE ×2 (14:27→15:00)
[2021-11-22] MEDS: HYDROmorphone 1 MG/1 ML INJ IV PRN (18:32)
[2021-11-22] MEDS: FLUTICASONE PROPIONATE NASAL SPRAY 16 GM NS SCH (22:00)
[2021-11-22] MEDS: amLODIPine 5 MG TAB PO SCH (22:08)
[2021-11-22] MEDS: FAMOTIDINE 20 MG/2 ML INJ IV SCH (22:08)
[2021-11-23] MEDS: HYDROmorphone 1 MG/1 ML INJ IV PRN ×5 (02:36→20:09)
[2021-11-23 06:23] LABS: Hematocrit 40.6 % (35.5-45.6); Mean Corpuscular HGB Conc 32 % (32-34); Mean Corpuscular Volume 91 fl (84-94); Platelet Count 169 K/mm3 (140-440); Red Blood Count 4.46 M/mm3 (3.65-5.03); Red Cell Distribution Width 14.9 % (13.2-15.2)
[2021-11-23 07:05] LABS: Alanine Aminotransferase 22 units/L (7-56); Albumin 3.3 g/dL (3.9-5); BUN/Creatinine Ratio 29; Blood Urea Nitrogen 23 mg/dL (9-20); Calcium 9.1 mg/dL (8.4-10.2); Hemolysis Index 106
[2021-11-23 07:44] LABS: Anisocytosis 1+; Platelet Estimate Consistent w Auto; Total Cells Counted 100
--- NOTE | 2021-11-23 08:49 | Progress Note ---
Assessment and Plan Assessment and plan: -- History of fall 2 to 3 days ago; Fall precautions, physical therapy occupational therapy Rehabilitation -- Traumatic injury/L1 fracture;[2 days] Unstable coronal split fracture, AO, subtype A2 with comminution of the vertebral body Numbness and weakness Evaluated by neurosurgeon Dr. Faye Total spine care, TLSO brace all the time MRI L-spine without contrast done pending report Pain medications, supportive care Physical therapy, Occupational Therapy when patient is stable Management per neurosurgery MRI L-spine; reviewed by neurosurgeon Dr. Faye; no epidural hematoma or evidence of nerve root or thecal sac compression. Continue full spine precautions. Patient will need operative reduction of this fracture. Timing of surgery to be determined. Continue full spine precautions, no bedroom privileges. Please notify if questions. Full consult to follow. -- Hyperkalemia; potassium 5.9 Calcium gluconate 1 g IV, Kayexalate 15 g p.o. x1 Closely monitor electrolytes --Mild leukocytosis; 12.5 probably stress related to Closely monitor --History of COPD; Oxygen titrate O2 sats to more than 90% Nebulizers, IV steroids if needed Home O2 evaluation prior to discharge --Obesity hypoventilation syndrome;[OHS] Oxygen titrate O2 sats more than 90% Consider pulmonary consult if needed Home O2 evaluation prior to discharge --Obstructive sleep apnea due to morbid obesity;[ASHELY] Outpatient sleep study to rule out obstructive sleep apnea CPAP BiPAP at night and during daytime as needed --Morbid obesity; BMI 86.1 Patient needs diet modification, exercise as tolerated, weight reduction When medically stable May also benefit by outpatient bariatric surgical evaluation For weight reduction program when medically stable --Hypertension; moderate control Continue current antihypertensives, as needed hydralazine -- DVT prophylaxis; Lovenox subcu -- Full CODE STATUS -- Advance care plan; Patient's diagnosis discussed with the patient, discussed tests and reports I discussed with the patient neurosurgery evaluation and recommendations Discussed the treatment plan, also discussed the need for outpatient sleep study to rule out obstructive sleep apnea We will contact family and update patient's condition. +32 minutes --Preventive health care; Counseled the patient diet modification, exercise as tolerated, weight reduction when medically stable Also advised to seek help with bariatric surgical group for weight reduction program when medically stable Nutrition consult during the hospital stay to assist with dietary plans Physical therapy occupational therapy and home health at discharge. +30 minutes Disposition; follow MRI L-spine, follow neurosurgery recommendations Neurosurgeon to set up TLSO brace Consider pulmonary consult, PT, OT when patient is stable and cleared by neurosurgery Closely monitor the patient and adjust the management as needed Plan of care reviewed with the patient and his nurse I also discussed with the nursing hydrochloric manufacturing supervisor and the charge nurse of the floor. History Interval history: I have seen and examined the patient at the bedside Patient's chart and medications reviewed Patient is in mild distress, refusing BiPAP currently on nasal cannula oxygen. Complains of back pain, Vital signs noted Patient did not have a back brace[neurosurgeon Dr. Marks, physical therapist to set it up] Hospitalist Physical - Constitutional Vitals: Temp Pulse Resp BP Pulse Ox 98.0 F 97 H 20 129/74 93 11/23/21 04:42 11/23/21 04:42 11/23/21 06:29 11/23/21 04:42 11/23/21 04:42 General appearance: Present: no acute distress, well-nourished, obese (Morbidly obese) - EENT Eyes: Present: PERRL, EOM intact - Neck Neck: Present: supple, normal ROM - Respiratory Respiratory effort: normal Respiratory: bilateral: diminished, negative: rales, rhonchi, wheezing - Cardiovascular Rhythm: regular Heart Sounds: Present: S1 & S2 - Extremities Extremities: no ischemia, No edema - Abdominal General gastrointestinal: soft, non-tender, non-distended, normal bowel sounds - Integumentary Integumentary: Present: clear, warm - Psychiatric Psychiatric: appropriate mood/affect, cooperative - Neurologic Neurologic: moves all extremities Results - Labs CBC & Chem 7: 11/23/21 05:26 11/23/21 05:26 Labs: Laboratory Last Values WBC 9.6 K/mm3 (4.5-11.0) 11/23/21 05:26 RBC 4.46 M/mm3 (3.65-5.03) 11/23/21 05:26 Hgb 13.0 gm/dl (11.8-15.2) 11/23/21 05:26 Hct 40.6 % (35.5-45.6) 11/23/21 05:26 MCV 91 fl (84-94) 11/23/21 05:26 MCH 29 pg (28-32) 11/23/21 05:26 MCHC 32 % (32-34) 11/23/21 05:26 RDW 14.9 % (13.2-15.2) 11/23/21 05:26 Plt Count 169 K/mm3 (140-440) 11/23/21 05:26 Lymph % (Auto) 8.1 % (13.4-35.0) L 11/22/21 11:02 Dukes % (Auto) 5.7 % (0.0-7.3) 11/22/21 11:02 Eos % (Auto) 0.1 % (0.0-4.3) 11/22/21 11:02 Baso % (Auto) 0.5 % (0.0-1.8) 11/22/21 11:02 Lymph # (Auto) 1.0 K/mm3 (1.2-5.4) L 11/22/21 11:02 Dukes # (Auto) 0.7 K/mm3 (0.0-0.8) 11/22/21 11:02 Eos # (Auto) 0.0 K/mm3 (0.0-0.4) 11/22/21 11:02 Baso # (Auto) 0.1 K/mm3 (0.0-0.1) 11/22/21 11:02 Add Manual Diff Complete 11/23/21 05:26 Total Counted 100 11/23/21 05:26 Seg Neutrophils % 85.6 % (40.0-70.0) H 11/22/21 11:02 Seg Neuts % (Manual) 61.0 % (40.0-70.0) 11/23/21 05:26 Band Neutrophils % 0 % 11/23/21 05:26 Lymphocytes % (Manual) 20.0 % (13.4-35.0) 11/23/21 05:26 Reactive Lymphs % (Man) 0 % 11/23/21 05:26 Monocytes % (Manual) 13.0 % (0.0-7.3) H 11/23/21 05:26 Eosinophils % (Manual) 5.0 % (0.0-4.3) H 11/23/21 05:26 Basophils % (Manual) 1.0 % (0.0-1.8) 11/23/21 05:26 Metamyelocytes % 0 % 11/23/21 05:26 Myelocytes % 0 % 11/23/21 05:26 Promyelocytes % 0 % 11/23/21 05:26 Blast Cells % 0 % 11/23/21 05:26 Nucleated RBC % Not Reportable 11/23/21 05:26 Seg Neutrophils # 10.7 K/mm3 (1.8-7.7) H 11/22/21 11:02 Seg Neutrophils # Man 5.9 K/mm3 (1.8-7.7) 11/23/21 05:26 Band Neutrophils # 0.0 K/mm3 11/23/21 05:26 Lymphocytes # (Manual) 1.9 K/mm3 (1.2-5.4) 11/23/21 05:26 Abs React Lymphs (Man) 0.0 K/mm3 11/23/21 05:26 Monocytes # (Manual) 1.2 K/mm3 (0.0-0.8) H 11/23/21 05:26 Eosinophils # (Manual) 0.5 K/mm3 (0.0-0.4) H 11/23/21 05:26 Basophils # (Manual) 0.1 K/mm3 (0.0-0.1) 11/23/21 05:26 Metamyelocytes # 0.0 K/mm3 11/23/21 05:26 Myelocytes # 0.0 K/mm3 11/23/21 05:26 Promyelocytes # 0.0 K/mm3 11/23/21 05:26 Blast Cells # 0.0 K/mm3 11/23/21 05:26 WBC Morphology Not Reportable 11/23/21 05:26 Hypersegmented Neuts Not Reportable 11/23/21 05:26 Hyposegmented Neuts Not Reportable 11/23/21 05:26 Hypogranular Neuts Not Reportable 11/23/21 05:26 Smudge Cells Not Reportable 11/23/21 05:26 Toxic Granulation Not Reportable 11/23/21 05:26 Toxic Vacuolation Not Reportable 11/23/21 05:26 Dohle Bodies Not Reportable 11/23/21 05:26 Pelger-Huet Anomaly Not Reportable 11/23/21 05:26 Jamal Rods Not Reportable 11/23/21 05:26 Platelet Estimate Consistent w auto 11/23/21 05:26 Clumped Platelets Not Reportable 11/23/21 05:26 Plt Clumps, EDTA Not Reportable 11/23/21 05:26 Large Platelets Not Reportable 11/23/21 05:26 Giant Platelets Not Reportable 11/23/21 05:26 Platelet Satelliting Not Reportable 11/23/21 05:26 Plt Morphology Comment Not Reportable 11/23/21 05:26 RBC Morphology Not Reportable 11/23/21 05:26 Dimorphic RBCs Not Reportable 11/23/21 05:26 Polychromasia Not Reportable 11/23/21 05:26 Hypochromasia Not Reportable 11/23/21 05:26 Poikilocytosis Not Reportable 11/23/21 05:26 Anisocytosis 1+ 11/23/21 05:26 Microcytosis Not Reportable 11/23/21 05:26 Macrocytosis Not Reportable 11/23/21 05:26 Spherocytes Not Reportable 11/23/21 05:26 Pappenheimer Bodies Not Reportable 11/23/21 05:26 Sickle Cells Not Reportable 11/23/21 05:26 Target Cells Not Reportable 11/23/21 05:26 Tear Drop Cells Not Reportable 11/23/21 05:26 Ovalocytes Not Reportable 11/23/21 05:26 Helmet Cells Not Reportable 11/23/21 05:26 Serna-[place] Bodies Not Reportable 11/23/21 05:26 [place] Rings Not Reportable 11/23/21 05:26 Hali Cells Not Reportable 11/23/21 05:26 Bite Cells Not Reportable 11/23/21 05:26 Crenated Cell Not Reportable 11/23/21 05:26 Elliptocytes Not Reportable 11/23/21 05:26 Acanthocytes (Spur) Not Reportable 11/23/21 05:26 Rouleaux Not Reportable 11/23/21 05:26 Hemoglobin C Crystals Not Reportable 11/23/21 05:26 Schistocytes Not Reportable 11/23/21 05:26 Malaria parasites Not Reportable 11/23/21 05:26 Can Bodies Not Reportable 11/23/21 05:26 Hem Pathologist Commnt No 11/23/21 05:26 Sodium 139 mmol/L (137-145) 11/23/21 05:26 Potassium 5.1 mmol/L (3.6-5.0) H 11/23/21 05:26 Chloride 100.8 mmol/L (98-107) 11/23/21 05:26 Carbon Dioxide 31 mmol/L (22-30) H 11/23/21 05:26 Anion Gap 12 mmol/L 11/23/21 05:26 BUN 23 mg/dL (9-20) H 11/23/21 05:26 Creatinine 0.8 mg/dL (0.8-1.3) 11/23/21 05:26 Estimated GFR > 60 ml/min 11/23/21 05:26 BUN/Creatinine Ratio 29 % 11/23/21 05:26 Glucose 95 mg/dL (75-100) 11/23/21 05:26 Calcium 9.1 mg/dL (8.4-10.2) 11/23/21 05:26 Magnesium 2.20 mg/dL (1.7-2.3) 11/23/21 05:26 Total Bilirubin 0.50 mg/dL (0.1-1.2) 11/23/21 05:26 AST 21 units/L (5-40) 11/23/21 05:26 ALT 22 units/L (7-56) 11/23/21 05:26 Alkaline Phosphatase 67 units/L (35-129) 11/23/21 05:26 Total Protein 5.9 g/dL (6.3-8.2) L 11/23/21 05:26 Albumin 3.3 g/dL (3.9-5) L 11/23/21 05:26 Albumin/Globulin Ratio 1.3 % 11/23/21 05:26 Rhodes/IV: Voiding Method Toilet Active Medications - Current Medications Current Medications: Generic Name Dose Route Start Last Admin Trade Name Freq PRN Reason Stop Dose Admin Acetaminophen 650 mg 11/22/21 11:00 Acetaminophen 325 Mg Tab PO Q4H PRN Pain MILD(1-3)/Fever >100.5/ACOSTA Hydrocodone Bitart/Acetaminophen 2 each 11/22/21 11:00 11/22/21 11:38 Hydrocodone/Acetaminophen 5-325 Mg Tab PO 2 each Q6H PRN Administration Pain, Moderate (4-6) Albuterol 2.5 mg 11/22/21 13:01 Albuterol 2.5 Mg/3 Ml Nebu IH Q4HRT PRN Shortness Of Breath Amlodipine Besylate 5 mg 11/22/21 22:00 11/22/21 22:08 Amlodipine 5 Mg Tab PO 5 mg BID ROLAN Administration Aspirin 81 mg 11/23/21 10:00 Aspirin Ec 81 Mg Tab PO DAILY [facility] Enoxaparin Sodium 40 mg 11/23/21 10:00 Enoxaparin 40 Mg/0.4 Ml Inj SUB-Q QDAY ROLAN Famotidine 20 mg 11/22/21 22:00 11/22/21 22:08 Famotidine 20 Mg/2 Ml Inj IV 20 mg BID ROLAN Administration Fluticasone Propionate 50 mcg 11/22/21 22:00 11/22/21 22:00 Fluticasone Propionate Nasal Brooks 16 Gm NS Not Given BID [facility] Hydromorphone HCl 1 mg 11/22/21 18:05 11/23/21 06:29 Hydromorphone 1 Mg/1 Ml Inj IV 1 mg Q4H PRN Administration Pain , Severe (7-10) Ibuprofen 600 mg 11/22/21 11:00 Ibuprofen 600 Mg Tab PO Q6H PRN Pain, Mild (1-3) Montelukast Sodium 10 mg 11/23/21 10:00 Montelukast 10 Mg Tab PO QAM [facility] Naloxone HCl 0.1 mg 11/22/21 11:00 Naloxone 0.4 Mg/1 Ml Inj IV Q2MIN PRN Res Rate </= 8 or 02 SAT < 92% Ondansetron HCl 4 mg 11/22/21 11:00 Ondansetron 4 Mg/2 Ml Inj IV Q8H PRN Nausea And Vomiting Sodium Chloride 10 ml 11/22/21 22:00 11/22/21 22:08 Sodium Chloride 0.9% 10 Ml Flush Syringe IV 10 ml BID ROLAN Administration Sodium Chloride 10 ml 11/22/21 11:00 Sodium Chloride 0.9% 10 Ml Flush Syringe IV PRN PRN LINE FLUSH
[2021-11-23] MEDS: FAMOTIDINE 20 MG/2 ML INJ IV SCH ×2 (09:02→21:40)
[2021-11-23] MEDS: ENOXAPARIN 40 MG/0.4 ML INJ SUB-Q SCH (09:02)
[2021-11-23] MEDS: ASPIRIN EC 81 MG TAB PO SCH (09:02)
[2021-11-23] MEDS: amLODIPine 5 MG TAB PO SCH ×2 (09:02→21:40)
[2021-11-23] MEDS: MONTELUKAST 10 MG TAB PO SCH (09:03)
[2021-11-23] MEDS: HYDROcodone/ACETAMINOPHEN 5-325 MG TAB PO PRN ×3 (09:20→21:41)
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
[2021-11-23 13:27] LABS: INR 1.03 (0.87-1.13)
[2021-11-23] MEDS: FLUTICASONE PROPIONATE NASAL SPRAY 16 GM NS SCH ×2 (14:56→21:40)
[2021-11-23] MEDS: BUDESONIDE 0.5 MG/2 ML NEBU IH SCH (21:51)
[2021-11-23] MEDS: ARFORMOTEROL 15 MCG/2 ML NEBU IH SCH (21:51)
[2021-11-23] MEDS ORDERED: NON-FORMULARY EACH (Fluticasone/Salmeterol [Advair Diskus 500-50 Mcg] 1 EACH Blst.W.Dev) IH SCH (22:00)
[2021-11-24] MEDS: HYDROmorphone 1 MG/1 ML INJ IV PRN ×5 (00:47→20:30)
[2021-11-24] MEDS: HYDROcodone/ACETAMINOPHEN 5-325 MG TAB PO PRN ×4 (03:50→23:11)
[2021-11-24] MEDS: ARFORMOTEROL 15 MCG/2 ML NEBU IH SCH ×2 (08:18→21:22)
[2021-11-24] MEDS: TIOTROPIUM 18 MCG CAP INHALATION IH SCH (08:18)
[2021-11-24] MEDS: BUDESONIDE 0.5 MG/2 ML NEBU IH SCH ×2 (08:18→21:22)
--- NOTE | 2021-11-24 09:12 | Progress Note ---
Assessment and Plan Assessment and plan: -- History of fall 2 to 3 days ago; Fall precautions, physical therapy occupational therapy Rehabilitation -- Traumatic injury/L1 fracture;[2 days] Unstable coronal split fracture, AO, subtype A2 with comminution of the vertebral body Numbness and weakness Evaluated by neurosurgeon Dr. Faye Total spine care, TLSO brace all the time Pain medications, supportive care Physical therapy, Occupational Therapy when patient is stable Management per neurosurgery MRI L-spine; reviewed by neurosurgeon Dr. Faye; no epidural hematoma or evidence of nerve root or thecal sac compression. Continue full spine precautions. Patient will need operative reduction of this fracture. Neurosurgeon planning posterior T12-L2 fusion next few days Requested pulmonary, cardiology clearance prior to the procedure Pulmonary and cardiology evaluating the patient -- Hyperkalemia; potassium 5.9-5.1 Resolved, monitor electrolytes --Mild leukocytosis; 12.5 probably stress related to Closely monitor --History of COPD; Oxygen titrate O2 sats to more than 90% Nebulizers, IV steroids if needed, pulmonary following Home O2 evaluation prior to discharge --Obesity hypoventilation syndrome;[OHS] Oxygen titrate O2 sats more than 90% Consider pulmonary consult if needed Home O2 evaluation prior to discharge --Obstructive sleep apnea due to morbid obesity;[AHSELY] Outpatient sleep study to rule out obstructive sleep apnea CPAP BiPAP at night and during daytime as needed --Morbid obesity; BMI 86.1 Patient needs diet modification, exercise as tolerated, weight reduction When medically stable May also benefit by outpatient bariatric surgical evaluation For weight reduction program when medically stable --Hypertension; moderate control Continue current antihypertensives, as needed hydralazine -- DVT prophylaxis; Lovenox subcu -- Full CODE STATUS -- Advance care plan; Patient's diagnosis discussed with the patient, discussed tests and reports I discussed with the patient neurosurgery evaluation and recommendations Discussed the treatment plan, also discussed the need for outpatient sleep study to rule out obstructive sleep apnea We will contact family and update patient's condition. +32 minutes --Preventive health care; Counseled the patient diet modification, exercise as tolerated, weight reduction when medically stable Also advised to seek help with bariatric surgical group for weight reduction program when medically stable Nutrition consult during the hospital stay to assist with dietary plans Physical therapy occupational therapy and home health at discharge. +30 minutes Disposition; neurosurgical procedure in the next few days Pulmonary, cardiology evaluated the patient for clearance Brief history and Hospital course: 61-year-old morbidly obese male patient with significant past medical history of COPD, obstructive sleep apnea, obesity hypoventilation syndrome, hypertension, seizure disorder had a fall and sustained L2 fracture evaluated by neurosurgeon planning to do posterior T12 L2 spinal fusion. Pulmonary and cardiology evaluating the patient for f 11/24/2021; Neurosurgeon planning posterior spinal fusion next few days Requested pulmonary clearance and cardiology clearance prior to surgery Discussed with [place] physician Dr. Aragon; advised to go ahead with the neuro surgical procedure. Here at [facility]. History Interval history: I have seen and examined the patient at the bedside this morning Patient's chart medications reviewed Patient complains of severe back pain, in mild distress Vital signs noted Hospitalist Physical - Constitutional Vitals: Temp Pulse Resp BP Pulse Ox 98 F 90 20 160/60 99 11/24/21 03:30 11/24/21 08:18 11/24/21 08:18 11/24/21 03:30 11/24/21 08:26 General appearance: Present: no acute distress, well-nourished, obese (Morbidly obese), other (Patient has back brace) - EENT Eyes: Present: PERRL, EOM intact - Neck Neck: Present: supple, normal ROM - Respiratory Respiratory effort: normal Respiratory: bilateral: diminished, negative: rales, rhonchi, wheezing - Cardiovascular Rhythm: regular Heart Sounds: Present: S1 & S2 - Extremities Extremities: no ischemia, No edema - Abdominal General gastrointestinal: soft, non-tender, non-distended, normal bowel sounds - Integumentary Integumentary: Present: clear, warm - Psychiatric Psychiatric: appropriate mood/affect, cooperative - Neurologic Neurologic: moves all extremities, other (Back brace in place) Results - Labs CBC & Chem 7: 11/23/21 05:26 11/23/21 05:26 Labs: Laboratory Last Values WBC 9.6 K/mm3 (4.5-11.0) 11/23/21 05:26 RBC 4.46 M/mm3 (3.65-5.03) 11/23/21 05:26 Hgb 13.0 gm/dl (11.8-15.2) 11/23/21 05:26 Hct 40.6 % (35.5-45.6) 11/23/21 05:26 MCV 91 fl (84-94) 11/23/21 05:26 MCH 29 pg (28-32) 11/23/21 05:26 MCHC 32 % (32-34) 11/23/21 05:26 RDW 14.9 % (13.2-15.2) 11/23/21 05:26 Plt Count 169 K/mm3 (140-440) 11/23/21 05:26 Lymph % (Auto) 8.1 % (13.4-35.0) L 11/22/21 11:02 [place] % (Auto) 5.7 % (0.0-7.3) 11/22/21 11:02 Eos % (Auto) 0.1 % (0.0-4.3) 11/22/21 11:02 Baso % (Auto) 0.5 % (0.0-1.8) 11/22/21 11:02 Lymph # (Auto) 1.0 K/mm3 (1.2-5.4) L 11/22/21 11:02 [place] # (Auto) 0.7 K/mm3 (0.0-0.8) 11/22/21 11:02 Eos # (Auto) 0.0 K/mm3 (0.0-0.4) 11/22/21 11:02 Baso # (Auto) 0.1 K/mm3 (0.0-0.1) 11/22/21 11:02 Add Manual Diff Complete 11/23/21 05:26 Total Counted 100 11/23/21 05:26 Seg Neutrophils % 85.6 % (40.0-70.0) H 11/22/21 11:02 Seg Neuts % (Manual) 61.0 % (40.0-70.0) 11/23/21 05:26 Band Neutrophils % 0 % 11/23/21 05:26 Lymphocytes % (Manual) 20.0 % (13.4-35.0) 11/23/21 05:26 Reactive Lymphs % (Man) 0 % 11/23/21 05:26 Monocytes % (Manual) 13.0 % (0.0-7.3) H 11/23/21 05:26 Eosinophils % (Manual) 5.0 % (0.0-4.3) H 11/23/21 05:26 Basophils % (Manual) 1.0 % (0.0-1.8) 11/23/21 05:26 Metamyelocytes % 0 % 11/23/21 05:26 Myelocytes % 0 % 11/23/21 05:26 Promyelocytes % 0 % 11/23/21 05:26 Blast Cells % 0 % 11/23/21 05:26 Nucleated RBC % Not Reportable 11/23/21 05:26 Seg Neutrophils # 10.7 K/mm3 (1.8-7.7) H 11/22/21 11:02 Seg Neutrophils # Man 5.9 K/mm3 (1.8-7.7) 11/23/21 05:26 Band Neutrophils # 0.0 K/mm3 11/23/21 05:26 Lymphocytes # (Manual) 1.9 K/mm3 (1.2-5.4) 11/23/21 05:26 Abs React Lymphs (Man) 0.0 K/mm3 11/23/21 05:26 Monocytes # (Manual) 1.2 K/mm3 (0.0-0.8) H 11/23/21 05:26 Eosinophils # (Manual) 0.5 K/mm3 (0.0-0.4) H 11/23/21 05:26 Basophils # (Manual) 0.1 K/mm3 (0.0-0.1) 11/23/21 05:26 Metamyelocytes # 0.0 K/mm3 11/23/21 05:26 Myelocytes # 0.0 K/mm3 11/23/21 05:26 Promyelocytes # 0.0 K/mm3 11/23/21 05:26 Blast Cells # 0.0 K/mm3 11/23/21 05:26 WBC Morphology Not Reportable 11/23/21 05:26 Hypersegmented Neuts Not Reportable 11/23/21 05:26 Hyposegmented Neuts Not Reportable 11/23/21 05:26 Hypogranular Neuts Not Reportable 11/23/21 05:26 Smudge Cells Not Reportable 11/23/21 05:26 Toxic Granulation Not Reportable 11/23/21 05:26 Toxic Vacuolation Not Reportable 11/23/21 05:26 Dohle Bodies Not Reportable 11/23/21 05:26 Pelger-Huet Anomaly Not Reportable 11/23/21 05:26 Jamal Rods Not Reportable 11/23/21 05:26 Platelet Estimate Consistent w auto 11/23/21 05:26 Clumped Platelets Not Reportable 11/23/21 05:26 Plt Clumps, EDTA Not Reportable 11/23/21 05:26 Large Platelets Not Reportable 11/23/21 05:26 Giant Platelets Not Reportable 11/23/21 05:26 Platelet Satelliting Not Reportable 11/23/21 05:26 Plt Morphology Comment Not Reportable 11/23/21 05:26 RBC Morphology Not Reportable 11/23/21 05:26 Dimorphic RBCs Not Reportable 11/23/21 05:26 Polychromasia Not Reportable 11/23/21 05:26 Hypochromasia Not Reportable 11/23/21 05:26 Poikilocytosis Not Reportable 11/23/21 05:26 Anisocytosis 1+ 11/23/21 05:26 Microcytosis Not Reportable 11/23/21 05:26 Macrocytosis Not Reportable 11/23/21 05:26 Spherocytes Not Reportable 11/23/21 05:26 Pappenheimer Bodies Not Reportable 11/23/21 05:26 Sickle Cells Not Reportable 11/23/21 05:26 Target Cells Not Reportable 11/23/21 05:26 Tear Drop Cells Not Reportable 11/23/21 05:26 Ovalocytes Not Reportable 11/23/21 05:26 Helmet Cells Not Reportable 11/23/21 05:26 [place] Bodies Not Reportable 11/23/21 05:26 Bernie Rings Not Reportable 11/23/21 05:26 Hali Cells Not Reportable 11/23/21 05:26 Bite Cells Not Reportable 11/23/21 05:26 Crenated Cell Not Reportable 11/23/21 05:26 Elliptocytes Not Reportable 11/23/21 05:26 Acanthocytes (Spur) Not Reportable 11/23/21 05:26 Rouleaux Not Reportable 11/23/21 05:26 Hemoglobin C Crystals Not Reportable 11/23/21 05:26 Schistocytes Not Reportable 11/23/21 05:26 Malaria parasites Not Reportable 11/23/21 05:26 Can Bodies Not Reportable 11/23/21 05:26 Hem Pathologist Commnt No 11/23/21 05:26 PT 14.6 Sec. (12.2-14.9) 11/23/21 12:45 INR 1.03 (0.87-1.13) 11/23/21 12:45 APTT 27.0 Sec. (24.2-36.6) 11/23/21 12:45 Sodium 139 mmol/L (137-145) 11/23/21 05:26 Potassium 5.1 mmol/L (3.6-5.0) H 11/23/21 05:26 Chloride 100.8 mmol/L (98-107) 11/23/21 05:26 Carbon Dioxide 31 mmol/L (22-30) H 11/23/21 05:26 Anion Gap 12 mmol/L 11/23/21 05:26 BUN 23 mg/dL (9-20) H 11/23/21 05:26 Creatinine 0.8 mg/dL (0.8-1.3) 11/23/21 05:26 Estimated GFR > 60 ml/min 11/23/21 05:26 BUN/Creatinine Ratio 29 % 11/23/21 05:26 Glucose 95 mg/dL (75-100) 11/23/21 05:26 Calcium 9.1 mg/dL (8.4-10.2) 11/23/21 05:26 Magnesium 2.20 mg/dL (1.7-2.3) 11/23/21 05:26 Total Bilirubin 0.50 mg/dL (0.1-1.2) 11/23/21 05:26 AST 21 units/L (5-40) 11/23/21 05:26 ALT 22 units/L (7-56) 11/23/21 05:26 Alkaline Phosphatase 67 units/L (35-129) 11/23/21 05:26 Total Protein 5.9 g/dL (6.3-8.2) L 11/23/21 05:26 Albumin 3.3 g/dL (3.9-5) L 11/23/21 05:26 Albumin/Globulin Ratio 1.3 % 11/23/21 05:26 Blood Type O POSITIVE 11/23/21 12:45 Antibody Screen Negative 11/23/21 12:45 [place]/IV: Voiding Method Toilet Active Medications - Current Medications Current Medications: Generic Name Dose Route Start Last Admin Trade Name Freq PRN Reason Stop Dose Admin Acetaminophen 650 mg 11/22/21 11:00 Acetaminophen 325 Mg Tab PO Q4H PRN Pain MILD(1-3)/Fever >100.5/ACOSTA Hydrocodone Bitart/Acetaminophen 2 each 11/22/21 11:00 11/24/21 03:50 Hydrocodone/Acetaminophen 5-325 Mg Tab PO 2 each Q6H PRN Administration Pain, Moderate (4-6) Albuterol 2.5 mg 11/22/21 13:01 Albuterol 2.5 Mg/3 Ml Nebu IH Q4HRT PRN Shortness Of Breath Amlodipine Besylate 5 mg 11/22/21 22:00 11/23/21 21:40 Amlodipine 5 Mg Tab PO Not Given BID ROLAN Arformoterol Tartrate 15 mcg 11/23/21 20:00 11/24/21 08:18 Arformoterol 15 Mcg/2 Ml Nebu IH 15 mcg Q12HRT ROLAN Administration Aspirin 81 mg 11/23/21 10:00 11/23/21 09:02 Aspirin Ec 81 Mg Tab PO 81 mg DAILY ROLAN Administration Bisacodyl 10 mg 11/23/21 10:45 11/23/21 20:09 Bisacodyl 5 Mg Tab PO 10 mg QDAY PRN Administration Constipation Budesonide 0.5 mg 11/23/21 20:00 11/24/21 08:18 Budesonide 0.5 Mg/2 Ml Nebu IH 0.5 mg Q12HRT ROLAN Administration Enoxaparin Sodium 40 mg 11/23/21 10:00 11/23/21 09:02 Enoxaparin 40 Mg/0.4 Ml Inj SUB-Q 40 mg QDAY ROLNA Administration Famotidine 20 mg 11/22/21 22:00 11/23/21 21:40 Famotidine 20 Mg/2 Ml Inj IV 20 mg BID ROLAN Administration Fluticasone Propionate 50 mcg 11/22/21 22:00 11/23/21 21:40 Fluticasone Propionate Nasal [place] 16 Gm NS Not Given BID ROLAN Hydromorphone HCl 1 mg 11/22/21 18:05 11/24/21 05:24 Hydromorphone 1 Mg/1 Ml Inj IV 1 mg Q4H PRN Administration Pain , Severe (7-10) Levofloxacin/Dextrose 750 mg in 150 mls @ 100 mls/hr 11/23/21 16:00 11/23/21 16:19 Levaquin 750mg/150ml IV 100 mls/hr Q24H ROLAN Administration Protocol Ibuprofen 600 mg 11/22/21 11:00 Ibuprofen 600 Mg Tab PO Q6H PRN Pain, Mild (1-3) Montelukast Sodium 10 mg 11/23/21 10:00 11/23/21 09:03 Montelukast 10 Mg Tab PO 10 mg QAM ROLAN Administration Naloxone HCl 0.1 mg 11/22/21 11:00 Naloxone 0.4 Mg/1 Ml Inj IV Q2MIN PRN Res Rate </= 8 or 02 SAT < 92% Ondansetron HCl 4 mg 11/22/21 11:00 Ondansetron 4 Mg/2 Ml Inj IV Q8H PRN Nausea And Vomiting Sodium Chloride 10 ml 11/22/21 22:00 11/23/21 21:40 Sodium Chloride 0.9% 10 Ml Flush Syringe IV 10 ml BID ROLAN Administration Sodium Chloride 10 ml 11/22/21 11:00 Sodium Chloride 0.9% 10 Ml Flush Syringe IV PRN PRN LINE FLUSH Tiotropium [place] 1 puff 11/24/21 09:00 11/24/21 08:18 Tiotropium 18 Mcg Cap Inhalation IH 1 puff Q24HRT ROLAN Administration
[2021-11-24] MEDS ORDERED: NON-FORMULARY EACH (Tiotropium Bromide [Spiriva Respimat] 4 GM Mist.Inhal) IH SCH (10:00)
--- NOTE | 2021-11-24 10:34 | Magnetic Resonance Report ---
MR lumbar spine wo con INDICATION / CLINICAL INFORMATION: 61 years Male; L1 A2 split fracture; numbness, weakness. TECHNIQUE: Multisequence, multiplanar images of the lumbar spine were obtained. COMPARISON: None available. FINDINGS: ALIGNMENT: Straightening of the lumbar spine noted. VERTEBRAE:20 - 30% loss of height seen at L1 with significant marrow edema. Superior endplate luli cresencio injury noted. Fracture is somewhat comminuted appearance, almost having the appearance of a burs t fracture. On MRI, it appears that the fracture line does extend into the anterior and posterior mar gins of the vertebrae, as well as the superior and inferior endplates. No significant retropulsion of bony elements seen. Remainder the vertebrae are normal in appearance. Multiple, presumed hemangiomata identified at multiple levels. These findings should be of no clinica l significance. VISUALIZED SPINAL CORD: No significant abnormality. Conus is grossly normal in appearance. INTERVERTEBRAL DISCS: Multilevel disc desiccation noted. NNALE-NS-QGEWS ANALYSIS: L1-2: Normal by sagittal imaging. L2-3: Mild disc bulge and facet hypertrophy. Small foraminal, broad-based disc protrusion on the righ t without significant sequela. L3-4: Mild disc bulge and facet hypertrophy. Small foraminal/extra foraminal disc protrusion on the l eft without significant sequela. L4-5: Mild disc bulge and facet hypertrophy. Broad-based foraminal/extra foraminal disc protrusion on the left. There is encroachment upon left L4 nerve without impingement. L5-S1: Mild facet hypertrophy. PARASPINAL SOFT TISSUES: No significant abnormality. ADDITIONAL FINDINGS: None. IMPRESSION: 1. Compression injury seen at L1, as described above. No significant retropulsion of bony elements se en. 2. Mild, subtle degenerative changes as described above. Signer Name: David Godoy MD, III Signed: 11/22/2021 4:25 PM Workstation Name: [id number]
[2021-11-24] MEDS: FLUTICASONE PROPIONATE NASAL SPRAY 16 GM NS SCH ×2 (10:48→22:00)
[2021-11-24] MEDS: FAMOTIDINE 20 MG/2 ML INJ IV SCH ×2 (10:50→23:06)
[2021-11-24] MEDS: MONTELUKAST 10 MG TAB PO SCH (10:51)
[2021-11-24] MEDS: amLODIPine 5 MG TAB PO SCH ×2 (11:32→23:53)
[2021-11-24] MEDS: ENOXAPARIN 40 MG/0.4 ML INJ SUB-Q SCH (11:34)
[2021-11-24] MEDS: ASPIRIN EC 81 MG TAB PO SCH (11:34)
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
--- NOTE | 2021-11-24 16:06 | Event Note ---
Date: 11/24/21 I spoke with [place] physician Dr. Aragon at [phone] And discussed in detail patient's condition, tests and reports, neurosurgeons recommendations and treatment plan Answered all her questions, she reported that she will check with their physicians and get back to me regarding The patient's management.
--- NOTE | 2021-11-24 17:26 | Progress Note ---
Assessment and Plan 61 y/o M w/ L1 coronal split fx -intermediate risk surgery -will plan for surgical intervention later this week, pending OR availability, likely Wednesday vs Subjective Date of service: 11/24/21 Interval history: NAEON; pt denies present concerns. He has ongoing, severe low back pain Objective - Exam Narrative Exam: A&Ox3 CNII-XII intact MAEW sensation intact reflexes +2 - Vital Sign Vital Signs - 12hr 11/24/21 11/24/21 11/24/21 08:14 08:18 08:26 Temperature Pulse Rate 89 Pulse Rate [ 90 Bilateral] Respiratory 21 Rate Respiratory 20 Rate [Bilateral ] Blood Pressure [Right] O2 Sat by Pulse 100 99 Oximetry 11/24/21 11/24/21 11/24/21 08:30 10:00 12:00 Temperature 97.8 F Pulse Rate 71 71 Pulse Rate [ Bilateral] Respiratory 24 Rate Respiratory Rate [Bilateral ] Blood Pressure 126/46 [Right] O2 Sat by Pulse 99 98 Oximetry 11/24/21 14:08 Temperature 98.0 F Pulse Rate 94 H Pulse Rate [ Bilateral] Respiratory 24 Rate Respiratory Rate [Bilateral ] Blood Pressure 125/51 [Right] O2 Sat by Pulse Oximetry - Laboratory Findings CBC and BMP: 11/23/21 05:26 11/23/21 05:26 Abnormal Lab Findings: Abnormal Labs 11/22/21 11/22/21 11/23/21 11:02 11:02 05:26 WBC 12.5 H RDW 15.6 H Lymph % (Auto) 8.1 L Lymph # (Auto) 1.0 L Seg Neutrophils % 85.6 H Monocytes % (Manual) 13.0 H Eosinophils % (Manual) 5.0 H Seg Neutrophils # 10.7 H Monocytes # (Manual) 1.2 H Eosinophils # (Manual) 0.5 H Potassium 5.9 H Carbon Dioxide 33 H BUN 22 H Glucose 144 H Total Protein Albumin 11/23/21 05:26 WBC RDW Lymph % (Auto) Lymph # (Auto) Seg Neutrophils % Monocytes % (Manual) Eosinophils % (Manual) Seg Neutrophils # Monocytes # (Manual) Eosinophils # (Manual) Potassium 5.1 H Carbon Dioxide 31 H BUN 23 H Glucose Total Protein 5.9 L Albumin 3.3 L
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
--- NOTE | 2021-11-24 19:03 | Event Note ---
Date: 11/24/[address] [place] [address] Aragon called back and recommended to have neurosurgical procedure by Dr. Faye here at [facility].
[2021-11-24] MEDS ORDERED: FLEET ENEMA PR ONE (21:55)
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
[2021-11-25] MEDS: HYDROmorphone 1 MG/1 ML INJ IV PRN ×4 (01:22→15:14)
[2021-11-25 05:40] LABS: Blood Urea Nitrogen 13 mg/dL (9-20); Calcium 8.5 mg/dL (8.4-10.2); Hemolysis Index 7
[2021-11-25 05:46] LABS: BUN/Creatinine Ratio 22
[2021-11-25] MEDS: ARFORMOTEROL 15 MCG/2 ML NEBU IH SCH (09:04)
[2021-11-25] MEDS: BUDESONIDE 0.5 MG/2 ML NEBU IH SCH (09:04)
[2021-11-25] MEDS ORDERED: FAMOTIDINE 20 MG TAB PO SCH (10:00)
[2021-11-25] MEDS: ENOXAPARIN 40 MG/0.4 ML INJ SUB-Q SCH (10:05)
[2021-11-25] MEDS: HYDROcodone/ACETAMINOPHEN 5-325 MG TAB PO PRN ×2 (10:05→18:46)
[2021-11-25] MEDS: amLODIPine 5 MG TAB PO SCH (10:06)
[2021-11-25] MEDS: ASPIRIN EC 81 MG TAB PO SCH (10:07)
[2021-11-25] MEDS: MONTELUKAST 10 MG TAB PO SCH (10:07)
--- NOTE | 2021-11-25 12:50 | Progress Note ---
Assessment and Plan - Patient Problems (1) Preoperative cardiovascular examination Current Visit: Yes Status: Acute Plan to address problem: Patient is awaiting lumbar spine surgery, I have ordered a preoperative twelve- lead ECG. We will review ECG when completed. Otherwise, stable for surgery from a cardiac standpoint, low to moderate risk. Subjective Date of service: 11/25/21 Principal diagnosis: Preop evaluation Interval history: Patient is comfortable in no acute distress, no new cardiac events reported. Objective Vital Signs Temp Pulse Pulse Resp Resp BP BP 11/25/21 09:05 11/25/21 09:04 70 19 11/25/21 07:42 98.6 F 68 22 152/68 11/25/21 04:11 98.3 F 90 18 160/70 11/25/21 02:44 92 H 18 11/25/21 00:00 11/24/21 23:53 74 165/72 11/24/21 23:45 98.3 F 74 16 165/72 11/24/21 21:26 90 20 11/24/21 21:25 11/24/21 19:45 89 158/94 11/24/21 16:30 98.3 F 67 24 144/94 11/24/21 14:08 98.0 F 94 H 24 125/51 Pulse Ox 11/25/21 09:05 97 11/25/21 09:04 11/25/21 07:42 98 11/25/21 04:11 99 11/25/21 02:44 100 11/25/21 00:00 99 11/24/21 23:53 11/24/21 23:45 94 11/24/21 21:26 11/24/21 21:25 99 11/24/21 19:45 92 11/24/21 16:30 11/24/21 14:08 - Physical Examination General: No Apparent Distress HEENT: Positive: PERRL Neck: Positive: neck supple Cardiac: Positive: Reg Rate and Rhythm Lungs: Positive: Decreased Breath Sounds Neuro: Positive: Weakness (Lower extremity weakness is documented) Abdomen: Positive: Soft Skin: Positive: Clear Extremities: Absent: edema - Labs and Meds Comprehensive Metabolic Panel 11/25/21 Range/Units 04:52 Sodium 136 L (137-145) mmol/L Potassium 4.1 (3.6-5.0) mmol/L Chloride 96.9 L (98-107) mmol/L Carbon Dioxide 30 (22-30) mmol/L BUN 13 (9-20) mg/dL Creatinine 0.6 L (0.8-1.3) mg/dL Glucose 128 H (75-100) mg/dL Calcium 8.5 (8.4-10.2) mg/dL
--- NOTE | 2021-11-25 12:59 | Progress Note ---
Assessment and Plan Chronic hypoxemic respiratory failure Chronic obstructive pulmonary disease Obstructive sleep apnea Hypertension GERD Morbid obesity - continue NIV scheduled qhs with prn daytime use - continue to wean supplemental oxygen to keep O2 sats > 90% - continue bronchodilators (TEODORO & LABA) with pulm hygiene per RT - continue inhaled corticosteroids - continue to avoid nephrotoxins, renally dose all medications - continue mobility protocols to prevent pressure ulcers - PT/OT as tolerated - Wound care per RN/WCT - continue accuchecks with glycemic control per SSI for target blood glucose < 180 mg/dL - tobacco abstinence strongly counseled at the bedside - home oxygen evaluation at discharge - GI & VTE prophylaxis - Flu & pneumovax per protocol - Pulmonary out patient follow up for PFTs and optimization of respiratory status - continue other care per attending / other consultants - prn analgesia per pain score ... re-evaluate in am & prn Subjective Date of service: 11/25/21 Principal diagnosis: Preop-evaluation; Ch hypoxemic resp failure; AE-COPD; PNA; ASHELY/OHS; Obesity Interval history: Patient is seen today for: PRE-OP Pulm Clearance; Chronic hypoxemic respiratory failure; COPD; ASHELY; HTN; Morbid obesity Seen and examined at bedside; 24hour events reviewed; nursing and respiratory care staff consulted; no adverse overnight events reported to me; resting peacefully in bed; feels and looks better; states that he would rather have his neurosurgery done @ [facility]; tolerating BIPAP Objective Vital Signs - 12hr 11/25/21 11/25/21 11/25/21 02:44 04:11 07:42 Temperature 98.3 F 98.6 F Pulse Rate 92 H 90 68 Pulse Rate [ Bilateral] Respiratory 18 18 22 Rate Respiratory Rate [Bilateral ] Blood Pressure 160/70 152/68 [Right] O2 Sat by Pulse 100 99 98 Oximetry 11/25/21 11/25/21 09:04 09:05 Temperature Pulse Rate Pulse Rate [ 70 Bilateral] Respiratory Rate Respiratory 19 Rate [Bilateral ] Blood Pressure [Right] O2 Sat by Pulse 97 Oximetry Constitutional: no acute distress, other (elderly obese male with mildly increased respiratory effort at rest) Eyes: non-icteric ENT: oropharynx moist, other (Mallampati 4) Neck: supple, no lymphadenopathy, no JVD, other (large circumference) Effort: mildly labored Ascultation: Bilateral: diminished breath sounds Percussion: Bilateral: not dull Cardiovascular: regular rate and rhythm Gastrointestinal: normoactive bowel sounds, soft, non-tender, non-distended (protuberant) Integumentary: normal Extremities: no cyanosis, no edema, pulses normal, no ischemia or petechiae Neurologic: non-focal exam (grossly), pupils equal and round (post-op right eye), CN II-XII normal, motor strength normal and Psychiatric: mood appropriate, affect normal CBC and BMP: 11/23/21 05:26 11/25/21 04:52 ABG, PT/INR, D-dimer: PT/INR, D-dimer PT 14.6 Sec. (12.2-14.9) 11/23/21 12:45 INR 1.03 (0.87-1.13) 11/23/21 12:45 Abnormal lab findings: Abnormal Labs 11/22/21 11/22/21 11/23/21 11:02 11:02 05:26 WBC 12.5 H RDW 15.6 H Lymph % (Auto) 8.1 L Lymph # (Auto) 1.0 L Seg Neutrophils % 85.6 H Monocytes % (Manual) 13.0 H Eosinophils % (Manual) 5.0 H Seg Neutrophils # 10.7 H Monocytes # (Manual) 1.2 H Eosinophils # (Manual) 0.5 H Sodium Potassium 5.9 H Chloride Carbon Dioxide 33 H BUN 22 H Creatinine Glucose 144 H Total Protein Albumin 11/23/21 11/25/21 05:26 04:52 WBC RDW Lymph % (Auto) Lymph # (Auto) Seg Neutrophils % Monocytes % (Manual) Eosinophils % (Manual) Seg Neutrophils # Monocytes # (Manual) Eosinophils # (Manual) Sodium 136 L Potassium 5.1 H Chloride 96.9 L Carbon Dioxide 31 H BUN 23 H Creatinine 0.6 L Glucose 128 H Total Protein 5.9 L Albumin 3.3 L Allied health notes reviewed: nursing
[2021-11-25] MEDS ORDERED: DOCUSATE SODIUM 100 MG CAP PO SCH (13:30)
[2021-11-25] MEDS ORDERED: POLYETHYLENE GLYCOL 3350 17 GM POWDER PO SCH (13:30)
[2021-11-25] MEDS: TIOTROPIUM 18 MCG CAP INHALATION IH SCH (13:57)
--- NOTE | 2021-11-25 15:29 | Discharge Summary ---
Providers - Providers Date of Admission: 11/22/21 10:39 Date of discharge: 11/25/21 Attending physician: JERI GEIGER 11/22/21 07:02 Consult to Physician [CONS] Routine Comment: Consulting Provider: DANIEL WATSON II Physician Instructions: Reason For Exam: L1 coronal fracture; 11/22/21 12:57 Physical Therapy Evaluation and Treat [CONS] Stat Comment: Educate Reason For Exam: Lumbar spine fracture/full spine precautions 11/23/21 14:55 Consult to Physician [CONS] Routine Comment: Consulting Provider: TITI STEPHENS Physician Instructions: Reason For Exam: COPD exacerbation/ASHELY/obesity/surgical clearance 11/24/21 09:14 Consult to Physician [CONS] Routine Comment: Consulting Provider: ALBERTINA RUIZ Physician Instructions: Fall/L1 fracture/possible posterior spine fusion Reason For Exam: Cardiac clearance for neurosurgical procedure Primary care physician: LUIS DIETZ Hospitalization Condition: Stable Pertinent studies: Lumber spine MRI: 20 - 30% loss of height seen at L1 with significant marrow edema. Superior endplate compression injury noted. Fracture is somewhat comminuted appearance, almost having the appearance of a burst fracture. On MRI, it appears that the fracture line does extend into the anterior and posterior margins of the vertebrae, as well as the superior and inferior endplates. No significant retropulsion of bony elements seen. 1. Compression injury seen at L1. No significant retropulsion of bony elements seen. 2. Mild, subtle degenerative changes as described above. Hospital course: 61-year-old morbidly obese male patient with significant past medical history of COPD, obstructive sleep apnea, obesity hypoventilation syndrome, hypertension, seizure disorder presented to ER pn 11/22/21 after he had a fall and sustained L2 fracture evaluated by neurosurgeon planning to do posterior T12 L2 spinal fusion surgery. Pulmonary and cardiology evaluating the patient for surgical clearance. 11/24/2021; Neurosurgeon planning posterior spinal fusion next few days Requested pulmonary clearance and cardiology clearance prior to surgery 11/25: Discussed with [facility] physician, and patient is accepted to the [facility] for further care. Discussed with Dr. Marks by phone and cleared patient for transportation. Patient will be transferred to [facility] when transportation has been set up. Disposition: SHORT TERM HOSPITAL Final Discharge Diagnosis (Prints w/discharge instructions): -- Status post fall. -- Traumatic lumbar spine injury with L1 fracture. -- Hyperkalemia. -- Mild leukocytosis. --History of COPD. --Morbid obesity, BMI 86.1. -- Hypertension Time spent for discharge: 34 minutes Core Measure Documentation - Palliative Care Palliative Care/ Comfort Measures: Not Applicable - Core Measures Any of the following diagnoses?: none Exam - Physical Exam Narrative exam: General appearance: Present: no acute distress, well-nourished, obese (Morbidly obese), other (Patient has back brace) - EENT Eyes: Present: PERRL, EOM intact - Neck Neck: Present: supple, normal ROM - Respiratory Respiratory effort: normal Respiratory: bilateral: diminished, negative: rales, rhonchi, wheezing - Cardiovascular Rhythm: regular Heart Sounds: Present: S1 & S2 - Extremities Extremities: no ischemia, No edema - Abdominal General gastrointestinal: soft, non-tender, non-distended, normal bowel sounds - Integumentary Integumentary: Present: clear, warm - Psychiatric Psychiatric: appropriate mood/affect, cooperative - Neurologic Neurologic: moves all extremities, other (Back brace in place) - Constitutional Vitals: Temp Pulse Resp BP Pulse Ox 98.6 F 82 18 152/68 98 11/25/21 07:42 11/25/21 13:58 11/25/21 13:58 11/25/21 07:42 11/25/21 10:00 Plan Activity: other (Bedrest) Diet: low fat, low salt, other (Need assistance for feeding) Follow up with: LIUS DIETZ MD [Primary Care Provider] - 7 Days
[2021-11-25 16:51] VITALS: BP 157/68
--- NOTE | 2021-11-25 17:19 | Progress Note ---
Subjective Date of service: 11/25/21 Principal diagnosis: Preop-evaluation; Ch hypoxemic resp failure; AE-COPD; PNA; ASHELY/OHS; Obesity Interval history: NSGY Update: notified that [facility] has requested transfer to their emission specialist for operative management. The patient is clear to transfer via ground. Please continue LSO and spine precautions throughout journey. No further intervention from my standpoint. Please notify if questions/concerns. Objective - Vital Sign Vital Signs - 12hr 11/25/21 11/25/21 11/25/21 07:42 09:04 09:05 Temperature 98.6 F Pulse Rate 68 Pulse Rate [ 70 Bilateral] Respiratory 22 Rate Respiratory 19 Rate [Bilateral ] Blood Pressure 152/68 [Right] O2 Sat by Pulse 98 97 Oximetry 11/25/21 11/25/21 11/25/21 10:00 12:00 13:58 Temperature 98.2 F Pulse Rate 76 Pulse Rate [ 82 Bilateral] Respiratory 22 Rate Respiratory 18 Rate [Bilateral ] Blood Pressure 116/84 [Right] O2 Sat by Pulse 98 94 Oximetry 11/25/21 16:30 Temperature 98.3 F Pulse Rate 76 Pulse Rate [ Bilateral] Respiratory 22 Rate Respiratory Rate [Bilateral ] Blood Pressure 157/68 [Right] O2 Sat by Pulse 94 Oximetry - Laboratory Findings CBC and BMP: 11/23/21 05:26 11/25/21 04:52 Abnormal Lab Findings: Abnormal Labs 11/22/21 11/22/21 11/23/21 11:02 11:02 05:26 WBC 12.5 H RDW 15.6 H Lymph % (Auto) 8.1 L Lymph # (Auto) 1.0 L Seg Neutrophils % 85.6 H Monocytes % (Manual) 13.0 H Eosinophils % (Manual) 5.0 H Seg Neutrophils # 10.7 H Monocytes # (Manual) 1.2 H Eosinophils # (Manual) 0.5 H Sodium Potassium 5.9 H Chloride Carbon Dioxide 33 H BUN 22 H Creatinine Glucose 144 H Total Protein Albumin 11/23/21 11/25/21 05:26 04:52 WBC RDW Lymph % (Auto) Lymph # (Auto) Seg Neutrophils % Monocytes % (Manual) Eosinophils % (Manual) Seg Neutrophils # Monocytes # (Manual) Eosinophils # (Manual) Sodium 136 L Potassium 5.1 H Chloride 96.9 L Carbon Dioxide 31 H BUN 23 H Creatinine 0.6 L Glucose 128 H Total Protein 5.9 L Albumin 3.3 L
[2021-11-25] MEDS: FLUTICASONE PROPIONATE NASAL SPRAY 16 GM NS SCH (18:44)
[2021-11-25] MEDS ORDERED: levoFLOXacin 750 MG TAB PO SCH (22:00)
--- NOTE | 2021-11-27 18:53 | Electrocardiograph Report ---
[facility] Test Date: 2021-11-25 Test Time: 10:13:51 Pat Name: DANIS EBRRY SR Department: Room: A465 1 Gender: M Fws Faculty Assistant: VISH : 1960 Requested By: BRUNO RUIZ Order Number: [id number] Reading MD: Bruno Ruiz Measurements Intervals [place] Rate: 75 P: 43 HI: 134 QRS: -58 QRSD: 89 T: 16 QT: 357 QTc: 399 Interpretive Statements Sinus rhythm Atrial premature complex Left axis deviation Compared to ECG 11/14/2021 01:56:02 No significant change Electronically Signed On 11-27-2021 18:52:40 EDT by Bruno Ruiz
== END 2021-11-25 19:18 | disposition short-term general hospital (02) | DRG 552 ==
LOC: ED 05:13 → 4A 10:39
PROVIDERS: ADMIT Internal Medicine; ATTEND Internal Medicine
DX: S32.018A Other fracture of first lumbar vertebra, initial encounter for closed fracture (principal); E66.2 Morbid (severe) obesity with alveolar hypoventilation; Z68.45 Body mass index [BMI] 70 or greater, adult; J96.11 Chronic respiratory failure with hypoxia; G82.20 Paraplegia, unspecified; I42.9 Cardiomyopathy, unspecified; E87.5 Hyperkalemia; K21.9 Gastro-esophageal reflux disease without esophagitis; I10 Essential (primary) hypertension; M19.90 Unspecified osteoarthritis, unspecified site; G43.909 Migraine, unspecified, not intractable, without status migrainosus; J44.9 Chronic obstructive pulmonary disease, unspecified; G89.29 Other chronic pain; M54.9 Dorsalgia, unspecified; G40.909 Epilepsy, unspecified, not intractable, without status epilepticus; D72.829 Elevated white blood cell count, unspecified; Z79.82 Long term (current) use of aspirin; Z90.49 Acquired absence of other specified parts of digestive tract; Z71.3 Dietary counseling and surveillance; Z86.73 Personal history of transient ischemic attack (TIA), and cerebral infarction without residual deficits; W18.39XA Other fall on same level, initial encounter; Y93.89 Activity, other specified; Y92.89 Other specified places as the place of occurrence of the external cause; Y99.8 Other external cause status
CPT/HCPCS: 36415; 70450; 72125; 72131; 72148; 80048; 80053; 83735; 85007; 85025; 85610; 85730; 86850; 86900; 86901; 93005; 94640; 94660; 94760; 96372; 99284; G0378; J3490; J0610; J1170; J1650; J1885; J1956; J2060; J2270; J2405

== ENCOUNTER 2022-02-14 02:18 | Inpatient (IN) | payer MEDICARE ==
[2022-02-14] MEDS ORDERED: MORPHINE 4 MG/1 ML INJ IV ONE (03:58)
[2022-02-14] MEDS ORDERED: ONDANSETRON 4 MG/2 ML INJ IV ONE (03:58)
[2022-02-14] MEDS ORDERED: SODIUM CHLORIDE 0.9% 1000 ML 1,000 ML IV ONE (03:58)
[2022-02-14 05:31] LABS: Basophils # (Auto) 0.1 K/mm3 (0.0-0.1); Basophils % (Auto) 0.8 % (0.0-1.8); Eosinophils # (Auto) 0.3 K/mm3 (0.0-0.4); Eosinophils % (Auto) 1.8 % (0.0-4.3); Hematocrit 36.8 % (35.5-45.6); Hemoglobin 12.2 gm/dl (11.8-15.2); Lymphocytes # (Auto) 1.7 K/mm3 (1.2-5.4); Mean Corpuscular HGB Conc 33 % (32-34); Mean Corpuscular Volume 87 fl (84-94); Monocytes # (Auto) 1.4 K/mm3 (0.0-0.8); Monocytes % (Auto) 9.8 % (0.0-7.3); Platelet Count 184 K/mm3 (140-440); Red Blood Count 4.22 M/mm3 (3.65-5.03); Red Cell Distribution Width 15.5 % (13.2-15.2)
[2022-02-14 06:06] LABS: Alanine Aminotransferase 18 units/L (7-56); Albumin 3.6 g/dL (3.9-5); BUN/Creatinine Ratio 23; Blood Urea Nitrogen 18 mg/dL (9-20); Calcium 8.5 mg/dL (8.4-10.2); Hemolysis Index 35
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
[2022-02-14 07:11] LABS: Bacteria,Urine 1+ /HPF (Negative); Mucus,Urine 1+ /HPF
[2022-02-14 07:22] LABS: Color,Urine Yellow (Yellow)
[2022-02-14 07:23] LABS: WBC,Urine > 182.0 /HPF (0.0-6.0)
--- NOTE | 2022-02-14 09:05 | Cat Scan Report ---
CT ABDOMEN AND PELVIS WITHOUT AND WITH CONTRAST INDICATION / CLINICAL INFORMATION: Changed to 3 phase per radiologist. Pain. TECHNIQUE: Axial CT images were obtained through the abdomen and pelvis before and after IV contrast. All CT scans at this location are performed using CT dose reduction for ALARA by means of automated exposure control. COMPARISON: CT abdomen pelvis without and with IV contrast 03/04/2017 FINDINGS: LOWER CHEST: No significant abnormality. LIVER: There is a 3.0 x 3.0 hypodense focus in the inferior portion of the right lower lobe which is not enhanced on arterial phase imaging but is isoattenuating on delayed imaging. This may represent a hemangioma. GALLBLADDER: Cholecystectomy. BILE DUCTS: No significant abnormality. PANCREAS: No significant abnormality. SPLEEN: No significant abnormality. ADRENALS: No significant abnormality. RIGHT KIDNEY / URETER: No significant abnormality. LEFT KIDNEY / URETER: No significant abnormality. STOMACH / SMALL BOWEL: No significant abnormality. COLON: No significant abnormality. APPENDIX: No significant abnormality. PERITONEUM: No free fluid. No free air. No fluid collection. LYMPH NODES: No significant adenopathy. AORTA / ARTERIES: Moderate atherosclerotic calcification without acute abnormality. IVC / VEINS: No significant abnormality. URINARY BLADDER: No significant abnormality. REPRODUCTIVE ORGANS: No significant abnormality. ADDITIONAL FINDINGS: None. SKELETAL SYSTEM: Multilevel degenerative changes of the spine with spinal fusion hardware extending f rom T11 through L2. IMPRESSION: 1. Ill-defined nonspecific hypodense lesion within the inferior aspect of the right lobe of the liver measuring up to 3.0 cm. This is decreased in conspicuity as compared to prior exam dated 03/04/2017. If further characterization is clinically warranted, MRI is recommended. Signer Name: Billy Blas MD Signed: 02/14/2022 9:00 AM Workstation Name: [email or web address]
[2022-02-14] MEDS ORDERED: methylPREDNISolone Sod Succinate 125 MG/2 ML INJ IV ONE (09:59)
[2022-02-14] MEDS ORDERED: ALBUTEROL 2.5 MG/3 ML NEBU IH ONE (09:59)
--- NOTE | 2022-02-14 10:23 | XRay Report ---
CHEST 1 VIEW 02/14/2022 9:09 AM INDICATION / CLINICAL INFORMATION: Cough. COMPARISON: Radiographs 11/14/2021 FINDINGS: SUPPORT DEVICES: None. HEART / MEDIASTINUM: Normal heart size. Mild pulmonary vascular prominence. LUNGS / PLEURA: Hazy opacities within the mid lungs. No pneumothorax. ADDITIONAL FINDINGS: No significant additional findings. IMPRESSION: 1. Hazy opacities within the mid lungs may represent developing pulmonary edema or pneumonia. Signer Name: Billy Blas MD Signed: 02/14/2022 10:19 AM Workstation Name: [id number]
[2022-02-14] MEDS ORDERED: FUROSEMIDE 40 MG/4 ML INJ IV ONE (13:13)
[2022-02-14 15:41] LABS: ABG Base Excess 3.9 mmol/L (-2.0-3.0); ABG HCO3 32.8 mmol/L (20.0-26.0); ABG Methemoglobin 0.5 % (0.0-1.5); ABG Oxygen Saturation 98.4 % (95.0-99.0); ABG PCO2 71.7 mm Hg; ABG PH 7.278 pH Units (7.350-7.450); ABG PO2 141.9 mm Hg (80.0-90.0)
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
[2022-02-14] MEDS ORDERED: ACETAMINOPHEN 325 MG TAB PO PRN (20:21)
[2022-02-14] MEDS ORDERED: ONDANSETRON 4 MG/2 ML INJ IV PRN (20:21)
[2022-02-14] MEDS ORDERED: IPRATROPIUM/ALBUTEROL SULFATE 3 ML AMPUL.NEB IH PRN (20:31)
[2022-02-14] MEDS: cefTRIAXone/NS 2 GM/100 ML 2 GM/100 ML BAG IV SCH (21:27)
[2022-02-14] MEDS: methylPREDNISolone Sod Succinate 125 MG/2 ML INJ IV SCH (22:07)
[2022-02-14] MEDS: AZITHROMYCIN/NS 500 MG/250 ML 500 MG/250 ML BAG IV SCH (22:07)
[2022-02-14] MEDS: HEPARIN 5,000 UNIT/1 ML VIAL SUB-Q SCH (22:15)
[2022-02-15 05:22] LABS: Basophils % (Auto) 0.1 % (0.0-1.8); Hematocrit 39.4 % (35.5-45.6); Hemoglobin 12.5 gm/dl (11.8-15.2); Lymphocytes # (Auto) 0.8 K/mm3 (1.2-5.4); Lymphocytes % (Auto) 7.6 % (13.4-35.0); Mean Corpuscular HGB Conc 32 % (32-34); Mean Corpuscular Volume 88 fl (84-94); Monocytes # (Auto) 0.3 K/mm3 (0.0-0.8); Monocytes % (Auto) 3.2 % (0.0-7.3); Platelet Count 208 K/mm3 (140-440); Red Blood Count 4.46 M/mm3 (3.65-5.03); Red Cell Distribution Width 14.7 % (13.2-15.2)
[2022-02-15 05:38] LABS: Alanine Aminotransferase 19 units/L (7-56); Albumin 3.6 g/dL (3.9-5); BUN/Creatinine Ratio 23; Blood Urea Nitrogen 18 mg/dL (9-20); Calcium 9.2 mg/dL (8.4-10.2); Hemolysis Index 6
[2022-02-15] MEDS: methylPREDNISolone Sod Succinate 125 MG/2 ML INJ IV SCH ×3 (06:33→21:00)
[2022-02-15] MEDS: IPRATROPIUM/ALBUTEROL SULFATE 3 ML AMPUL.NEB IH SCH ×4 (08:00→20:56)
[2022-02-15] MEDS ORDERED: ONDANSETRON 4 MG ODT TAB PO PRN (08:01)
[2022-02-15] MEDS ORDERED: guaiFENesin DM 200/20 MG ORAL LIQD 10 ML PO PRN (08:01)
[2022-02-15] MEDS ORDERED: traMADol 50 MG TAB PO PRN (08:01)
[2022-02-15] MEDS: hydrALAZINE 25 MG TAB PO SCH ×3 (09:15→23:44)
[2022-02-15 09:47] LABS: Blood Urea Nitrogen 21 mg/dL (9-20); Calcium 9.4 mg/dL (8.4-10.2); Hemolysis Index 3
[2022-02-15 09:49] LABS: BUN/Creatinine Ratio 30
[2022-02-15] MEDS ORDERED: NON-FORMULARY EACH (Fluticasone/Salmeterol [Advair Diskus 500-50 Mcg] 1 EACH Blst.W.Dev) IH SCH (10:00)
[2022-02-15] MEDS: MONTELUKAST 10 MG TAB PO SCH (10:14)
[2022-02-15] MEDS: HEPARIN 5,000 UNIT/1 ML VIAL SUB-Q SCH ×2 (10:14→21:04)
[2022-02-15] MEDS: ASPIRIN EC 81 MG TAB PO SCH (10:14)
[2022-02-15] MEDS: PANTOPRAZOLE 40 MG TAB PO SCH ×2 (10:14→21:04)
[2022-02-15] MEDS: amLODIPine 5 MG TAB PO SCH ×2 (10:14→21:04)
[2022-02-15] MEDS: FLUTICASONE PROPIONATE NASAL SPRAY 16 GM NS SCH ×2 (10:14→21:31)
[2022-02-15] MEDS: cefTRIAXone/NS 2 GM/100 ML 2 GM/100 ML BAG IV SCH (10:15)
[2022-02-15] MEDS: oxyCODONE /ACETAMINOPHEN 5-325MG TAB PO PRN ×2 (13:25→20:12)
--- NOTE | 2022-02-15 20:15 | Progress Note ---
Assessment and Plan - Patient Problems (1) Acute respiratory failure with hypoxia and hypercapnia Current Visit: Yes Status: Acute Plan to address problem: Continue BiPAP to decrease the PCO2 Intubation if necessary (2) COPD with exacerbation Current Visit: Yes Status: Acute Plan to address problem: Patient initiated on IV Solu-Medrol IV antibiotics and duo nebs [id number] and as needed. Patient is on BiPAP. Intubation if necessary. Food Counselor consulted. (3) CHF (congestive heart failure) Current Visit: Yes Status: Acute Qualifiers: Heart failure type: diastolic Heart failure chronicity: unspecified Q ualified Code(s): I50.30 - Unspecified diastolic (congestive) heart failure Plan to address problem: Unlikely BNP is normal Echocardiogram for ejection fraction, valvular abnormalities and wall motion abnormalities (4) HTN (hypertension) Current Visit: Yes Status: Chronic Qualifiers: Hypertension type: primary hypertension Qualified Code(s): I10 - Essential (primary) hypertension Plan to address problem: Continue antihypertensives and adjust medications as necessary (5) Acute cystitis Current Visit: Yes Status: Acute Plan to address problem: Patient initiated on antibiotics pending urine cultures (6) Malnutrition Current Visit: Yes Status: Acute Qualifiers: Malnutrition type: protein-calorie malnutrition Protein-calorie malnutrition severity: mild Qualified Code(s): E44.1 - Mild protein-calorie malnutrition Plan to address problem: Dietary supplements requested (7) Hyperkalemia Current Visit: Yes Status: Acute Plan to address problem: Hyperkalemia mild IV calcium gluconate given (8) DVT prophylaxis Current Visit: Yes Status: Acute Plan to address problem: On heparin and GI prophylaxis (9) Advance care planning Current Visit: Yes Status: Acute Plan to address problem: Disease education conducted, care plan discussed, prognosis and diagnosis discussed. Patient is full code. Patient acknowledged understanding of the c are plan. +30 minutes. Subjective Date of service: 02/15/22 Principal diagnosis: Respiratory failure with hypoxia, COPD exacerbation Interval history: 61-year-old history of COPD and hypertension comes in for increasing shortness of breath for the last 2 to 3 days. In the emergency room patient oxygen sa turation very low. In the low 80s. Improved to 94% with 15 L nasal cannula oxygen. Chest x-ray reveals pulmonary edema. Patient was given IV Lasix and was placed on BiPAP. Patient is being admitted for COPD exacerbation and CHF exacerbation. No fever or chills. There are no exacerbating or relieving factors. 02/15/2022 Patient is off BiPAP Much improved Transferred from [facility] to regular medical floor/telemetry Objective - Exam Narrative Exam: Patient is on BiPAP. - Constitutional Vitals: Vital Signs - 12hr 02/15/22 02/15/22 02/15/22 09:00 09:15 10:00 Temperature Pulse Rate 85 76 77 Pulse Rate [ Bilateral Throughout] Respiratory 24 26 H Rate Respiratory Rate [Bilateral Throughout] Blood Pressure 166/79 109/82 135/89 O2 Sat by Pulse 80 L 91 Oximetry 02/15/22 02/15/22 02/15/22 10:14 11:00 12:00 Temperature Pulse Rate 76 77 74 Pulse Rate [ Bilateral Throughout] Respiratory 19 16 Rate Respiratory Rate [Bilateral Throughout] Blood Pressure 109/82 109/82 109/82 O2 Sat by Pulse 88 99 Oximetry 02/15/22 02/15/22 02/15/22 12:01 13:00 13:37 Temperature 98.1 F Pulse Rate 75 Pulse Rate [ 81 Bilateral Throughout] Respiratory 15 Rate Respiratory 20 Rate [Bilateral Throughout] Blood Pressure 163/103 O2 Sat by Pulse 93 Oximetry 02/15/22 02/15/22 02/15/22 14:00 15:00 15:51 Temperature Pulse Rate 79 76 Pulse Rate [ 80 Bilateral Throughout] Respiratory 19 20 Rate Respiratory 20 Rate [Bilateral Throughout] Blood Pressure 163/103 128/66 O2 Sat by Pulse 87 89 Oximetry 02/15/22 02/15/22 02/15/22 16:00 16:26 16:51 Temperature 98.6 F Pulse Rate 74 84 Pulse Rate [ Bilateral Throughout] Respiratory 16 Rate Respiratory Rate [Bilateral Throughout] Blood Pressure 139/81 153/74 O2 Sat by Pulse 99 Oximetry 02/15/22 02/15/22 02/15/22 17:00 18:00 19:00 Temperature Pulse Rate 87 79 79 Pulse Rate [ Bilateral Throughout] Respiratory 13 20 17 Rate Respiratory Rate [Bilateral Throughout] Blood Pressure 153/74 158/77 167/78 O2 Sat by Pulse 86 91 85 Oximetry General appearance: Present: no acute distress, well-nourished - EENT Eyes: PERRL, EOM intact ENT: hearing intact, clear oral mucosa Ears: bilateral: normal - Neck Neck: supple, normal ROM - Respiratory Respiratory effort: normal Respiratory: bilateral: CTA - Breasts Breasts: normal - Cardiovascular Heart rate: 78 Rhythm: regular Heart Sounds: Present: S1 & S2. Absent: gallop, rub Extremities: pulses intact, No edema, normal color, Full ROM - Gastrointestinal General gastrointestinal: Present: soft, non-tender, non-distended, normal bowel sounds Rectal Exam: deferred - Genitourinary Male genitourinary: normal - Integumentary Integumentary: clear, warm, dry - Musculoskeletal Musculoskeletal: 1, strength equal bilaterally - Neurologic Neurologic: moves all extremities - Psychiatric Psychiatric: memory intact, appropriate mood/affect, intact judgment & insight - Labs CBC & Chem 7: 02/15/22 05:08 02/15/22 09:13 Labs: Abnormal lab results 02/15/22 02/15/22 02/15/22 Range/Units 05:08 05:08 09:13 Lymph % (Auto) 7.6 L (13.4-35.0) % Lymph # (Auto) 0.8 L (1.2-5.4) K/mm3 Seg Neutrophils % 89.1 H (40.0-70.0) % Seg Neutrophils # 9.3 H (1.8-7.7) K/mm3 Potassium 5.8 H D 5.1 H (3.6-5.0) mmol/L Carbon Dioxide 34 H 36 H (22-30) mmol/L BUN 21 H (9-20) mg/dL Creatinine 0.7 L (0.8-1.3) mg/dL Glucose 134 H 172 H (75-100) mg/dL Total Protein 5.5 L (6.3-8.2) g/dL Albumin 3.6 L (3.9-5) g/dL HEART Score - HEART Score Age: 45-65 Risk factors: 1-2 risk factors Troponin: < normal limit - Critical Actions Critical Actions: 4-6 pts:12-16.6% risk of adverse cardiac event. Should be admitted
[2022-02-15] MEDS: BUDESONIDE 0.5 MG/2 ML NEBU IH SCH (20:56)
[2022-02-15] MEDS: ARFORMOTEROL 15 MCG/2 ML NEBU IH SCH (20:56)
[2022-02-15] MEDS: MORPHINE 2 MG/1 ML INJ IV PRN (21:01)
[2022-02-15] MEDS: AZITHROMYCIN/NS 500 MG/250 ML 500 MG/250 ML BAG IV SCH (21:30)
[2022-02-16] MEDS: MORPHINE 2 MG/1 ML INJ IV PRN ×4 (01:02→21:47)
[2022-02-16] MEDS: oxyCODONE /ACETAMINOPHEN 5-325MG TAB PO PRN ×2 (02:27→12:17)
[2022-02-16 03:21] LABS: Bacteria,Urine 1+ /HPF (Negative)
[2022-02-16 03:24] LABS: Color,Urine Yellow (Yellow)
[2022-02-16] MEDS: methylPREDNISolone Sod Succinate 125 MG/2 ML INJ IV SCH ×3 (05:14→21:42)
[2022-02-16] MEDS ORDERED: CALCIUM GLUCONATE 2,000 MG in SODIUM CHLORIDE 0.9% 100 ML IV ONE (09:30)
[2022-02-16] MEDS: IPRATROPIUM/ALBUTEROL SULFATE 3 ML AMPUL.NEB IH SCH ×4 (09:41→22:05)
[2022-02-16] MEDS: BUDESONIDE 0.5 MG/2 ML NEBU IH SCH ×2 (09:42→22:05)
[2022-02-16] MEDS: ARFORMOTEROL 15 MCG/2 ML NEBU IH SCH ×2 (09:42→22:05)
[2022-02-16] MEDS ORDERED: HYPROMELLOSE 0.5% OPHTH SOLN 15 ML OU PRN (10:00)
[2022-02-16] MEDS: ASPIRIN EC 81 MG TAB PO SCH (12:00)
[2022-02-16] MEDS: MONTELUKAST 10 MG TAB PO SCH (12:00)
[2022-02-16] MEDS: cefTRIAXone/NS 2 GM/100 ML 2 GM/100 ML BAG IV SCH (12:00)
[2022-02-16] MEDS: amLODIPine 5 MG TAB PO SCH ×2 (12:00→21:43)
[2022-02-16] MEDS: HEPARIN 5,000 UNIT/1 ML VIAL SUB-Q SCH ×2 (12:01→21:42)
[2022-02-16] MEDS: PANTOPRAZOLE 40 MG TAB PO SCH ×2 (12:01→21:43)
[2022-02-16] MEDS: FLUTICASONE PROPIONATE NASAL SPRAY 16 GM NS SCH (12:02)
[2022-02-16] MEDS: hydrALAZINE 25 MG TAB PO SCH ×2 (12:05→20:37)
--- NOTE | 2022-02-16 20:46 | Progress Note ---
Assessment and Plan - Patient Problems (1) Acute respiratory failure with hypoxia and hypercapnia Current Visit: Yes Status: Acute Plan to address problem: Supplemental oxygen, pulse oximetry, nebulizer therapy, wean submental oxygen as tolerated. Ambulatory O2 sat in AM. Discharge planning when patient hypoxemia is resolved. (2) Diastolic CHF Current Visit: Yes Status: Suspected Qualifiers: Heart failure chronicity: acute on chronic Qualified Code(s): I50.33 - Acute on chronic diastolic (congestive) heart failure Plan to address problem: Strict I's/O, monitoring output every shift, daily weight, afterload reduction, blood pressure control. (3) COPD exacerbation Current Visit: No Status: Acute Plan to address problem: Supplemental oxygen, pulse oximetry, continue supportive care. IV steroid therapy, continue medical management. (4) Obesity hypoventilation syndrome Current Visit: No Status: Acute Plan to address problem: Balanced diet, increase physical activity discharge, outpatient pulmonary follow-up for sleep clinic. (5) GERD (gastroesophageal reflux disease) Current Visit: No Status: Chronic Qualifiers: Esophagitis presence: without esophagitis Qualified Code(s): K21.9 - Gastro-esophageal reflux disease without esophagitis Plan to address problem: PPI therapy, supportive care. (6) Hypertension Current Visit: No Status: Chronic Qualifiers: Hypertension type: primary hypertension Qualified Code(s): I10 - Essential (primary) hypertension Plan to address problem: Monitor blood pressure every shift, continue medical management. (7) DVT prophylaxis Current Visit: Yes Status: Acute Plan to address problem: SCD to bilateral lower extremities while in bed (8) Advance care planning Current Visit: No Status: Acute Plan to address problem: Disease education data, care plan discussed, diagnoses discussed, prognosis discussed, patient is full code. +30 minutes (9) Preventative health care Current Visit: Yes Status: Acute Plan to address problem: Patient counseled regarding weight reduction, increase physical activity discharge, outpatient pulm follow-up with primary care physician for all age and risk factor appropriate screening test. +30 minutes. History Interval history: 61-year-old male hospital day 3 with acute hypoxemic respiratory failure secondary to COPD exacerbation. Patient continues to require high flow supplemental oxygen. Continue medical management, continue supportive care. Patient denies pain. Hospitalist Physical - Constitutional Vitals: Temp Pulse Resp BP Pulse Ox 97.9 F 71 20 185/74 92 02/16/22 19:36 02/16/22 19:36 02/16/22 19:36 02/16/22 19:36 02/16/22 19:36 General appearance: Present: no acute distress, well-nourished, obese - EENT Eyes: Present: PERRL ENT: hearing intact - Neck Neck: Present: supple - Respiratory Respiratory effort: normal Respiratory: bilateral: diminished - Cardiovascular Rhythm: regular Heart Sounds: Present: S1 & S2 - Extremities Extremities: no ischemia Extremity abnormal: edema Peripheral Pulses: within normal limits - Abdominal General gastrointestinal: soft, non-tender, non-distended - Integumentary Integumentary: Present: clear, dry - Psychiatric Psychiatric: cooperative - Neurologic Neurologic: CNII-XII intact HEART Score - HEART Score Age: 45-65 Risk factors: 1-2 risk factors Troponin: < normal limit - Critical Actions Critical Actions: 4-6 pts:12-16.6% risk of adverse cardiac event. Should be admitted Results - Labs CBC & Chem 7: 02/15/22 05:08 02/15/22 09:13 Labs: Laboratory Last Values WBC 10.5 K/mm3 (4.5-11.0) 02/15/22 05:08 RBC 4.46 M/mm3 (3.65-5.03) 02/15/22 05:08 Hgb 12.5 gm/dl (11.8-15.2) 02/15/22 05:08 Hct 39.4 % (35.5-45.6) 02/15/22 05:08 MCV 88 fl (84-94) 02/15/22 05:08 MCH 28 pg (28-32) 02/15/22 05:08 MCHC 32 % (32-34) 02/15/22 05:08 RDW 14.7 % (13.2-15.2) 02/15/22 05:08 Plt Count 208 K/mm3 (140-440) 02/15/22 05:08 Lymph % (Auto) 7.6 % (13.4-35.0) L 02/15/22 05:08 [place] % (Auto) 3.2 % (0.0-7.3) 02/15/22 05:08 Eos % (Auto) 0.0 % (0.0-4.3) 02/15/22 05:08 Baso % (Auto) 0.1 % (0.0-1.8) 02/15/22 05:08 Lymph # (Auto) 0.8 K/mm3 (1.2-5.4) L 02/15/22 05:08 [place] # (Auto) 0.3 K/mm3 (0.0-0.8) 02/15/22 05:08 Eos # (Auto) 0.0 K/mm3 (0.0-0.4) 02/15/22 05:08 Baso # (Auto) 0.0 K/mm3 (0.0-0.1) 02/15/22 05:08 Seg Neutrophils % 89.1 % (40.0-70.0) H 02/15/22 05:08 Seg Neutrophils # 9.3 K/mm3 (1.8-7.7) H 02/15/22 05:08 ABG pH 7.278 pH Units (7.350-7.450) L 02/14/22 15:28 ABG pCO2 71.7 mm Hg 02/14/22 15:28 ABG pO2 141.9 mm Hg (80.0-90.0) H 02/14/22 15:28 ABG HCO3 32.8 mmol/L (20.0-26.0) H 02/14/22 15:28 ABG O2 Saturation 98.4 % (95.0-99.0) 02/14/22 15:28 ABG O2 Content 18.4 (0.0-44) 02/14/22 15:28 ABG Base Excess 3.9 mmol/L (-2.0-3.0) H 02/14/22 15:28 ABG Hemoglobin 13.4 gm/dl (14.0-18.0) L 02/14/22 15:28 ABG Carboxyhemoglobin 1.8 % (0.0-5.0) 02/14/22 15:28 ABG Methemoglobin 0.5 % (0.0-1.5) 02/14/22 15:28 Oxyhemoglobin 96.1 % (95.0-99.0) 02/14/22 15:28 FiO2 40 % 02/14/22 15:28 Sodium 140 mmol/L (137-145) 02/15/22 09:13 Potassium 5.1 mmol/L (3.6-5.0) H 02/15/22 09:13 Chloride 99.3 mmol/L (98-107) 02/15/22 09:13 Carbon Dioxide 36 mmol/L (22-30) H 02/15/22 09:13 Anion Gap 10 mmol/L 02/15/22 09:13 BUN 21 mg/dL (9-20) H 02/15/22 09:13 Creatinine 0.7 mg/dL (0.8-1.3) L 02/15/22 09:13 Estimated GFR > 60 ml/min 02/15/22 09:13 BUN/Creatinine Ratio 30 % 02/15/22 09:13 Glucose 172 mg/dL (75-100) H 02/15/22 09:13 POC Glucose 185 mg/dL (70-105) H 02/16/22 17:31 Calcium 9.4 mg/dL (8.4-10.2) 02/15/22 09:13 Phosphorus 3.70 mg/dL (2.5-4.5) 02/15/22 09:13 Magnesium 2.00 mg/dL (1.7-2.3) 02/15/22 09:13 Total Bilirubin 0.30 mg/dL (0.1-1.2) 02/15/22 05:08 AST 11 units/L (5-40) 02/15/22 05:08 ALT 19 units/L (7-56) 02/15/22 05:08 Alkaline Phosphatase 84 units/L (35-129) 02/15/22 05:08 NT-Pro-B Natriuret Pep 68.16 pg/mL (0-900) 02/14/22 05:05 Total Protein 5.5 g/dL (6.3-8.2) L 02/15/22 05:08 Albumin 3.6 g/dL (3.9-5) L 02/15/22 05:08 Albumin/Globulin Ratio 1.9 % 02/15/22 05:08 Lipase 24 units/L (13-60) 02/14/22 05:05 Urine Color Yellow (Yellow) 02/16/22 02:42 Urine Turbidity Slightly cloudy (Clear) 02/16/22 02:42 Specific [place] (Man) 1.025 (1.003-1.030) 02/16/22 02:42 Ur Protein (Man) 1+ mg/dL (Negative) 02/16/22 02:42 Ur Ketones (Man) Negative (Negative) 02/16/22 02:42 Ur Nitrite (Man) Negative (Negative) 02/16/22 02:42 Ur Reducing Substances Not Reportable 02/16/22 02:42 Urine Bilirubin (Man) Negative (Negative) 02/16/22 02:42 Urine Ictotest Not Reportable 02/16/22 02:42 Leukocyte Esterase (Man) Negative (Negative) 02/16/22 02:42 Urine WBC (Auto) 9.0 /HPF (0.0-6.0) H 02/16/22 02:42 Urine RBC (Auto) 1.0 /HPF (0.0-6.0) 02/16/22 02:42 U Epithel Cells (Auto) < 1.0 /HPF (0-13.0) 02/16/22 02:42 Urine Bacteria (Auto) 1+ /HPF (Negative) 02/16/22 02:42 Urine RBC (Manual) Negative (Negative) 02/16/22 02:42 Urine WBC Clumps 2+ /HPF 02/14/22 Unknown Uric Acid Crystals 2+ 02/14/22 Unknown Urine Mucus 1+ /HPF 02/14/22 Unknown Urine Yeast (Budding) 2+ /HPF 02/14/22 Unknown Active Medications - Current Medications Current Medications: Generic Name Dose Route Start Last Admin Trade Name Freq PRN Reason Stop Dose Admin Acetaminophen 650 mg 02/14/22 20:21 Acetaminophen 325 Mg Tab PO Q4H PRN Pain MILD(1-3)/Fever >100.5/ACOSTA Albuterol/Ipratropium 1 ampul 02/16/22 14:00 02/16/22 14:59 Ipratropium/Albuterol Sulfate 3 Ml Ampul.Neb IH 1 ampul TIDRT ROLAN Administration Amlodipine Besylate 5 mg 02/15/22 10:00 02/16/22 12:00 Amlodipine 5 Mg Tab PO 5 mg BID ROLAN Administration Arformoterol Tartrate 15 mcg 02/15/22 20:00 02/16/22 09:42 Arformoterol 15 Mcg/2 Ml Nebu IH 15 mcg Q12HRT ROLAN Administration Artificial Tears 2 drops 02/16/22 10:00 Hypromellose 0.5% Ophth Soln 15 Ml OU Q4H PRN Dry Eye(s) Aspirin 81 mg 02/15/22 10:00 02/16/22 12:00 Aspirin Ec 81 Mg Tab PO 81 mg DAILY ROLAN Administration Azithromycin 500 mg 02/16/22 21:00 Azithromycin 250 Mg Tab PO 02/18/22 21:01 Q24H ROLAN Protocol Budesonide 0.5 mg 02/15/22 20:00 02/16/22 09:42 Budesonide 0.5 Mg/2 Ml Nebu IH 0.5 mg Q12HRT ROLAN Administration Fluticasone Propionate 50 mcg 02/15/22 10:00 02/16/22 12:02 Fluticasone Propionate Nasal [place] 16 Gm NS 50 mcg BID ROLAN Administration Guaifenesin 10 ml 02/15/22 08:01 Guaifenesin Dm 200/20 Mg Oral Liqd 10 Ml PO Q4H PRN Cough Heparin Sodium (Porcine) 5,000 unit 02/14/22 22:00 02/16/22 12:01 Heparin 5,000 Unit/1 Ml Vial SUB-Q 5,000 unit Q12HR ROLAN Administration Hydralazine HCl 50 mg 02/15/22 08:15 02/16/22 20:37 Hydralazine 25 Mg Tab PO 50 mg Q8H ROLAN Administration Ceftriaxone Sodium 2 gm in 100 mls @ 200 mls/hr 02/14/22 21:00 02/16/22 12:00 Rocephin/Ns 2 Gm/100 Ml IV 02/18/22 10:29 200 mls/hr Q24HR ROLAN Administration Protocol Methylprednisolone Sodium Succinate 80 mg 02/14/22 22:00 02/16/22 14:49 Methylprednisolone Sod Succinate 125 Mg/2 Ml Inj IV 80 mg Q8HR ROLAN Administration Montelukast Sodium 10 mg 02/15/22 10:00 02/16/22 12:00 Montelukast 10 Mg Tab PO 10 mg QAM ROLAN Administration Morphine Sulfate 2 mg 02/14/22 20:21 02/16/22 14:54 Morphine 2 Mg/1 Ml Inj IV 2 mg Q4H PRN Administration Pain, Moderate (4-6) Ondansetron HCl 4 mg 02/14/22 20:21 Ondansetron 4 Mg/2 Ml Inj IV Q8H PRN Nausea And Vomiting Ondansetron HCl 4 mg 02/15/22 08:01 Ondansetron 4 Mg Odt Tab PO Q8HR PRN Nausea And Vomiting Oxycodone/Acetaminophen 1 tab 02/14/22 20:21 02/16/22 12:17 Oxycodone /Acetaminophen 5-325mg Tab PO 1 tab Q6H PRN Administration Pain, Moderate (4-6) Pantoprazole Sodium 40 mg 02/15/22 10:00 02/16/22 12:01 Pantoprazole 40 Mg Tab PO 40 mg BID ROLAN Administration Sodium Chloride 10 ml 02/14/22 22:00 02/16/22 12:01 Sodium Chloride 0.9% 10 Ml Flush Syringe IV 10 ml BID ROLAN Administration Sodium Chloride 10 ml 02/14/22 20:21 Sodium Chloride 0.9% 10 Ml Flush Syringe IV PRN PRN LINE FLUSH Tiotropium [place] 1 puff 02/15/22 10:00 Tiotropium 18 Mcg Cap Inhalation IH QDAY ROLAN Tramadol HCl 50 mg 02/15/22 08:01 Tramadol 50 Mg Tab PO Q4HR PRN PAIN
[2022-02-16] MEDS: AZITHROMYCIN 250 MG TAB PO SCH (21:43)
[2022-02-16] MEDS: TIOTROPIUM 18 MCG CAP INHALATION IH SCH (21:55)
[2022-02-17] MEDS: BUDESONIDE 0.5 MG/2 ML NEBU IH SCH ×2 (09:00→21:28)
[2022-02-17] MEDS: ARFORMOTEROL 15 MCG/2 ML NEBU IH SCH ×2 (09:00→21:28)
[2022-02-17] MEDS: IPRATROPIUM/ALBUTEROL SULFATE 3 ML AMPUL.NEB IH SCH ×3 (09:00→21:28)
[2022-02-17] MEDS: MORPHINE 2 MG/1 ML INJ IV PRN ×2 (09:38→20:36)
[2022-02-17] MEDS: MONTELUKAST 10 MG TAB PO SCH (09:39)
[2022-02-17] MEDS: ASPIRIN EC 81 MG TAB PO SCH (09:39)
[2022-02-17] MEDS: cefTRIAXone/NS 2 GM/100 ML 2 GM/100 ML BAG IV SCH (09:39)
[2022-02-17] MEDS: PANTOPRAZOLE 40 MG TAB PO SCH ×3 (09:39→21:21)
[2022-02-17] MEDS: amLODIPine 5 MG TAB PO SCH ×3 (09:39→21:21)
[2022-02-17] MEDS: HEPARIN 5,000 UNIT/1 ML VIAL SUB-Q SCH ×3 (09:40→21:21)
[2022-02-17] MEDS: FLUTICASONE PROPIONATE NASAL SPRAY 16 GM NS SCH ×3 (09:41→21:23)
[2022-02-17] MEDS: hydrALAZINE 25 MG TAB PO SCH ×3 (10:01→21:20)
--- NOTE | 2022-02-17 10:02 | Progress Note ---
Assessment and Plan Assessment and plan: 61-year-old history of COPD and hypertension comes in for increasing shortness of breath and was found to have low saturation in the 80s in the emergency department. Patient's saturation improved to 94% with 15 L nasal cannula oxygen. Chest x-ray revealed pulmonary edema. Patient was given IV Lasix and was placed on BiPAP. Patient was admitted for COPD exacerbation and CHF exacerbation. Acute hypoxic respiratory failure Acute COPD exacerbation Acute diastolic heart failure Hypertension Acute cystitis Moderate protein calorie malnutrition 02/17/2022. Patient is no longer on BiPAP but still requiring 3 L O2. Patient reports on home O2 of 2 L. We will continue IV steroids and begin to taper. Continue continue antibiotics for UTI. Echocardiogram reveals left ventricular systolic function grossly normal. Left ventricular ejection fraction 55%. Anticipate discharge in a.m. History Interval history: No new issues overnight Hospitalist Physical - Constitutional Vitals: Temp Pulse Resp BP Pulse Ox 97.4 F L 87 22 187/78 97 02/17/22 08:44 02/17/22 09:03 02/17/22 09:03 02/17/22 08:44 02/17/22 09:04 General appearance: Present: no acute distress, well-nourished - EENT Eyes: Present: PERRL, EOM intact ENT: hearing intact, clear oral mucosa, dentition normal - Neck Neck: Present: supple, normal ROM - Respiratory Respiratory effort: normal Respiratory: bilateral: CTA - Cardiovascular Rhythm: regular Heart Sounds: Present: S1 & S2. Absent: gallop, rub - Extremities Extremities: no ischemia, No edema, Full ROM - Abdominal General gastrointestinal: soft, non-tender, non-distended, normal bowel sounds - Integumentary Integumentary: Present: clear, warm, dry - Neurologic Neurologic: CNII-XII intact, moves all extremities HEART Score - HEART Score Age: 45-65 Risk factors: 1-2 risk factors Troponin: < normal limit - Critical Actions Critical Actions: 4-6 pts:12-16.6% risk of adverse cardiac event. Should be admitted Results - Labs CBC & Chem 7: 02/15/22 05:08 02/15/22 09:13 Labs: Laboratory Last Values WBC 10.5 K/mm3 (4.5-11.0) 02/15/22 05:08 RBC 4.46 M/mm3 (3.65-5.03) 02/15/22 05:08 Hgb 12.5 gm/dl (11.8-15.2) 02/15/22 05:08 Hct 39.4 % (35.5-45.6) 02/15/22 05:08 MCV 88 fl (84-94) 02/15/22 05:08 MCH 28 pg (28-32) 02/15/22 05:08 MCHC 32 % (32-34) 02/15/22 05:08 RDW 14.7 % (13.2-15.2) 02/15/22 05:08 Plt Count 208 K/mm3 (140-440) 02/15/22 05:08 Lymph % (Auto) 7.6 % (13.4-35.0) L 02/15/22 05:08 [place] % (Auto) 3.2 % (0.0-7.3) 02/15/22 05:08 Eos % (Auto) 0.0 % (0.0-4.3) 02/15/22 05:08 Baso % (Auto) 0.1 % (0.0-1.8) 02/15/22 05:08 Lymph # (Auto) 0.8 K/mm3 (1.2-5.4) L 02/15/22 05:08 [place] # (Auto) 0.3 K/mm3 (0.0-0.8) 02/15/22 05:08 Eos # (Auto) 0.0 K/mm3 (0.0-0.4) 02/15/22 05:08 Baso # (Auto) 0.0 K/mm3 (0.0-0.1) 02/15/22 05:08 Seg Neutrophils % 89.1 % (40.0-70.0) H 02/15/22 05:08 Seg Neutrophils # 9.3 K/mm3 (1.8-7.7) H 02/15/22 05:08 ABG pH 7.278 pH Units (7.350-7.450) L 02/14/22 15:28 ABG pCO2 71.7 mm Hg 02/14/22 15:28 ABG pO2 141.9 mm Hg (80.0-90.0) H 02/14/22 15:28 ABG HCO3 32.8 mmol/L (20.0-26.0) H 02/14/22 15:28 ABG O2 Saturation 98.4 % (95.0-99.0) 02/14/22 15: ABG O2 Content 18.4 (0.0-44) 02/14/22 15:28 ABG Base Excess 3.9 mmol/L (-2.0-3.0) H 02/14/22 15:28 ABG Hemoglobin 13.4 gm/dl (14.0-18.0) L 02/14/22 15:28 ABG Carboxyhemoglobin 1.8 % (0.0-5.0) 02/14/22: ABG Methemoglobin 0.5 % (0.0-1.5) 02/14/22: Oxyhemoglobin 96.1 % (95.0-99.0) 02/14/22: FiO2 40 % 02/14/22 15:28 Sodium 140 mmol/L (137-145) 02/15/22 09:13 Potassium 5.1 mmol/L (3.6-5.0) H 02/15/22 09:13 Chloride 99.3 mmol/L (98-107) 02/15/22 09:13 Carbon Dioxide 36 mmol/L (22-30) H 02/15/22 09:13 Anion Gap 10 mmol/L 02/15/22 09:13 BUN 21 mg/dL (9-20) H 02/15/22 09:13 Creatinine 0.7 mg/dL (0.8-1.3) L 02/15/22 09:13 Estimated GFR > 60 ml/min 02/15/22 09:13 BUN/Creatinine Ratio 30 % 02/15/22 09:13 Glucose 172 mg/dL (75-100) H 02/15/22 09:13 POC Glucose 185 mg/dL (70-105) H 02/16/22 17:31 Calcium 9.4 mg/dL (8.4-10.2) 02/15/22 09:13 Phosphorus 3.70 mg/dL (2.5-4.5) 02/15/22 09:13 Magnesium 2.00 mg/dL (1.7-2.3) 02/15/22 09:13 Total Bilirubin 0.30 mg/dL (0.1-1.2) 02/15/22 05:08 AST 11 units/L (5-40) 02/15/22 05:08 ALT 19 units/L (7-56) 02/15/22 05:08 Alkaline Phosphatase 84 units/L (35-129) 02/15/22 05:08 NT-Pro-B Natriuret Pep 68.16 pg/mL (0-900) 02/14/22 05:05 Total Protein 5.5 g/dL (6.3-8.2) L 02/15/22 05:08 Albumin 3.6 g/dL (3.9-5) L 02/15/22 05:08 Albumin/Globulin Ratio 1.9 % 02/15/22 05:08 Lipase 24 units/L (13-60) 02/14/22 05:05 Urine Color Yellow (Yellow) 02/16/22 02:42 Urine Turbidity Slightly cloudy (Clear) 02/16/22 02:42 Specific [place] (Man) 1.025 (1.003-1.030) 02/16/22 02:42 Ur Protein (Man) 1+ mg/dL (Negative) 02/16/22 02:42 Ur Ketones (Man) Negative (Negative) 02/16/22 02:42 Ur Nitrite (Man) Negative (Negative) 02/16/22 02:42 Ur Reducing Substances Not Reportable 02/16/22 02:42 Urine Bilirubin (Man) Negative (Negative) 02/16/22 02:42 Urine Ictotest Not Reportable 02/16/22 02:42 Leukocyte Esterase (Man) Negative (Negative) 02/16/22 02:42 Urine WBC (Auto) 9.0 /HPF (0.0-6.0) H 02/16/22 02:42 Urine RBC (Auto) 1.0 /HPF (0.0-6.0) 02/16/22 02:42 U Epithel Cells (Auto) < 1.0 /HPF (0-13.0) 02/16/22 02:42 Urine Bacteria (Auto) 1+ /HPF (Negative) 02/16/22 02:42 Urine RBC (Manual) Negative (Negative) 02/16/22 02:42 Urine WBC Clumps 2+ /HPF 02/14/22 Unknown Uric Acid Crystals 2+ 02/14/22 Unknown Urine Mucus 1+ /HPF 02/14/22 Unknown Urine Yeast (Budding) 2+ /HPF 02/14/22 Unknown Active Medications - Current Medications Current Medications: Generic Name Dose Route Start Last Admin Trade Name Freq PRN Reason Stop Dose Admin Acetaminophen 650 mg 02/14/22 20:21 Acetaminophen 325 Mg Tab PO Q4H PRN Pain MILD(1-3)/Fever >100.5/ACOSTA Albuterol/Ipratropium 1 ampul 02/16/22 14:00 02/17/22 09:00 Ipratropium/Albuterol Sulfate 3 Ml Ampul.Neb IH 1 ampul TIDRT ROLAN Administration Amlodipine Besylate 5 mg 02/15/22 10:00 02/17/22 09:39 Amlodipine 5 Mg Tab PO 5 mg BID ROLAN Administration Arformoterol Tartrate 15 mcg 02/15/22 20:00 02/17/22 09:00 Arformoterol 15 Mcg/2 Ml Nebu IH 15 mcg Q12HRT ROLAN Administration Artificial Tears 2 drops 02/16/22 10:00 02/16/22 21:54 Hypromellose 0.5% Ophth Soln 15 Ml OU 2 drops Q4H PRN Administration Dry Eye(s) Aspirin 81 mg 02/15/22 10:00 02/17/22 09:39 Aspirin Ec 81 Mg Tab PO 81 mg DAILY ROLAN Administration Azithromycin 500 mg 02/16/22 21:00 02/16/22 21:43 Azithromycin 250 Mg Tab PO 02/18/22 21:01 500 mg Q24H ROLAN Administration Protocol Budesonide 0.5 mg 02/15/22 20:00 02/17/22 09:00 Budesonide 0.5 Mg/2 Ml Nebu IH 0.5 mg Q12HRT ROLAN Administration Fluticasone Propionate 50 mcg 02/15/22 10:00 02/17/22 09:41 Fluticasone Propionate Nasal [place] 16 Gm NS 50 mcg BID ROLAN Administration Guaifenesin 10 ml 02/15/22 08:01 Guaifenesin Dm 200/20 Mg Oral Liqd 10 Ml PO Q4H PRN Cough Heparin Sodium (Porcine) 5,000 unit 02/14/22 22:00 02/17/22 09:40 Heparin 5,000 Unit/1 Ml Vial SUB-Q 5,000 unit Q12HR ROLAN Administration Hydralazine HCl 50 mg 02/15/22 08:15 02/16/22 20:37 Hydralazine 25 Mg Tab PO 50 mg Q8H ROLAN Administration Ceftriaxone Sodium 2 gm in 100 mls @ 200 mls/hr 02/14/22 21:00 02/17/22 09:39 Rocephin/Ns 2 Gm/100 Ml IV 02/18/22 10:29 200 mls/hr Q24HR ROLAN Administration Protocol Methylprednisolone Sodium Succinate 80 mg 02/14/22 22:00 02/16/22 21:42 Methylprednisolone Sod Succinate 125 Mg/2 Ml Inj IV 80 mg Q8HR ROLAN Administration Montelukast Sodium 10 mg 02/15/22 10:00 02/17/22 09:39 Montelukast 10 Mg Tab PO 10 mg QAM ROLAN Administration Morphine Sulfate 2 mg 02/14/22 20:21 02/17/22 09:38 Morphine 2 Mg/1 Ml Inj IV 2 mg Q4H PRN Administration Pain, Moderate (4-6) Ondansetron HCl 4 mg 02/14/22 20:21 Ondansetron 4 Mg/2 Ml Inj IV Q8H PRN Nausea And Vomiting Ondansetron HCl 4 mg 02/15/22 08:01 Ondansetron 4 Mg Odt Tab PO Q8HR PRN Nausea And Vomiting Oxycodone/Acetaminophen 1 tab 02/14/22 20:21 02/16/22 12:17 Oxycodone /Acetaminophen 5-325mg Tab PO 1 tab Q6H PRN Administration Pain, Moderate (4-6) Pantoprazole Sodium 40 mg 02/15/22 10:00 02/17/22 09:39 Pantoprazole 40 Mg Tab PO 40 mg BID ROLAN Administration Sodium Chloride 10 ml 02/14/22 22:00 02/17/22 09:40 Sodium Chloride 0.9% 10 Ml Flush Syringe IV 10 ml BID ROLAN Administration Sodium Chloride 10 ml 02/14/22 20:21 Sodium Chloride 0.9% 10 Ml Flush Syringe IV PRN PRN LINE FLUSH Tiotropium [place] 1 puff 02/15/22 10:00 02/16/22 21:55 Tiotropium 18 Mcg Cap Inhalation IH 1 puff QDAY ROLAN Administration Tramadol HCl 50 mg 02/15/22 08:01 Tramadol 50 Mg Tab PO Q4HR PRN PAIN
[2022-02-17] MEDS: oxyCODONE /ACETAMINOPHEN 5-325MG TAB PO PRN (11:47)
[2022-02-17] MEDS: methylPREDNISolone Sod Succinate 125 MG/2 ML INJ IV SCH ×4 (11:48→21:26)
[2022-02-17] MEDS: AZITHROMYCIN 250 MG TAB PO SCH (20:34)
[2022-02-17] MEDS: TIOTROPIUM 18 MCG CAP INHALATION IH SCH (21:20)
[2022-02-18] MEDS: hydrALAZINE 25 MG TAB PO SCH ×2 (02:03→10:34)
[2022-02-18] MEDS: oxyCODONE /ACETAMINOPHEN 5-325MG TAB PO PRN ×2 (02:03→10:29)
[2022-02-18] MEDS: methylPREDNISolone Sod Succinate 125 MG/2 ML INJ IV SCH (05:15)
[2022-02-18 06:36] LABS: Hematocrit 38.6 % (35.5-45.6); Hemoglobin 12.6 gm/dl (11.8-15.2); Mean Corpuscular HGB Conc 33 % (32-34); Mean Corpuscular Volume 87 fl (84-94); Platelet Count 243 K/mm3 (140-440); Red Blood Count 4.46 M/mm3 (3.65-5.03)
[2022-02-18 06:47] LABS: Blood Urea Nitrogen 22 mg/dL (9-20); Calcium 8.9 mg/dL (8.4-10.2); Hemolysis Index 5
[2022-02-18 06:54] LABS: BUN/Creatinine Ratio 31
[2022-02-18 07:34] LABS: Basophils % (Manual) 0 % (0.0-1.8); Eosinophils % (Manual) 0 % (0.0-4.3); Platelet Estimate Consistent w Auto; Total Cells Counted 100
[2022-02-18] MEDS: ARFORMOTEROL 15 MCG/2 ML NEBU IH SCH (09:30)
[2022-02-18] MEDS: IPRATROPIUM/ALBUTEROL SULFATE 3 ML AMPUL.NEB IH SCH ×2 (09:30→14:26)
[2022-02-18] MEDS: BUDESONIDE 0.5 MG/2 ML NEBU IH SCH (09:31)
[2022-02-18] MEDS: MONTELUKAST 10 MG TAB PO SCH (10:29)
[2022-02-18] MEDS: HEPARIN 5,000 UNIT/1 ML VIAL SUB-Q SCH (10:30)
[2022-02-18] MEDS: ASPIRIN EC 81 MG TAB PO SCH (10:30)
[2022-02-18] MEDS: cefTRIAXone/NS 2 GM/100 ML 2 GM/100 ML BAG IV SCH (10:30)
[2022-02-18] MEDS: amLODIPine 5 MG TAB PO SCH (10:30)
[2022-02-18] MEDS: PANTOPRAZOLE 40 MG TAB PO SCH (10:30)
[2022-02-18] MEDS: FLUTICASONE PROPIONATE NASAL SPRAY 16 GM NS SCH (10:31)
--- NOTE | 2022-02-18 12:31 | Discharge Summary ---
Providers - Providers Date of Admission: 02/14/22 20:22 Date of discharge: 02/18/22 Attending physician: OBED LOPEZ Primary care physician: LUIS DIETZ Hospitalization Condition: Stable Pertinent studies: Chest x-ray consistent with hazy opacities in the mid lung consistent with mild pulmonary edema. Echocardiogram unremarkable ejection fraction 55%. Abdominal CT scan showed hypodense lesion in right lobe of the liver that is decreased in size since 03/01/2017 Hospital course: 61-year-old history of COPD and hypertension comes in for increasing shortness of breath for the last 2 to 3 days. In the emergency room patient oxygen saturation very low. In the low 80s. Improved to 94% with 15 L nasal cannula oxygen. Chest x-ray reveals pulmonary edema. Patient was given IV Lasix and was placed on BiPAP. Patient is being admitted for COPD exacerbation and CHF exacerbation. No fever or chills. Patient was weaned down to room air and sats were greater than 95%. Patient has CPAP machine at home in which she uses. Patient symptoms resolved with a short trial of IV diuresis as well as albuterol nebulizers. Patient stable no shortness of breath no chest pain. Was admitted discharge for COPD exacerbation. Echocardiogram showed ejection fraction of 55%. (1) Acute respiratory failure with hypoxia and hypercapnia Current Visit: Yes Status: Acute Plan to address problem: Supplemental oxygen, pulse oximetry, nebulizer therapy, wean submental oxygen as tolerated. Ambulatory O2 sat in AM. Discharge planning when patient hypoxemia is resolved. (2) Diastolic CHF Current Visit: Yes Status: Suspected Qualifiers: Heart failure chronicity: acute on chronic Qualified Code(s): I50.33 - Acute on chronic diastolic (congestive) heart failure Plan to address problem: Strict I's/O, monitoring output every shift, daily weight, afterload reduction, blood pressure control. (3) COPD exacerbation Current Visit: No Status: Acute Plan to address problem: Supplemental oxygen, pulse oximetry, continue supportive care. IV steroid therapy, continue medical management. (4) Obesity hypoventilation syndrome Current Visit: No Status: Acute Plan to address problem: Balanced diet, increase physical activity discharge, outpatient pulmonary follow-up for sleep clinic. (5) GERD (gastroesophageal reflux disease) Current Visit: No Status: Chronic Qualifiers: Esophagitis presence: without esophagitis Qualified Code(s): K21.9 - Gastro-esophageal reflux disease without esophagitis Plan to address problem: PPI therapy, supportive care. (6) Hypertension Current Visit: No Status: Chronic Qualifiers: Hypertension type: primary hypertension Qualified Code(s): I10 - Essential (primary) hypertension Plan to address problem: Monitor blood pressure every shift, continue medical management. (7) DVT prophylaxis Current Visit: Yes Status: Acute Plan to address problem: SCD to bilateral lower extremities while in bed Disposition: HOME HEALTH CARE SERVICE Final Discharge Diagnosis (Prints w/discharge instructions): Acute hypoxic respiratory failure. COPD exacerbation - Discharge Diagnoses (1) Acute respiratory failure with hypoxia and hypercapnia Status: Acute Comment: Secondary to COPD exacerbation and diastolic heart failure. Ejection fraction has been documented 55%. Patient defervesced well with short trial of IV Lasix as well as nebulizers. Patient is on home O2 at home as well as CPAP. Patient is compliant with CPAP settings have already been arranged. (2) Advance care planning Status: Acute Comment: Patient should follow-up with [facility] in the next 7 to 10 days. Also follow-up primary care physician 7 to 10 days. Further exercise and weight loss. (3) CHF (congestive heart failure) Status: Acute Qualifiers: Heart failure type: diastolic Heart failure chronicity: unspecified Qualified Code(s): I50.30 - Unspecified diastolic (congestive) heart failure Comment: Minimal diastolic heart failure. Currently hemodynamically stable. Patient does not need OMAR inhibitor at this time. We will continue hydralazine amlodipine. Has fair blood pressure control. (4) COPD with exacerbation Status: Acute Comment: Patient COPD exacerbation. Defervesced well with albuterol Atrovent nebulizers as well as steroids. Solu-Medrol. Patient should continue triple therapy with Spiriva and Pulmicort at home. Continue home O2 and CPAP as directed. (5) DVT prophylaxis Status: Acute (6) Liver mass, right lobe Status: Acute Comment: Patient liver lesion smaller. First documented in 2017. No further work-up indicated at this time. (7) Preventative health care Status: Acute Comment: Continue weight loss Low-carb diet. Increase physical activity. Core Measure Documentation - Palliative Care Palliative Care/ Comfort Measures: Not Applicable - Core Measures Any of the following diagnoses?: none Exam - Constitutional Vitals: Temp Pulse Resp BP Pulse Ox 98.0 F 66 18 115/74 94 02/18/22 08:19 02/18/22 08:19 02/18/22 08:19 02/18/22 08:19 02/18/22 09:33 General appearance: Present: no acute distress, well-nourished - EENT Eyes: Present: PERRL ENT: hearing intact, clear oral mucosa - Neck Neck: Present: supple, normal ROM - Respiratory Respiratory effort: normal Respiratory: bilateral: CTA - Cardiovascular Heart Sounds: Present: S1 & S2. Absent: rub, click - Extremities Extremities: pulses symmetrical, No edema Peripheral Pulses: within normal limits - Abdominal General gastrointestinal: Present: soft, non-tender, non-distended, normal bowel sounds Male genitourinary: Present: normal - Integumentary Integumentary: Present: clear, warm, dry - Musculoskeletal Musculoskeletal: gait normal, strength equal bilaterally - Psychiatric Psychiatric: appropriate mood/affect, intact judgment & insight - Neurologic Neurologic: CNII-XII intact, moves all extremities Plan Activity: no restrictions Weight Bearing Status: Full Weight Bearing Diet: low salt, low carbohydrate Follow up with: LUIS DIETZ MD [Primary Care Provider] - 7 Days Prescriptions: Azithromycin 250 mg PO DAILY #6 cephALEXin [Keflex] 500 mg PO Q12HR #20 cap traMADoL [Ultram 50 MG tab] 50 mg PO Q4HR PRN #20 tablet PRN Reason: Pain
[2022-02-18 12:51] VITALS: BP 189/97
== END 2022-02-18 15:56 | disposition home or self-care (01) | DRG 291 ==
LOC: ED 02:18 → IMCU 20:22 → 4A 02-16 05:47
PROVIDERS: ADMIT Internal Medicine; ATTEND Internal Medicine
PROC: 4A033R1 Measurement of Arterial Saturation, Peripheral, Percutaneous Approach (ICD-10-PCS; principal; 2022-02-14)
PROC: 5A09457 Assistance with Respiratory Ventilation, 24-96 Consecutive Hours, Continuous Positive Airway Pressure (ICD-10-PCS; 2022-02-14)
DX: I11.0 Hypertensive heart disease with heart failure (principal); I50.33 Acute on chronic diastolic (congestive) heart failure; J96.01 Acute respiratory failure with hypoxia; J96.02 Acute respiratory failure with hypercapnia; J44.1 Chronic obstructive pulmonary disease with (acute) exacerbation; N30.00 Acute cystitis without hematuria; E66.2 Morbid (severe) obesity with alveolar hypoventilation; E44.0 Moderate protein-calorie malnutrition; Z68.35 Body mass index [BMI] 35.0-35.9, adult; K21.9 Gastro-esophageal reflux disease without esophagitis; G89.29 Other chronic pain; M54.9 Dorsalgia, unspecified; G43.909 Migraine, unspecified, not intractable, without status migrainosus; R16.0 Hepatomegaly, not elsewhere classified; M19.90 Unspecified osteoarthritis, unspecified site; E87.5 Hyperkalemia; Z86.73 Personal history of transient ischemic attack (TIA), and cerebral infarction without residual deficits; Z90.49 Acquired absence of other specified parts of digestive tract; Z79.82 Long term (current) use of aspirin
CPT/HCPCS: 36415; 71045; 74178; 80048; 80053; 81001; 82803; 82962; 83690; 83735; 83880; 84100; 85007; 85025; 87086; 93306; 94640; 94644; 94660; 94760; 96374; 96375; 99285; G0378; C8929; J0456; J0610; J0696; J1644; J1940; J2270; J2405; J2930; J7030; Q9967